=== PATIENT | female | born 1970 | race Caucasian/White ===

== ENCOUNTER → 2017-05-04 | Outpatient (CLI) | payer BC ==
[2017-05-04 21:14] LABS: Basophils % (A) 1 %; CH 23.9; CHCM 29.9; Eosinophils # (A) 0.2 k/uL (0-0.7); Eosinophils % (A) 2 %; HCT 37.6 % (34.0-46.0); HDW 3.43; HGB 11.1 gm/dL (11.4-16.0); Hypochromasia Marked; Luc # (Auto) 0.09; Luc % (Auto) 1; Lymphocytes # (A) 0.9 k/uL (1.0-4.8); Lymphocytes % (A) 11 %; MCH 23.7 pg (25.0-35.0); MCHC 29.5 g/dL (31.0-37.0); MCV 80.3 fL (80.0-100.0); Mean Platelet Volume 8.4; Monocytes # (A) 0.5 k/uL (0-1.0); Monocytes % (A) 6 %; Neutrophils # (A) 6.2 k/uL (1.3-7.7); Neutrophils % (A) 79 %; Poikilocytosis Slight; RBC 4.68 m/uL (3.80-5.40); RDW 15.3 % (11.5-15.5); WBC 7.8 k/uL (3.8-10.6); WBC (Perox) 8.35
[2017-05-04 21:22] LABS: ALT 32 U/L (9-52); AST 19 U/L (14-36); Alkaline Phosphatase 76 U/L (38-126); Anion Gap 12 mmol/L; Blood Urea Nitrogen 12 mg/dL (7-17); Calcium 9.7 mg/dL (8.4-10.2); Carbon Dioxide 25 mmol/L (22-30); Chloride 103 mmol/L (98-107); Cholesterol 180 mg/dL (<200); Glucose 106 mg/dL (74-99); HDL Cholesterol 36 mg/dL (40-60); Non-African American GFR(MDRD) >60 (>60 ml/min/1.73 sqM); Potassium 4.7 mmol/L (3.5-5.1); Sodium 140 mmol/L (137-145); Total Bilirubin 0.3 mg/dL (0.2-1.3); Total Protein 7.3 g/dL (6.3-8.2)
[2017-05-05 03:18] LABS: Urine Creatinine 26.2 mg/dL
== END | disposition home or self-care (01) ==
LOC: MMGSC 17:04
PROVIDERS: ATTEND Family Medicine
DX: E78.5 Hyperlipidemia, unspecified (principal); E11.9 Type 2 diabetes mellitus without complications; E03.9 Hypothyroidism, unspecified; I10 Essential (primary) hypertension
CPT/HCPCS: 36415; 80053; 80061; 82043; 82570; 83036; 84439; 84443; 85025

== ENCOUNTER → 2018-04-07 | Outpatient (CLI) | payer OTHER ==
[2018-04-07 10:39] LABS: ALT 29 U/L (9-52); AST 13 U/L (14-36); Albumin 3.8 g/dL (3.5-5.0); Alkaline Phosphatase 58 U/L (38-126); Anion Gap 11 mmol/L; Blood Urea Nitrogen 16 mg/dL (7-17); Calcium 9.2 mg/dL (8.4-10.2); Carbon Dioxide 22 mmol/L (22-30); Chloride 103 mmol/L (98-107); Cholesterol 193 mg/dL (<200); Glucose 389 mg/dL (74-99); HDL Cholesterol 30 mg/dL (40-60); LDL Cholesterol,Calculated 88 mg/dL (0-99); Potassium 4.2 mmol/L (3.5-5.1); Sodium 136 mmol/L (137-145); Total Bilirubin 0.4 mg/dL (0.2-1.3); Total Protein 6.5 g/dL (6.3-8.2); Triglycerides 377 mg/dL (<150)
[2018-04-07 10:52] LABS: T4, Free (Free Thyroxine) 1.65 ng/dL (0.78-2.19)
[2018-04-07 18:35] LABS: Hemoglobin A1C 13.3 % (4.0-6.0)
== END ==
LOC: LABWHC1 09:41
PROVIDERS: ATTEND Family Medicine
DX: E11.9 Type 2 diabetes mellitus without complications (principal)
CPT/HCPCS: 36415; 80053; 80061; 82043; 82570; 83036; 84439; 84443

== ENCOUNTER 2019-09-01 07:08 | Inpatient (IN) | payer BC, MEDICARE, OTHER ==
[2019-09-01 07:16] LABS: Glucose,Whole Blood 532 mg/dL (75-99)
[2019-09-01] MEDS ORDERED: SODIUM CHLORIDE 0.9% 1,000 ML IV STA (07:31)
[2019-09-01] MEDS ORDERED: SODIUM CHLORIDE 0.9% 1,000 ML IV ONE ×2 (07:31→08:06)
--- NOTE | 2019-09-01 07:31 | ED ---
Altered Mental Status HPI - General Chief Complaint: Altered Mental Status Stated Complaint: Altered Mental Status Time Seen by Provider: 09/01/19 07:15 Source: patient Mode of arrival: EMS Limitations: altered mental status - History of Present Illness Initial Comments: The patient is a 49 year old female past medical history of anxiety, depression, fibromyalgia and diabetes who presents to the emergency room with altered mental status. Sisters at bedside who is her medical power of staff attorney who provides the history. She states that her sister has a tendency to get depressed and not take her medications. She stays in contact with her via text her cell phone. She last talked to her 16 hours ago and the patient seemed confused. She states this is typical for the patient as she does have a tendency to take too much of her Klonopin. She then attempted to get a hold of her this morning. She went to the house and found her sister lying in bed. She had been incontinent. She did respond to tactile stimuli however she is not answering any questions. She has a history of being obstinant. She also will refuse to take her medications. She is concerned that she may have not taken her insulin. There is no signs of trauma as the patient was still lying in bed. EMS checked a blood sugar and the patient's blood sugar was in the 400s. Patient does arrive and plan of care Accu-Chek is 532. Sister states that she has not been in DKA previously. No recent illnesses. No recent travel. Sister states that the patient has not left her house since April. It she reports that she lives in deplorable conditions with significant hoarding tendencies. The remainder of the HPI is limited because the patient's current condition - Related Data Previous Rx's Medication Instructions Recorded Acetaminophen Tab [Tylenol] 650 mg PO Q6HR PRN tab 09/05/19 Amoxic-Pot Clav 875-125Mg 1 tab PO Q12HR 10 Days #6 tab 09/05/19 [Augmentin 875-125] Fluticasone Nasal [place] [Flonase 2 spray EA NOSTRIL DAILY spr 09/05/19 Nasal [place]] INSULIN ASPART (NovoLOG) [NovoLOG 0 unit SQ [id number] vial 09/05/19 (formulary)] Insulin Detemir (Levemir) [Levemir] 15 unit SQ DAILY@0700 syr 09/05/19 Insulin Detemir (Levemir) [Levemir] 15 unit SQ HS syr 09/05/19 Loratadine [Claritin] 10 mg PO DAILY tab 09/05/19 Piperacillin-Tazobactam [Zosyn] 3.375 gm IVPB Q8H vial 09/07/19 Allergies Allergy/AdvReac Type Severity Reaction Status Date / Time cefaclor [From Ceclor] Allergy Unknown Verified 09/03/19 09:30 Review of Systems ROS Statement: Those systems with pertinent positive or pertinent negative responses have been documented in the HPI. ROS Other: All systems not noted in ROS Statement are negative. Past Medical History Past Medical History: Diabetes Mellitus, Fibromyalgia, Skin Disorder Additional Past Medical History / Comment(s): rheumatoid arthritis History of Any Multi-Drug Resistant Organisms: None Reported Past Surgical History: Tonsillectomy Past Psychological History: Depression Smoking Status: Never smoker Past Alcohol Use History: None Reported Past Drug Use History: None Reported - Past Family History Father Additional Family Medical History / Comment(s): heart disease General Exam Limitations: altered mental status General appearance: obtunded Head exam: Present: atraumatic, normocephalic Eye exam: Present: PERRL. Absent: conjunctival injection, periorbital swelling ENT exam: Present: mucous membranes dry, TM's normal bilaterally Neck exam: Present: normal inspection. Absent: tenderness, meningismus, lymphad enopathy Respiratory exam: Present: normal lung sounds bilaterally. Absent: respiratory distress, wheezes, rales, rhonchi, stridor Cardiovascular Exam: Present: normal rhythm, tachycardia GI/Abdominal exam: Present: soft, normal bowel sounds. Absent: distended, tenderness, guarding, rebound, rigid Extremities exam: Present: normal inspection, full ROM, normal capillary refill. Absent: tenderness, pedal edema, joint swelling, calf tenderness Neurological exam: Present: altered, other (the patient wont follow commands. She will open her eyes to tactile stimuli. She does move all 4 extremities spontanously. She is non-verbal. No facial droop. ) Course Vital Signs 09/01/19 09/01/19 09/01/19 07:11 09:07 10:37 Temperature 98.9 F 99.0 F 98.6 F Pulse Rate 131 H 128 H 133 H Respiratory 16 18 18 Rate Blood Pressure 107/89 155/95 125/75 O2 Sat by Pulse 99 100 Oximetry - Reevaluation(s) Reevaluation #1: 09/01/19 08:29 Sister is notified that the patient does have elevated blood sugars and is acetone positive. The patient is receiving her second liter of fluid. VBG, CT and x-ray pending. Patient will be straight cathed for urine Medical Decision Making - Medical Decision Making Upon arrival patient was placed into room 1. A thorough history and physical exam was performed. We did obtain IV access. The patient was given 2 L bolus of normal saline. Laboratory studies were conducted. The patient went over for a chest x-ray and a CT of her brain. Initial Accu-Chek demonstrated the patient's blood sugar was 532. Laboratory studies demonstrate a white blood cell count of 24.2. PH is 7.16, CO2 27, bicarbonate 9. Glucose on CMP is 558. Troponin is negative. TSH is 1. Urine shows 4+ glucose and 4+ ketones. Acetaminophen, salicylates and alcohol are all negative. Acetone is positive. Urine drug screen is negative. Chest x-ray demonstrates low lung volumes and mild cardiomegaly without acute cardiopulmonary process. CT of the brain and cervical spine demonstrates no acute fracture or dislocation evident in the cervical spine. No acute cranial hemorrhage or midline shift. Significant right-sided acute sinusitis. 12-lead EKG demonstrated a sinus tachycardia. The patient is then started on an insulin drip. I did obtain blood cultures and initiated the patient on antibiotics for her sinusitis with elevated white blood cell count. I called and discuss case with Dr. Whiting who accepted admission for the patient. The sister at bedside was updated and the patient was transferred to the ICU in stable condition. Dr. Stein was the accepting pharmacovigilance scientist - Lab Data Result diagrams: 09/08/19 04:32 09/08/19 15:42 Lab Results 09/01/19 09/01/19 09/01/19 Range/Units 07:14 07:30 07:30 WBC 24.2 H (3.8-10.6) k/uL RBC 5.82 H (3.80-5.40) m/uL Hgb 13.6 (11.4-16.0) gm/dL Hct 46.8 H (34.0-46.0) % MCV 80.5 (80.0-100.0) fL MCH 23.4 L (25.0-35.0) pg MCHC 29.1 L (31.0-37.0) g/dL RDW 16.1 H (11.5-15.5) % Plt Count 503 H (150-450) k/uL Neutrophils % 92 % Lymphocytes % 3 % Monocytes % 4 % Eosinophils % 0 % Basophils % 0 % Neutrophils # 22.2 H (1.3-7.7) k/uL Lymphocytes # 0.8 L (1.0-4.8) k/uL Monocytes # 1.0 (0-1.0) k/uL Eosinophils # 0.0 (0-0.7) k/uL Basophils # 0.0 (0-0.2) k/uL Hypochromasia Marked Anisocytosis Slight PT 10.7 (9.0-12.0) sec INR 1.0 (<1.2) APTT 23.6 (22.0-30.0) sec VBG pH (7.31-7.41) VBG pCO2 (37-51) mmHg VBG HCO3 (24-28) mmol/L Sodium (137-145) mmol/L Potassium (3.5-5.1) mmol/L Chloride (98-107) mmol/L Carbon Dioxide (22-30) mmol/L Anion Gap mmol/L BUN (7-17) mg/dL Creatinine (0.52-1.04) mg/dL Est GFR (CKD-EPI)AfAm (>60 ml/min/1.73 sqM) Est GFR (CKD-EPI)NonAf (>60 ml/min/1.73 sqM) Glucose (74-99) mg/dL POC Glucose (mg/dL) 532 H (75-99) mg/dL POC Glu Al[employer] P[employer] Molder ASHLEY Ishmael [address] Glu mg/dL Hemoglobin A1c (4.0-6.0) % Calcium (8.4-10.2) mg/dL Total Bilirubin (0.2-1.3) mg/dL AST (14-36) U/L ALT (4-34) U/L Alkaline Phosphatase (38-126) U/L Ammonia (<30) umol/L Creatine Kinase (30-135) U/L Troponin I (0.000-0.034) ng/mL Total Protein (6.3-8.2) g/dL Albumin (3.5-5.0) g/dL TSH (0.465-4.680) mIU/L Urine Color Urine Appearance (Clear) Urine pH (5.0-8.0) Ur Specific [place] (1.001-1.035) Urine Protein (Negative) Urine Glucose (UA) (Negative) Urine Ketones (Negative) Urine Blood (Negative) Urine Nitrite (Negative) Urine Bilirubin (Negative) Urine Urobilinogen (<2.0) mg/dL Ur Leukocyte Esterase (Negative) Ur Squamous Epith Cells (0-4) /hpf Urine Mucus (None) /hpf Salicylates mg/dL Urine Opiates Screen (NotDetected) Ur Oxycodone Screen (NotDetected) Urine Methadone Screen (NotDetected) Ur Propoxyphene Screen (NotDetected) Acetaminophen ug/mL Ur Barbiturates Screen (NotDetected) U Tricyclic Antidepress (NotDetected) Ur Phencyclidine Scrn (NotDetected) Ur Amphetamines Screen (NotDetected) U Methamphetamines Scrn (NotDetected) U Benzodiazepines Scrn (NotDetected) Urine Cocaine Screen (NotDetected) U Marijuana (THC) Screen (NotDetected) Serum Alcohol mg/dL Acetone, Qual (Negative) 09/01/19 09/01/19 09/01/19 Range/Units 07:30 07:30 07:30 WBC (3.8-10.6) k/uL RBC (3.80-5.40) m/uL Hgb (11.4-16.0) gm/dL Hct (34.0-46.0) % MCV (80.0-100.0) fL MCH (25.0-35.0) pg MCHC (31.0-37.0) g/dL RDW (11.5-15.5) % Plt Count (150-450) k/uL Neutrophils % % Lymphocytes % % Monocytes % % Eosinophils % % Basophils % % Neutrophils # (1.3-7.7) k/uL Lymphocytes # (1.0-4.8) k/uL Monocytes # (0-1.0) k/uL Eosinophils # (0-0.7) k/uL Basophils # (0-0.2) k/uL Hypochromasia Anisocytosis PT (9.0-12.0) sec INR (<1.2) APTT (22.0-30.0) sec VBG pH (7.31-7.41) VBG pCO2 (37-51) mmHg VBG HCO3 (24-28) mmol/L Sodium 135 L (137-145) mmol/L Potassium 4.8 (3.5-5.1) mmol/L Chloride 98 (98-107) mmol/L Carbon Dioxide 7 L* (22-30) mmol/L Anion Gap 30 mmol/L BUN 17 (7-17) mg/dL Creatinine 0.86 (0.52-1.04) mg/dL Est GFR (CKD-EPI)AfAm >90 (>60 ml/min/1.73 sqM) Est GFR (CKD-EPI)NonAf 81 (>60 ml/min/1.73 sqM) Glucose 558 H* (74-99) mg/dL POC Glucose (mg/dL) (75-99) mg/dL POC Glu Almond Paste Molder ID Estimated Ave Glu mg/dL Hemoglobin A1c (4.0-6.0) % Calcium 10.6 H (8.4-10.2) mg/dL Total Bilirubin 0.4 (0.2-1.3) mg/dL AST 16 (14-36) U/L ALT 11 (4-34) U/L Alkaline Phosphatase 71 (38-126) U/L Ammonia <9 (<30) umol/L Creatine Kinase 20 L (30-135) U/L Troponin I <0.012 (0.000-0.034) ng/mL Total Protein 7.7 (6.3-8.2) g/dL Albumin 4.8 (3.5-5.0) g/dL TSH 1.000 (0.465-4.680) mIU/L Urine Color Urine Appearance (Clear) Urine pH (5.0-8.0) Ur Specific [place] (1.001-1.035) Urine Protein (Negative) Urine Glucose (UA) (Negative) Urine Ketones (Negative) Urine Blood (Negative) Urine Nitrite (Negative) Urine Bilirubin (Negative) Urine Urobilinogen (<2.0) mg/dL Ur Leukocyte Esterase (Negative) Ur Squamous Epith Cells (0-4) /hpf Urine Mucus (None) /hpf Salicylates <1.0 mg/dL Urine Opiates Screen (NotDetected) Ur Oxycodone Screen (NotDetected) Urine Methadone Screen (NotDetected) Ur Propoxyphene Screen (NotDetected) Acetaminophen <10.0 ug/mL Ur Barbiturates Screen (NotDetected) U Tricyclic Antidepress (NotDetected) Ur Phencyclidine Scrn (NotDetected) Ur Amphetamines Screen (NotDetected) U Methamphetamines Scrn (NotDetected) U Benzodiazepines Scrn (NotDetected) Urine Cocaine Screen (NotDetected) U Marijuana (THC) Screen (NotDetected) Serum Alcohol <10 mg/dL Acetone, Qual Positive (Negative) 09/01/19 09/01/19 09/01/19 Range/Units 07:30 09:00 09:25 WBC (3.8-10.6) k/uL RBC (3.80-5.40) m/uL Hgb (11.4-16.0) gm/dL Hct (34.0-46.0) % MCV (80.0-100.0) fL MCH (25.0-35.0) pg MCHC (31.0-37.0) g/dL RDW (11.5-15.5) % Plt Count (150-450) k/uL Neutrophils % % Lymphocytes % % Monocytes % % Eosinophils % % Basophils % % Neutrophils # (1.3-7.7) k/uL Lymphocytes # (1.0-4.8) k/uL Monocytes # (0-1.0) k/uL Eosinophils # (0-0.7) k/uL Basophils # (0-0.2) k/uL Hypochromasia Anisocytosis PT (9.0-12.0) sec INR (<1.2) APTT (22.0-30.0) sec VBG pH 7.16 L* (7.31-7.41) VBG pCO2 27 L (37-51) mmHg VBG HCO3 9 L* (24-28) mmol/L Sodium (137-145) mmol/L Potassium (3.5-5.1) mmol/L Chloride (98-107) mmol/L Carbon Dioxide (22-30) mmol/L Anion Gap mmol/L BUN (7-17) mg/dL Creatinine (0.52-1.04) mg/dL Est GFR (CKD-EPI)AfAm (>60 ml/min/1.73 sqM) Est GFR (CKD-EPI)NonAf (>60 ml/min/1.73 sqM) Glucose (74-99) mg/dL POC Glucose (mg/dL) (75-99) mg/dL POC Glu Al[employer] Paste Molder ID Estimated Ave Glu mg/dL 292 Hemoglobin A1c 11.8 H (4.0-6.0) % Calcium (8.4-10.2) mg/dL Total Bilirubin (0.2-1.3) mg/dL AST (14-36) U/L ALT (4-34) U/L Alkaline Phosphatase (38-126) U/L Ammonia (<30) umol/L Creatine Kinase (30-135) U/L Troponin I (0.000-0.034) ng/mL Total Protein (6.3-8.2) g/dL Albumin (3.5-5.0) g/dL TSH (0.465-4.680) mIU/L Urine Color Urine Appearance (Clear) Urine pH (5.0-8.0) Ur Specific [place] (1.001-1.035) Urine Protein (Negative) Urine Glucose (UA) (Negative) Urine Ketones (Negative) Urine Blood (Negative) Urine Nitrite (Negative) Urine Bilirubin (Negative) Urine Urobilinogen (<2.0) mg/dL Ur Leukocyte Esterase (Negative) Ur Squamous Epith Cells (0-4) /hpf Urine Mucus (None) /hpf Salicylates mg/dL Urine Opiates Screen Not Detected (NotDetected) Ur Oxycodone Screen Not Detected (NotDetected) Urine Methadone Screen Not Detected (NotDetected) Ur Propoxyphene Screen Not Detected (NotDetected) Acetaminophen ug/mL Ur Barbiturates Screen Not Detected (NotDetected) U Tricyclic Antidepress Not Detected (NotDetected) Ur Phencyclidine Scrn Not Detected (NotDetected) Ur Amphetamines Screen Not Detected (NotDetected) U Methamphetamines Scrn Not Detected (NotDetected) U Benzodiazepines Scrn Not Detected (NotDetected) Urine Cocaine Screen Not Detected (NotDetected) U Marijuana (THC) Screen Not Detected (NotDetected) Serum Alcohol mg/dL Acetone, Qual (Negative) 09/01/19 09/01/19 Range/Units 09:25 09:42 WBC (3.8-10.6) k/uL RBC (3.80-5.40) m/uL Hgb (11.4-16.0) gm/dL Hct (34.0-46.0) % MCV (80.0-100.0) fL MCH (25.0-35.0) pg MCHC (31.0-37.0) g/dL RDW (11.5-15.5) % Plt Count (150-450) k/uL Neutrophils % % Lymphocytes % % Monocytes % % Eosinophils % % Basophils % % Neutrophils # (1.3-7.7) k/uL Lymphocytes # (1.0-4.8) k/uL Monocytes # (0-1.0) k/uL Eosinophils # (0-0.7) k/uL Basophils # (0-0.2) k/uL Hypochromasia Anisocytosis PT (9.0-12.0) sec INR (<1.2) APTT (22.0-30.0) sec VBG pH (7.31-7.41) VBG pCO2 (37-51) mmHg VBG HCO3 (24-28) mmol/L Sodium (137-145) mmol/L Potassium (3.5-5.1) mmol/L Chloride (98-107) mmol/L Carbon Dioxide (22-30) mmol/L Anion Gap mmol/L BUN (7-17) mg/dL Creatinine (0.52-1.04) mg/dL Est GFR (CKD-EPI)AfAm (>60 ml/min/1.73 sqM) Est GFR (CKD-EPI)NonAf (>60 ml/min/1.73 sqM) Glucose (74-99) mg/dL POC Glucose (mg/dL) 494 H (75-99) mg/dL POC Glu [employer] M[employer] ASHLEY Ishmael [address] Glu mg/dL Hemoglobin A1c (4.0-6.0) % Calcium (8.4-10.2) mg/dL Total Bilirubin (0.2-1.3) mg/dL AST (14-36) U/L ALT (4-34) U/L Alkaline Phosphatase (38-126) U/L Ammonia (<30) umol/L Creatine Kinase (30-135) U/L Troponin I (0.000-0.034) ng/mL Total Protein (6.3-8.2) g/dL Albumin (3.5-5.0) g/dL TSH (0.465-4.680) mIU/L Urine Color Light Yellow Urine Appearance Clear (Clear) Urine pH 5.5 (5.0-8.0) Ur Specific [place] 1.029 (1.001-1.035) Urine Protein 1+ H (Negative) Urine Glucose (UA) 4+ H (Negative) Urine Ketones 4+ H (Negative) Urine Blood Negative (Negative) Urine Nitrite Negative (Negative) Urine Bilirubin Negative (Negative) Urine Urobilinogen <2.0 (<2.0) mg/dL Ur Leukocyte Esterase Negative (Negative) Ur Squamous Epith Cells <1 (0-4) /hpf Urine Mucus Rare H (None) /hpf Salicylates mg/dL Urine Opiates Screen (NotDetected) Ur Oxycodone Screen (NotDetected) Urine Methadone Screen (NotDetected) Ur Propoxyphene Screen (NotDetected) Acetaminophen ug/mL Ur Barbiturates Screen (NotDetected) U Tricyclic Antidepress (NotDetected) Ur Phencyclidine Scrn (NotDetected) Ur Amphetamines Screen (NotDetected) U Methamphetamines Scrn (NotDetected) U Benzodiazepines Scrn (NotDetected) Urine Cocaine Screen (NotDetected) U Marijuana (THC) Screen (NotDetected) Serum Alcohol mg/dL Acetone, Qual (Negative) - EKG Data EKG Comments: EKG demonstrates a sinus tachycardia with a ventricular rate of 1:30. AK interval 112. QRS 66. QTC of 568. No acute ST segment elevations or depressions concerning for ischemic changes. Critical Care Time Critical Care Time: Yes Critical Care Time: 33 minutes Disposition Clinical Impression: Altered mental status, Diabetic keto-acidosis, Sinus tachycardia Disposition: [facility]MITTED [facility] Condition: Serious Is patient prescribed a controlled substance at d/c from ED?: No Decision to Admit Reason: Admit from EC Decision Date: 09/01/19 Decision Time: 09:43
[2019-09-01 08:12] LABS: Partial Thromboplastin Time 23.6 sec (22.0-30.0); Prothrombin Time 10.7 sec (9.0-12.0)
[2019-09-01 08:13] LABS: Anisocytosis Slight; Basophils % (A) 0 %; Eosinophils % (A) 0 %; HCT 46.8 % (34.0-46.0); HGB 13.6 gm/dL (11.4-16.0); Hypochromasia Marked; Lymphocytes # (A) 0.8 k/uL (1.0-4.8); Lymphocytes % (A) 3 %; MCH 23.4 pg (25.0-35.0); MCHC 29.1 g/dL (31.0-37.0); MCV 80.5 fL (80.0-100.0); Mean Platelet Volume 9.3; Monocytes % (A) 4 %; Neutrophils # (A) 22.2 k/uL (1.3-7.7); Neutrophils % (A) 92 %; Platelet Count 503 k/uL (150-450); RBC 5.82 m/uL (3.80-5.40); RDW 16.1 % (11.5-15.5); WBC 24.2 k/uL (3.8-10.6)
[2019-09-01 08:16] LABS: ALT 11 U/L (4-34); AST 16 U/L (14-36); Acetaminophen <10.0 ug/mL; African American GFR (CKD) >90 (>60 ml/min/1.73 sqM); Albumin 4.8 g/dL (3.5-5.0); Alcohol <10 mg/dL; Alkaline Phosphatase 71 U/L (38-126); Blood Urea Nitrogen 17 mg/dL (7-17); Calcium 10.6 mg/dL (8.4-10.2); Chloride 98 mmol/L (98-107); Creatine Kinase 20 U/L (30-135); Non-African American GFR(CKD) 81 (>60 ml/min/1.73 sqM); Potassium 4.8 mmol/L (3.5-5.1); Salicylate <1.0 mg/dL; Sodium 135 mmol/L (137-145); Total Bilirubin 0.4 mg/dL (0.2-1.3); Total Protein 7.7 g/dL (6.3-8.2)
[2019-09-01 08:20] LABS: Anion Gap 30 mmol/L
[2019-09-01 08:26] LABS: Carbon Dioxide 7 mmol/L (22-30); Glucose 558 mg/dL (74-99)
--- NOTE | 2019-09-01 08:56 | XR ---
EXAMINATION TYPE: XR chest 2V DATE OF EXAM: 09/01/2019 COMPARISON: Prior chest x-ray January 31, 2012. HISTORY: Altered mental status and weakness. TECHNIQUE: Frontal and lateral views of the chest are obtained. FINDINGS: There is no focal air space opacity, pleural effusion, or pneumothorax seen. Somewhat low lung volumes redemonstrated. The cardiac silhouette size is stable and mildly enlarged. The osseous structures are intact. IMPRESSION: Low lung volumes and mild cardiomegaly without acute pulmonary process. No significant c hange from prior study.
[2019-09-01] MEDS ORDERED: INSULIN REGULAR 100 UNIT in SODIUM CHLORIDE 0.9% 100 ML IV SCH ×2 (09:00→09:15)
--- NOTE | 2019-09-01 09:14 | CT ---
EXAMINATION TYPE: CT brain cspine wo con DATE OF EXAM: 09/01/2019 COMPARISON: NONE HISTORY: AMS and weakness with neck pain. CT DLP: 1426 mGycm. Automated Exposure Control for Dose Reduction was Utilized. TECHNIQUE: CT scan of the head and cervical spine are performed without contrast. FINDINGS: There is no acute intracranial hemorrhage or midline shift identified. Mild symmetric david ateral frontal lobe atrophy. No hydrocephalus. There is near complete opacification right maxillary s inus expanding medial sinus wall without bony destruction. Near-complete opacification right ethmoid sinuses. Completely opacified right frontal sinus. Globes are intact bilaterally. Cervical spine is visualized in its entirety from C1 through upper thoracic levels and demonstrates dextroconvex scoliotic curvature positioning centered upper thoracic spine without evidence of acute fracture or dislocation. Prevertebral soft tissue appears within normal limits. The C1-C2 articulat ion is within normal limits on the coronal images. Vertebral body heights and disc space heights are maintained. Spinal canal is preserved. Thyroid gland is within normal limits. Axial images are unrema rkable. Lung apices show no pneumothorax. IMPRESSION: 1. There is no acute fracture or dislocation evident in the cervical spine. 2. No acute intracranial hemorrhage or midline shift is seen. Significant right-sided acute sinusitis thought present, correlate clinically. Advise ENT follow-up.
[2019-09-01 09:26] LABS: VBG PH 7.16 (7.31-7.41)
[2019-09-01 09:40] LABS: Appearance,Urine Clear (Clear); Bilirubin,Urine Negative (Negative); Blood,Urine Negative (Negative); Color,Urine Light Yellow; Glucose,Urine (UA) 4+ (Negative); Leukocyte Esterase,Urine Negative (Negative); Mucus,Urine Rare /hpf; Nitrite,Urine Negative (Negative); PH, Urine 5.5 (5.0-8.0); Protein,Urine 1+ (Negative); Specific Gravity,Urine 1.029 (1.001-1.035); Squamous Epithelial Cell,Urine <1 /hpf (0-4); Urobilinogen,Urine <2.0 mg/dL (<2.0)
[2019-09-01 09:45] LABS: Glucose,Whole Blood 494 mg/dL (75-99)
[2019-09-01] MEDS: INSULIN REGULAR 100 UNIT in SODIUM CHLORIDE 0.9% 100 ML IV SCH ×2 (09:45→19:04)
[2019-09-01 09:48] LABS: Amphetamine Screen,Urine Not Detected (NotDetected); Barbiturate Screen,Urine Not Detected (NotDetected); Benzodiazepines Screen,Urine Not Detected (NotDetected); Cocaine Screen,Urine Not Detected (NotDetected); Methadone Screen, Urine Not Detected (NotDetected); Opiate Screen,Urine Not Detected (NotDetected); Oxycodone Screen, Urine Not Detected (NotDetected); Phencyclidine Screen,Urine Not Detected (NotDetected); Tricyclic Antidepressant,Urine Not Detected (NotDetected); Urn Cannabinoid Scrn Not Detected (NotDetected)
[2019-09-01] MEDS ORDERED: PIPERACILLIN-TAZOBACTAM 3.375 GM in SODIUM CHLORIDE 0.9% 100 ML IVPB STA (09:48)
[2019-09-01 09:50] LABS: Ketones,Urine 4+ (Negative)
[2019-09-01 10:52] LABS: Glucose,Whole Blood 433 mg/dL (75-99)
[2019-09-01] MEDS ORDERED: SODIUM CHLORIDE 0.9% 1,000 ML IV SCH ×2 (10:53→11:00)
[2019-09-01 11:20] LABS: Glucose,Whole Blood 365 mg/dL (75-99)
[2019-09-01 12:31] LABS: African American GFR (CKD) >90 (>60 ml/min/1.73 sqM); Anion Gap 22 mmol/L; Blood Urea Nitrogen 19 mg/dL (7-17); Chloride 106 mmol/L (98-107); Glucose 337 mg/dL (74-99); Non-African American GFR(CKD) >90 (>60 ml/min/1.73 sqM); Phosphorus 2.8 mg/dL (2.5-4.5); Sodium 137 mmol/L (137-145)
[2019-09-01 12:37] LABS: Carbon Dioxide 9 mmol/L (22-30)
[2019-09-01] MEDS ORDERED: Magnesium Replacement Protocol 1 EACH MISC MISCELLANE PRN (12:45)
[2019-09-01] MEDS ORDERED: Potassium Replacement Protocol 1 EACH MISC MISCELLANE PRN (12:45)
[2019-09-01] MEDS ORDERED: ASPIRIN 300 MG SUPP RECTAL STA (12:47)
--- NOTE | 2019-09-01 12:54 | P.HPIM ---
History of Present Illness H&P Date: 09/01/19 Chief Complaint: decreased responsiveness Patient is a 49 yo CF with diabetes on insulin, HTN, HLD, and severe agoraphobia who presented to the emergency department via EMS due to mental status changes. She was found altered by her sister this morning. On arrival to the emergency department she underwent an extensive evaluation. Her initial vital signs showed tachycardia with a heart rate of 131. Her initial laboratory analysis showed white blood cell count of 24.2, hemoglobin 13.6, platelets 503. Her INR was normal at 1. Her VBG showed a pH of 7.19 with a bicarbonate 9. Sodium was slightly low at 135, glucose 558, calcium 10.6, troponin was normal. Urinalysis showed glucose urea. She was acetone positive. She underwent CT head and neck which showed significant acute right-sided sinusitis. In the ER she was given 2 L of fluid and started on insulin drip. She was also given a dose of Zosyn for her presumed acute right-sided sinusitis. She was admitted to the ICU for further monitoring. Patient seen and examined at bedside. Currently she is not verbalizing. She appears confused as intermittently following commands. Her sister who is her durable medical power of bakery supervisor is present and answers questions. Patient has severe Agoraphobia and has been hoarding. She has not left her house since April. The family did not hear from her for her normal morning checking and therefore his sister went to the house. She is on it even more disheveled than the last time she saw the house and her sister was not responding appropriately. The blue she has not been taking her medications appropriately. She does take Klonopin 3 times a day normally. They report she has severe depression and anxiety. There are any aware of any current review of systems. Her sister does note some right-sided facial drooping. It appears that she takes Lantus and novolog for diabetes Review of Systems Unable to obtain as the patient verbalized Past Medical History Past Medical History: Diabetes Mellitus, Fibromyalgia, Skin Disorder Additional Past Medical History / Comment(s): rheumatoid arthritis, reynauds, narolepsy, tachycardia, pneumonia History of Any Multi-Drug Resistant Organisms: None Reported Past Surgical History: Tonsillectomy Additional Past Surgical History / Comment(s): wisdom Past Psychological History: Anxiety, Depression Additional Psychological History / Comment(s): agoraphobia Smoking Status: Never smoker Past Alcohol Use History: None Reported Past Drug Use History: None Reported Additional History: Lives at home, has a cane/walker, no [facility] - Past Family History Father Additional Family Medical History / Comment(s): heart disease Medications and Allergies Allergies Allergy/AdvReac Type Severity Reaction Status Date / Time No Known Allergies Allergy Verified 09/01/19 07:17 Physical Exam Osteopathic Statement: *. No significant issues noted on an osteopathic structural exam other than those noted in the History and Physical/Consult. Vitals: Vital Signs Temp Pulse Resp BP Pulse Ox 09/01/19 11:20 98.8 F 122 H 23 130/72 98 09/01/19 10:37 98.6 F 133 H 18 125/75 09/01/19 09:07 99.0 F 128 H 18 155/95 100 09/01/19 07:11 98.9 F 131 H 16 107/89 99 Intake and Output 08/31/19 09/01/19 09/01/19 22:59 06:59 14:59 Other: Voiding Method Indwelling Catheter Weight 115.666 kg General: Ill-appearing, moderate distress, appears older than stated age, obese, disheveled Derm: Multiple upper extremity excoriations as well as chest wall, no unusual rashes/lesions no unusual ecchymoses, warm, dry Head: atraumatic, normocephalic, symmetric Eyes: EOMI, no lid lag, anicteric sclera, pupils equal round reactive to light, roving ENT: Nose and ears atraumatic, no thrush, no pharyngeal erythema Neck: No thyromegaly, no cervical lymphadenopathy, trachea midline, supple Mouth: no lip lesion, mucus membranes dry Cardiovascular: S1S2 tachy, no murmur, + posterior tibial pulse bilateral, no edema, capillary refill less than 2 seconds Lungs: CTA bilateral, no rhonchi, no rales , no accessory muscle use Abdominal: soft, nontender to palpation, no guarding, no appreciable organomegaly, normal bowel sounds Ext: no gross muscle atrophy, moving right upper, left upper, and left lower extremity independently howevere if you lift arms and legs she will let them drop and not hold them up,, not following commends consistently, only moaning, no contractures, Neuro: Moving eye all around room, + cough, + gag, loss of nasal labial fold on the right, no withdrawal to pain RUE, RLE, LLE, moans but does not withdraw to pain LUE, Babinski down going bilateral Psych: lethargic, will open eyes and make eye contact, Results CBC & Chem 7: 09/01/19 07:30 09/01/19 07:30 Labs: Abnormal Lab Results - Last 24 Hours (Table) 09/01/19 09/01/19 09/01/19 Range/Units 07:14 07:30 07:30 WBC 24.2 H (3.8-10.6) k/uL RBC 5.82 H (3.80-5.40) m/uL Hct 46.8 H (34.0-46.0) % MCH 23.4 L (25.0-35.0) pg MCHC 29.1 L (31.0-37.0) g/dL RDW 16.1 H (11.5-15.5) % Plt Count 503 H (150-450) k/uL Neutrophils # 22.2 H (1.3-7.7) k/uL Lymphocytes # 0.8 L (1.0-4.8) k/uL VBG pH (7.31-7.41) VBG pCO2 (37-51) mmHg VBG HCO3 (24-28) mmol/L Sodium 135 L (137-145) mmol/L Carbon Dioxide 7 L* (22-30) mmol/L Glucose 558 H* (74-99) mg/dL POC Glucose (mg/dL) 532 H (75-99) mg/dL Calcium 10.6 H (8.4-10.2) mg/dL Creatine Kinase 20 L (30-135) U/L Urine Protein (Negative) Urine Glucose (UA) (Negative) Urine Ketones (Negative) Urine Mucus (None) /hpf 09/01/19 09/01/19 09/01/19 Range/Units 09:00 09:25 09:42 WBC (3.8-10.6) k/uL RBC (3.80-5.40) m/uL Hct (34.0-46.0) % MCH (25.0-35.0) pg MCHC (31.0-37.0) g/dL RDW (11.5-15.5) % Plt Count (150-450) k/uL Neutrophils # (1.3-7.7) k/uL Lymphocytes # (1.0-4.8) k/uL VBG pH 7.16 L* (7.31-7.41) VBG pCO2 27 L (37-51) mmHg VBG HCO3 9 L* (24-28) mmol/L Sodium (137-145) mmol/L Carbon Dioxide (22-30) mmol/L Glucose (74-99) mg/dL POC Glucose (mg/dL) 494 H (75-99) mg/dL Calcium (8.4-10.2) mg/dL Creatine Kinase (30-135) U/L Urine Protein 1+ H (Negative) Urine Glucose (UA) 4+ H (Negative) Urine Ketones 4+ H (Negative) Urine Mucus Rare H (None) /hpf 09/01/19 09/01/19 Range/Units 10:50 11:18 WBC (3.8-10.6) k/uL RBC (3.80-5.40) m/uL Hct (34.0-46.0) % MCH (25.0-35.0) pg MCHC (31.0-37.0) g/dL RDW (11.5-15.5) % Plt Count (150-450) k/uL Neutrophils # (1.3-7.7) k/uL Lymphocytes # (1.0-4.8) k/uL VBG pH (7.31-7.41) VBG pCO2 (37-51) mmHg VBG HCO3 (24-28) mmol/L Sodium (137-145) mmol/L Carbon Dioxide (22-30) mmol/L Glucose (74-99) mg/dL POC Glucose (mg/dL) 433 H 365 H (75-99) mg/dL Calcium (8.4-10.2) mg/dL Creatine Kinase (30-135) U/L Urine Protein (Negative) Urine Glucose (UA) (Negative) Urine Ketones (Negative) Urine Mucus (None) /hpf Chest x-ray: report reviewed CT Scan - head: report reviewed Thrombosis Risk Factor Assmnt - DVT/VTE Prophylaxis DVT/VTE Prophylaxis: Pharmacologic Prophylaxis ordered Assessment and Plan Assessment: Diabetic ketoacidosis -Insulin drip -Every hour Accu-Cheks -IV fluids per DKA protocol -Serial electrolytes, mag, and phos -Check A1c -cosmetology educator to meet with patient -Currently nothing by mouth secondary to mental status -Replace potassium as per protocol Acute encephalopathy, probable metabolic -MRI brain to rule out acute stroke versus complications of sinusitis -Neuro checks -ASA -Check echo -Carotid Dopplers -Supportive care -Treatment of electrolyte disturbances as above Acute right-sided sinusitis with sepsis -Zosyn -IV fluids -Consult ENT as possibility of fungal sinusitis of untreated diabetes mellitus -Flonase -Claritin Severe metabolic acidosis -Treatment as above for DKA Hypercalcemia - likely due to dehydration - IVF repeat in AM Anxiety and depression with severe agoraphobia and hoarding tendencies -Once patient is more awake and alert will consult psychiatry -Question of lack of movement secondary to conversion disorder versus true neurologic disease Morbid obesity -Outpatient structured weight loss We'll need to attempt to obtain medication reconciliation from Dr. Nicolas's office on 09/02 as patient family is unaware of where she gets her medications filled from The patient is admitted with an anticipated greater than 2 midnight stay for evaluation of DKA. Surrogate decision-maker: Sister CODE STATUS:full DVT prophylaxis: heparin Discussed with: Patient, nursing, ed physician, nursing Anticipated discharge date: 3-[address]: ?[facility] A total of 75 minutes was spent on the care of this complex patient more than 50% of the time was spent in counseling and care coordination.
[2019-09-01 12:58] LABS: Glucose,Whole Blood 283 mg/dL (75-99)
[2019-09-01] MEDS: D5-0.45% NACL WITH KCL 20MEQ/L 1,000 ML IV SCH ×2 (13:00→21:21)
--- NOTE | 2019-09-01 13:51 | US ---
EXAMINATION TYPE: US carotid duplex BILAT DATE OF EXAM: 09/01/2019 COMPARISON: NONE CLINICAL HISTORY: stroke. EXAM MEASUREMENTS: RIGHT: Peak Systolic Velocity (PSV) cm/sec ----- Right CCA: 98.4 ----- Right ICA: 66.9 ----- Right ECA: 135.8 ICA/CCA ratio: 0.7 RIGHT: End Diastole cm/sec ----- Right CCA: 11.1 ----- Right ICA: 20.8 ----- Right ECA: 9.7 LEFT: Peak Systolic Velocity (PSV) cm/sec ----- Left CCA: 106.4 ----- Left ICA: 91.9 ----- Left ECA: 101.6 ICA/CCA ratio: 0.9 LEFT: End Diastole cm/sec ----- Left CCA: 7.9 ----- Left ICA: 27.3 ----- Left ECA: 0.0 VERTEBRALS (direction of flow): Right Vertebral: Antegrade Left Vertebral: Antegrade Rhythm: Normal Johnson scale images show no significant focal plaque at carotid bulb level bilaterally. Velocity measur ements and ratios in the visualized portions of both internal carotid arteries is within normal limit s. IMPRESSION: No hemodynamically significant stenosis is seen in either internal carotid artery. Criteria for Assigning % of Stenosis / Diameter reduction (Estimation based on the indirect measurements of the internal carotid artery velocities (ICA PSV). 1. Normal (no stenosis)=ICA PSV < 125 cm/s: ratio < 2.0: ICA EDV<40 cm/s. 2. Less than 50% stenosis=ICA PSV < 125 cm/s: ratio < 2.0: ICA EDV<40 cm/s. 3. 50 to 69% stenosis=ICA PSV of 125 to 230 cm/s: ration 2.0 ? 4.0: ICA EDV 40-100 cm/s. 4. Greater than 70% stenosis to near occlusion= ICA PSV > 230 cm/s: ratio > 4.0: ICA EDV > 100 cm/s. 5. Near occlusion= ICA PSV velocities may be low or undetectable: variable ratio and ICA EDV. 6. Total occlusion=unable to detect flow.
--- NOTE | 2019-09-01 14:42 | P.CNPUL ---
History of Present Illness Consult date: 09/01/19 Chief complaint: Altered mental status History of present illness: 49-year-old female patient came into the ED with altered mentation and she was immediately diagnosed having a BKA. The patient has underlying psychiatric history. The patient has severe agoraphobia and she has been hoarding. Her living condition has been extremely unacceptable based on the reported history. His sister has the power of admitted attorneys. For now, she is not verbalizing. She is confused. She is being treated for DKA. At the same time she was found to have some nasolabial fold flattening and the patient was suspected to have some right facial droop an MRI of the brain was ordered in addition to carotid Doppler. In regards to her DKA, the patient had a anion gap metabolic acidosis. The patient's serum bicarbonate was down to 7. Anion gap was 30. Glucose was 558. Calcium was 10.6. UA was negative. Cardiac enzymes were negative. TSH was 1 and she had some reactive leukocytosis with a white cell count of 24.2. CAT scan of the brain showed no evidence of any acute fracture or dislocation of the cervical spine. There was no intracranial hemorrhage or midline shift. There was some right sinusitis. Review of Systems ROS unobtainable: due to mental status Past Medical History Past Medical History: Diabetes Mellitus, Fibromyalgia, Skin Disorder Additional Past Medical History / Comment(s): rheumatoid arthritis, reynauds, narolepsy, History of Any Multi-Drug Resistant Organisms: None Reported Past Surgical History: Tonsillectomy Additional Past Surgical History / Comment(s): wisdom Past Psychological History: Anxiety, Depression Additional Psychological History / Comment(s): agoraphobia Smoking Status: Never smoker Past Alcohol Use History: None Reported Past Drug Use History: None Reported - Past Family History Father Additional Family Medical History / Comment(s): heart disease Medications and Allergies Home Medications Medication Instructions Recorded Confirmed Type Unable To Assess [Unable to Assess] 09/01/19 09/01/19 History Allergies Allergy/AdvReac Type Severity Reaction Status Date / Time No Known Allergies Allergy Verified 09/01/19 13:01 Physical Exam Vitals: Vital Signs Temp Pulse Resp BP Pulse Ox 09/01/19 11:20 98.8 F 122 H 23 130/72 98 09/01/19 10:37 98.6 F 133 H 18 125/75 09/01/19 09:07 99.0 F 128 H 18 155/95 100 09/01/19 07:11 98.9 F 131 H 16 107/89 99 Intake and Output 08/31/19 09/01/19 09/01/19 22:59 06:59 14:59 Other: Voiding Method Indwelling Catheter Weight 115.666 kg General: Ill-appearing, moderate distress, appears older than stated age, obese, disheveled Derm: Multiple upper extremity excoriations as well as chest wall, no unusual rashes/lesions no unusual ecchymoses, warm, dry Head: atraumatic, normocephalic, symmetric Eyes: EOMI, no lid lag, anicteric sclera, pupils equal round reactive to light, roving ENT: Nose and ears atraumatic, no thrush, no pharyngeal erythema Neck: No thyromegaly, no cervical lymphadenopathy, trachea midline, supple Mouth: no lip lesion, mucus membranes dry Cardiovascular: S1S2 tachy, no murmur, + posterior tibial pulse bilateral, no edema, capillary refill less than 2 seconds Lungs: CTA bilateral, no rhonchi, no rales , no accessory muscle use Abdominal: soft, nontender to palpation, no guarding, no appreciable organomegaly, normal bowel sounds Ext: no gross muscle atrophy, moving right upper, left upper, and left lower extremity independently howevere if you lift arms and legs she will let them drop and not hold them up,, not following commends consistently, only moaning, no contractures, Neuro: Moving eye all around room, + cough, + gag, loss of nasal labial fold on the right, no withdrawal to pain RUE, RLE, LLE, moans but does not withdraw to pain LUE, Babinski down going bilateral Psych: lethargic, will open eyes and make eye contact, Results - Laboratory Findings CBC and BMP: 09/01/19 07:30 09/01/19 13:15 PT/INR, D-dimer PT 10.7 sec (9.0-12.0) 09/01/19 07:30 INR 1.0 (<1.2) 09/01/19 07:30 Abnormal lab findings: Abnormal Labs 09/01/19 09/01/19 09/01/19 07:14 07:30 07:30 WBC 24.2 H RBC 5.82 H Hct 46.8 H MCH 23.4 L MCHC 29.1 L RDW 16.1 H Plt Count 503 H Neutrophils # 22.2 H Lymphocytes # 0.8 L VBG pH VBG pCO2 VBG HCO3 Sodium 135 L Carbon Dioxide 7 L* BUN Glucose 558 H* POC Glucose (mg/dL) 532 H Calcium 10.6 H Creatine Kinase 20 L Urine Protein Urine Glucose (UA) Urine Ketones Urine Mucus 09/01/19 09/01/19 09/01/19 09:00 09:25 09:42 WBC RBC Hct MCH MCHC RDW Plt Count Neutrophils # Lymphocytes # VBG pH 7.16 L* VBG pCO2 27 L VBG HCO3 9 L* Sodium Carbon Dioxide BUN Glucose POC Glucose (mg/dL) 494 H Calcium Creatine Kinase Urine Protein 1+ H Urine Glucose (UA) 4+ H Urine Ketones 4+ H Urine Mucus Rare H 09/01/19 09/01/19 09/01/19 10:50 11:18 12:10 WBC RBC Hct MCH MCHC RDW Plt Count Neutrophils # Lymphocytes # VBG pH VBG pCO2 VBG HCO3 Sodium Carbon Dioxide 9 L* BUN 19 H Glucose 337 H POC Glucose (mg/dL) 433 H 365 H Calcium Creatine Kinase Urine Protein Urine Glucose (UA) Urine Ketones Urine Mucus 09/01/19 12:56 WBC RBC Hct MCH MCHC RDW Plt Count Neutrophils # Lymphocytes # VBG pH VBG pCO2 VBG HCO3 Sodium Carbon Dioxide BUN Glucose POC Glucose (mg/dL) 283 H Calcium Creatine Kinase Urine Protein Urine Glucose (UA) Urine Ketones Urine Mucus - Diagnostic Findings Chest x-ray: image reviewed Assessment and Plan Plan: 1 diabetic ketoacidosis with severe anion gap metabolic acidosis currently on insulin drip for blood sugar control being treated by the DKA protocol. 2 reactive leukocytosis 3 sinusitis, right-sided currently on antibiotics Zosyn 4 altered mental status likely secondary to metabolic derangements. CVA is doubtful. CAT scan of the brain is negative for an acute abnormalities 5 chronic anxiety/depression 6 severe agoraphobia 7 hoarding tendencies 8 diabetes mellitus 9 rheumatoid arthritis Plan Continue treatment of the caregiver care protocol insulin drip Monitor electrolytes Monitor acidosis MRI of the brain IV Zosyn Psych evaluation once more stable Heparin subcu for DVT prophylaxis IV Protonix We'll continue to follow
[2019-09-01 14:47] LABS: Glucose,Whole Blood 218 mg/dL (75-99)
[2019-09-01] MEDS: FLUTICASONE 50MCG/SPRAY NASAL 16GM EA NOSTRIL SCH (15:12)
--- NOTE | 2019-09-01 15:34 | MR ---
EXAMINATION TYPE: MR brain wo con DATE OF EXAM: 09/01/2019 COMPARISON: January 26, 2013 HISTORY: Strok, Right sided sinusitis with facial droop Multiplanar multiecho imaging of the brain was performed without contrast. There is cerebral cortical atrophy. There is no mass effect nor midline shift. There is no sign of intracranial hemorrhage. Exa m limited somewhat by motion. There is on the FLAIR images mild increased signal in the periventricul ar white matter in a somewhat diffuse pattern. The brainstem is intact. Cerebellum is intact. There i s mucosal thickening in the right maxillary sinus which is opacified. There is no evidence of a corti harjit infarct. There is no evidence of posterior fossa mass. IMPRESSION: Cerebral atrophy in this relatively young patient. There is mild white matter signal changes around t he lateral ventricles that appears new compared to old exam. This could relate to some chronic small vessel ischemia.
[2019-09-01 16:11] LABS: Glucose,Whole Blood 247 mg/dL (75-99)
[2019-09-01 16:31] LABS: African American GFR (CKD) >90 (>60 ml/min/1.73 sqM); Anion Gap 15 mmol/L; Blood Urea Nitrogen 21 mg/dL (7-17); Carbon Dioxide 12 mmol/L (22-30); Chloride 111 mmol/L (98-107); Glucose 236 mg/dL (74-99); Non-African American GFR(CKD) >90 (>60 ml/min/1.73 sqM); Phosphorus 1.8 mg/dL (2.5-4.5); Sodium 138 mmol/L (137-145)
[2019-09-01 16:49] LABS: Glucose,Whole Blood 214 mg/dL (75-99)
[2019-09-01 16:52] LABS: Potassium 4.1 mmol/L (3.5-5.1)
[2019-09-01 17:59] LABS: Hemoglobin A1C 11.8 % (4.0-6.0)
[2019-09-01 18:06] LABS: Glucose,Whole Blood 180 mg/dL (75-99)
[2019-09-01] MEDS: SODIUM PHOSPHATE 10 MMOL in SODIUM CHLORIDE 0.9% 250 ML IVPB SCH ×3 (18:59→23:08)
[2019-09-01] MEDS: PIPERACILLIN-TAZOBACTAM 3.375 GM in SODIUM CHLORIDE 0.9% 100 ML IVPB SCH (19:00)
--- NOTE | 2019-09-01 19:01 | XR ---
EXAMINATION TYPE: XR abdomen 1V DATE OF EXAM: 09/01/2019 COMPARISON: NONE HISTORY: Vomiting TECHNIQUE: 2 views supine and upright FINDINGS: Bowel gas pattern is normal. There is no sign of intestinal obstruction or pneumoperitoneum . Fecal pattern is normal. There is nasogastric tube in the distal stomach. Lung bases are clear. The re are no pathologic calcifications over the kidneys. IMPRESSION: Nonacute abdomen.
[2019-09-01 19:05] LABS: Glucose,Whole Blood 184 mg/dL (75-99)
[2019-09-01 19:51] LABS: Glucose,Whole Blood 157 mg/dL (75-99)
[2019-09-01 20:43] LABS: African American GFR (CKD) >90 (>60 ml/min/1.73 sqM); Anion Gap 14 mmol/L; Blood Urea Nitrogen 22 mg/dL (7-17); Calcium 10.6 mg/dL (8.4-10.2); Carbon Dioxide 15 mmol/L (22-30); Chloride 110 mmol/L (98-107); Glucose 156 mg/dL (74-99); Non-African American GFR(CKD) >90 (>60 ml/min/1.73 sqM); Potassium 3.7 mmol/L (3.5-5.1); Sodium 139 mmol/L (137-145)
[2019-09-01 21:00] LABS: Glucose,Whole Blood 153 mg/dL (75-99)
[2019-09-01 21:56] LABS: Glucose,Whole Blood 119 mg/dL (75-99)
[2019-09-01 23:12] LABS: Glucose,Whole Blood 140 mg/dL (75-99)
[2019-09-01 23:53] LABS: Glucose,Whole Blood 159 mg/dL (75-99)
[2019-09-02 01:07] LABS: African American GFR (CKD) >90 (>60 ml/min/1.73 sqM); Anion Gap 11 mmol/L; Blood Urea Nitrogen 23 mg/dL (7-17); Calcium 9.9 mg/dL (8.4-10.2); Carbon Dioxide 15 mmol/L (22-30); Chloride 111 mmol/L (98-107); Glucose 178 mg/dL (74-99); Magnesium 1.8 mg/dL (1.6-2.3); Non-African American GFR(CKD) >90 (>60 ml/min/1.73 sqM); Potassium 3.5 mmol/L (3.5-5.1); Sodium 137 mmol/L (137-145)
[2019-09-02 01:08] LABS: Glucose,Whole Blood 189 mg/dL (75-99)
[2019-09-02 03:09] LABS: Glucose,Whole Blood 203 mg/dL (75-99)
[2019-09-02] MEDS ORDERED: Potassium Replacement Protocol 1 EACH MISC MISCELLANE PRN (03:09)
[2019-09-02] MEDS ORDERED: Magnesium Replacement Protocol 1 EACH MISC MISCELLANE PRN (03:10)
[2019-09-02] MEDS: POTASSIUM CHLORIDE 10 MEQ in WATER FOR INJECTION 1 100ML.BAG IVPB SCH ×4 (03:21→06:21)
[2019-09-02] MEDS: PIPERACILLIN-TAZOBACTAM 3.375 GM in SODIUM CHLORIDE 0.9% 100 ML IVPB SCH ×3 (03:21→18:19)
[2019-09-02 04:06] LABS: Glucose,Whole Blood 215 mg/dL (75-99)
[2019-09-02] MEDS: D5-0.45% NACL WITH KCL 20MEQ/L 1,000 ML IV SCH ×4 (04:23→20:39)
[2019-09-02] MEDS: MAGNESIUM SULFATE-D5W PMX 1 GM in DEXTROSE/WATER 1 100ML.BAG IVPB SCH ×2 (04:25→04:29)
[2019-09-02 05:02] LABS: Glucose,Whole Blood 254 mg/dL (75-99)
[2019-09-02 06:08] LABS: Glucose,Whole Blood 238 mg/dL (75-99)
[2019-09-02] MEDS: INSULIN REGULAR 100 UNIT in SODIUM CHLORIDE 0.9% 100 ML IV SCH ×3 (06:24→20:16)
[2019-09-02 06:51] LABS: Glucose,Whole Blood 261 mg/dL (75-99)
[2019-09-02 08:04] LABS: Glucose,Whole Blood 244 mg/dL (75-99)
[2019-09-02] MEDS: LORATADINE 10 MG TAB PO SCH (08:09)
[2019-09-02 08:17] LABS: African American GFR (CKD) >90 (>60 ml/min/1.73 sqM); Anion Gap 10 mmol/L; Blood Urea Nitrogen 22 mg/dL (7-17); Calcium 9.5 mg/dL (8.4-10.2); Carbon Dioxide 14 mmol/L (22-30); Chloride 111 mmol/L (98-107); Glucose 265 mg/dL (74-99); Non-African American GFR(CKD) >90 (>60 ml/min/1.73 sqM); Sodium 135 mmol/L (137-145)
[2019-09-02 08:19] LABS: Anisocytosis Slight; Basophils % (A) 0 %; Eosinophils # (A) 0.1 k/uL (0-0.7); Eosinophils % (A) 0 %; HCT 36.8 % (34.0-46.0); HGB 11.2 gm/dL (11.4-16.0); Hypochromasia Marked; Lymphocytes # (A) 1.3 k/uL (1.0-4.8); Lymphocytes % (A) 5 %; MCH 23.8 pg (25.0-35.0); MCHC 30.5 g/dL (31.0-37.0); MCV 78.1 fL (80.0-100.0); Mean Platelet Volume 8.1; Microcytosis Slight; Monocytes # (A) 1.3 k/uL (0-1.0); Monocytes % (A) 5 %; Neutrophils # (A) 23.2 k/uL (1.3-7.7); Neutrophils % (A) 89 %; Platelet Count 338 k/uL (150-450); RBC 4.72 m/uL (3.80-5.40); RDW 16.2 % (11.5-15.5); WBC 26.2 k/uL (3.8-10.6)
[2019-09-02 08:43] LABS: Magnesium 2.4 mg/dL (1.6-2.3); Phosphorus 2.8 mg/dL (2.5-4.5)
[2019-09-02 09:08] LABS: Glucose,Whole Blood 228 mg/dL (75-99)
[2019-09-02] MEDS: FLUTICASONE 50MCG/SPRAY NASAL 16GM EA NOSTRIL SCH (09:33)
[2019-09-02 10:13] LABS: Glucose,Whole Blood 239 mg/dL (75-99)
--- NOTE | 2019-09-02 10:42 | P.PN ---
Subjective Progress Note Date: 09/02/19 Principal diagnosis: Diabetic ketoacidosis, altered mental status 49-year-old female patient came into the ED with altered mentation and she was immediately diagnosed having a BKA. The patient has underlying psychiatric history. The patient has severe agoraphobia and she has been hoarding. Her living condition has been extremely unacceptable based on the reported history. His sister has the power of litigation attorney. For now, she is not verbalizing. She is confused. She is being treated for DKA. At the same time she was found to have some nasolabial fold flattening and the patient was suspected to have some right facial droop an MRI of the brain was ordered in addition to carotid Doppler. In regards to her DKA, the patient had a anion gap metabolic acidosis. The mayte ent's serum bicarbonate was down to 7. Anion gap was 30. Glucose was 558. Calcium was 10.6. UA was negative. Cardiac enzymes were negative. TSH was 1 and she had some reactive leukocytosis with a white cell count of 24.2. CAT scan of the brain showed no evidence of any acute fracture or dislocation of the cervical spine. There was no intracranial hemorrhage or midline shift. There was some right sinusitis. The patient is seen today 09/02/2019 in follow-up in the intensive care unit. S he is a bit more awake and alert today compared to yesterday. She is still nonverbal. Mostly moaning. Not following any simple commands but is moving all 4 extremities. White count 26.2. Hemoglobin 11.2. Sodium 135. Potassium 4.0. Chloride 111. Bicarb 14. Anion gap 10. Creatinine 0.72. Glucose 239. Remains on an insulin drip at 4.5 ML's per hour. She is maintaining O2 saturations in the 90s on room air. She is afebrile. Tachycardic. She is moaning. She is having some significant abdominal discomfort on palpation. Abdominal x-ray revealed no acute abdomen. MRI of the brain revealed no acute intracranial process. Objective - Vital Signs Vital signs: Vital Signs Temp 98.9 F 09/02/19 08:00 Pulse 116 H 09/02/19 09:00 Resp 15 09/02/19 09:00 BP 152/86 09/02/19 09:00 Pulse Ox 96 09/02/19 09:00 Intake & Output 09/01/19 09/02/19 09/02/19 17:59 06:59 18:59 Intake Total 450 Output Total 115 Balance 335 Weight Intake: IV 450 D5-0.45% NaCl with KCl 450 20Meq/l 1,000 ml @ 150 mls/hr IV .Q6H40M [facility] Rx# :[id number] Sodium Chloride 0.9% 1, 000 ml @ 200 mls/hr IV . Q5H [facility] Rx#:[id number] Intake, IV Titration Amount Insulin Regular 100 unit In Sodium Chloride 0.9% 100 ml @ 0.1 UNITS/KG/HR 11.682 mls/hr IV .Q8H39M [facility] Rx#:[id number] Magnesium Sulfate-D5w Pmx 1 gm In Dextrose/Water 1 100ml.bag @ 100 mls/hr IVPB Q1H [facility] Rx#: [id number] Potassium Chloride 10 meq In Water For Injection 1 100ml.bag @ 100 mls/hr IVPB Q1HR [facility] Rx#: [id number] Sodium Phosphate 10 mmol In Sodium Chloride 0.9% 250 ml @ 125 mls/hr IVPB Q2H [facility] Rx#:[id number] Output: Gastric Drainage Urine 115 Other: Voiding Method Indwelling Catheter - Exam General: Ill-appearing, 49-year-old female patient, , appears older than stated age, obese, disheveled, more awake today, moving all fours, not following any commands, nonverbal, moaning. On room air. Derm: Multiple upper extremity excoriations as well as chest wall, no unusual rashes/lesions no unusual ecchymoses, warm, dry Head: atraumatic, normocephalic, symmetric Eyes: EOMI, no lid lag, anicteric sclera, pupils equal round reactive to light, roving ENT: Nose and ears atraumatic, no thrush, no pharyngeal erythema Neck: No thyromegaly, no cervical lymphadenopathy, trachea midline, supple Mouth: no lip lesion, mucus membranes dry Cardiovascular: S1S2 tachy, no murmur, + posterior tibial pulse bilateral, no edema, capillary refill less than 2 seconds Lungs: CTA bilateral, no rhonchi, no rales , no accessory muscle use Abdominal: soft, tender to palpation, no guarding, no appreciable organomegaly, normal bowel sounds Ext: no gross muscle atrophy, moving right upper, left upper, and left lower extremity independently howevere if you lift arms and legs she will let them drop and not hold them up,, not following commends consistently, only moaning, no contractures, Neuro: Moving eye all around room, + cough, + gag, loss of nasal labial fold on the right, no withdrawal to pain RUE, RLE, LLE, moans but does not withdraw to pain LUE, Babinski down going bilateral Psych: lethargic, will open eyes and make eye contact, - Labs CBC & Chem 7: 09/02/19 07:48 09/02/19 07:48 Labs: Abnormal Lab Results - Last 24 Hours (Table) 09/01/19 09/01/19 09/01/19 Range/Units 07:30 09:25 09:42 WBC (3.8-10.6) k/uL Hgb (11.4-16.0) gm/dL MCV (80.0-100.0) fL MCH (25.0-35.0) pg MCHC (31.0-37.0) g/dL RDW (11.5-15.5) % Neutrophils # (1.3-7.7) k/uL Monocytes # (0-1.0) k/uL Sodium (137-145) mmol/L Chloride (98-107) mmol/L Carbon Dioxide (22-30) mmol/L BUN (7-17) mg/dL Glucose (74-99) mg/dL POC Glucose (mg/dL) 494 H (75-99) mg/dL Hemoglobin A1c 11.8 H (4.0-6.0) % Calcium (8.4-10.2) mg/dL Phosphorus (2.5-4.5) mg/dL Magnesium (1.6-2.3) mg/dL Urine Protein 1+ H (Negative) Urine Glucose (UA) 4+ H (Negative) Urine Ketones 4+ H (Negative) Urine Mucus Rare H (None) /hpf 09/01/19 09/01/19 09/01/19 Range/Units 10:50 11:18 12:10 WBC (3.8-10.6) k/uL Hgb (11.4-16.0) gm/dL MCV (80.0-100.0) fL MCH (25.0-35.0) pg MCHC (31.0-37.0) g/dL RDW (11.5-15.5) % Neutrophils # (1.3-7.7) k/uL Monocytes # (0-1.0) k/uL Sodium (137-145) mmol/L Chloride (98-107) mmol/L Carbon Dioxide 9 L* (22-30) mmol/L BUN 19 H (7-17) mg/dL Glucose 337 H (74-99) mg/dL POC Glucose (mg/dL) 433 H 365 H (75-99) mg/dL Hemoglobin A1c (4.0-6.0) % Calcium (8.4-10.2) mg/dL Phosphorus (2.5-4.5) mg/dL Magnesium (1.6-2.3) mg/dL Urine Protein (Negative) Urine Glucose (UA) (Negative) Urine Ketones (Negative) Urine Mucus (None) /hpf 09/01/19 09/01/19 09/01/19 Range/Units 12:56 14:46 16:09 WBC (3.8-10.6) k/uL Hgb (11.4-16.0) gm/dL MCV (80.0-100.0) fL MCH (25.0-35.0) pg MCHC (31.0-37.0) g/dL RDW (11.5-15.5) % Neutrophils # (1.3-7.7) k/uL Monocytes # (0-1.0) k/uL Sodium (137-145) mmol/L Chloride 111 H (98-107) mmol/L Carbon Dioxide 12 L (22-30) mmol/L BUN 21 H (7-17) mg/dL Glucose 236 H (74-99) mg/dL POC Glucose (mg/dL) 283 H 218 H (75-99) mg/dL Hemoglobin A1c (4.0-6.0) % Calcium (8.4-10.2) mg/dL Phosphorus 1.8 L (2.5-4.5) mg/dL Magnesium (1.6-2.3) mg/dL Urine Protein (Negative) Urine Glucose (UA) (Negative) Urine Ketones (Negative) Urine Mucus (None) /hpf 09/01/19 09/01/19 09/01/19 Range/Units 16:10 16:47 18:04 WBC (3.8-10.6) k/uL Hgb (11.4-16.0) gm/dL MCV (80.0-100.0) fL MCH (25.0-35.0) pg MCHC (31.0-37.0) g/dL RDW (11.5-15.5) % Neutrophils # (1.3-7.7) k/uL Monocytes # (0-1.0) k/uL Sodium (137-145) mmol/L Chloride (98-107) mmol/L Carbon Dioxide (22-30) mmol/L BUN (7-17) mg/dL Glucose (74-99) mg/dL POC Glucose (mg/dL) 247 H 214 H 180 H (75-99) mg/dL Hemoglobin A1c (4.0-6.0) % Calcium (8.4-10.2) mg/dL Phosphorus (2.5-4.5) mg/dL Magnesium (1.6-2.3) mg/dL Urine Protein (Negative) Urine Glucose (UA) (Negative) Urine Ketones (Negative) Urine Mucus (None) /hpf 09/01/19 09/01/19 09/01/19 Range/Units 19:03 19:29 19:48 WBC (3.8-10.6) k/uL Hgb (11.4-16.0) gm/dL MCV (80.0-100.0) fL MCH (25.0-35.0) pg MCHC (31.0-37.0) g/dL RDW (11.5-15.5) % Neutrophils # (1.3-7.7) k/uL Monocytes # (0-1.0) k/uL Sodium (137-145) mmol/L Chloride 110 H (98-107) mmol/L Carbon Dioxide 15 L (22-30) mmol/L BUN 22 H (7-17) mg/dL Glucose 156 H (74-99) mg/dL POC Glucose (mg/dL) 184 H 157 H (75-99) mg/dL Hemoglobin A1c (4.0-6.0) % Calcium 10.6 H (8.4-10.2) mg/dL Phosphorus (2.5-4.5) mg/dL Magnesium (1.6-2.3) mg/dL Urine Protein (Negative) Urine Glucose (UA) (Negative) Urine Ketones (Negative) Urine Mucus (None) /hpf 09/01/19 09/01/19 09/01/19 Range/Units 20:59 21:55 23:10 WBC (3.8-10.6) k/uL Hgb (11.4-16.0) gm/dL MCV (80.0-100.0) fL MCH (25.0-35.0) pg MCHC (31.0-37.0) g/dL RDW (11.5-15.5) % Neutrophils # (1.3-7.7) k/uL Monocytes # (0-1.0) k/uL Sodium (137-145) mmol/L Chloride (98-107) mmol/L Carbon Dioxide (22-30) mmol/L BUN (7-17) mg/dL Glucose (74-99) mg/dL POC Glucose (mg/dL) 153 H 119 H 140 H (75-99) mg/dL Hemoglobin A1c (4.0-6.0) % Calcium (8.4-10.2) mg/dL Phosphorus (2.5-4.5) mg/dL Magnesium (1.6-2.3) mg/dL Urine Protein (Negative) Urine Glucose (UA) (Negative) Urine Ketones (Negative) Urine Mucus (None) /hpf 09/01/19 09/02/19 09/02/19 Range/Units 23:51 00:31 01:07 WBC (3.8-10.6) k/uL Hgb (11.4-16.0) gm/dL MCV (80.0-100.0) fL MCH (25.0-35.0) pg MCHC (31.0-37.0) g/dL RDW (11.5-15.5) % Neutrophils # (1.3-7.7) k/uL Monocytes # (0-1.0) k/uL Sodium (137-145) mmol/L Chloride 111 H (98-107) mmol/L Carbon Dioxide 15 L (22-30) mmol/L BUN 23 H (7-17) mg/dL Glucose 178 H (74-99) mg/dL POC Glucose (mg/dL) 159 H 189 H (75-99) mg/dL Hemoglobin A1c (4.0-6.0) % Calcium (8.4-10.2) mg/dL Phosphorus (2.5-4.5) mg/dL Magnesium (1.6-2.3) mg/dL Urine Protein (Negative) Urine Glucose (UA) (Negative) Urine Ketones (Negative) Urine Mucus (None) /hpf 09/02/19 09/02/19 09/02/19 Range/Units 03:07 04:03 05:00 WBC (3.8-10.6) k/uL Hgb (11.4-16.0) gm/dL MCV (80.0-100.0) fL MCH (25.0-35.0) pg MCHC (31.0-37.0) g/dL RDW (11.5-15.5) % Neutrophils # (1.3-7.7) k/uL Monocytes # (0-1.0) k/uL Sodium (137-145) mmol/L Chloride (98-107) mmol/L Carbon Dioxide (22-30) mmol/L BUN (7-17) mg/dL Glucose (74-99) mg/dL POC Glucose (mg/dL) 203 H 215 H 254 H (75-99) mg/dL Hemoglobin A1c (4.0-6.0) % Calcium (8.4-10.2) mg/dL Phosphorus (2.5-4.5) mg/dL Magnesium (1.6-2.3) mg/dL Urine Protein (Negative) Urine Glucose (UA) (Negative) Urine Ketones (Negative) Urine Mucus (None) /hpf 09/02/19 09/02/19 09/02/19 Range/Units 06:07 06:50 07:48 WBC (3.8-10.6) k/uL Hgb (11.4-16.0) gm/dL MCV (80.0-100.0) fL MCH (25.0-35.0) pg MCHC (31.0-37.0) g/dL RDW (11.5-15.5) % Neutrophils # (1.3-7.7) k/uL Monocytes # (0-1.0) k/uL Sodium 135 L (137-145) mmol/L Chloride 111 H (98-107) mmol/L Carbon Dioxide 14 L (22-30) mmol/L BUN 22 H (7-17) mg/dL Glucose 265 H (74-99) mg/dL POC Glucose (mg/dL) 238 H 261 H (75-99) mg/dL Hemoglobin A1c (4.0-6.0) % Calcium (8.4-10.2) mg/dL Phosphorus (2.5-4.5) mg/dL Magnesium (1.6-2.3) mg/dL Urine Protein (Negative) Urine Glucose (UA) (Negative) Urine Ketones (Negative) Urine Mucus (None) /hpf 09/02/19 09/02/19 09/02/19 Range/Units 07:48 07:48 08:03 WBC 26.2 H (3.8-10.6) k/uL Hgb 11.2 L (11.4-16.0) gm/dL MCV 78.1 L (80.0-100.0) fL MCH 23.8 L (25.0-35.0) pg MCHC 30.5 L (31.0-37.0) g/dL RDW 16.2 H (11.5-15.5) % Neutrophils # 23.2 H (1.3-7.7) k/uL Monocytes # 1.3 H (0-1.0) k/uL Sodium (137-145) mmol/L Chloride (98-107) mmol/L Carbon Dioxide (22-30) mmol/L BUN (7-17) mg/dL Glucose (74-99) mg/dL POC Glucose (mg/dL) 244 H (75-99) mg/dL Hemoglobin A1c (4.0-6.0) % Calcium (8.4-10.2) mg/dL Phosphorus (2.5-4.5) mg/dL Magnesium 2.4 H (1.6-2.3) mg/dL Urine Protein (Negative) Urine Glucose (UA) (Negative) Urine Ketones (Negative) Urine Mucus (None) /hpf 09/02/19 09/02/19 Range/Units 09:06 10:12 WBC (3.8-10.6) k/uL Hgb (11.4-16.0) gm/dL MCV (80.0-100.0) fL MCH (25.0-35.0) pg MCHC (31.0-37.0) g/dL RDW (11.5-15.5) % Neutrophils # (1.3-7.7) k/uL Monocytes # (0-1.0) k/uL Sodium (137-145) mmol/L Chloride (98-107) mmol/L Carbon Dioxide (22-30) mmol/L BUN (7-17) mg/dL Glucose (74-99) mg/dL POC Glucose (mg/dL) 228 H 239 H (75-99) mg/dL Hemoglobin A1c (4.0-6.0) % Calcium (8.4-10.2) mg/dL Phosphorus (2.5-4.5) mg/dL Magnesium (1.6-2.3) mg/dL Urine Protein (Negative) Urine Glucose (UA) (Negative) Urine Ketones (Negative) Urine Mucus (None) /hpf Assessment and Plan Assessment: 1 diabetic ketoacidosis with severe anion gap metabolic acidosis currently on insulin drip for blood sugar control being treated by the DKA protocol. Remains on insulin drip. 2 reactive leukocytosis on Zosyn 3 sinusitis, right-sided currently on antibiotics Zosyn 4 altered mental status likely secondary to metabolic derangements. CVA is doubtful. MRI of the brain revealed no evidence of acute CVA. CAT scan of the brain is negative for an acute abnormalities 5 chronic anxiety/depression 6 severe agoraphobia 7 hoarding tendencies 8 diabetes mellitus 9 rheumatoid arthritis 10 Acute abdominal pain Plan The patient was seen and evaluated by Dr. Stein. She is more awake and responsive today. Not following simple commands. Moving all fours. Nonverbal. Withdrawing to pain especially on abdominal palpation. Abdominal x-ray revealed no acute process. We will obtain a computed tomography scan of the abdomen and pelvis. Patient's sister is at the bedside and updated on her status. We will continue to follow make further recommendations based on her clinical status for I, the cosigning physician, performed a history & physical examination of the patient. Lungs sounds are clear. Maintaining good O2 saturations in the 90s on room air. I discussed the assessment and plan of care with my nurse practitioner, Celeste Aguilar. I attest to the above note as dictated by her.
[2019-09-02 11:24] LABS: Glucose,Whole Blood 216 mg/dL (75-99)
[2019-09-02] MEDS ORDERED: ACETAMINOPHEN TAB 325 MG TAB PO PRN (13:07)
[2019-09-02 13:19] LABS: Glucose,Whole Blood 188 mg/dL (75-99)
--- NOTE | 2019-09-02 13:45 | CT ---
EXAMINATION TYPE: CT abdomen pelvis wo con DATE OF EXAM: 09/02/2019 COMPARISON: None HISTORY: 49-year-old female Vomiting, abdominal guarding CT DLP: 1733.9 mGycm. Automated exposure control for dose reduction was used. TECHNIQUE: Contiguous axial scanning of the abdomen and pelvis without IV contrast. Coronal and sagit ai reconstructions performed. FINDINGS: Heart is borderline enlarged with trace anterior basilar pericardial fluid. Dependent atelectasis at the posterior lung bases. No pleural effusion. Extensive breathing motion artifacts are present. Limitations due to patient's arms down by the sides casting artifacts Noncontrast appearance of the liver, adrenal glands appear within normal limits. Kidneys show no calc isidra or hydronephrosis. Spleen is borderline in size at 13.2 cm. Tiny 4 mm gallstone. There is peripancreatic fat stranding along the retroperitoneum with a inflammatory edema tracking do wn the right retroperitoneum and with a trace left perisplenic ascites and fluid along the left parac olic gutter. No abnormal fluid collection is identified. No dilated small bowel or free air. Moderate stool right side of the colon. A few diverticular change along the left side of the colon. N o pericolonic inflammatory change. Bladder not distended with a Sneed catheter in place. Intraluminal bladder air relating to instrument ation. Uterus is anteverted. Left ovary is visualized. Large mixed fat and soft tissue density, and ossifica tion involving the right ovary measures 10.0 x 5.6 cm compatible with an ovarian dermoid. No abnormal fluid collection in the pelvis or pelvic lymphadenopathy. Bones: Degenerative disc disease lower lumbar spine with facet arthropathy. IMPRESSION: 1. Acute interstitial pancreatitis with moderate surrounding inflammation. Some inflammatory edema t racks down the retroperitoneum and there is trace perisplenic ascites. No peripancreatic fluid collec tion. 2. Tiny 4 gallstone noted within the gallbladder. 3. 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 Consider outpatient [facility] follow-up.
[2019-09-02 14:03] LABS: Glucose,Whole Blood 188 mg/dL (75-99)
[2019-09-02] MEDS: HYDROmorphone 0.5 MG/0.5 ML SYRINGE IVP PRN (15:11)
--- NOTE | 2019-09-02 15:54 | P.PN ---
Subjective Progress Note Date: 09/02/19 (delayed charting seen at 1215) Principal diagnosis: altered mentation Patient is a 49 yo CF with diabetes on insulin, HTN, HLD, and severe agoraphobia who presented to the emergency department via EMS due to mental status changes. She was found altered by her sister this morning. On arrival to the emergency department she underwent an extensive evaluation. Her initial vital signs showed tachycardia with a heart rate of 131. Her initial laboratory analysis showed white blood cell count of 24.2, hemoglobin 13.6, platelets 503. Her INR was normal at 1. Her VBG showed a pH of 7.19 with a bicarbonate 9. Sodium was slightly low at 135, glucose 558, calcium 10.6, troponin was normal. Urinalysis showed glucose urea. She was acetone positive. She underwent CT head and neck which showed significant acute right-sided sinusitis. In the ER she was given 2 L of fluid and started on insulin drip. She was also given a dose of Zosyn for her presumed acute right-sided sinusitis. She was admitted to the ICU for further monitoring. She had significant depressed mental status and abnormal neuro exam. She underwent MRI which was negative for acute change but did show greater atrophy than anticipated for age. She then developed intractable nausea and vomiting which resulted in NGT placement. Abdominal xray completed which showed no acute process. She did remove NGT on her own the morning of 09/02/19. She then underwent CT abd and pelvis on 09/02/19 which showed pancreatitis and her lipase was elevated. Her anion gap had normalized but she remained acidotic. She was not following commands but would sit up in bed and move all 4 extremities on her own, she would moan but refused to verbalize. Patient seen and examined at bedside with family present. Still not verbalizing or following commands. See overnight update as detailed above. Objective - Vital Signs Vital signs: Vital Signs Temp 99.5 F 09/02/19 12:00 Pulse 96 09/02/19 14:00 Resp 23 09/02/19 14:00 BP 148/87 09/02/19 14:00 Pulse Ox 96 09/02/19 14:00 Intake & Output 09/01/19 09/02/19 09/02/19 17:59 06:59 18:59 Intake Total 1219.35 Output Total 320 Balance 899.35 Weight Intake: IV 1200 D5-0.45% NaCl with KCl 1200 20Meq/l 1,000 ml @ 150 mls/hr IV .Q6H40M [facility] Rx# :[id number] Sodium Chloride 0.9% 1, 000 ml @ 200 mls/hr IV . Q5H [facility] Rx#:[id number] Intake, IV Titration 19.35 Amount Insulin Regular 100 unit 19.35 In Sodium Chloride 0.9% 100 ml @ 0.1 UNITS/KG/HR 11.682 mls/hr IV .Q8H39M [facility] Rx#:[id number] Magnesium Sulfate-D5w Pmx 1 gm In Dextrose/Water 1 100ml.bag @ 100 mls/hr IVPB Q1H [facility] Rx#: [id number] Potassium Chloride 10 meq In Water For Injection 1 100ml.bag @ 100 mls/hr IVPB Q1HR [facility] Rx#: [id number] Sodium Phosphate 10 mmol In Sodium Chloride 0.9% 250 ml @ 125 mls/hr IVPB Q2H [facility] Rx#:[id number] Output: Gastric Drainage Urine 320 Other: Voiding Method Indwelling Catheter - Exam General: ill appearing, mild distress, appears at stated age, obese Derm: warm, dry Head: atraumatic, normocephalic, symmetric Eyes: EOMI, no lid lag, anicteric sclera Mouth: no lip lesion, mucus membranes dry Cardiovascular: S1S2 reg, no murmur, positive posterior tibial pulse bilateral, Lungs: decreased bs bilateral, no rhonchi, no rales , no accessory muscle use Abdominal: soft, +tender to palpation diffusely, no guarding, no appreciable organomegaly Ext: no gross muscle atrophy, no edema, no contractures Neuro: CN II-XI grossly intact, no focal neuro deficits Psych: keeps eyes closed but will open and make eye contact when she wants to, refuses to follow commands, DOes not withdraw to painful stimuli but does sit up in bed and roll on her side in bed when she wants to. When she overheard us talking about her mental health she did let out a long moan and then sat up in bed. - Labs CBC & Chem 7: 09/02/19 07:48 09/02/19 07:48 Labs: Abnormal Lab Results - Last 24 Hours (Table) 09/01/19 09/01/19 09/01/19 Range/Units 07:30 14:46 16:09 WBC (3.8-10.6) k/uL Hgb (11.4-16.0) gm/dL MCV (80.0-100.0) fL MCH (25.0-35.0) pg MCHC (31.0-37.0) g/dL RDW (11.5-15.5) % Neutrophils # (1.3-7.7) k/uL Monocytes # (0-1.0) k/uL Sodium (137-145) mmol/L Chloride 111 H (98-107) mmol/L Carbon Dioxide 12 L (22-30) mmol/L BUN 21 H (7-17) mg/dL Glucose 236 H (74-99) mg/dL POC Glucose (mg/dL) 218 H (75-99) mg/dL Hemoglobin A1c 11.8 H (4.0-6.0) % Calcium (8.4-10.2) mg/dL Phosphorus 1.8 L (2.5-4.5) mg/dL Magnesium (1.6-2.3) mg/dL Lipase (23-300) U/L 09/01/19 09/01/19 09/01/19 Range/Units 16:10 16:47 18:04 WBC (3.8-10.6) k/uL Hgb (11.4-16.0) gm/dL MCV (80.0-100.0) fL MCH (25.0-35.0) pg MCHC (31.0-37.0) g/dL RDW (11.5-15.5) % Neutrophils # (1.3-7.7) k/uL Monocytes # (0-1.0) k/uL Sodium (137-145) mmol/L Chloride (98-107) mmol/L Carbon Dioxide (22-30) mmol/L BUN (7-17) mg/dL Glucose (74-99) mg/dL POC Glucose (mg/dL) 247 H 214 H 180 H (75-99) mg/dL Hemoglobin A1c (4.0-6.0) % Calcium (8.4-10.2) mg/dL Phosphorus (2.5-4.5) mg/dL Magnesium (1.6-2.3) mg/dL Lipase (23-300) U/L 09/01/19 09/01/19 09/01/19 Range/Units 19:03 19:29 19:48 WBC (3.8-10.6) k/uL Hgb (11.4-16.0) gm/dL MCV (80.0-100.0) fL MCH (25.0-35.0) pg MCHC (31.0-37.0) g/dL RDW (11.5-15.5) % Neutrophils # (1.3-7.7) k/uL Monocytes # (0-1.0) k/uL Sodium (137-145) mmol/L Chloride 110 H (98-107) mmol/L Carbon Dioxide 15 L (22-30) mmol/L BUN 22 H (7-17) mg/dL Glucose 156 H (74-99) mg/dL POC Glucose (mg/dL) 184 H 157 H (75-99) mg/dL Hemoglobin A1c (4.0-6.0) % Calcium 10.6 H (8.4-10.2) mg/dL Phosphorus (2.5-4.5) mg/dL Magnesium (1.6-2.3) mg/dL Lipase (23-300) U/L 09/01/19 09/01/19 09/01/19 Range/Units 20:59 21:55 23:10 WBC (3.8-10.6) k/uL Hgb (11.4-16.0) gm/dL MCV (80.0-100.0) fL MCH (25.0-35.0) pg MCHC (31.0-37.0) g/dL RDW (11.5-15.5) % Neutrophils # (1.3-7.7) k/uL Monocytes # (0-1.0) k/uL Sodium (137-145) mmol/L Chloride (98-107) mmol/L Carbon Dioxide (22-30) mmol/L BUN (7-17) mg/dL Glucose (74-99) mg/dL POC Glucose (mg/dL) 153 H 119 H 140 H (75-99) mg/dL Hemoglobin A1c (4.0-6.0) % Calcium (8.4-10.2) mg/dL Phosphorus (2.5-4.5) mg/dL Magnesium (1.6-2.3) mg/dL Lipase (23-300) U/L 09/01/19 09/02/19 09/02/19 Range/Units 23:51 00:31 01:07 WBC (3.8-10.6) k/uL Hgb (11.4-16.0) gm/dL MCV (80.0-100.0) fL MCH (25.0-35.0) pg MCHC (31.0-37.0) g/dL RDW (11.5-15.5) % Neutrophils # (1.3-7.7) k/uL Monocytes # (0-1.0) k/uL Sodium (137-145) mmol/L Chloride 111 H (98-107) mmol/L Carbon Dioxide 15 L (22-30) mmol/L BUN 23 H (7-17) mg/dL Glucose 178 H (74-99) mg/dL POC Glucose (mg/dL) 159 H 189 H (75-99) mg/dL Hemoglobin A1c (4.0-6.0) % Calcium (8.4-10.2) mg/dL Phosphorus (2.5-4.5) mg/dL Magnesium (1.6-2.3) mg/dL Lipase (23-300) U/L 09/02/19 09/02/19 09/02/19 Range/Units 03:07 04:03 05:00 WBC (3.8-10.6) k/uL Hgb (11.4-16.0) gm/dL MCV (80.0-100.0) fL MCH (25.0-35.0) pg MCHC (31.0-37.0) g/dL RDW (11.5-15.5) % Neutrophils # (1.3-7.7) k/uL Monocytes # (0-1.0) k/uL Sodium (137-145) mmol/L Chloride (98-107) mmol/L Carbon Dioxide (22-30) mmol/L BUN (7-17) mg/dL Glucose (74-99) mg/dL POC Glucose (mg/dL) 203 H 215 H 254 H (75-99) mg/dL Hemoglobin A1c (4.0-6.0) % Calcium (8.4-10.2) mg/dL Phosphorus (2.5-4.5) mg/dL Magnesium (1.6-2.3) mg/dL Lipase (23-300) U/L 09/02/19 09/02/19 09/02/19 Range/Units 06:07 06:50 07:00 WBC (3.8-10.6) k/uL Hgb (11.4-16.0) gm/dL MCV (80.0-100.0) fL MCH (25.0-35.0) pg MCHC (31.0-37.0) g/dL RDW (11.5-15.5) % Neutrophils # (1.3-7.7) k/uL Monocytes # (0-1.0) k/uL Sodium (137-145) mmol/L Chloride (98-107) mmol/L Carbon Dioxide (22-30) mmol/L BUN (7-17) mg/dL Glucose (74-99) mg/dL POC Glucose (mg/dL) 238 H 261 H (75-99) mg/dL Hemoglobin A1c (4.0-6.0) % Calcium (8.4-10.2) mg/dL Phosphorus (2.5-4.5) mg/dL Magnesium (1.6-2.3) mg/dL Lipase 1422 H (23-300) U/L 09/02/19 09/02/19 09/02/19 Range/Units 07:48 07:48 07:48 WBC 26.2 H (3.8-10.6) k/uL Hgb 11.2 L (11.4-16.0) gm/dL MCV 78.1 L (80.0-100.0) fL MCH 23.8 L (25.0-35.0) pg MCHC 30.5 L (31.0-37.0) g/dL RDW 16.2 H (11.5-15.5) % Neutrophils # 23.2 H (1.3-7.7) k/uL Monocytes # 1.3 H (0-1.0) k/uL Sodium 135 L (137-145) mmol/L Chloride 111 H (98-107) mmol/L Carbon Dioxide 14 L (22-30) mmol/L BUN 22 H (7-17) mg/dL Glucose 265 H (74-99) mg/dL POC Glucose (mg/dL) (75-99) mg/dL Hemoglobin A1c (4.0-6.0) % Calcium (8.4-10.2) mg/dL Phosphorus (2.5-4.5) mg/dL Magnesium 2.4 H (1.6-2.3) mg/dL Lipase (23-300) U/L 09/02/19 09/02/19 09/02/19 Range/Units 08:03 09:06 10:12 WBC (3.8-10.6) k/uL Hgb (11.4-16.0) gm/dL MCV (80.0-100.0) fL MCH (25.0-35.0) pg MCHC (31.0-37.0) g/dL RDW (11.5-15.5) % Neutrophils # (1.3-7.7) k/uL Monocytes # (0-1.0) k/uL Sodium (137-145) mmol/L Chloride (98-107) mmol/L Carbon Dioxide (22-30) mmol/L BUN (7-17) mg/dL Glucose (74-99) mg/dL POC Glucose (mg/dL) 244 H 228 H 239 H (75-99) mg/dL Hemoglobin A1c (4.0-6.0) % Calcium (8.4-10.2) mg/dL Phosphorus (2.5-4.5) mg/dL Magnesium (1.6-2.3) mg/dL Lipase (23-300) U/L 09/02/19 09/02/19 09/02/19 Range/Units 11:22 13:17 14:02 WBC (3.8-10.6) k/uL Hgb (11.4-16.0) gm/dL MCV (80.0-100.0) fL MCH (25.0-35.0) pg MCHC (31.0-37.0) g/dL RDW (11.5-15.5) % Neutrophils # (1.3-7.7) k/uL Monocytes # (0-1.0) k/uL Sodium (137-145) mmol/L Chloride (98-107) mmol/L Carbon Dioxide (22-30) mmol/L BUN (7-17) mg/dL Glucose (74-99) mg/dL POC Glucose (mg/dL) 216 H 188 H 188 H (75-99) mg/dL Hemoglobin A1c (4.0-6.0) % Calcium (8.4-10.2) mg/dL Phosphorus (2.5-4.5) mg/dL Magnesium (1.6-2.3) mg/dL Lipase (23-300) U/L Microbiology - Last 24 Hours (Table) 09/01/19 09:25 Urine Culture - Preliminary Urine,Catheterized 09/01/19 10:27 Blood Culture - Preliminary Blood No Growth after 24 hours Assessment and Plan Assessment: Diabetic ketoacidosis, anion gap resolved -Insulin drip to continue due to patient not being able to eat and continued acidosis -Accu-Cheks q2 h -IV fluids per DKA protocol -A1c 11.8 -informatics educator to meet with patient -Currently nothing by mouth secondary pancreatitis -Replace potassium as per protocol Pancreatitis - IVF - NPO - Pain medications Acute encephalopathy - metabolic should be improving, concern for underlying psychosis due to severe agorphobia -MRI brain to ruled out stroke, Carotid Dopplers negative -Supportive care -consult psych Acute right-sided sinusitis with sepsis -Zosyn -IV fluids -Await ENT recs as possibility of fungal sinusitis of untreated diabetes mellitus -Flonase -Claritin Severe metabolic acidosis,improving -Treatment as above for DKA Anxiety and depression with severe agoraphobia and hoarding tendencies -consult psychiatry -? psychosis Morbid obesity -Outpatient structured weight loss Hypercalcemia, resolved We'll need to attempt to obtain medication reconciliation from Dr. Artur Swann's office on 09/02 as patient family is unaware of where she gets her medications filled from DVT prophylaxis: heparin Discussed with: Patient, nursing, Anticipated discharge date: 2-[address]: ?[facility] A total of 45 minutes was spent on the care of this complex patient more than 50% of the time was spent in counseling and care coordination.
[2019-09-02 18:06] LABS: Glucose,Whole Blood 196 mg/dL (75-99)
[2019-09-02 19:09] LABS: African American GFR (CKD) >90 (>60 ml/min/1.73 sqM); Anion Gap 12 mmol/L; Blood Urea Nitrogen 24 mg/dL (7-17); Calcium 9.9 mg/dL (8.4-10.2); Carbon Dioxide 16 mmol/L (22-30); Chloride 111 mmol/L (98-107); Glucose 190 mg/dL (74-99); Non-African American GFR(CKD) >90 (>60 ml/min/1.73 sqM); Potassium 4.3 mmol/L (3.5-5.1); Sodium 139 mmol/L (137-145)
[2019-09-02] MEDS: ONDANSETRON 4 MG/2 ML VIAL IVP PRN (19:24)
[2019-09-02 20:23] LABS: Glucose,Whole Blood 179 mg/dL (75-99)
[2019-09-02 22:08] LABS: Glucose,Whole Blood 188 mg/dL (75-99)
[2019-09-03 00:02] LABS: Glucose,Whole Blood 212 mg/dL (75-99)
[2019-09-03] MEDS: HYDROmorphone 0.5 MG/0.5 ML SYRINGE IVP PRN ×2 (00:27→21:06)
[2019-09-03 01:00] LABS: African American GFR (CKD) >90 (>60 ml/min/1.73 sqM); Anion Gap 9 mmol/L; Blood Urea Nitrogen 25 mg/dL (7-17); Calcium 9.7 mg/dL (8.4-10.2); Carbon Dioxide 16 mmol/L (22-30); Chloride 112 mmol/L (98-107); Glucose 240 mg/dL (74-99); Magnesium 2.3 mg/dL (1.6-2.3); Non-African American GFR(CKD) >90 (>60 ml/min/1.73 sqM); Phosphorus 2.8 mg/dL (2.5-4.5); Potassium 4.2 mmol/L (3.5-5.1); Sodium 137 mmol/L (137-145)
[2019-09-03 02:04] LABS: Glucose,Whole Blood 228 mg/dL (75-99)
[2019-09-03] MEDS: PIPERACILLIN-TAZOBACTAM 3.375 GM in SODIUM CHLORIDE 0.9% 100 ML IVPB SCH ×3 (03:02→21:13)
[2019-09-03 04:30] LABS: Glucose,Whole Blood 244 mg/dL (75-99)
[2019-09-03] MEDS: INSULIN REGULAR 100 UNIT in SODIUM CHLORIDE 0.9% 100 ML IV SCH ×2 (04:30→21:11)
[2019-09-03] MEDS: D5-0.45% NACL WITH KCL 20MEQ/L 1,000 ML IV SCH ×2 (04:30→13:34)
[2019-09-03 05:26] LABS: Anisocytosis Slight; HGB 11.7 gm/dL (11.4-16.0); Hypochromasia Moderate; MCH 23.6 pg (25.0-35.0); MCHC 30.1 g/dL (31.0-37.0); MCV 78.5 fL (80.0-100.0); Mean Platelet Volume 9.4; Microcytosis Slight; Platelet Count 275 k/uL (150-450); RBC 4.96 m/uL (3.80-5.40); RDW 16.7 % (11.5-15.5); WBC 24.4 k/uL (3.8-10.6)
[2019-09-03 05:47] LABS: ALT 9 U/L (4-34); AST 20 U/L (14-36); African American GFR (CKD) >90 (>60 ml/min/1.73 sqM); Albumin 3.3 g/dL (3.5-5.0); Alkaline Phosphatase 78 U/L (38-126); Anion Gap 12 mmol/L; Blood Urea Nitrogen 24 mg/dL (7-17); Calcium 9.8 mg/dL (8.4-10.2); Carbon Dioxide 16 mmol/L (22-30); Chloride 109 mmol/L (98-107); Glucose 216 mg/dL (74-99); Magnesium 2.3 mg/dL (1.6-2.3); Non-African American GFR(CKD) >90 (>60 ml/min/1.73 sqM); Phosphorus 3.4 mg/dL (2.5-4.5); Potassium 4.3 mmol/L (3.5-5.1); Sodium 137 mmol/L (137-145); Total Bilirubin 0.5 mg/dL (0.2-1.3); Total Protein 6.1 g/dL (6.3-8.2)
[2019-09-03 06:05] LABS: Glucose,Whole Blood 207 mg/dL (75-99)
[2019-09-03 07:54] LABS: Glucose,Whole Blood 203 mg/dL (75-99)
[2019-09-03] MEDS: LORATADINE 10 MG TAB PO SCH (08:59)
[2019-09-03] MEDS: FLUTICASONE 50MCG/SPRAY NASAL 16GM EA NOSTRIL SCH (08:59)
--- NOTE | 2019-09-03 10:15 | ECHOF ---
Referral Reason:stroke MEASUREMENTS -------- HEIGHT: 172.7 cm WEIGHT: 108.9 kg BP: 186/98 RVIDd: 2.8 cm (< 3.3) IVSd: 1.4 cm (0.6 - 1.1) LVIDd: 3.3 cm (3.9 - 5.3) LVPWd: 1.6 cm (0.6 - 1.1) IVSs: 1.6 cm LVIDs: 1.8 cm LVPWs: 1.9 cm Ao Diam: 3.1 cm (2.0 - 3.7) AV Cusp: 2.0 cm (1.5 - 2.6) LA Diam: 3.7 cm (2.7 - 3.8) MV EXCURSION: 20.130 mm (> 18.000) MV EF SLOPE: 109 mm/s (70 - 150) EPSS: 0.5 cm MV E Tyshawn: 0.84 m/s MV DecT: 178 ms MV A Tyshawn: 1.00 m/s MV E/A Ratio: 0.84 RAP: 5.00 mmHg RVSP: 28.86 mmHg FINDINGS -------- Sinus rhythm. This was a technically adequate study. The left ventricular size is normal. There is moderate concentric left ventricular hypertrophy. O verall left ventricular systolic function is normal with, an EF between 55 - 60 %. The right ventricle is normal in size. The left atrial size is normal. The right atrial size is normal. The aortic valve is trileaflet and appears structurally normal. The mitral valve is normal. Mild mitral regurgitation is present. The tricuspid valve appears structurally normal. Mild tricuspid regurgitation present. Right vent ricular systolic pressure is normal at < 35 mmHg. Trace/mild (physiologic) pulmonic regurgitation. The aortic root size is normal. Normal inferior vena cava with normal inspiratory collapse consistent with estimated right atrial pre ssure of 5 mmHg. CONCLUSIONS -------- 1. Sinus rhythm. 2. This was a technically adequate study. 3. The left ventricular size is normal. 4. There is moderate concentric left ventricular hypertrophy. 5. Overall left ventricular systolic function is normal with, an EF between 55 - 60 %. 6. The right ventricle is normal in size. 7. The left atrial size is normal. 8. The right atrial size is normal. 9. The aortic valve is trileaflet and appears structurally normal. 10. The mitral valve is normal. 11. Mild mitral regurgitation is present. 12. The tricuspid valve appears structurally normal. 13. Mild tricuspid regurgitation present. 14. Right ventricular systolic pressure is normal at < 35 mmHg. 15. Trace/mild (physiologic) pulmonic regurgitation. 16. The aortic root size is normal. 17. Normal inferior vena cava with normal inspiratory collapse consistent with estimated right atrial pressure of 5 mmHg. LOCK SETTER: Lissett Stone RDCS
[2019-09-03 10:22] LABS: Glucose,Whole Blood 215 mg/dL (75-99)
--- NOTE | 2019-09-03 10:57 | P.PN ---
Subjective Progress Note Date: 09/03/19 Principal diagnosis: Change in mental status Still not verbalizing or following commands. Has been 2 days without eating. She is thrashing her arms unpurposefully. Not answering questions. Objective - Vital Signs Vital signs: Vital Signs Temp 98.1 F 09/03/19 08:00 Pulse 97 09/03/19 10:00 Resp 14 09/03/19 10:00 BP 194/97 09/03/19 10:00 Pulse Ox 96 09/03/19 10:00 Intake & Output 09/02/19 09/03/19 09/03/19 18:59 06:59 18:59 Intake Total 1819.35 1859.925 616.425 Output Total 470 520 380 Balance 1349.35 1339.925 236.425 Weight 109 kg Intake: IV 1800 1800 600 D5-0.45% NaCl with KCl 1800 1800 600 20Meq/l 1,000 ml @ 150 mls/hr IV .Q6H40M [facility] Rx# :[id number] Intake, IV Titration 19.35 59.925 16.425 Amount Insulin Regular 100 unit 19.35 59.925 16.425 In Sodium Chloride 0.9% 100 ml @ 0.1 UNITS/KG/HR 11.682 mls/hr IV .Q8H39M [facility] Rx#:[id number] Output: Urine 470 520 380 Other: Voiding Method Indwelling Catheter Indwelling Catheter Indwelling Catheter - Exam General: looks in no distress, appears at stated age, obese Derm: warm, dry Head: atraumatic, normocephalic, symmetric Eyes: EOMI, no lid lag, anicteric sclera Mouth: no lip lesion, mucus membranes dry Cardiovascular: S1S2 reg, no murmur, positive posterior tibial pulse bilateral, Lungs: decreased bs bilateral, no rhonchi, no rales , no accessory muscle use Abdominal: soft, NT, no guarding, no appreciable organomegaly Ext: no gross muscle atrophy, no edema, no contractures Neuro: CN II-XI grossly intact, no focal neuro deficits Psych: Unpurposeful movements of the arms and legs. Not answering questions or verbalizing anything. Exam from previous physician on 09/01 noted: ''patient sits up in bed and roll on her side when she wants to. When she overheard us talking about her mental health she did let out a long moan and then sat up in bed'' - Labs CBC & Chem 7: 09/03/19 04:48 09/03/19 04:48 Labs: Abnormal Lab Results - Last 24 Hours (Table) 09/02/19 09/02/19 09/02/19 Range/Units 07:00 11:22 13:17 WBC (3.8-10.6) k/uL MCV (80.0-100.0) fL MCH (25.0-35.0) pg MCHC (31.0-37.0) g/dL RDW (11.5-15.5) % Chloride (98-107) mmol/L Carbon Dioxide (22-30) mmol/L BUN (7-17) mg/dL Glucose (74-99) mg/dL POC Glucose (mg/dL) 216 H 188 H (75-99) mg/dL Total Protein (6.3-8.2) g/dL Albumin (3.5-5.0) g/dL Lipase 1422 H (23-300) U/L 09/02/19 09/02/19 09/02/19 Range/Units 14:02 16:30 18:05 WBC (3.8-10.6) k/uL MCV (80.0-100.0) fL MCH (25.0-35.0) pg MCHC (31.0-37.0) g/dL RDW (11.5-15.5) % Chloride 111 H (98-107) mmol/L Carbon Dioxide 16 L (22-30) mmol/L BUN 24 H (7-17) mg/dL Glucose 190 H (74-99) mg/dL POC Glucose (mg/dL) 188 H 196 H (75-99) mg/dL Total Protein (6.3-8.2) g/dL Albumin (3.5-5.0) g/dL Lipase (23-300) U/L 09/02/19 09/02/19 09/03/19 Range/Units 20:22 22:06 00:00 WBC (3.8-10.6) k/uL MCV (80.0-100.0) fL MCH (25.0-35.0) pg MCHC (31.0-37.0) g/dL RDW (11.5-15.5) % Chloride (98-107) mmol/L Carbon Dioxide (22-30) mmol/L BUN (7-17) mg/dL Glucose (74-99) mg/dL POC Glucose (mg/dL) 179 H 188 H 212 H (75-99) mg/dL Total Protein (6.3-8.2) g/dL Albumin (3.5-5.0) g/dL Lipase (23-300) U/L 09/03/19 09/03/19 09/03/19 Range/Units 00:31 02:03 04:29 WBC (3.8-10.6) k/uL MCV (80.0-100.0) fL MCH (25.0-35.0) pg MCHC (31.0-37.0) g/dL RDW (11.5-15.5) % Chloride 112 H (98-107) mmol/L Carbon Dioxide 16 L (22-30) mmol/L BUN 25 H (7-17) mg/dL Glucose 240 H (74-99) mg/dL POC Glucose (mg/dL) 228 H 244 H (75-99) mg/dL Total Protein (6.3-8.2) g/dL Albumin (3.5-5.0) g/dL Lipase (23-300) U/L 09/03/19 09/03/19 09/03/19 Range/Units 04:48 04:48 06:03 WBC 24.4 H (3.8-10.6) k/uL MCV 78.5 L (80.0-100.0) fL MCH 23.6 L (25.0-35.0) pg MCHC 30.1 L (31.0-37.0) g/dL RDW 16.7 H (11.5-15.5) % Chloride 109 H (98-107) mmol/L Carbon Dioxide 16 L (22-30) mmol/L BUN 24 H (7-17) mg/dL Glucose 216 H (74-99) mg/dL POC Glucose (mg/dL) 207 H (75-99) mg/dL Total Protein 6.1 L (6.3-8.2) g/dL Albumin 3.3 L (3.5-5.0) g/dL Lipase 438 H (23-300) U/L 09/03/19 09/03/19 Range/Units 07:52 10:20 WBC (3.8-10.6) k/uL MCV (80.0-100.0) fL MCH (25.0-35.0) pg MCHC (31.0-37.0) g/dL RDW (11.5-15.5) % Chloride (98-107) mmol/L Carbon Dioxide (22-30) mmol/L BUN (7-17) mg/dL Glucose (74-99) mg/dL POC Glucose (mg/dL) 203 H 215 H (75-99) mg/dL Total Protein (6.3-8.2) g/dL Albumin (3.5-5.0) g/dL Lipase (23-300) U/L Microbiology - Last 24 Hours (Table) 09/01/19 09:25 Urine Culture - Preliminary Urine,Catheterized 09/01/19 10:27 Blood Culture - Preliminary Blood No Growth after 24 hours Assessment and Plan Plan: Diabetic ketoacidosis, anion gap resolved -Insulin drip to continue due to patient not being able to eat and continued acidosis -Accu-Cheks q2 h -IV fluids per DKA protocol -A1c 11.8 -music educator to meet with patient -Currently nothing by mouth secondary pancreatitis -Replace potassium as per protocol Pancreatitis - IVF - NPO - Pain medications Acute encephalopathy -metabolic should be improving, concern for underlying psychosis due to severe agorphobia -MRI brain, Carotid Dopplers both negative -Supportive care -consult psych Acute right-sided sinusitis with sepsis -Zosyn, with uncontrolled DM fungal etiology? awaiting ENT to see her -IV fluids -Flonase -Claritin Severe metabolic acidosis,improving -Treatment as above for DKA Anxiety and depression with severe agoraphobia and hoarding tendencies -consult psychiatry -? psychosis Morbid obesity -Outpatient structured weight loss Hypercalcemia, resolved Patient has not filled her meds since last January, A1c as noted above is 11. She is probably not taking her meds. DVT prophylaxis: heparin Discussed with: Patient, nursing, Anticipated discharge date: 2-[address]: ?[facility] A total of 45 minutes was spent on the care of this complex patient more than 50% of the time was spent in counseling and care coordination.
--- NOTE | 2019-09-03 11:13 | P.PN ---
Subjective Progress Note Date: 09/03/19 Principal diagnosis: Diabetic ketoacidosis, altered mental status 49-year-old female patient came into the ED with altered mentation and she was immediately diagnosed having a BKA. The patient has underlying psychiatric history. The patient has severe agoraphobia and she has been hoarding. Her living condition has been extremely unacceptable based on the reported history. His sister has the power of county attorney. For now, she is not verbalizing. She is confused. She is being treated for DKA. At the same time she was found to have some nasolabial fold flattening and the patient was suspected to have some right facial droop an MRI of the brain was ordered in addition to carotid Doppler. In regards to her DKA, the patient had a anion gap metabolic acidosis. The mayte ent's serum bicarbonate was down to 7. Anion gap was 30. Glucose was 558. Calcium was 10.6. UA was negative. Cardiac enzymes were negative. TSH was 1 and she had some reactive leukocytosis with a white cell count of 24.2. CAT scan of the brain showed no evidence of any acute fracture or dislocation of the cervical spine. There was no intracranial hemorrhage or midline shift. There was some right sinusitis. The patient is seen today 09/02/2019 in follow-up in the intensive care unit. S he is a bit more awake and alert today compared to yesterday. She is still nonverbal. Mostly moaning. Not following any simple commands but is moving all 4 extremities. White count 26.2. Hemoglobin 11.2. Sodium 135. Potassium 4.0. Chloride 111. Bicarb 14. Anion gap 10. Creatinine 0.72. Glucose 239. Remains on an insulin drip at 4.5 ML's per hour. She is maintaining O2 saturations in the 90s on room air. She is afebrile. Tachycardic. She is moaning. She is having some significant abdominal discomfort on palpation. Abdominal x-ray revealed no acute abdomen. MRI of the brain revealed no acute intracranial process. The patient is seen today on September 03, 2019 . She continues to bezing the word no whe away staff when trying to assess her. She is pushing away field laborer to draw blood this morning. he remains on insulin drip at 4.5 units Per hour. Anion gap 12. Current blood glucose 207. White count 24.4 Creatinine 0.75. She remains on D5 4 5 with 20 KCl at 150 mls per hour Antibiotics in the form of Zosyn. Psychiatric consult is pending. Objective - Vital Signs Vital signs: Vital Signs Temp 98.1 F 09/03/19 08:00 Pulse 97 09/03/19 10:00 Resp 14 09/03/19 10:00 BP 194/97 09/03/19 10:00 Pulse Ox 96 09/03/19 10:00 Intake & Output 09/02/19 09/03/19 09/03/19 18:59 06:59 18:59 Intake Total 1819.35 1859.925 628.725 Output Total 470 520 380 Balance 1349.35 1339.925 248.725 Weight 109 kg Intake: IV 1800 1800 600 D5-0.45% NaCl with KCl 1800 1800 600 20Meq/l 1,000 ml @ 150 mls/hr IV .Q6H40M [facility] Rx# :[id number] Intake, IV Titration 19.35 59.925 28.725 Amount Insulin Regular 100 unit 19.35 59.925 28.725 In Sodium Chloride 0.9% 100 ml @ 0.1 UNITS/KG/HR 11.682 mls/hr IV .Q8H39M [facility] Rx#:[id number] Output: Urine 470 520 380 Other: Voiding Method Indwelling Catheter Indwelling Catheter Indwelling Catheter - Exam General: Ill-appearing, 49-year-old female patient, , appears older than stated age, obese, disheveled, more awake today, moving all fours, not following any commands, nonverbal, moaning. On room air. She is pushing away staff. She is saying 'no' Derm: Multiple upper extremity excoriations as well as chest wall, no unusual rashes/lesions no unusual ecchymoses, warm, dry Head: atraumatic, normocephalic, symmetric Eyes: EOMI, no lid lag, anicteric sclera, pupils equal round reactive to light, roving ENT: Nose and ears atraumatic, no thrush, no pharyngeal erythema Neck: No thyromegaly, no cervical lymphadenopathy, trachea midline, supple Mouth: no lip lesion, mucus membranes dry Cardiovascular: S1S2 tachy, no murmur, + posterior tibial pulse bilateral, no edema, capillary refill less than 2 seconds Lungs: CTA bilateral, no rhonchi, no rales , no accessory muscle use Abdominal: soft, tender to palpation, no guarding, no appreciable organomegaly, normal bowel sounds Ext: no gross muscle atrophy, moving right upper, left upper, and left lower extremity independently howevere if you lift arms and legs she will let them drop and not hold them up,, not following commends consistently, only moaning, no contractures, Neuro: Moving eye all around room, + cough, + gag, loss of nasal labial fold on the right, no withdrawal to pain RUE, RLE, LLE, moans but does not withdraw to pain LUE, Babinski down going bilateral Psych: lethargic, will open eyes and make eye contact, - Labs CBC & Chem 7: 09/03/19 04:48 09/03/19 04:48 Labs: Abnormal Lab Results - Last 24 Hours (Table) 09/02/19 09/02/19 09/02/19 Range/Units 07:00 11:22 13:17 WBC (3.8-10.6) k/uL MCV (80.0-100.0) fL MCH (25.0-35.0) pg MCHC (31.0-37.0) g/dL RDW (11.5-15.5) % Chloride (98-107) mmol/L Carbon Dioxide (22-30) mmol/L BUN (7-17) mg/dL Glucose (74-99) mg/dL POC Glucose (mg/dL) 216 H 188 H (75-99) mg/dL Total Protein (6.3-8.2) g/dL Albumin (3.5-5.0) g/dL Lipase 1422 H (23-300) U/L 09/02/19 09/02/19 09/02/19 Range/Units 14:02 16:30 18:05 WBC (3.8-10.6) k/uL MCV (80.0-100.0) fL MCH (25.0-35.0) pg MCHC (31.0-37.0) g/dL RDW (11.5-15.5) % Chloride 111 H (98-107) mmol/L Carbon Dioxide 16 L (22-30) mmol/L BUN 24 H (7-17) mg/dL Glucose 190 H (74-99) mg/dL POC Glucose (mg/dL) 188 H 196 H (75-99) mg/dL Total Protein (6.3-8.2) g/dL Albumin (3.5-5.0) g/dL Lipase (23-300) U/L 09/02/19 09/02/19 09/03/19 Range/Units 20:22 22:06 00:00 WBC (3.8-10.6) k/uL MCV (80.0-100.0) fL MCH (25.0-35.0) pg MCHC (31.0-37.0) g/dL RDW (11.5-15.5) % Chloride (98-107) mmol/L Carbon Dioxide (22-30) mmol/L BUN (7-17) mg/dL Glucose (74-99) mg/dL POC Glucose (mg/dL) 179 H 188 H 212 H (75-99) mg/dL Total Protein (6.3-8.2) g/dL Albumin (3.5-5.0) g/dL Lipase (23-300) U/L 09/03/19 09/03/19 09/03/19 Range/Units 00:31 02:03 04:29 WBC (3.8-10.6) k/uL MCV (80.0-100.0) fL MCH (25.0-35.0) pg MCHC (31.0-37.0) g/dL RDW (11.5-15.5) % Chloride 112 H (98-107) mmol/L Carbon Dioxide 16 L (22-30) mmol/L BUN 25 H (7-17) mg/dL Glucose 240 H (74-99) mg/dL POC Glucose (mg/dL) 228 H 244 H (75-99) mg/dL Total Protein (6.3-8.2) g/dL Albumin (3.5-5.0) g/dL Lipase (23-300) U/L 09/03/19 09/03/19 09/03/19 Range/Units 04:48 04:48 06:03 WBC 24.4 H (3.8-10.6) k/uL MCV 78.5 L (80.0-100.0) fL MCH 23.6 L (25.0-35.0) pg MCHC 30.1 L (31.0-37.0) g/dL RDW 16.7 H (11.5-15.5) % Chloride 109 H (98-107) mmol/L Carbon Dioxide 16 L (22-30) mmol/L BUN 24 H (7-17) mg/dL Glucose 216 H (74-99) mg/dL POC Glucose (mg/dL) 207 H (75-99) mg/dL Total Protein 6.1 L (6.3-8.2) g/dL Albumin 3.3 L (3.5-5.0) g/dL Lipase 438 H (23-300) U/L 09/03/19 09/03/19 Range/Units 07:52 10:20 WBC (3.8-10.6) k/uL MCV (80.0-100.0) fL MCH (25.0-35.0) pg MCHC (31.0-37.0) g/dL RDW (11.5-15.5) % Chloride (98-107) mmol/L Carbon Dioxide (22-30) mmol/L BUN (7-17) mg/dL Glucose (74-99) mg/dL POC Glucose (mg/dL) 203 H 215 H (75-99) mg/dL Total Protein (6.3-8.2) g/dL Albumin (3.5-5.0) g/dL Lipase (23-300) U/L Microbiology - Last 24 Hours (Table) 09/01/19 09:25 Urine Culture - Preliminary Urine,Catheterized 09/01/19 10:27 Blood Culture - Preliminary Blood No Growth after 24 hours Assessment and Plan Assessment: 1 diabetic ketoacidosis with severe anion gap metabolic acidosis currently on insulin drip for blood sugar control being treated by the DKA protocol. Remains on insulin drip. 2 reactive leukocytosis on Zosyn 3 sinusitis, right-sided currently on antibiotics Zosyn 4 altered mental status likely secondary to metabolic derangements. CVA is do ubtful. MRI of the brain revealed no evidence of acute CVA. CAT scan of the brain is negative for an acute abnormalities 5 chronic anxiety/depression 6 severe agoraphobia 7 hoarding tendencies 8 diabetes mellitus 9 rheumatoid arthritis 10 Acute abdominal pain secondary to pancreatitis of unclear etiology Plan The patient was seen and evaluated by Dr. Stein. Check triglyceride levels. Add Levemir 15 units daily. She is more awake and responsive today. Stating that the word 'no' once asked if she wants anything to eat or drink by staff. Withdrawing to pain especially on abdominal palpation. Patient's sister is at the bedside and updated on her status. We will continue to follow make further recommendations based on her clinical status. I, the cosigning physician, performed a history & physical examination of the patient. Lungs sounds are clear. Maintaining good O2 saturations in the 90s on room air. I discussed the assessment and plan of care with my nurse practitioner, Celeste Aguilar. I attest to the above note as dictated by her.
[2019-09-03 12:05] LABS: Glucose,Whole Blood 228 mg/dL (75-99)
[2019-09-03 13:54] LABS: Glucose,Whole Blood 201 mg/dL (75-99)
--- NOTE | 2019-09-03 13:56 | P.CN ---
Psychiatric Consult - . Consult date: 09/03/19 Consult:: IDENTIFYING DATA: The patient is a 49-year-old female admitted to the ICU for evaluation of acute change in mental status. The hospitalist submitted a psychiatric consult to evaluate the patient for anxiety and depression. HISTORY OF PRESENT ILLNESS: I reviewed the medical record and attempted to interview the patient. She was laying in bed and did not open her eyes when I called her name. She opened her her eyes when I shook her. She did not appear to be able to attend and concentrate on the interview. I reviewed a letter written by her sister Mariola. In the letter her sister described a decompensation in functioning and social withdrawal. She complained that the patient's home is severely hoarded and included several pictures of the patient's home to document the level of her hoarding. 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 PAST MEDICAL HISTORY: Diabetes mellitus, fibromyalgia, narcolepsy, rheumatoid arthritis ALLERGIES: Cefaclor. SUBSTANCE USE HISTORY: Unknown. FAMILY PSYCHIATRIC/SUBSTANCE USE HISTORY: Unknown. SOCIAL HISTORY: Was unable to obtain a Psychosocial history.. MENTAL STATUS EXAM: She presented as a moderately obese 49-year-old woman who was laying in bed and would not respond to her name. She opened her eyes when I shook her. She was unable to attend and concentrate on the interview. IMPRESSIONS: She was admitted to [facility] for evaluation and treatment of acute encephalopathy, diabetic ketoacidosis and hypercalcemia. Her family reports history of depression, anxiety and hoarding. I was unable to obtain a history due to the cognitive impairment. PLAN: Will follow. 09/03/19 13:44
[2019-09-03 14:04] LABS: African American GFR (CKD) >90 (>60 ml/min/1.73 sqM); Anion Gap 9 mmol/L; Blood Urea Nitrogen 20 mg/dL (7-17); Calcium 9.5 mg/dL (8.4-10.2); Carbon Dioxide 15 mmol/L (22-30); Chloride 113 mmol/L (98-107); Glucose 218 mg/dL (74-99); Non-African American GFR(CKD) >90 (>60 ml/min/1.73 sqM); Phosphorus 3.5 mg/dL (2.5-4.5); Sodium 137 mmol/L (137-145); Triglycerides 174 mg/dL (<150)
[2019-09-03 14:06] LABS: Potassium 4.6 mmol/L (3.5-5.1)
[2019-09-03 16:00] LABS: Glucose,Whole Blood 189 mg/dL (75-99)
[2019-09-03 18:34] LABS: Glucose,Whole Blood 177 mg/dL (75-99)
[2019-09-03 20:06] LABS: Glucose,Whole Blood 181 mg/dL (75-99)
[2019-09-03] MEDS: INSULIN DETEMIR (LEVEMIR) 100 UNIT/ML SYR SQ SCH (20:15)
[2019-09-03 20:53] LABS: ALT 12 U/L (4-34); AST 26 U/L (14-36); African American GFR (CKD) >90 (>60 ml/min/1.73 sqM); Albumin 3.3 g/dL (3.5-5.0); Alkaline Phosphatase 101 U/L (38-126); Anion Gap 10 mmol/L; Blood Urea Nitrogen 16 mg/dL (7-17); Calcium 9.5 mg/dL (8.4-10.2); Carbon Dioxide 19 mmol/L (22-30); Chloride 107 mmol/L (98-107); Glucose 195 mg/dL (74-99); Non-African American GFR(CKD) >90 (>60 ml/min/1.73 sqM); Potassium 3.8 mmol/L (3.5-5.1); Sodium 136 mmol/L (137-145); Total Bilirubin 0.6 mg/dL (0.2-1.3); Total Protein 6.2 g/dL (6.3-8.2)
[2019-09-03 22:19] LABS: Glucose,Whole Blood 170 mg/dL (75-99)
[2019-09-04] MEDS: D5-0.45% NACL WITH KCL 20MEQ/L 1,000 ML IV SCH ×3 (00:22→09:44)
[2019-09-04 01:47] LABS: Glucose,Whole Blood 225 mg/dL (75-99)
[2019-09-04] MEDS: INSULIN ASPART (NovoLOG) 100 UNIT/ML VIAL SQ SCH ×5 (02:15→21:45)
[2019-09-04] MEDS: INSULIN REGULAR 100 UNIT in SODIUM CHLORIDE 0.9% 100 ML IV SCH (02:20)
[2019-09-04] MEDS: PIPERACILLIN-TAZOBACTAM 3.375 GM in SODIUM CHLORIDE 0.9% 100 ML IVPB SCH ×3 (02:37→18:00)
[2019-09-04 04:37] LABS: Anisocytosis Slight; Basophils % (A) 0 %; Eosinophils % (A) 0 %; HCT 37.3 % (34.0-46.0); HGB 11.8 gm/dL (11.4-16.0); Lymphocytes # (A) 0.7 k/uL (1.0-4.8); Lymphocytes % (A) 4 %; MCH 24.2 pg (25.0-35.0); MCHC 31.7 g/dL (31.0-37.0); MCV 76.5 fL (80.0-100.0); Microcytosis Slight; Monocytes # (A) 0.6 k/uL (0-1.0); Monocytes % (A) 3 %; Neutrophils # (A) 16.1 k/uL (1.3-7.7); Neutrophils % (A) 92 %; Platelet Count 232 k/uL (150-450); RBC 4.88 m/uL (3.80-5.40); RDW 16.3 % (11.5-15.5); WBC 17.5 k/uL (3.8-10.6)
[2019-09-04 04:46] LABS: ALT 13 U/L (4-34); AST 25 U/L (14-36); African American GFR (CKD) >90 (>60 ml/min/1.73 sqM); Albumin 3.2 g/dL (3.5-5.0); Alkaline Phosphatase 110 U/L (38-126); Anion Gap 11 mmol/L; Blood Urea Nitrogen 14 mg/dL (7-17); Calcium 9.6 mg/dL (8.4-10.2); Carbon Dioxide 20 mmol/L (22-30); Chloride 104 mmol/L (98-107); Glucose 198 mg/dL (74-99); Non-African American GFR(CKD) >90 (>60 ml/min/1.73 sqM); Potassium 3.7 mmol/L (3.5-5.1); Sodium 135 mmol/L (137-145); Total Bilirubin 0.7 mg/dL (0.2-1.3)
[2019-09-04 06:37] LABS: Glucose,Whole Blood 197 mg/dL (75-99)
--- NOTE | 2019-09-04 07:12 | CONS ---
CONSULTATION DATE OF CONSULTATION: 09/03/2019 REASON FOR THE CONSULTATION: Right maxillary sinusitis. HISTORY OF PRESENT ILLNESS: The history on this patient is from the record, which is limited, and also from the nursing staff. The patient refuses to cooperate with the answering of any questions and appears to be nonverbal. The patient was originally brought to the emergency room by her sisters, who has power of managing attorney, when apparently they tried to contact her by text and cellphone and were not able to reach her. The patient apparently lives by herself and has agoraphobia and has not left her home since April of 2019. When they could not contact her on the morning of 09/01/2019, they went by her house to check on her. They found her lying in bed and she would not answer any questions. 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 In addition to this, she has a history of not taking her medications or refusing to take her medications. They stated she had not left her house since April of 2019. The patient was brought to the [facility] Emergency Room and the evaluation by the ER staff, which was again limited because the patient was nonverbal and was based upon the information given to them by the family. Laboratory work was performed and because the patient appeared to be confused, a CBC showed evidence of elevated white cell counts and a blood sugar greater than 400, suggesting an infectious process. There was concern that the patient might have an encephalopathy due to an infection. Therefore, a CT scan of the brain was performed and this showed evidence of an acute right maxillary sinusitis without evidence of any bony destruction, (the bony destruction is usually seen in fungal infections). The patient was subsequently admitted to the ICU with altered mental status, diabetic ketoacidosis, and other medical problems. She was placed on piperacillin/ tazobactam IV antibiotics to cover the sinus infection. Attempts on my part to communicate with the patient were completely unsuccessful. In addition to not answering any historical questions, the patient simply would not cooperate with the physical examination and therefore I was really unable to assess her. PAST MEDICAL HISTORY: Past medical history reveals she has allergies to CECLOR. Current medications include insulin. REVIEW OF SYSTEMS: Review of systems is positive with respect to the metabolic endocrine system for type 1 diabetes mellitus. PHYSICAL EXAMINATION: This patient is a 49-year-old female who is not alert, not cooperative and appears to be in an altered mental state. Therefore, a physical examination was absolutely impossible at this time. Any attempts to examine the patient were met by the patient pushing my hand away from her body. Even a simple request such as opening her mouth was not complied with. Therefore, no physical examination was performed. IMPRESSION: Suspect right chronic maxillary sinusitis, doubt fungal sinusitis. PLAN: At this point, because of this patient's inability to cooperate with any type of examination, most likely because of mental issues, the only suggestion I have is to continue on the intravenous antibiotics and certainly when she is discharged to continue her on oral antibiotics. Certainly, this is the case depending upon her psych evaluation, in which the patient certainly should not be living alone at home, only to be contacted by text or cellphone. I believe that she would be an excellent candidate for some type of specialized inpatient care at a half-way that was equipped to handle her mental issues. Certainly continuing to leave her at home is most likely a disaster waiting to happen. However, this decision has to be left up to the patient's sister who have the power of managing attorney. I want to take this opportunity to thank you for allowing me to attempt to assist you in the care of this patient and that I am sorry that I was not successful in examining this patient. If I can be of any further assistance, please feel free to call my office. ESTIVEN / JASON: [id number] / MTDD
[2019-09-04] MEDS: FLUTICASONE 50MCG/SPRAY NASAL 16GM EA NOSTRIL SCH (09:30)
[2019-09-04] MEDS: LORATADINE 10 MG TAB PO SCH (09:30)
[2019-09-04] MEDS: INSULIN DETEMIR (LEVEMIR) 100 UNIT/ML SYR SQ SCH ×2 (09:43→21:45)
--- NOTE | 2019-09-04 10:36 | P.PN ---
Subjective Progress Note Date: 09/04/19 Principal diagnosis: Diabetic ketoacidosis, altered mental status 49-year-old female patient came into the ED with altered mentation and she was immediately diagnosed having a BKA. The patient has underlying psychiatric history. The patient has severe agoraphobia and she has been hoarding. Her living condition has been extremely unacceptable based on the reported history. His sister has the power of appellate conferee. For now, she is not verbalizing. She is confused. She is being treated for DKA. At the same time she was found to have some nasolabial fold flattening and the patient was suspected to have some right facial droop an MRI of the brain was ordered in addition to carotid Doppler. In regards to her DKA, the patient had a anion gap metabolic acidosis. The mayte ent's serum bicarbonate was down to 7. Anion gap was 30. Glucose was 558. Calcium was 10.6. UA was negative. Cardiac enzymes were negative. TSH was 1 and she had some reactive leukocytosis with a white cell count of 24.2. CAT scan of the brain showed no evidence of any acute fracture or dislocation of the cervical spine. There was no intracranial hemorrhage or midline shift. There was some right sinusitis. The patient is seen today 09/02/2019 in follow-up in the intensive care unit. S he is a bit more awake and alert today compared to yesterday. She is still nonverbal. Mostly moaning. Not following any simple commands but is moving all 4 extremities. White count 26.2. Hemoglobin 11.2. Sodium 135. Potassium 4.0. Chloride 111. Bicarb 14. Anion gap 10. Creatinine 0.72. Glucose 239. Remains on an insulin drip at 4.5 ML's per hour. She is maintaining O2 saturations in the 90s on room air. She is afebrile. Tachycardic. She is moaning. She is having some significant abdominal discomfort on palpation. Abdominal x-ray revealed no acute abdomen. MRI of the brain revealed no acute intracranial process. The patient is seen today on September 03, 2019 . She continues to bezing the word no whe away staff when trying to assess her. She is pushing away clinical laboratory technician to draw blood this morning. he remains on insulin drip at 4.5 units Per hour. Anion gap 12. Current blood glucose 207. White count 24.4 Creatinine 0.75. She remains on D5 4 5 with 20 KCl at 150 mls per hour Antibiotics in the form of Zosyn. Psychiatric consult is pending. The patient is seen today 09/04/2019 in follow-up in the intensive care unit. She is currently off the insulin drip. Current glucose 198. On Levemir 15 units twice a day. Gap is closed at 11. White count 17.5. Creatinine 0.55. Her abdomen is soft. Less grimacing and withdrawing to pain on palpation. Refuses to eat or drink. States 'no' when asked if hungry. Blood and urine cultures reveal no growth. Objective - Vital Signs Vital signs: Vital Signs Temp 98.1 F 09/04/19 04:00 Pulse 107 H 09/04/19 04:00 Resp 15 09/04/19 04:00 BP 176/85 09/04/19 07:00 Pulse Ox 96 09/04/19 04:00 Intake & Output 09/03/19 09/04/19 09/04/19 18:59 06:59 18:59 Intake Total 5918.179 8485.15 150 Output Total 1725 2250 440 Balance 103.725 -1107.85 -290 Weight 104 kg Intake: IV 1800 1000 150 D5-0.45% NaCl with KCl 1800 1000 150 20Meq/l 1,000 ml @ 50 mls /hr IV .Q20H [facility] Rx#: [id number] Intake, IV Titration 28.725 142.15 Amount Insulin Regular 100 unit 28.725 42.15 In Sodium Chloride 0.9% 100 ml @ 0.1 UNITS/KG/HR 11.682 mls/hr IV .Q8H39M [facility] Rx#:[id number] Piperacillin-Tazobactam 3 100 .375 gm In Sodium Chloride 0.9% 100 ml @ 25 mls/hr IVPB Q8H [facility] Rx#: [id number] Output: Urine 1725 2250 440 Other: Voiding Method Indwelling Catheter Indwelling Catheter - Exam General: Ill-appearing, 49-year-old female patient, , appears older than stated age, obese, disheveled, more awake today, moving all fours, not following any commands, nonverbal, moaning. On room air. She is pushing away staff. She is saying 'no' Derm: Multiple upper extremity excoriations as well as chest wall, no unusual rashes/lesions no unusual ecchymoses, warm, dry Head: atraumatic, normocephalic, symmetric Eyes: EOMI, no lid lag, anicteric sclera, pupils equal round reactive to light, roving ENT: Nose and ears atraumatic, no thrush, no pharyngeal erythema Neck: No thyromegaly, no cervical lymphadenopathy, trachea midline, supple Mouth: no lip lesion, mucus membranes dry Cardiovascular: S1S2 tachy, no murmur, + posterior tibial pulse bilateral, no edema, capillary refill less than 2 seconds Lungs: CTA bilateral, no rhonchi, no rales , no accessory muscle use Abdominal: soft, tender to palpation, no guarding, no appreciable organomegaly, normal bowel sounds Ext: no gross muscle atrophy, moving right upper, left upper, and left lower extremity independently howevere if you lift arms and legs she will let them drop and not hold them up,, not following commends consistently, only moaning, no contractures, Neuro: Moving eye all around room, + cough, + gag, loss of nasal labial fold on the right, no withdrawal to pain RUE, RLE, LLE, moans but does not withdraw to pain LUE, Babinski down going bilateral Psych: lethargic, will open eyes and make eye contact, - Labs CBC & Chem 7: 09/04/19 04:09 09/04/19 04:09 Labs: Abnormal Lab Results - Last 24 Hours (Table) 09/03/19 09/03/19 09/03/19 Range/Units 12:04 13:19 13:53 WBC (3.8-10.6) k/uL MCV (80.0-100.0) fL MCH (25.0-35.0) pg RDW (11.5-15.5) % Neutrophils # (1.3-7.7) k/uL Lymphocytes # (1.0-4.8) k/uL Sodium (137-145) mmol/L Chloride 113 H (98-107) mmol/L Carbon Dioxide 15 L (22-30) mmol/L BUN 20 H (7-17) mg/dL Glucose 218 H (74-99) mg/dL POC Glucose (mg/dL) 228 H 201 H (75-99) mg/dL Total Protein (6.3-8.2) g/dL Albumin (3.5-5.0) g/dL Triglycerides 174 H (<150) mg/dL 09/03/19 09/03/19 09/03/19 Range/Units 15:58 18:34 20:04 WBC (3.8-10.6) k/uL MCV (80.0-100.0) fL MCH (25.0-35.0) pg RDW (11.5-15.5) % Neutrophils # (1.3-7.7) k/uL Lymphocytes # (1.0-4.8) k/uL Sodium (137-145) mmol/L Chloride (98-107) mmol/L Carbon Dioxide (22-30) mmol/L BUN (7-17) mg/dL Glucose (74-99) mg/dL POC Glucose (mg/dL) 189 H 177 H 181 H (75-99) mg/dL Total Protein (6.3-8.2) g/dL Albumin (3.5-5.0) g/dL Triglycerides (<150) mg/dL 09/03/19 09/03/19 09/04/19 Range/Units 20:32 22:17 01:45 WBC (3.8-10.6) k/uL MCV (80.0-100.0) fL MCH (25.0-35.0) pg RDW (11.5-15.5) % Neutrophils # (1.3-7.7) k/uL Lymphocytes # (1.0-4.8) k/uL Sodium 136 L (137-145) mmol/L Chloride (98-107) mmol/L Carbon Dioxide 19 L (22-30) mmol/L BUN (7-17) mg/dL Glucose 195 H (74-99) mg/dL POC Glucose (mg/dL) 170 H 225 H (75-99) mg/dL Total Protein 6.2 L (6.3-8.2) g/dL Albumin 3.3 L (3.5-5.0) g/dL Triglycerides (<150) mg/dL 09/04/19 09/04/19 09/04/19 Range/Units 04:09 04:09 06:35 WBC 17.5 H (3.8-10.6) k/uL MCV 76.5 L (80.0-100.0) fL MCH 24.2 L (25.0-35.0) pg RDW 16.3 H (11.5-15.5) % Neutrophils # 16.1 H (1.3-7.7) k/uL Lymphocytes # 0.7 L (1.0-4.8) k/uL Sodium 135 L (137-145) mmol/L Chloride (98-107) mmol/L Carbon Dioxide 20 L (22-30) mmol/L BUN (7-17) mg/dL Glucose 198 H (74-99) mg/dL POC Glucose (mg/dL) 197 H (75-99) mg/dL Total Protein 6.0 L (6.3-8.2) g/dL Albumin 3.2 L (3.5-5.0) g/dL Triglycerides (<150) mg/dL Microbiology - Last 24 Hours (Table) 09/01/19 09:25 Urine Culture - Final Urine,Catheterized 09/01/19 10:27 Blood Culture - Preliminary Blood No Growth after 48 hours Assessment and Plan Assessment: 1 diabetic ketoacidosis with severe anion gap metabolic acidosis currently on insulin drip for blood sugar control being treated by the DKA protocol. Off insulin drip. 2 reactive leukocytosis on Zosyn 3 sinusitis, right-sided currently on antibiotics Zosyn 4 altered mental status likely secondary to metabolic derangements. CVA is doubtful. MRI of the brain revealed no evidence of acute CVA. CAT scan of the brain is negative for an acute abnormalities 5 chronic anxiety/depression 6 severe agoraphobia 7 hoarding tendencies 8 diabetes mellitus 9 rheumatoid arthritis 10 Acute abdominal pain secondary to pancreatitis of unclear etiology Plan The patient was seen and evaluated by Dr. Stein. Triglyceride levels 174. Continue Levemir 15 units BID. She is a bit more awake and responsive today. Stating that the word 'no' once asked if she wants anything to eat or drink by staff. Patient's sister is at the bedside and updated on her status. Transfer out of the ICU today. Psychiatry following. I, the cosigning physician, performed a history & physical examination of the patient. Lungs sounds are clear. Maintaining good O2 saturations in the 90s on room air. I discussed the assessment and plan of care with my nurse practitioner, Celeste Aguilar. I attest to the above note as dictated by her.
--- NOTE | 2019-09-04 10:58 | P.PN ---
Subjective Progress Note Date: 09/04/19 Principal diagnosis: Change in mental status Patient still not answering any questions, she is laying in bed, dozing on and off. No overnight issues. Objective - Vital Signs Vital signs: Vital Signs Temp 98.1 F 09/04/19 08:00 Pulse 96 09/04/19 10:00 Resp 12 09/04/19 10:00 BP 196/92 09/04/19 10:00 Pulse Ox 96 09/04/19 10:00 Intake & Output 09/03/19 09/04/19 09/04/19 18:59 06:59 18:59 Intake Total 3611.255 0283.15 150 Output Total 1725 2250 440 Balance 103.725 -1107.85 -290 Weight 104 kg Intake: IV 1800 1000 150 D5-0.45% NaCl with KCl 1800 1000 150 20Meq/l 1,000 ml @ 50 mls /hr IV .Q20H HENRI Rx#: [id number] Intake, IV Titration 28.725 142.15 Amount Insulin Regular 100 unit 28.725 42.15 In Sodium Chloride 0.9% 100 ml @ 0.1 UNITS/KG/HR 11.682 mls/hr IV .Q8H39M HENRI Rx#:[id number] Piperacillin-Tazobactam 3 100 .375 gm In Sodium Chloride 0.9% 100 ml @ 25 mls/hr IVPB Q8H HENRI Rx#: [id number] Output: Urine 1725 2250 440 Other: Voiding Method Indwelling Catheter Indwelling Catheter Indwelling Catheter - Exam General: looks in no distress, appears at stated age, obese Derm: warm, dry Head: atraumatic, normocephalic, symmetric Eyes: EOMI, no lid lag, anicteric sclera Mouth: no lip lesion, mucus membranes dry Cardiovascular: S1S2 reg, no murmur, positive posterior tibial pulse bilateral, Lungs: decreased bs bilateral, no rhonchi, no rales , no accessory muscle use Abdominal: soft, NT, no guarding, no appreciable organomegaly Ext: no gross muscle atrophy, no edema, no contractures Neuro: CN II-XI grossly intact, no focal neuro deficits Psych: Unpurposeful movements of the arms and legs. Not answering questions or verbalizing anything. Exam from previous physician on 09/01 noted: ''patient sits up in bed and roll on her side when she wants to. When she overheard us talking about her mental health she did let out a long moan and then sat up in bed'' - Labs CBC & Chem 7: 09/04/19 04:09 09/04/19 04:09 Labs: Abnormal Lab Results - Last 24 Hours (Table) 09/03/19 09/03/19 09/03/19 Range/Units 12:04 13:19 13:53 WBC (3.8-10.6) k/uL MCV (80.0-100.0) fL MCH (25.0-35.0) pg RDW (11.5-15.5) % Neutrophils # (1.3-7.7) k/uL Lymphocytes # (1.0-4.8) k/uL Sodium (137-145) mmol/L Chloride 113 H (98-107) mmol/L Carbon Dioxide 15 L (22-30) mmol/L BUN 20 H (7-17) mg/dL Glucose 218 H (74-99) mg/dL POC Glucose (mg/dL) 228 H 201 H (75-99) mg/dL Total Protein (6.3-8.2) g/dL Albumin (3.5-5.0) g/dL Triglycerides 174 H (<150) mg/dL 09/03/19 09/03/19 09/03/19 Range/Units 15:58 18:34 20:04 WBC (3.8-10.6) k/uL MCV (80.0-100.0) fL MCH (25.0-35.0) pg RDW (11.5-15.5) % Neutrophils # (1.3-7.7) k/uL Lymphocytes # (1.0-4.8) k/uL Sodium (137-145) mmol/L Chloride (98-107) mmol/L Carbon Dioxide (22-30) mmol/L BUN (7-17) mg/dL Glucose (74-99) mg/dL POC Glucose (mg/dL) 189 H 177 H 181 H (75-99) mg/dL Total Protein (6.3-8.2) g/dL Albumin (3.5-5.0) g/dL Triglycerides (<150) mg/dL 03/03/1609/03/19 09/04/19 Range/Units 20:32 22:17 01:45 WBC (3.8-10.6) k/uL MCV (80.0-100.0) fL MCH (25.0-35.0) pg RDW (11.5-15.5) % Neutrophils # (1.3-7.7) k/uL Lymphocytes # (1.0-4.8) k/uL Sodium 136 L (137-145) mmol/L Chloride (98-107) mmol/L Carbon Dioxide 19 L (22-30) mmol/L BUN (7-17) mg/dL Glucose 195 H (74-99) mg/dL POC Glucose (mg/dL) 170 H 225 H (75-99) mg/dL Total Protein 6.2 L (6.3-8.2) g/dL Albumin 3.3 L (3.5-5.0) g/dL Triglycerides (<150) mg/dL 09/04/19 09/04/19 09/04/19 Range/Units 04:09 04:09 06:35 WBC 17.5 H (3.8-10.6) k/uL MCV 76.5 L (80.0-100.0) fL MCH 24.2 L (25.0-35.0) pg RDW 16.3 H (11.5-15.5) % Neutrophils # 16.1 H (1.3-7.7) k/uL Lymphocytes # 0.7 L (1.0-4.8) k/uL Sodium 135 L (137-145) mmol/L Chloride (98-107) mmol/L Carbon Dioxide 20 L (22-30) mmol/L BUN (7-17) mg/dL Glucose 198 H (74-99) mg/dL POC Glucose (mg/dL) 197 H (75-99) mg/dL Total Protein 6.0 L (6.3-8.2) g/dL Albumin 3.2 L (3.5-5.0) g/dL Triglycerides (<150) mg/dL Microbiology - Last 24 Hours (Table) 09/01/19 09:25 Urine Culture - Final Urine,Catheterized 09/01/19 10:27 Blood Culture - Preliminary Blood No Growth after 48 hours Assessment and Plan Plan: Diabetic ketoacidosis, anion gap resolved -Patient started on subcu insulin, long-acting as well as short-acting. -Continue accu-Cheks q2 h -IV fluids per DKA protocol -A1c 11.8 Pancreatitis - IVF - Resume diet - Pain medications Acute encephalopathy -metabolic should be improving, concern for underlying psychosis due to severe agorphobia -MRI brain, Carotid Dopplers both negative -Supportive care -psych consulted Acute right-sided sinusitis with sepsis -Demond, seen by ENT -IV fluids -Flonase -Claritin Severe metabolic acidosis -Resolved Anxiety and depression with severe agoraphobia and hoarding tendencies -psychiatry following patient Morbid obesity -Outpatient structured weight loss Hypercalcemia, resolved Patient has not filled her meds since last January, A1c as noted above is 11. She is probably not taking her meds. Patient's sister has certified this patient for inpatient psychiatric admission. She will be discharged to psych when medically stable. DVT prophylaxis: heparin Discussed with: Patient, nursing, Anticipated discharge date: [address]: ?[facility] A total of 45 minutes was spent on the care of this complex patient more than 50% of the time was spent in counseling and care coordination.
[2019-09-04 12:01] LABS: Glucose,Whole Blood 191 mg/dL (75-99)
--- NOTE | 2019-09-04 14:45 | P.CON ---
Consult Note - . Consult date: 09/04/19 Assessment/Plan:: Clinical Problems: Delirium due to multiple etiologies, agoraphobia by history, hoarding disorder by history Interim history: Reviewed the medical record and attempted to interview the patient. She responded to her name but would not speak. According to record she is refusing to eat or drink, she told the nurse "no" when after she was hungry. Mental status exam: She presented as a pale appearing moderately obese female who is laying comfortably in bed. She briefly made eye contact but did not appear to attend to the interview. She would not speak. She did not appear to be responding to internal stimuli. Assessment: She remains mute to questioning. I am unable to conduct a comprehensive psychiatric assessment. Plan: Will continue to follow.
[2019-09-04] MEDS: ONDANSETRON 4 MG/2 ML VIAL IVP PRN (16:12)
[2019-09-04 17:15] LABS: Glucose,Whole Blood 132 mg/dL (75-99)
[2019-09-04 20:41] LABS: Glucose,Whole Blood 179 mg/dL (75-99)
[2019-09-05 02:19] LABS: Glucose,Whole Blood 152 mg/dL (75-99)
[2019-09-05] MEDS: PIPERACILLIN-TAZOBACTAM 3.375 GM in SODIUM CHLORIDE 0.9% 100 ML IVPB SCH ×2 (03:10→10:33)
[2019-09-05] MEDS: INSULIN ASPART (NovoLOG) 100 UNIT/ML VIAL SQ SCH ×5 (03:12→21:44)
[2019-09-05] MEDS: D5-0.45% NACL WITH KCL 20MEQ/L 1,000 ML IV SCH (05:42)
[2019-09-05 07:14] LABS: Glucose,Whole Blood 143 mg/dL (75-99)
[2019-09-05] MEDS: LORATADINE 10 MG TAB PO SCH (07:47)
[2019-09-05] MEDS: INSULIN DETEMIR (LEVEMIR) 100 UNIT/ML SYR SQ SCH ×2 (07:47→21:44)
[2019-09-05] MEDS: FLUTICASONE 50MCG/SPRAY NASAL 16GM EA NOSTRIL SCH (07:47)
--- NOTE | 2019-09-05 10:36 | P.CON ---
Consult Note - . Consult date: 09/05/19 Assessment/Plan:: Clinical Problems: Mutism, hoarding disorder, rule out agoraphobia Interim history: I reviewed the medical record, attempted to interview the patient and spoke with her sister Malu. The patient made eye contact but would not speak. I spent most of the interview talking to her sister who provided considerable background information. Her sister has applied for guardianship. Malu described her sister as an introvert and reclusive most of her life. She has few friends and little contact with people outside of online chat groups. She lives alone and has always had hoarding tendencies. Her sister described increasing hoarding over several years. Neli was able to contain hoarding and disorganization to her home life for many years. However, she developed difficulties at work with disorganization and absenteeism that eventually led to long-term disability [facility]. Since her [facility] in [place] Neli seldom leaves the house. The hoarding has progressively worsed and Malu showed me several photos of her house that demonstrated the large accumulation of trash. Malu last spoke with Neli on . Mariola went to visit her on Tuesday. She did not answer the doorbell and Neli found her unresponsive in her bed. Neli is refusing to speak to her sister. Neli have receives mental health treatment intermittently through much of her Life. However Neli stated she never follows through and is never consistent with treatment. She's had no psychiatric hospitalizations. She had no problems with drugs and alcohol with the possible exception of her use of clonazepam. Her outpatient psychotropic medications are listed as clonazepam 1 mg by mouth 3 times a day, Lexapro 20 mg daily, Trileptal 300 mg daily and Lunesta 3 mg at bedtime. I reviewed the MAPS. She last filled prescriptions for Lunesta and clonazepam on 03/15/2019. She is single and has no children. She graduated from [employer] with a degree in education. 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 Mental status exam: She presented as a pale appearing moderately obese female who made eye contact but would not speak. She had a bright facial expression. She showed psychomotor retardation but no abnormal movements. Her affect was blunted. Also named evaluate her thought content or thought process. She did not appear to be responding to internal stimuli. Assessment: She is a 49-year-old female with a history of a hoarding disorder, probable agoraphobia and a possible mood disorder. [facility] and ketoacidotic. Her diabetes under control but she remains mute. Based on information provided by her sister she would benefit from inpatient psychiatric treatment. Plan: Transferred to psychiatric unit when medically stable.
[2019-09-05 11:56] LABS: Glucose,Whole Blood 138 mg/dL (75-99)
--- NOTE | 2019-09-05 12:49 | P.DS ---
Providers Date of admission: 09/01/19 09:43 Expected date of discharge: 09/05/19 Attending physician: Jennifer Whiting DO Consults: 09/01/19 09:44 Consult Physician Routine Consulting Provider: Nurys Stein Consult Reason/Comments: Uncontrolled diabetes/DKA Do you want consulting provider notified?: Yes 09/01/19 12:53 Consult Physician Routine Consulting Provider: Jeanmarie Pinto Consult Reason/Comments: severe sinusitis R Do you want consulting provider notified?: Yes 09/03/19 02:45 Consult Physician Routine Consulting Provider: Ishmael Harrington Consult Reason/Comments: Anxiety/Depression Do you want consulting provider notified?: Yes, Notify in am Primary care physician: [facility] Course: 49 yo CF with diabetes on insulin, HTN, HLD, and depression, anxiety with severe agoraphobia who presented to the emergency department via EMS due to mental status changes. She was found altered by her sister at home. When seen she was not verbalizing. She was only intermittently following commands. History was obtained from her sister who is her durable medical power of assistant attorney general. Patient has history of severe agoraphobia and has been hoarding. Because of that her house is currently full of trash. She has not left her house since April. The family did not hear from her for her normal morning checking and therefore his sister went to the house. To her sister she looked even more disheveled than the last time she saw her and also she was not responding appropriately. Further investigation revealed that the last time she refilled he r meds was in january of last year. On arrival to the emergency department she underwent an extensive evaluation. Her initial vital signs showed tachycardia with a heart rate of 131. Her initial laboratory analysis showed white blood cell count of 24.2, hemoglobin 13.6, platelets 503. Her INR was normal at 1. Her VBG showed a pH of 7.19 with a bicarbonate 9. Sodium was slightly low at 135, glucose 558, calcium 10.6, troponin was normal. Lipase was elevated at 1400. Urinalysis showed glucosurea. She was acetone positive. She underwent CT head and neck which showed significant acute right-sided sinusitis. In the ER she was given 2 L of fluid and started on insulin drip. She was also given a dose of Zosyn for her presumed acute right-sided sinusitis. She was admitted to the ICU for further monitoring. Upon admission patient was continued on insulin drip. Over the next few days anion gap closed and the blood sugars came down. Patient was also treated with IV fluids. Zosyn was continued for sinusitis. She was seen by ENT who did not think she had fungal infection because it was normal bone erosion from the computed tomography scan noted. Due to elevated lipase she also was diagnosed with acute pancreatitis, initially she was nothing by mouth and later in the hospitalization she was allowed to eat but she refused to. When her anion gap closed and diabetic ketoacidosis resolved patient was started on diet as well as subcutaneous insulin, but again as above she refused to eat.. Even after all of the above issues improved she continues to be mute and not answer any questions. Patient was seen by psychiatry service who thought that she would benefit from inpatient psychiatric admission. Due to the patient will be discharged to our inpatient psych facility. Discharge diagnoses Acute pancreatitis DKA Severe depression, anxiety, with agoraphobia Time for discharge 35 minutes Patient Condition at Discharge: Serious Plan - Discharge Summary Discharge Rx Participant: No New Discharge Prescriptions: New Loratadine [Claritin] 10 mg PO DAILY tab Fluticasone Nasal [place] [Flonase Nasal [place]] 2 spray EA NOSTRIL DAILY spr Insulin Detemir (Levemir) [Levemir] 15 unit SQ DAILY@0700 syr Insulin Detemir (Levemir) [Levemir] 15 unit SQ HS syr INSULIN ASPART (NovoLOG) [NovoLOG (formulary)] 0 unit SQ [id number] vial Acetaminophen Tab [Tylenol] 650 mg PO Q6HR PRN tab PRN Reason: Fever and/ or MILD Pain Discharge Medication List Acetaminophen Tab [Tylenol] 650 mg PO Q6HR PRN tab 09/05/19 [Rx] Fluticasone Nasal [place] [Flonase Nasal [place]] 2 spray EA NOSTRIL DAILY spr 09/05/19 [Rx] INSULIN ASPART (NovoLOG) [NovoLOG (formulary)] 0 unit SQ [id number] vial 09/05/19 [Rx] Insulin Detemir (Levemir) [Levemir] 15 unit SQ DAILY@0700 syr 09/05/19 [Rx] Insulin Detemir (Levemir) [Levemir] 15 unit SQ HS syr 09/05/19 [Rx] Loratadine [Claritin] 10 mg PO DAILY tab 09/05/19 [Rx] Follow up Appointment(s)/Referral(s): Skye Perez MD [Primary Care Provider] - 1-2 days
--- NOTE | 2019-09-05 16:10 | P.PN ---
Subjective Progress Note Date: 09/05/19 On today's evaluation, the 2019, the patient is still noncommunicating. For now she is position and the patient is going through psychiatry floor for further treatment. She is hemodynamically stable. She is on room air oxygen. She is on long-acting insulin , Levemir insulin 15 units at bedtime and 15 units in the morning. She is also taking his vascular coverage. White cell count is improving. No nausea. No vomiting. She got moved out of the intensive care unit yesterday. Objective - Vital Signs Vital signs: Vital Signs Temp 97 F L 09/05/19 13:15 Pulse 107 H 09/05/19 13:15 Resp 20 09/05/19 13:15 BP 163/104 09/05/19 13:15 Pulse Ox 95 09/05/19 13:15 Intake & Output 09/04/19 09/05/19 09/05/19 18:59 06:59 18:59 Intake Total 350 0 Output Total 1365 650 350 Balance -1015 -650 -350 Intake: IV 350 D5-0.45% NaCl with KCl 350 20Meq/l 1,000 ml @ 50 mls /hr IV .Q20H HENRI Rx#: [id number] Oral 0 Output: Urine 1365 650 350 Other: Voiding Method Indwelling Catheter Indwelling Catheter Indwelling Catheter # Bowel Movements 0 0 - Exam General: Ill-appearing, 49-year-old female patient, , appears older than stated age, obese, disheveled, more awake today, moving all fours, not following any commands, nonverbal, moaning. On room air. She is pushing away staff. She is saying 'no' Derm: Multiple upper extremity excoriations as well as chest wall, no unusual rashes/lesions no unusual ecchymoses, warm, dry Head: atraumatic, normocephalic, symmetric Eyes: EOMI, no lid lag, anicteric sclera, pupils equal round reactive to light, roving ENT: Nose and ears atraumatic, no thrush, no pharyngeal erythema Neck: No thyromegaly, no cervical lymphadenopathy, trachea midline, supple Mouth: no lip lesion, mucus membranes dry Cardiovascular: S1S2 tachy, no murmur, + posterior tibial pulse bilateral, no edema, capillary refill less than 2 seconds Lungs: CTA bilateral, no rhonchi, no rales , no accessory muscle use Abdominal: soft, tender to palpation, no guarding, no appreciable organomegaly, normal bowel sounds Ext: no gross muscle atrophy, moving right upper, left upper, and left lower extremity independently howevere if you lift arms and legs she will let them drop and not hold them up,, not following commends consistently, only moaning, no contractures, Neuro: Moving eye all around room, + cough, + gag, loss of nasal labial fold on the right, no withdrawal to pain RUE, RLE, LLE, moans but does not withdraw to pain LUE, Babinski down going bilateral Psych: lethargic, will open eyes and make eye contact, - Labs CBC & Chem 7: 09/04/19 04:09 09/04/19 04:09 Labs: Abnormal Lab Results - Last 24 Hours (Table) 09/04/19 09/04/19 09/05/19 Range/Units 17:12 20:37 02:17 POC Glucose (mg/dL) 132 H 179 H 152 H (75-99) mg/dL 09/05/19 09/05/19 Range/Units 07:13 11:53 POC Glucose (mg/dL) 143 H 138 H (75-99) mg/dL Microbiology - Last 24 Hours (Table) 09/01/19 10:27 Blood Culture - Preliminary Blood No Growth after 96 hours Assessment and Plan Plan: 1 diabetic ketoacidosis with severe anion gap metabolic acidosis, recovered 2 reactive leukocytosis, improved 3 sinusitis, right-sided currently on antibiotics Zosyn 4 altered mental status likely secondary to metabolic derangements. The patient is still not communicating. She is catatonic. She'll be transferred to psych floor. 5 chronic anxiety/depression 6 severe agoraphobia 7 hoarding tendencies 8 diabetes mellitus 9 rheumatoid arthritis Plan The patient will be discharged to psych floor on oral Augmentin and Levemir insulin 15 units twice a day and the patient will be followed up by sound physicians. Pulmonary critical care services will sign off.
[2019-09-05 17:10] LABS: Glucose,Whole Blood 146 mg/dL (75-99)
[2019-09-05 20:57] LABS: Glucose,Whole Blood 141 mg/dL (75-99)
[2019-09-05] MEDS ORDERED: LORazepam 2 MG/ML INJ IV PRN (21:30)
[2019-09-05] MEDS ORDERED: LORazepam 2 MG/ML INJ IM PRN (21:30)
[2019-09-06] MEDS: PIPERACILLIN-TAZOBACTAM 3.375 GM in SODIUM CHLORIDE 0.9% 100 ML IVPB SCH ×4 (01:20→20:11)
[2019-09-06 02:34] LABS: Glucose,Whole Blood 164 mg/dL (75-99)
[2019-09-06] MEDS: INSULIN ASPART (NovoLOG) 100 UNIT/ML VIAL SQ SCH ×5 (03:13→22:46)
[2019-09-06 06:58] LABS: Glucose,Whole Blood 137 mg/dL (75-99)
[2019-09-06] MEDS: LORATADINE 10 MG TAB PO SCH (07:22)
[2019-09-06] MEDS: INSULIN DETEMIR (LEVEMIR) 100 UNIT/ML SYR SQ SCH ×2 (07:22→20:25)
[2019-09-06] MEDS: FLUTICASONE 50MCG/SPRAY NASAL 16GM EA NOSTRIL SCH (07:23)
--- NOTE | 2019-09-06 11:22 | EEG ---
ELECTROENCEPHALOGRAM REPORT DATE OF SERVICE: 09/06/2019. PREAMBLE: This is a 49-year-old female who was found in her home, noncommunicative and noncompliant with her diabetes. She is not speaking. This EEG is performed to evaluate for any epileptiform activity. TECHNICAL REPORT: The [employer] service technician reported the patient hair is completely entangled, making lead placement extremely difficult. The patient had a clinical seizure documented during the EEG, consisting of staring episode, with the head twitching and eyes fluttering. EEG FINDINGS: Routine 21 channel awake digital EEG recording was accomplished utilizing the 10-20 international system with bipolar and referential montages. The background consists of well-developed, poorly regulated, mixed frequencies of 7-8 hertz seen better in the right hemispheric region. There is continuous focal slowing in polymorphic delta and theta activity in the left hemispheric region. The recording of probable electrographic seizure, consisting of high amplitude rhythmic sharp waves at 4 hertz seen to originate from the left hemispheric region, then generalized for about one minute, followed by a continuous high amplitude spike and slow wave activity involving the left hemispheric region for another 2-3 minutes. During this event, patient was noted to have a blank stare, gaze deviation to the right, with head twitching and eyes fluttering. Different stages of sleep were not seen. Photic driving response was not seen. IMPRESSION: This is an abnormal EEG due to presence of epileptic focus involving the left hemispheric region. Recording of a single electrographic seizure as mentioned above in detail. Clinical correlation is recommended. In appropriate clinical setting, this may suggest partial status epilepticus. Recommend MRI of the brain to rule out any mass lesion, or any focal destructive lesion versus encephalitis. A followup EEG is strongly recommended. MMODL / IJN: [id number] / MTDD
[2019-09-06] MEDS ORDERED: PHENYTOIN SODIUM INJ 1,000 MG in SODIUM CHLORIDE 0.9% 100 ML IVPB STA (11:53)
--- NOTE | 2019-09-06 12:03 | P.CNNES ---
History of Present Illness Consult date: 09/06/19 Requesting physician: Taco Robb Reason for Consult: Seizure-like activity History of Present Illness: Patient is a 49-year-old female, who has history of diabetes, not well controlled, who has not been out of her house since 05/05/2019, because of agoraphobia. She also has fibromyalgia, depression, anxiety, rheumatoid arthritis. She has no children. Patient also has history of hoarding. Patient however still has been in contact through cell phone and texturing continuously to her sister and her mother. She has not contacted her family members for about 30 hours, which is unusual, and patient's sister went into her home, found her unresponsive on the floor, with feces and urine all around in up over h ygienic condition. Patient was brought to the hospital on 09/01/2019 at 7:08 AM. Patient's blood sugar was 558 and was in DKA. Her electrolytes, renal functions, liver functions were normal. Patient had an MRI of the brain on 09/01/2019, which revealed cerebral atrophy. There is mild white matter signal changes around the lateral ventricles that appear new compared to old exam. This could relate to some small chronic small vessel ischemia. Patient had a carotid Doppler which revealed no hemodynamically significant stenosis. Antegrade flow in both vertebral arteries. 2-D echo showed normal sinus rhythm, moderate concentric LVH, EF 55-60%. Left atrial size is normal. Patient's ammonia is normal <9. Vitamin B12 344, TFTs normal cortisone normal. Vitamin D 12.5. Total cholesterol 191, LDL 92, HDL 31.0. Patient also had acute pancreatitis with a lipase of 1422. Urine drug screen negative, blood alcohol level negative, acetone was positive. SARAH negative. Hemoglobin A1c 11.8. Patient's DKA was treated. Patient had normal temperature although may go up to 99.4 Max. Her white cells on arrival was 24.2, although most recently is 17.5. Apparently last night patient started having seizures. Patient's sister has recorded seizures on her cell phone, which I reviewed are classically focal onset seizures. She has recorded 12 seizures on her cell phone. Patient had an EEG performed, which revealed epileptic focus involving the left hemispheric region. There was recording of an electrographic seizure, left hemispheric onset with secondary generalization. Patient has possible partial status epilepticus. Patient has been on Klonopin 3 times a day, unsure of exact dosing. She has been out of her medication since April 2020. Review of Systems ROS unobtainable: due to mental status Past Medical History Past Medical History: Diabetes Mellitus, Fibromyalgia, Skin Disorder Additional Past Medical History / Comment(s): rheumatoid arthritis History of Any Multi-Drug Resistant Organisms: None Reported Past Surgical History: Tonsillectomy Additional Past Surgical History / Comment(s): wisdom Past Psychological History: Depression Additional Psychological History / Comment(s): agoraphobia Smoking Status: Never smoker Past Alcohol Use History: None Reported Past Drug Use History: None Reported - Past Family History Father Additional Family Medical History / Comment(s): heart disease Medications and Allergies Home Medications Medication Instructions Recorded Confirmed Type Acetaminophen Tab [Tylenol] 650 mg PO Q6HR PRN tab 09/05/19 Rx Amoxic-Pot Clav 875-125Mg 1 tab PO Q12HR 10 Days #6 tab 09/05/19 Rx [Augmentin 875-125] Fluticasone Nasal [place] [Flonase 2 spray EA NOSTRIL DAILY spr 09/05/19 Rx Nasal [place]] INSULIN ASPART (NovoLOG) [NovoLOG 0 unit SQ [id number] vial 09/05/19 Rx (formulary)] Insulin Detemir (Levemir) [Levemir] 15 unit SQ DAILY@0700 syr 09/05/19 Rx Insulin Detemir (Levemir) [Levemir] 15 unit SQ HS syr 09/05/19 Rx Loratadine [Claritin] 10 mg PO DAILY tab 09/05/19 Rx Allergies Allergy/AdvReac Type Severity Reaction Status Date / Time cefaclor [From [facility]] Allergy Unknown Verified 09/03/19 09:30 Physical Examination - Vital Signs Vital Signs: Vital Signs Temp Pulse Resp BP BP Pulse Ox 09/06/19 07:21 99.4 F 84 16 161/83 98 09/05/19 21:02 101 H 20 144/88 93 L 09/05/19 13:15 97 F L 107 H 20 169/110 163/104 95 Intake and Output 09/05/19 09/06/19 09/06/19 22:59 06:59 14:59 Intake Total 240 Output Total 350 0 Balance -110 0 Intake: Oral 240 Output: Urine 350 0 Other: Voiding Method Indwelling Catheter Indwelling Catheter Indwelling Catheter # Voids 1 # Bowel Movements 0 0 On examination patient is a middle aged female, who appears obviously encephalopathic. No obvious seizure activity is noted at this time. Patient does open her eyes to calling her name, and tries to make eye contact. She however is mute. Not speaking any word or sentence. Patient's face is symmetric. Pupils are round and reacting visual gaytan could not be tested. Patient strength appears equal bilaterally although she did not cooperate. Tone was equal, and was going down with gravity equally. She moves her feet equally to plantar stimulation. Patient does have some bruises over her arms and legs, some skin condition. No bruit or murmur. No peripheral edema. Results - Laboratory Findings CBC and BMP: 09/04/19 04:09 09/04/19 04:09 Abnormal Lab Findings: Abnormal Labs 09/01/19 09/01/19 09/01/19 07:14 07:30 07:30 WBC 24.2 H RBC 5.82 H Hgb Hct 46.8 H MCV MCH 23.4 L MCHC 29.1 L RDW 16.1 H Plt Count 503 H Neutrophils # 22.2 H Lymphocytes # 0.8 L Monocytes # VBG pH VBG pCO2 VBG HCO3 Sodium 135 L Chloride Carbon Dioxide 7 L* BUN Glucose 558 H* POC Glucose (mg/dL) 532 H Hemoglobin A1c Calcium 10.6 H Phosphorus Magnesium Creatine Kinase 20 L Total Protein Albumin Triglycerides Lipase Urine Protein Urine Glucose (UA) Urine Ketones Urine Mucus 09/01/19 09/01/19 09/01/19 07:30 09:00 09:25 WBC RBC Hgb Hct MCV MCH MCHC RDW Plt Count Neutrophils # Lymphocytes # Monocytes # VBG pH 7.16 L* VBG pCO2 27 L VBG HCO3 9 L* Sodium Chloride Carbon Dioxide BUN Glucose POC Glucose (mg/dL) Hemoglobin A1c 11.8 H Calcium Phosphorus Magnesium Creatine Kinase Total Protein Albumin Triglycerides Lipase Urine Protein 1+ H Urine Glucose (UA) 4+ H Urine Ketones 4+ H Urine Mucus Rare H 09/01/19 09/01/19 09/01/19 09:42 10:50 11:18 WBC RBC Hgb Hct MCV MCH MCHC RDW Plt Count Neutrophils # Lymphocytes # Monocytes # VBG pH VBG pCO2 VBG HCO3 Sodium Chloride Carbon Dioxide BUN Glucose POC Glucose (mg/dL) 494 H 433 H 365 H Hemoglobin A1c Calcium Phosphorus Magnesium Creatine Kinase Total Protein Albumin Triglycerides Lipase Urine Protein Urine Glucose (UA) Urine Ketones Urine Mucus 09/01/19 09/01/19 09/01/19 12:10 12:56 14:46 WBC RBC Hgb Hct MCV MCH MCHC RDW Plt Count Neutrophils # Lymphocytes # Monocytes # VBG pH VBG pCO2 VBG HCO3 Sodium Chloride Carbon Dioxide 9 L* BUN 19 H Glucose 337 H POC Glucose (mg/dL) 283 H 218 H Hemoglobin A1c Calcium Phosphorus Magnesium Creatine Kinase Total Protein Albumin Triglycerides Lipase Urine Protein Urine Glucose (UA) Urine Ketones Urine Mucus 09/01/19 09/01/19 09/01/19 16:09 16:10 16:47 WBC RBC Hgb Hct MCV MCH MCHC RDW Plt Count Neutrophils # Lymphocytes # Monocytes # VBG pH VBG pCO2 VBG HCO3 Sodium Chloride 111 H Carbon Dioxide 12 L BUN 21 H Glucose 236 H POC Glucose (mg/dL) 247 H 214 H Hemoglobin A1c Calcium Phosphorus 1.8 L Magnesium Creatine Kinase Total Protein Albumin Triglycerides Lipase Urine Protein Urine Glucose (UA) Urine Ketones Urine Mucus 09/01/19 09/01/19 09/01/19 18:04 19:03 19:29 WBC RBC Hgb Hct MCV MCH MCHC RDW Plt Count Neutrophils # Lymphocytes # Monocytes # VBG pH VBG pCO2 VBG HCO3 Sodium Chloride 110 H Carbon Dioxide 15 L BUN 22 H Glucose 156 H POC Glucose (mg/dL) 180 H 184 H Hemoglobin A1c Calcium 10.6 H Phosphorus Magnesium Creatine Kinase Total Protein Albumin Triglycerides Lipase Urine Protein Urine Glucose (UA) Urine Ketones Urine Mucus 09/01/19 09/01/19 09/01/19 19:48 20:59 21:55 WBC RBC Hgb Hct MCV MCH MCHC RDW Plt Count Neutrophils # Lymphocytes # Monocytes # VBG pH VBG pCO2 VBG HCO3 Sodium Chloride Carbon Dioxide BUN Glucose POC Glucose (mg/dL) 157 H 153 H 119 H Hemoglobin A1c Calcium Phosphorus Magnesium Creatine Kinase Total Protein Albumin Triglycerides Lipase Urine Protein Urine Glucose (UA) Urine Ketones Urine Mucus 09/01/19 09/01/19 09/02/19 23:10 23:51 00:31 WBC RBC Hgb Hct MCV MCH MCHC RDW Plt Count Neutrophils # Lymphocytes # Monocytes # VBG pH VBG pCO2 VBG HCO3 Sodium Chloride 111 H Carbon Dioxide 15 L BUN 23 H Glucose 178 H POC Glucose (mg/dL) 140 H 159 H Hemoglobin A1c Calcium Phosphorus Magnesium Creatine Kinase Total Protein Albumin Triglycerides Lipase Urine Protein Urine Glucose (UA) Urine Ketones Urine Mucus 09/02/19 09/02/19 09/02/19 01:07 03:07 04:03 WBC RBC Hgb Hct MCV MCH MCHC RDW Plt Count Neutrophils # Lymphocytes # Monocytes # VBG pH VBG pCO2 VBG HCO3 Sodium Chloride Carbon Dioxide BUN Glucose POC Glucose (mg/dL) 189 H 203 H 215 H Hemoglobin A1c Calcium Phosphorus Magnesium Creatine Kinase Total Protein Albumin Triglycerides Lipase Urine Protein Urine Glucose (UA) Urine Ketones Urine Mucus 09/02/19 09/02/19 09/02/19 05:00 06:07 06:50 WBC RBC Hgb Hct MCV MCH MCHC RDW Plt Count Neutrophils # Lymphocytes # Monocytes # VBG pH VBG pCO2 VBG HCO3 Sodium Chloride Carbon Dioxide BUN Glucose POC Glucose (mg/dL) 254 H 238 H 261 H Hemoglobin A1c Calcium Phosphorus Magnesium Creatine Kinase Total Protein Albumin Triglycerides Lipase Urine Protein Urine Glucose (UA) Urine Ketones Urine Mucus 09/02/19 09/02/19 09/02/19 07:00 07:48 07:48 WBC RBC Hgb Hct MCV MCH MCHC RDW Plt Count Neutrophils # Lymphocytes # Monocytes # VBG pH VBG pCO2 VBG HCO3 Sodium 135 L Chloride 111 H Carbon Dioxide 14 L BUN 22 H Glucose 265 H POC Glucose (mg/dL) Hemoglobin A1c Calcium Phosphorus Magnesium 2.4 H Creatine Kinase Total Protein Albumin Triglycerides Lipase 1422 H Urine Protein Urine Glucose (UA) Urine Ketones Urine Mucus 09/02/19 09/02/19 09/02/19 07:48 08:03 09:06 WBC 26.2 H RBC Hgb 11.2 L Hct MCV 78.1 L MCH 23.8 L MCHC 30.5 L RDW 16.2 H Plt Count Neutrophils # 23.2 H Lymphocytes # Monocytes # 1.3 H VBG pH VBG pCO2 VBG HCO3 Sodium Chloride Carbon Dioxide BUN Glucose POC Glucose (mg/dL) 244 H 228 H Hemoglobin A1c Calcium Phosphorus Magnesium Creatine Kinase Total Protein Albumin Triglycerides Lipase Urine Protein Urine Glucose (UA) Urine Ketones Urine Mucus 09/02/19 09/02/19 09/02/19 10:12 11:22 13:17 WBC RBC Hgb Hct MCV MCH MCHC RDW Plt Count Neutrophils # Lymphocytes # Monocytes # VBG pH VBG pCO2 VBG HCO3 Sodium Chloride Carbon Dioxide BUN Glucose POC Glucose (mg/dL) 239 H 216 H 188 H Hemoglobin A1c Calcium Phosphorus Magnesium Creatine Kinase Total Protein Albumin Triglycerides Lipase Urine Protein Urine Glucose (UA) Urine Ketones Urine Mucus 09/02/19 09/02/19 09/02/19 14:02 16:30 18:05 WBC RBC Hgb Hct MCV MCH MCHC RDW Plt Count Neutrophils # Lymphocytes # Monocytes # VBG pH VBG pCO2 VBG HCO3 Sodium Chloride 111 H Carbon Dioxide 16 L BUN 24 H Glucose 190 H POC Glucose (mg/dL) 188 H 196 H Hemoglobin A1c Calcium Phosphorus Magnesium Creatine Kinase Total Protein Albumin Triglycerides Lipase Urine Protein Urine Glucose (UA) Urine Ketones Urine Mucus 09/02/19 09/02/19 09/03/19 20:22 22:06 00:00 WBC RBC Hgb Hct MCV MCH MCHC RDW Plt Count Neutrophils # Lymphocytes # Monocytes # VBG pH VBG pCO2 VBG HCO3 Sodium Chloride Carbon Dioxide BUN Glucose POC Glucose (mg/dL) 179 H 188 H 212 H Hemoglobin A1c Calcium Phosphorus Magnesium Creatine Kinase Total Protein Albumin Triglycerides Lipase Urine Protein Urine Glucose (UA) Urine Ketones Urine Mucus 09/03/19 09/03/19 09/03/19 00:31 02:03 04:29 WBC RBC Hgb Hct MCV MCH MCHC RDW Plt Count Neutrophils # Lymphocytes # Monocytes # VBG pH VBG pCO2 VBG HCO3 Sodium Chloride 112 H Carbon Dioxide 16 L BUN 25 H Glucose 240 H POC Glucose (mg/dL) 228 H 244 H Hemoglobin A1c Calcium Phosphorus Magnesium Creatine Kinase Total Protein Albumin Triglycerides Lipase Urine Protein Urine Glucose (UA) Urine Ketones Urine Mucus 09/03/19 09/03/19 09/03/19 04:48 04:48 06:03 WBC 24.4 H RBC Hgb Hct MCV 78.5 L MCH 23.6 L MCHC 30.1 L RDW 16.7 H Plt Count Neutrophils # Lymphocytes # Monocytes # VBG pH VBG pCO2 VBG HCO3 Sodium Chloride 109 H Carbon Dioxide 16 L BUN 24 H Glucose 216 H POC Glucose (mg/dL) 207 H Hemoglobin A1c Calcium Phosphorus Magnesium Creatine Kinase Total Protein 6.1 L Albumin 3.3 L Triglycerides Lipase 438 H Urine Protein Urine Glucose (UA) Urine Ketones Urine Mucus 09/03/19 09/03/19 09/03/19 07:52 10:20 12:04 WBC RBC Hgb Hct MCV MCH MCHC RDW Plt Count Neutrophils # Lymphocytes # Monocytes # VBG pH VBG pCO2 VBG HCO3 Sodium Chloride Carbon Dioxide BUN Glucose POC Glucose (mg/dL) 203 H 215 H 228 H Hemoglobin A1c Calcium Phosphorus Magnesium Creatine Kinase Total Protein Albumin Triglycerides Lipase Urine Protein Urine Glucose (UA) Urine Ketones Urine Mucus 09/03/19 09/03/19 09/03/19 13:19 13:53 15:58 WBC RBC Hgb Hct MCV MCH MCHC RDW Plt Count Neutrophils # Lymphocytes # Monocytes # VBG pH VBG pCO2 VBG HCO3 Sodium Chloride 113 H Carbon Dioxide 15 L BUN 20 H Glucose 218 H POC Glucose (mg/dL) 201 H 189 H Hemoglobin A1c Calcium Phosphorus Magnesium Creatine Kinase Total Protein Albumin Triglycerides 174 H Lipase Urine Protein Urine Glucose (UA) Urine Ketones Urine Mucus 09/03/19 09/03/19 09/03/19 18:34 20:04 20:32 WBC RBC Hgb Hct MCV MCH MCHC RDW Plt Count Neutrophils # Lymphocytes # Monocytes # VBG pH VBG pCO2 VBG HCO3 Sodium 136 L Chloride Carbon Dioxide 19 L BUN Glucose 195 H POC Glucose (mg/dL) 177 H 181 H Hemoglobin A1c Calcium Phosphorus Magnesium Creatine Kinase Total Protein 6.2 L Albumin 3.3 L Triglycerides Lipase Urine Protein Urine Glucose (UA) Urine Ketones Urine Mucus 09/03/19 09/04/19 09/04/19 22:17 01:45 04:09 WBC RBC Hgb Hct MCV MCH MCHC RDW Plt Count Neutrophils # Lymphocytes # Monocytes # VBG pH VBG pCO2 VBG HCO3 Sodium 135 L Chloride Carbon Dioxide 20 L BUN Glucose 198 H POC Glucose (mg/dL) 170 H 225 H Hemoglobin A1c Calcium Phosphorus Magnesium Creatine Kinase Total Protein 6.0 L Albumin 3.2 L Triglycerides Lipase Urine Protein Urine Glucose (UA) Urine Ketones Urine Mucus 09/04/19 09/04/19 09/04/19 04:09 06:35 11:59 WBC 17.5 H RBC Hgb Hct MCV 76.5 L MCH 24.2 L MCHC RDW 16.3 H Plt Count Neutrophils # 16.1 H Lymphocytes # 0.7 L Monocytes # VBG pH VBG pCO2 VBG HCO3 Sodium Chloride Carbon Dioxide BUN Glucose POC Glucose (mg/dL) 197 H 191 H Hemoglobin A1c Calcium Phosphorus Magnesium Creatine Kinase Total Protein Albumin Triglycerides Lipase Urine Protein Urine Glucose (UA) Urine Ketones Urine Mucus 09/04/19 09/04/19 09/05/19 17:12 20:37 02:17 WBC RBC Hgb Hct MCV MCH MCHC RDW Plt Count Neutrophils # Lymphocytes # Monocytes # VBG pH VBG pCO2 VBG HCO3 Sodium Chloride Carbon Dioxide BUN Glucose POC Glucose (mg/dL) 132 H 179 H 152 H Hemoglobin A1c Calcium Phosphorus Magnesium Creatine Kinase Total Protein Albumin Triglycerides Lipase Urine Protein Urine Glucose (UA) Urine Ketones Urine Mucus 09/05/19 09/05/19 09/05/19 07:13 11:53 17:07 WBC RBC Hgb Hct MCV MCH MCHC RDW Plt Count Neutrophils # Lymphocytes # Monocytes # VBG pH VBG pCO2 VBG HCO3 Sodium Chloride Carbon Dioxide BUN Glucose POC Glucose (mg/dL) 143 H 138 H 146 H Hemoglobin A1c Calcium Phosphorus Magnesium Creatine Kinase Total Protein Albumin Triglycerides Lipase Urine Protein Urine Glucose (UA) Urine Ketones Urine Mucus 09/05/19 09/06/19 09/06/19 20:55 02:30 06:55 WBC RBC Hgb Hct MCV MCH MCHC RDW Plt Count Neutrophils # Lymphocytes # Monocytes # VBG pH VBG pCO2 VBG HCO3 Sodium Chloride Carbon Dioxide BUN Glucose POC Glucose (mg/dL) 141 H 164 H 137 H Hemoglobin A1c Calcium Phosphorus Magnesium Creatine Kinase Total Protein Albumin Triglycerides Lipase Urine Protein Urine Glucose (UA) Urine Ketones Urine Mucus Assessment and Plan Assessment: * 49-year-old female, admitted on 09/01/2019 for being found on the floor, with altered mental status,, found to have DKA with pancreatitis. Patient has been encephalopathic since arrival to the hospital. Patient has developed focal onset seizures since last night. EEG was severely abnormal with evidence of focal onset seizures. Possibility of partial status epilepticus. Her white cells are elevated. Rule out encephalitis/meningitis. Rule out fungal or cryptococcal meningitis. * Diabetes, poorly controlled * Pancreatitis * Toxic metabolic encephalopathy * Medication noncompliance * Anxiety, depression, hoarding Plan: * Stat lumbar puncture to rule out meningitis/encephalitis. Rule out herpes encephalitis or cryptococcal meningitis. * Stat Dilantin 1 g IVPB, then maintain on 100 mg IV 3 times a day. Check Dilantin level 4 hours after completion of the load. Need to keep level between 17-20. * Repeat EEG in a.m. * Start acyclovir 10 mg/kg every 8 hours, until herpes encephalitis ruled out. * Ativan 1 mg IV push every 2 hours when necessary seizures. * Discussed with patient's sister in detail. * We will follow.
[2019-09-06 12:07] LABS: Glucose,Whole Blood 130 mg/dL (75-99)
[2019-09-06] MEDS: ACYCLOVIR SODIUM 1,000 MG in SODIUM CHLORIDE 0.9% 250 ML IVPB SCH (14:58)
[2019-09-06 16:18] VITALS: BMI 34.8
[2019-09-06] MEDS: PHENYTOIN SODIUM INJ 100 MG in SODIUM CHLORIDE 0.9% 100 ML IVPB SCH ×2 (16:34→22:59)
--- NOTE | 2019-09-06 16:36 | P.PN ---
Subjective Progress Note Date: 09/05/19 Principal diagnosis: Change in mental status Patient still not showing signs of improvement. She does note Objective - Vital Signs Vital signs: Vital Signs Temp 99.4 F 09/06/19 07:21 Pulse 110 H 09/06/19 14:45 Resp 20 09/06/19 14:45 BP 176/99 09/06/19 14:45 Pulse Ox 96 09/06/19 14:45 Intake & Output 09/05/19 09/06/19 09/06/19 18:59 06:59 18:59 Intake Total 240 Output Total 350 0 Balance -110 0 Intake: Oral 240 Output: Urine 350 0 Other: Voiding Method Indwelling Catheter Indwelling Catheter Indwelling Catheter # Voids 1 # Bowel Movements 0 0 0 - Exam General: looks in no distress, appears at stated age, obese Derm: warm, dry Head: atraumatic, normocephalic, symmetric Eyes: EOMI, no lid lag, anicteric sclera Mouth: no lip lesion, mucus membranes dry Cardiovascular: S1S2 reg, no murmur, positive posterior tibial pulse bilateral, Lungs: decreased bs bilateral, no rhonchi, no rales , no accessory muscle use Abdominal: soft, NT, no guarding, no appreciable organomegaly Ext: no gross muscle atrophy, no edema, no contractures Neuro: CN II-XI grossly intact, no focal neuro deficits Psych: Unpurposeful movements of the arms and legs. Not answering questions or verbalizing anything. Exam from previous physician on 09/01 noted: ''patient sits up in bed and roll on her side when she wants to. When she overheard us talking about her mental health she did let out a long moan and then sat up in bed'' - Labs CBC & Chem 7: 09/04/19 04:09 09/04/19 04:09 Labs: Abnormal Lab Results - Last 24 Hours (Table) 09/05/19 09/05/19 09/06/19 Range/Units 17:07 20:55 02:30 POC Glucose (mg/dL) 146 H 141 H 164 H (75-99) mg/dL 09/06/19 09/06/19 Range/Units 06:55 12:00 POC Glucose (mg/dL) 137 H 130 H (75-99) mg/dL Microbiology - Last 24 Hours (Table) 09/01/19 10:27 Blood Culture - Preliminary Blood No Growth after 120 hours Assessment and Plan Plan: Diabetic ketoacidosis, anion gap resolved -Patient started on subcu insulin, long-acting as well as short-acting. -Continue accu-Cheks q2 h -IV fluids per DKA protocol -A1c 11.8 Pancreatitis - IVF - Resume diet - Pain medications Acute encephalopathy -metabolic should be improving, concern for underlying psychosis due to severe agorphobia -MRI brain, Carotid Dopplers both negative -Supportive care -psych consulted, note reviewed Acute right-sided sinusitis with sepsis -Demond, seen by ENT -IV fluids -Flonase -Claritin Severe metabolic acidosis -Resolved Anxiety and depression with severe agoraphobia and hoarding tendencies -Patient accepted to the MH unit once medically cleared. Morbid obesity -Outpatient structured weight loss Hypercalcemia, resolved Patient has not filled her meds since last January, A1c as noted above is 11. She is probably not taking her meds. Patient's sister has certified this patient for inpatient psychiatric admission. She will be discharged to psych when medically stable. DVT prophylaxis: heparin Discussed with: Patient, nursing, Anticipated discharge date: [address]: ?[facility] A total of 45 minutes was spent on the care of this complex patient more than 50% of the time was spent in counseling and care coordination.
[2019-09-06 16:37] LABS: Glucose,CSF 90 mg/dL (40-70); Total Protein,CSF 49 mg/dL (12-60)
[2019-09-06 16:55] LABS: Appearance,CSF Clear; CSF Tube Number 1; CSF Tube Volume 1.5; Nucleated Cells, CSF 2 u/L (0-5); Red Blood Cell,CSF 23 u/L (0-10)
[2019-09-06 16:56] LABS: Red Blood Cell, CSF Crenated 40 %; Red Blood Cell, CSF Fresh 60 %
[2019-09-06] MEDS ORDERED: VANCOMYCIN IV PER PHARMACY 1 EACH MISC MISCELLANE PRN (16:58)
[2019-09-06 17:08] LABS: Glucose,Whole Blood 137 mg/dL (75-99)
[2019-09-06] MEDS ORDERED: VANCOMYCIN 1,750 MG in SODIUM CHLORIDE 0.9% 500 ML 500 ML IVPB ONE (17:15)
[2019-09-06] MEDS ORDERED: PHENYTOIN SODIUM INJ 50 MG/ML 2 ML VIAL IVP STA (17:38)
[2019-09-06 17:52] LABS: Basophils % (A) 0 %; Eosinophils # (A) 0.1 k/uL (0-0.7); Eosinophils % (A) 1 %; HCT 39.6 % (34.0-46.0); HGB 12.1 gm/dL (11.4-16.0); Hypochromasia Slight; Lymphocytes % (A) 7 %; MCH 23.9 pg (25.0-35.0); MCHC 30.6 g/dL (31.0-37.0); MCV 78.2 fL (80.0-100.0); Mean Platelet Volume 9.2; Microcytosis Slight; Monocytes % (A) 7 %; Neutrophils # (A) 11.3 k/uL (1.3-7.7); Neutrophils % (A) 83 %; Platelet Count 415 k/uL (150-450); RBC 5.06 m/uL (3.80-5.40); RDW 15.8 % (11.5-15.5); WBC 13.5 k/uL (3.8-10.6)
--- NOTE | 2019-09-06 18:23 | P.PN ---
Subjective Progress Note Date: 09/06/19 The patient got transferred to the intensive care unit on 09/06/2019. The patient underwent an urology evaluation and the patient was found to have ongoing seizure activity. The patient is a normal temperature. The white cell count 24. Apparently last she started having some seizures. The patient's s ister has reported seizures on her cell phone which was reviewed by the neurologist and this seemed to be classical for focal onset seizure activity. EEG was performed and showed epileptic focus involving the left hemispheric region. There was also recording of secondary generalization. The patient got transferred to the ICU for possible partial status epilepticus. The patient is currently loaded with Dilantin and [place] 100 mg every 6 hours. She is also on IV acyclovir. She is afebrile. She is nonverbal. Currently she is resting comfortably in bed. I discussed with seizure activity with the nursing. We haven't witnessed some mild twitching and little without right upper extre mity tremor. She is still nonverbal. She is not communicating. MRI of the brain was done at time of admission was essentially negative. She is on IV fluids in the form of 0.9 at the rate of 100 mL an hour. No hypoglycemia. He is on Levemir insulin 50 units yesterday. She is also taking/staph coverage. Lumbar puncture was done and the patient had a total protein of 49 with a nucleated cell count of 2. Glucose of 90. Objective - Vital Signs Vital signs: Vital Signs Temp 98.2 F 09/06/19 15:00 Pulse 110 H 09/06/19 16:15 Resp 16 09/06/19 15:00 BP 139/85 09/06/19 16:15 Pulse Ox 91 L 09/06/19 16:15 Intake & Output 09/05/19 09/06/19 09/06/19 18:59 06:59 18:59 Intake Total 240 Output Total 350 0 550 Balance -110 0 -550 Weight 104 kg Intake: Oral 240 Output: Urine 350 0 550 Other: Voiding Method Indwelling Catheter Indwelling Catheter Indwelling Catheter # Voids 1 # Bowel Movements 0 0 0 - Exam General: Ill-appearing, 49-year-old female patient, , appears older than stated age, obese, disheveled, more awake today, moving all fours, not following any commands, nonverbal Derm: Multiple upper extremity excoriations as well as chest wall, no unusual rashes/lesions no unusual ecchymoses, warm, dry Head: atraumatic, normocephalic, symmetric Eyes: EOMI, no lid lag, anicteric sclera, pupils equal round reactive to light, roving ENT: Nose and ears atraumatic, no thrush, no pharyngeal erythema Neck: No thyromegaly, no cervical lymphadenopathy, trachea midline, supple Mouth: no lip lesion, mucus membranes dry Cardiovascular: S1S2 tachy, no murmur, + posterior tibial pulse bilateral, no edema, capillary refill less than 2 seconds Lungs: CTA bilateral, no rhonchi, no rales , no accessory muscle use Abdominal: soft, tender to palpation, no guarding, no appreciable organomegaly, normal bowel sounds Ext: no gross muscle atrophy, moving right upper, left upper, and left lower extremity independently howevere if you lift arms and legs she will let them drop and not hold them up,, not following commends consistently, only moaning, no contractures, Neuro: Moving eye all around room, + cough, + gag, loss of nasal labial fold on the right, no withdrawal to pain RUE, RLE, LLE, moans but does not withdraw to pain LUE, Babinski down going bilateral Psych: lethargic, will open eyes and make eye contact, - Labs CBC & Chem 7: 09/06/19 16:42 09/04/19 04:09 Labs: Abnormal Lab Results - Last 24 Hours (Table) 09/05/19 09/06/19 09/06/19 Range/Units 20:55 02:30 06:55 WBC (3.8-10.6) k/uL MCV (80.0-100.0) fL MCH (25.0-35.0) pg MCHC (31.0-37.0) g/dL RDW (11.5-15.5) % Neutrophils # (1.3-7.7) k/uL POC Glucose (mg/dL) 141 H 164 H 137 H (75-99) mg/dL CSF RBC (0-10) u/L CSF Glucose (40-70) mg/dL 09/06/19 09/06/19 09/06/19 Range/Units 12:00 14:27 16:42 WBC 13.5 H (3.8-10.6) k/uL MCV 78.2 L (80.0-100.0) fL MCH 23.9 L (25.0-35.0) pg MCHC 30.6 L (31.0-37.0) g/dL RDW 15.8 H (11.5-15.5) % Neutrophils # 11.3 H (1.3-7.7) k/uL POC Glucose (mg/dL) 130 H (75-99) mg/dL CSF RBC 23 H (0-10) u/L CSF Glucose 90 H (40-70) mg/dL 09/06/19 Range/Units 17:05 WBC (3.8-10.6) k/uL MCV (80.0-100.0) fL MCH (25.0-35.0) pg MCHC (31.0-37.0) g/dL RDW (11.5-15.5) % Neutrophils # (1.3-7.7) k/uL POC Glucose (mg/dL) 137 H (75-99) mg/dL CSF RBC (0-10) u/L CSF Glucose (40-70) mg/dL Microbiology - Last 24 Hours (Table) 09/01/19 10:27 Blood Culture - Preliminary Blood No Growth after 120 hours Assessment and Plan Plan: 1 episodic partial seizures involving the left hemisphere with possible generalization. The patient had several seizure activity and possibly she may be an status and is obviously concerning. The patient was started on Dilantin. Loading was given and the patient was admitted on 100 mg every 6 hour. Neurologist on the case. The follow-up EEG will be done in a.m. per neurology recommendations. She remains nonverbal. MRI of the brain showed no focal lesions. She is on acyclovir. No signs of any meningitis. Vancomycin will be discontinued. 2 diabetic ketoacidosis with severe anion gap metabolic acidosis, recovered 3 reactive leukocytosis, improved 4 sinusitis, right-sided currently on antibiotics Zosyn 5 altered mental status likely secondary to above 5 chronic anxiety/depression 6 severe agoraphobia 7 hoarding tendencies 8 diabetes mellitus 9 rheumatoid arthritis 10 pancreatitis, recovered Plan Continue Dilantin. Monitor the levels EEG in a.m. for follow-up regarding seizure activity. Monitor clinically also. Neurology follow-up Aspiration precautions Discontinue the vancomycin as there is no indication for bacterial meningitis Continue acyclovir and send CSF for PCR We'll continue to follow. The patient be kept in ICU for now.
[2019-09-06 18:28] LABS: Glucose,Whole Blood 121 mg/dL (75-99)
[2019-09-06 18:41] LABS: ALT 39 U/L (4-34); AST 39 U/L (14-36); African American GFR (CKD) >90 (>60 ml/min/1.73 sqM); Albumin 3.4 g/dL (3.5-5.0); Alkaline Phosphatase 172 U/L (38-126); Anion Gap 13 mmol/L; Blood Urea Nitrogen 23 mg/dL (7-17); Calcium 9.6 mg/dL (8.4-10.2); Carbon Dioxide 21 mmol/L (22-30); Chloride 105 mmol/L (98-107); Glucose 154 mg/dL (74-99); Magnesium 2.1 mg/dL (1.6-2.3); Non-African American GFR(CKD) >90 (>60 ml/min/1.73 sqM); Phosphorus 4.8 mg/dL (2.5-4.5); Potassium 3.1 mmol/L (3.5-5.1); Sodium 139 mmol/L (137-145); Total Bilirubin 0.6 mg/dL (0.2-1.3); Total Protein 6.1 g/dL (6.3-8.2)
[2019-09-06] MEDS ORDERED: SODIUM CHLORIDE 0.9% 1,000 ML IV STA (18:45)
[2019-09-06] MEDS ORDERED: POTASSIUM CHLORIDE 10 MEQ in WATER FOR INJECTION 1 100ML.BAG IVPB STA (18:45)
--- NOTE | 2019-09-06 18:53 | P.PN ---
Subjective Progress Note Date: 09/06/19 Principal diagnosis: Change in mental status Patient was having twitching of the right side of the face last night and this morning. This was recorded on a video by her sister. I was able to review the video with her sister. Patient is still nonverbal. Objective - Vital Signs Vital signs: Vital Signs Temp 98.2 F 09/06/19 15:00 Pulse 110 H 09/06/19 16:15 Resp 16 09/06/19 15:00 BP 139/85 09/06/19 16:15 Pulse Ox 91 L 09/06/19 16:15 Intake & Output 09/05/19 09/06/19 09/06/19 18:59 06:59 18:59 Intake Total 240 Output Total 350 0 550 Balance -110 0 -550 Weight 104 kg Intake: Oral 240 Output: Urine 350 0 550 Other: Voiding Method Indwelling Catheter Indwelling Catheter Indwelling Catheter # Voids 1 # Bowel Movements 0 0 0 - Exam General: looks in no distress, appears at stated age, obese Derm: warm, dry Head: atraumatic, normocephalic, symmetric Eyes: EOMI, no lid lag, anicteric sclera Mouth: no lip lesion, mucus membranes dry Cardiovascular: S1S2 reg, no murmur, positive posterior tibial pulse bilateral, Lungs: decreased bs bilateral, no rhonchi, no rales , no accessory muscle use Abdominal: soft, NT, no guarding, no appreciable organomegaly Ext: no gross muscle atrophy, no edema, no contractures Neuro: CN II-XI grossly intact, no focal neuro deficits Psych: Unpurposeful movements of the arms and legs. Not answering questions or verbalizing anything. Exam from previous physician on 09/01 noted: ''patient sits up in bed and roll on her side when she wants to. When she overheard us talking about her mental health she did let out a long moan and then sat up in bed'' - Labs CBC & Chem 7: 09/06/19 16:42 09/06/19 16:42 Labs: Abnormal Lab Results - Last 24 Hours (Table) 09/05/19 09/06/19 09/06/19 Range/Units 20:55 02:30 06:55 WBC (3.8-10.6) k/uL MCV (80.0-100.0) fL MCH (25.0-35.0) pg MCHC (31.0-37.0) g/dL RDW (11.5-15.5) % Neutrophils # (1.3-7.7) k/uL Potassium (3.5-5.1) mmol/L Carbon Dioxide (22-30) mmol/L BUN (7-17) mg/dL Glucose (74-99) mg/dL POC Glucose (mg/dL) 141 H 164 H 137 H (75-99) mg/dL Phosphorus (2.5-4.5) mg/dL AST (14-36) U/L ALT (4-34) U/L Alkaline Phosphatase (38-126) U/L Total Protein (6.3-8.2) g/dL Albumin (3.5-5.0) g/dL CSF RBC (0-10) u/L CSF Glucose (40-70) mg/dL 09/06/19 09/06/19 09/06/19 Range/Units 12:00 14:27 16:42 WBC 13.5 H (3.8-10.6) k/uL MCV 78.2 L (80.0-100.0) fL MCH 23.9 L (25.0-35.0) pg MCHC 30.6 L (31.0-37.0) g/dL RDW 15.8 H (11.5-15.5) % Neutrophils # 11.3 H (1.3-7.7) k/uL Potassium (3.5-5.1) mmol/L Carbon Dioxide (22-30) mmol/L BUN (7-17) mg/dL Glucose (74-99) mg/dL POC Glucose (mg/dL) 130 H (75-99) mg/dL Phosphorus (2.5-4.5) mg/dL AST (14-36) U/L ALT (4-34) U/L Alkaline Phosphatase (38-126) U/L Total Protein (6.3-8.2) g/dL Albumin (3.5-5.0) g/dL CSF RBC 23 H (0-10) u/L CSF Glucose 90 H (40-70) mg/dL 09/06/19 09/06/19 09/06/19 Range/Units 16:42 17:05 18:27 WBC (3.8-10.6) k/uL MCV (80.0-100.0) fL MCH (25.0-35.0) pg MCHC (31.0-37.0) g/dL RDW (11.5-15.5) % Neutrophils # (1.3-7.7) k/uL Potassium 3.1 L (3.5-5.1) mmol/L Carbon Dioxide 21 L (22-30) mmol/L BUN 23 H (7-17) mg/dL Glucose 154 H (74-99) mg/dL POC Glucose (mg/dL) 137 H 121 H (75-99) mg/dL Phosphorus 4.8 H (2.5-4.5) mg/dL AST 39 H (14-36) U/L ALT 39 H (4-34) U/L Alkaline Phosphatase 172 H (38-126) U/L Total Protein 6.1 L (6.3-8.2) g/dL Albumin 3.4 L (3.5-5.0) g/dL CSF RBC (0-10) u/L CSF Glucose (40-70) mg/dL Microbiology - Last 24 Hours (Table) 09/01/19 10:27 Blood Culture - Preliminary Blood No Growth after 120 hours Assessment and Plan Plan: Partial seizure, rule out Partial status epilepticus Discussed with the operations trainer, patient will be transferred to ICU MRI brain already done, negative Rule out meningitis, patient started on acyclovir by neurology, resume Zosyn for now. Consult infectious disease Patient loaded with Dilantin, was given 1 g earlier, we'll administer 750 mg more Will repeat EEG in the morning Dilantin level in the morning Diabetic ketoacidosis, anion gap resolved -Resolved, patient started on subcu insulin, long-acting as well as short-ac ting. -Continue accu-Cheks q2 h -A1c 11.8 Pancreatitis - Resolved. - Resumed diet but patient has not eaten anything since presentation. - Pain medications Dehydration Patient has not eaten or drunk anything since admission Restart IVF Acute right-sided sinusitis with sepsis -Zosyn, seen by ENT -IV fluids -Flonase -Claritin Hypokalemia Replace and follow in a.m. Anxiety and depression with severe agoraphobia and hoarding tendencies -Psychiatry following, will need inpatient psychiatric admission once medically clear Morbid obesity -Outpatient structured weight loss Patient has not filled her meds since last January, A1c as noted above is 11. She is probably not taking her meds. Patient's sister has certified this patient for inpatient psychiatric admission. She will be discharged to psych when medically stable. DVT prophylaxis: heparin Discussed with: Patient, nursing, Anticipated discharge date: [address]: ?[facility] A total of 45 minutes was spent on the care of this complex patient more than 50% of the time was spent in counseling and care coordination.
[2019-09-06 20:16] LABS: Glucose,Whole Blood 110 mg/dL (75-99)
[2019-09-07] MEDS: ACYCLOVIR SODIUM 1,000 MG in SODIUM CHLORIDE 0.9% 250 ML IVPB SCH ×2 (01:24→16:06)
[2019-09-07] MEDS ORDERED: VANCOMYCIN 1,750 MG in SODIUM CHLORIDE 0.9% 500 ML 500 ML IVPB SCH (02:00)
[2019-09-07 03:12] LABS: Glucose,Whole Blood 105 mg/dL (75-99)
[2019-09-07] MEDS: PIPERACILLIN-TAZOBACTAM 3.375 GM in SODIUM CHLORIDE 0.9% 100 ML IVPB SCH ×3 (03:13→21:35)
[2019-09-07] MEDS: INSULIN ASPART (NovoLOG) 100 UNIT/ML VIAL SQ SCH ×5 (03:14→21:08)
[2019-09-07 05:26] LABS: Basophils % (A) 0 %; Eosinophils # (A) 0.1 k/uL (0-0.7); Eosinophils % (A) 1 %; HCT 36.1 % (34.0-46.0); HGB 11.1 gm/dL (11.4-16.0); Hypochromasia Slight; Lymphocytes # (A) 1.2 k/uL (1.0-4.8); Lymphocytes % (A) 10 %; MCH 23.6 pg (25.0-35.0); MCHC 30.8 g/dL (31.0-37.0); MCV 76.5 fL (80.0-100.0); Mean Platelet Volume 7.8; Microcytosis Slight; Monocytes # (A) 0.8 k/uL (0-1.0); Monocytes % (A) 6 %; Neutrophils # (A) 10.6 k/uL (1.3-7.7); Neutrophils % (A) 82 %; Platelet Count 444 k/uL (150-450); RBC 4.72 m/uL (3.80-5.40); RDW 15.4 % (11.5-15.5); WBC 12.9 k/uL (3.8-10.6)
[2019-09-07 05:37] LABS: African American GFR (CKD) >90 (>60 ml/min/1.73 sqM); Anion Gap 10 mmol/L; Blood Urea Nitrogen 21 mg/dL (7-17); Calcium 9.5 mg/dL (8.4-10.2); Carbon Dioxide 24 mmol/L (22-30); Chloride 106 mmol/L (98-107); Glucose 98 mg/dL (74-99); Magnesium 2.1 mg/dL (1.6-2.3); Non-African American GFR(CKD) >90 (>60 ml/min/1.73 sqM); Phosphorus 4.9 mg/dL (2.5-4.5); Potassium 3.2 mmol/L (3.5-5.1); Sodium 140 mmol/L (137-145)
[2019-09-07 07:13] LABS: Glucose,Whole Blood 89 mg/dL (75-99)
[2019-09-07] MEDS: INSULIN DETEMIR (LEVEMIR) 100 UNIT/ML SYR SQ SCH ×2 (07:20→21:08)
[2019-09-07] MEDS: POTASSIUM CHLORIDE 10 MEQ in WATER FOR INJECTION 1 100ML.BAG IVPB SCH ×4 (07:35→14:07)
[2019-09-07] MEDS: FLUTICASONE 50MCG/SPRAY NASAL 16GM EA NOSTRIL SCH (08:29)
[2019-09-07] MEDS: LORATADINE 10 MG TAB PO SCH (08:29)
[2019-09-07] MEDS: PHENYTOIN SODIUM INJ 50 MG/ML 2 ML VIAL IVP SCH ×3 (08:29→21:14)
[2019-09-07] MEDS ORDERED: PHENYTOIN SODIUM INJ 50 MG/ML 2 ML VIAL IVP STA (08:45)
[2019-09-07] MEDS ORDERED: PHENYTOIN SODIUM INJ 750 MG in SODIUM CHLORIDE 0.9% 100 ML IVPB STA (08:50)
--- NOTE | 2019-09-07 08:54 | FL ---
EXAMINATION TYPE: FL guided lumbar puncture LP DATE OF EXAM: 09/06/2019 COMPARISON: CT abdomen and pelvis from 4 days earlier. HISTORY: New onset seizure, rule out meningitis. TECHNIQUE: Fluoroscopic assisted lumbar puncture. A total of 1 minute 39 seconds fluoroscopic time ut ilized during procedure. 0 spot images saved to PACS. FINDINGS: Procedure of lumbar puncture explained to patient caregiver as patient is nonverbal. Benefi ts, alternatives, and risks were discussed. Informed consent was then obtained. Review of recent CT shows best opening between the L1 and L2 spinous process. This area is targeted. Vital signs monitored before during and after procedure. Overlying skin is cleansed with Betadine. Li docaine was used as anesthetic in the skin and deeper tissue. Under fluoroscopic guidance, spinal nee dle is advanced into the lumbar spinal canal. There is very slow flow of clear CSF. It took roughly 1 5 to 20 minutes to obtain 1 to 2 cc in 4 vials. At this point needle is withdrawn. Sterile technique was utilized. Patient tolerated procedure well without any immediate complication. Patient was taken back to ICU fo r further observation after procedure. IMPRESSION: As Above. Full pathology results to follow. I was present and performed procedure.
--- NOTE | 2019-09-07 09:20 | P.PN ---
Subjective Progress Note Date: 09/07/19 On 09/07/2019 the patient remains intubated in the intensive care unit for ongoing seizure activity. The patient was having frequent partial seizures where she was twitching her face on the right and the eyes and some jerky right upper extremity movements. She was brought into the intensive care unit. She was given Dilantin loading. She was measured on Dilantin 100 mg every 6 hours. Nevertheless, the levels of Dilantin came back low at 7 and the patient patient will be receiving another bolus of 750 mg of Dilantin. I will also added. At follow-up EEG will be done today. I noted that the frequency of seizures is improved considerably on at least on clinical grounds. I witnessed one this morning that was very short lasting. The patient is more communicating. She was able to follow some simple commands with the nursing staff. She was able to drink some juice. She is afebrile. No neck stiffness. Hemodynamically stable. She is on room air oxygen. No hypoglycemia. She is on Levemir insulin 15 units twice a day. She was on acyclovir for possibility of HSV encephalitis and this was discontinued after the PCR came back negative. Objective - Vital Signs Vital signs: Vital Signs Temp 99.0 F 09/07/19 08:00 Pulse 99 09/07/19 08:00 Resp 21 09/07/19 08:00 BP 161/68 09/07/19 08:00 Pulse Ox 95 09/07/19 08:00 Intake & Output 09/06/19 09/07/19 09/07/19 18:59 06:59 18:59 Intake Total 1400 75 Output Total 550 575 75 Balance -550 825 0 Weight 104 kg Intake: IV 1125 75 Phenytoin Sodium Inj 100 100 mg In Sodium Chloride 0.9 % 100 ml @ 200 mls/hr IVPB TID [facility] Rx#: [id number] Piperacillin-Tazobactam 3 200 .375 gm In Sodium Chloride 0.9% 100 ml @ 25 mls/hr IVPB Q8H [facility] Rx#: [id number] Sodium Chloride 0.9% 1, 825 75 000 ml @ 75 mls/hr IV . [id number] [facility] Rx#:[id number] Intake, IV Titration 275 Amount Piperacillin-Tazobactam 3 100 .375 gm In Sodium Chloride 0.9% 100 ml @ 25 mls/hr IVPB Q8H [facility] Rx#: [id number] Potassium Chloride 10 meq 100 In Water For Injection 1 100ml.bag @ 100 mls/hr IVPB ONCE [facility] Rx#: [id number] Sodium Chloride 0.9% 1, 75 000 ml @ 75 mls/hr IV . [id number] [facility] Rx#:[id number] Output: Urine 550 575 75 Other: Voiding Method Indwelling Catheter Indwelling Catheter # Bowel Movements 0 - Exam General: Ill-appearing, 49-year-old female patient, , appears older than stated age, obese, disheveled, more awake today, moving all fours, not following any commands, nonverbal, although I was told that she was able to follow some simple commands per request of the nursing staff. She was able to drink some sips of juice and milk. Derm: Multiple upper extremity excoriations as well as chest wall, no unusual rashes/lesions no unusual ecchymoses, warm, dry Head: atraumatic, normocephalic, symmetric Eyes: EOMI, no lid lag, anicteric sclera, pupils equal round reactive to light, roving ENT: Nose and ears atraumatic, no thrush, no pharyngeal erythema Neck: No thyromegaly, no cervical lymphadenopathy, trachea midline, supple Mouth: no lip lesion, mucus membranes dry Cardiovascular: S1S2 tachy, no murmur, + posterior tibial pulse bilateral, no ed terrence, capillary refill less than 2 seconds Lungs: CTA bilateral, no rhonchi, no rales , no accessory muscle use Abdominal: soft, tender to palpation, no guarding, no appreciable organomegaly, normal bowel sounds Ext: no gross muscle atrophy, moving right upper, left upper, and left lower extremity independently howevere if you lift arms and legs she will let them drop and not hold them up,, not following commends consistently, only moaning, no contractures, Neuro: Moving eye all around room, + cough, + gag, loss of nasal labial fold on the right, no withdrawal to pain RUE, RLE, LLE, moans but does not withdraw to pain LUE, Babinski down going bilateral Psych: Awake,, will open eyes and make eye contact, - Labs CBC & Chem 7: 09/07/19 04:46 09/07/19 04:46 Labs: Abnormal Lab Results - Last 24 Hours (Table) 09/06/19 09/06/19 09/06/19 Range/Units 12:00 14:27 16:42 WBC 13.5 H (3.8-10.6) k/uL Hgb (11.4-16.0) gm/dL MCV 78.2 L (80.0-100.0) fL MCH 23.9 L (25.0-35.0) pg MCHC 30.6 L (31.0-37.0) g/dL RDW 15.8 H (11.5-15.5) % Neutrophils # 11.3 H (1.3-7.7) k/uL Potassium (3.5-5.1) mmol/L Carbon Dioxide (22-30) mmol/L BUN (7-17) mg/dL Glucose (74-99) mg/dL POC Glucose (mg/dL) 130 H (75-99) mg/dL Phosphorus (2.5-4.5) mg/dL AST (14-36) U/L ALT (4-34) U/L Alkaline Phosphatase (38-126) U/L Total Protein (6.3-8.2) g/dL Albumin (3.5-5.0) g/dL CSF RBC 23 H (0-10) u/L CSF Glucose 90 H (40-70) mg/dL 09/06/19 09/06/19 09/06/19 Range/Units 16:42 17:05 18:27 WBC (3.8-10.6) k/uL Hgb (11.4-16.0) gm/dL MCV (80.0-100.0) fL MCH (25.0-35.0) pg MCHC (31.0-37.0) g/dL RDW (11.5-15.5) % Neutrophils # (1.3-7.7) k/uL Potassium 3.1 L (3.5-5.1) mmol/L Carbon Dioxide 21 L (22-30) mmol/L BUN 23 H (7-17) mg/dL Glucose 154 H (74-99) mg/dL POC Glucose (mg/dL) 137 H 121 H (75-99) mg/dL Phosphorus 4.8 H (2.5-4.5) mg/dL AST 39 H (14-36) U/L ALT 39 H (4-34) U/L Alkaline Phosphatase 172 H (38-126) U/L Total Protein 6.1 L (6.3-8.2) g/dL Albumin 3.4 L (3.5-5.0) g/dL CSF RBC (0-10) u/L CSF Glucose (40-70) mg/dL 09/06/19 09/07/19 09/07/19 Range/Units 20:14 03:10 04:46 WBC 12.9 H (3.8-10.6) k/uL Hgb 11.1 L (11.4-16.0) gm/dL MCV 76.5 L (80.0-100.0) fL MCH 23.6 L (25.0-35.0) pg MCHC 30.8 L (31.0-37.0) g/dL RDW (11.5-15.5) % Neutrophils # 10.6 H (1.3-7.7) k/uL Potassium (3.5-5.1) mmol/L Carbon Dioxide (22-30) mmol/L BUN (7-17) mg/dL Glucose (74-99) mg/dL POC Glucose (mg/dL) 110 H 105 H (75-99) mg/dL Phosphorus (2.5-4.5) mg/dL AST (14-36) U/L ALT (4-34) U/L Alkaline Phosphatase (38-126) U/L Total Protein (6.3-8.2) g/dL Albumin (3.5-5.0) g/dL CSF RBC (0-10) u/L CSF Glucose (40-70) mg/dL 09/07/19 Range/Units 04:46 WBC (3.8-10.6) k/uL Hgb (11.4-16.0) gm/dL MCV (80.0-100.0) fL MCH (25.0-35.0) pg MCHC (31.0-37.0) g/dL RDW (11.5-15.5) % Neutrophils # (1.3-7.7) k/uL Potassium 3.2 L (3.5-5.1) mmol/L Carbon Dioxide (22-30) mmol/L BUN 21 H (7-17) mg/dL Glucose (74-99) mg/dL POC Glucose (mg/dL) (75-99) mg/dL Phosphorus 4.9 H (2.5-4.5) mg/dL AST (14-36) U/L ALT (4-34) U/L Alkaline Phosphatase (38-126) U/L Total Protein (6.3-8.2) g/dL Albumin (3.5-5.0) g/dL CSF RBC (0-10) u/L CSF Glucose (40-70) mg/dL Microbiology - Last 24 Hours (Table) 09/06/19 14:27 CSF Gram Stain - Preliminary Cerebral Spinal Fluid CSF Culture - Preliminary 09/01/19 10:27 Blood Culture - Preliminary Blood No Growth after 120 hours Assessment and Plan Plan: 1 episodic partial seizures involving the left hemisphere with possible generalization. The patient had several seizure activity and possibly she may be an status and is obviously concerning. The patient was started on Dilantin. Loading was given and the patient was admitted on 100 mg every 6 hour. Neurologist on the case. The follow-up EEG will be done in a.m. per neurology recommendations. MRI of the brain showed no focal lesions. On today's evaluation of 09/07/2019, the patient is still having episodic focal seizures/possible seizures, however, these are occurring of a lesser frequency and the patient will be started on Keppra and the patient will be loaded with Dilantin and a follow-up EEG is to be ordered today. Neurologically, she is more communicative per nursing staff. IV acyclovir has been discontinued. HSV by PCR came back negative. Dilantin maintenance will be at 100 mg IV every 8 hours. 2 diabetic ketoacidosis with severe anion gap metabolic acidosis, recovered 3 reactive leukocytosis, improved 4 sinusitis, right-sided currently on antibiotics Zosyn 5 altered mental status likely secondary to above 5 chronic anxiety/depression 6 severe agoraphobia 7 hoarding tendencies 8 diabetes mellitus 9 rheumatoid arthritis 10 pancreatitis, recovered Plan Continue Dilantin loading and maintenance and add Keppra. Monitor the levels EEG for follow-up regarding seizure activity. Monitor clinically also. Neurology follow-up Aspiration precautions Discontinue the vancomycin as there is no indication for bacterial meningitis Discontinue IV acyclovir We'll continue to follow. The patient be kept in ICU for now.
[2019-09-07] MEDS: levETIRAcetam IV 1,000 MG in SALINE 1 100ML.BAG IVPB SCH ×2 (09:31→21:07)
[2019-09-07 12:09] LABS: Glucose,Whole Blood 210 mg/dL (75-99)
--- NOTE | 2019-09-07 15:12 | EEG ---
ELECTROENCEPHALOGRAM REPORT DATE OF SERVICE: 09/07/2019. PREAMBLE: This is a 49-year-old female who has history of status epilepticus. This is a followup EEG. CURRENT MEDICATIONS: Dilantin and Keppra. EEG FINDINGS: Routine 21 channel awake digital EEG recording was accomplished utilizing the 10/20 international system with bipolar and referential montages. The background is seen better in the right hemispheric region, with presence of the 7-8 hertz activity, posterior dominant, but not clearly reactive to eye opening and closing. There is very frequent high-amplitude, frontally predominant rhythmic delta activity seen at 2 hertz involving the left hemispheric region, which frequently generalizes to produce an electrographic seizures lasting for about 60-70 seconds. Two such seizures were recorded during this 20 minute study. According to emergency spill response technician report, patient had persistent gaze deviation to the right during this ictal event, with a single twitch of the right arm noted at that time. Continuous focal slowing was seen in the left hemispheric region as well. IMPRESSION: Continued presence of severe epileptiform activity involving the left hemispheric region which often generalizes. Two electrographic seizures were recorded lasting about 60 and 70 seconds each. This EEG in appropriate clinical setting is consistent with partial status epilepticus. Clinical correlation and long-term EEG monitoring is strongly recommended at this point. MMODL / IJN: [id number] / [id number]
--- NOTE | 2019-09-07 15:49 | P.PN ---
Subjective Progress Note Date: 09/07/19 Patient was seen for a follow-up. Patient's sister was also present today. Patient continues to have intermittent partial seizures, involving staring and gaze deviation to the right, with some focal clonic activity on the right. According to the nursing report, she witnessed 2 of them. Couple occurred while EEG was being done. Patient's vitals are stable, temperature 98.2. Blood pressure 166/97. Patient's WBC is 12.9, hemoglobin 11.1 and platelets 444. Patient's CSF was colorless and clear, and it shows WBC 2, which is normal, RBCs 23. CSF glucose 90, CSF total protein 49 (12-60). CSF culture so far negative. Objective - Vital Signs Vital signs: Vital Signs Temp 98.2 F 09/07/19 12:00 Pulse 93 09/07/19 14:00 Resp 16 09/07/19 14:00 BP 160/82 09/07/19 14:00 Pulse Ox 90 L 09/07/19 14:00 Intake & Output 09/06/19 09/07/19 09/07/19 18:59 06:59 18:59 Intake Total 1400 1765 Output Total 550 575 615 Balance -285 256 8911 Weight 104 kg 104 kg Intake: IV 1125 925 Phenytoin Sodium Inj 100 100 mg In Sodium Chloride 0.9 % 100 ml @ 200 mls/hr IVPB TID [facility] Rx#: [id number] Phenytoin Sodium Inj 750 100 mg In Sodium Chloride 0.9 % 100 ml @ 200 mls/hr IVPB ONCE [facility] Rx#: [id number] Piperacillin-Tazobactam 3 200 100 .375 gm In Sodium Chloride 0.9% 100 ml @ 25 mls/hr IVPB Q8H [facility] Rx#: [id number] Potassium Chloride 10 meq 400 In Water For Injection 1 100ml.bag @ 100 mls/hr IVPB Q1HR [facility] Rx#: [id number] Sodium Chloride 0.9% 1, 825 225 000 ml @ 75 mls/hr IV . [id number] [facility] Rx#:[id number] levETIRAcetam IV 1,000 mg 100 In Saline 1 100ml.bag @ 400 mls/hr IVPB Q12HR [facility] Rx#:[id number] Intake, IV Titration 275 Amount Piperacillin-Tazobactam 3 100 .375 gm In Sodium Chloride 0.9% 100 ml @ 25 mls/hr IVPB Q8H [facility] Rx#: [id number] Potassium Chloride 10 meq 100 In Water For Injection 1 100ml.bag @ 100 mls/hr IVPB ONCE [facility] Rx#: [id number] Sodium Chloride 0.9% 1, 75 000 ml @ 75 mls/hr IV . [id number] [facility] Rx#:[id number] Oral 840 Output: Urine 550 575 615 Other: Voiding Method Indwelling Catheter Indwelling Catheter Indwelling Catheter # Bowel Movements 0 - Exam Patient at present is sedated. She has received 2 mg of Ativan, as patient was getting somewhat agitated postictally after the EEG was being completed. No focal seizure activity noted at this time. - Labs CBC & Chem 7: 09/07/19 04:46 09/07/19 04:46 Labs: Abnormal Lab Results - Last 24 Hours (Table) 09/06/19 09/06/19 09/06/19 Range/Units 14:27 16:42 16:42 WBC 13.5 H (3.8-10.6) k/uL Hgb (11.4-16.0) gm/dL MCV 78.2 L (80.0-100.0) fL MCH 23.9 L (25.0-35.0) pg MCHC 30.6 L (31.0-37.0) g/dL RDW 15.8 H (11.5-15.5) % Neutrophils # 11.3 H (1.3-7.7) k/uL Potassium 3.1 L (3.5-5.1) mmol/L Carbon Dioxide 21 L (22-30) mmol/L BUN 23 H (7-17) mg/dL Glucose 154 H (74-99) mg/dL POC Glucose (mg/dL) (75-99) mg/dL Phosphorus 4.8 H (2.5-4.5) mg/dL AST 39 H (14-36) U/L ALT 39 H (4-34) U/L Alkaline Phosphatase 172 H (38-126) U/L Total Protein 6.1 L (6.3-8.2) g/dL Albumin 3.4 L (3.5-5.0) g/dL CSF RBC 23 H (0-10) u/L CSF Glucose 90 H (40-70) mg/dL 09/06/19 09/06/19 09/06/19 Range/Units 17:05 18:27 20:14 WBC (3.8-10.6) k/uL Hgb (11.4-16.0) gm/dL MCV (80.0-100.0) fL MCH (25.0-35.0) pg MCHC (31.0-37.0) g/dL RDW (11.5-15.5) % Neutrophils # (1.3-7.7) k/uL Potassium (3.5-5.1) mmol/L Carbon Dioxide (22-30) mmol/L BUN (7-17) mg/dL Glucose (74-99) mg/dL POC Glucose (mg/dL) 137 H 121 H 110 H (75-99) mg/dL Phosphorus (2.5-4.5) mg/dL AST (14-36) U/L ALT (4-34) U/L Alkaline Phosphatase (38-126) U/L Total Protein (6.3-8.2) g/dL Albumin (3.5-5.0) g/dL CSF RBC (0-10) u/L CSF Glucose (40-70) mg/dL 09/07/19 09/07/19 09/07/19 Range/Units 03:10 04:46 04:46 WBC 12.9 H (3.8-10.6) k/uL Hgb 11.1 L (11.4-16.0) gm/dL MCV 76.5 L (80.0-100.0) fL MCH 23.6 L (25.0-35.0) pg MCHC 30.8 L (31.0-37.0) g/dL RDW (11.5-15.5) % Neutrophils # 10.6 H (1.3-7.7) k/uL Potassium 3.2 L (3.5-5.1) mmol/L Carbon Dioxide (22-30) mmol/L BUN 21 H (7-17) mg/dL Glucose (74-99) mg/dL POC Glucose (mg/dL) 105 H (75-99) mg/dL Phosphorus 4.9 H (2.5-4.5) mg/dL AST (14-36) U/L ALT (4-34) U/L Alkaline Phosphatase (38-126) U/L Total Protein (6.3-8.2) g/dL Albumin (3.5-5.0) g/dL CSF RBC (0-10) u/L CSF Glucose (40-70) mg/dL 09/07/19 Range/Units 12:07 WBC (3.8-10.6) k/uL Hgb (11.4-16.0) gm/dL MCV (80.0-100.0) fL MCH (25.0-35.0) pg MCHC (31.0-37.0) g/dL RDW (11.5-15.5) % Neutrophils # (1.3-7.7) k/uL Potassium (3.5-5.1) mmol/L Carbon Dioxide (22-30) mmol/L BUN (7-17) mg/dL Glucose (74-99) mg/dL POC Glucose (mg/dL) 210 H (75-99) mg/dL Phosphorus (2.5-4.5) mg/dL AST (14-36) U/L ALT (4-34) U/L Alkaline Phosphatase (38-126) U/L Total Protein (6.3-8.2) g/dL Albumin (3.5-5.0) g/dL CSF RBC (0-10) u/L CSF Glucose (40-70) mg/dL Microbiology - Last 24 Hours (Table) 09/01/19 10:27 Blood Culture - Final Blood No Growth after 144 hours 09/06/19 14:27 CSF Gram Stain - Preliminary Cerebral Spinal Fluid CSF Culture - Preliminary Assessment and Plan Assessment: * Partial status epilepticus. Patient's repeat EEG from today continued to show focal epileptiform activity involving the left hemispheric region with secondary generalization. There was recording of 2 electrographic seizure during the study. * Status post DKA. * Diabetes, poorly controlled * Pancreatitis * Toxic metabolic encephalopathy * Medication noncompliance * Anxiety, depression, hoarding Plan: * Lumbar puncture was performed, which did not reveal any evidence of infection, with normal WBC count, and total proteins. Patient will be continued on acyclovir, until PCR comes back negative. * Patient has received 1 g loading dose of Dilantin yesterday, then 750 mg loading dose x2. Now the Dilantin level is 14.2. * Due to persistent seizure activity, and electrographic status, patient has also been started on Keppra 1000 mg IV twice a day. * Patient at this time needs to be transferred to tertiary care center for continuous EEG monitoring. Patient probably will need Versed drip versus phenobarbital IV to control status epilepticus. * As the Dilantin level is therapeutic, I will give a loading dose of phenobarbital. * Repeat computed tomography scan of the head to rule out mass lesion, that may not have showed up in earlier MRI. * Ativan 1 mg IV push every 2 hours when necessary seizures. * Discussed with patient's sister and the primary attending in detail. * Patient to be transferred to [facility], as soon as the bed is available.
[2019-09-07] MEDS ORDERED: PHENobarbital SODIUM 130 MG/ML 1 ML VIAL IV ONE (16:18)
[2019-09-07 17:04] LABS: Glucose,Whole Blood 215 mg/dL (75-99)
--- NOTE | 2019-09-07 19:08 | CT ---
EXAMINATION TYPE: CT brain wo con DATE OF EXAM: 09/07/2019 COMPARISON: 09/01/2019 HISTORY: seizures CT DLP: 1099.4 mGycm Automated exposure control for dose reduction was used. Ventricles have normal size. There is no mass effect nor midline shift. There is no sign of intracran ial hemorrhage. There is right side ethmoid sinusitis. Calvarium is intact. IMPRESSION: No acute intracranial abnormality. No change.
[2019-09-07 20:58] LABS: Glucose,Whole Blood 171 mg/dL (75-99)
[2019-09-08] MEDS: ACYCLOVIR SODIUM 1,000 MG in SODIUM CHLORIDE 0.9% 250 ML IVPB SCH ×4 (00:58→23:43)
[2019-09-08 03:51] LABS: Glucose,Whole Blood 79 mg/dL (75-99)
[2019-09-08] MEDS: INSULIN ASPART (NovoLOG) 100 UNIT/ML VIAL SQ SCH ×5 (04:52→20:45)
[2019-09-08] MEDS: PIPERACILLIN-TAZOBACTAM 3.375 GM in SODIUM CHLORIDE 0.9% 100 ML IVPB SCH (05:08)
[2019-09-08 05:37] LABS: Basophils % (A) 0 %; Eosinophils # (A) 0.2 k/uL (0-0.7); Eosinophils % (A) 2 %; HCT 35.6 % (34.0-46.0); HGB 10.8 gm/dL (11.4-16.0); Hypochromasia Moderate; Lymphocytes # (A) 1.7 k/uL (1.0-4.8); Lymphocytes % (A) 17 %; MCH 23.6 pg (25.0-35.0); MCHC 30.4 g/dL (31.0-37.0); MCV 77.5 fL (80.0-100.0); Mean Platelet Volume 9.1; Microcytosis Slight; Monocytes # (A) 0.7 k/uL (0-1.0); Monocytes % (A) 7 %; Neutrophils # (A) 7.4 k/uL (1.3-7.7); Neutrophils % (A) 73 %; Platelet Count 432 k/uL (150-450); RDW 15.5 % (11.5-15.5); WBC 10.2 k/uL (3.8-10.6)
[2019-09-08 05:47] LABS: African American GFR (CKD) >90 (>60 ml/min/1.73 sqM); Anion Gap 7 mmol/L; Blood Urea Nitrogen 17 mg/dL (7-17); Calcium 9.3 mg/dL (8.4-10.2); Carbon Dioxide 27 mmol/L (22-30); Chloride 107 mmol/L (98-107); Glucose 76 mg/dL (74-99); Non-African American GFR(CKD) >90 (>60 ml/min/1.73 sqM); Potassium 3.3 mmol/L (3.5-5.1); Sodium 141 mmol/L (137-145)
[2019-09-08] MEDS: POTASSIUM CHLORIDE 10 MEQ in WATER FOR INJECTION 1 100ML.BAG IVPB SCH ×4 (06:16→11:19)
[2019-09-08 07:03] LABS: Glucose,Whole Blood 75 mg/dL (75-99)
[2019-09-08] MEDS: LORATADINE 10 MG TAB PO SCH (08:53)
[2019-09-08] MEDS: amLODIPine 10 MG TAB PO SCH (08:53)
[2019-09-08] MEDS: FLUTICASONE 50MCG/SPRAY NASAL 16GM EA NOSTRIL SCH (08:54)
[2019-09-08] MEDS: PHENYTOIN SODIUM INJ 50 MG/ML 2 ML VIAL IVP SCH ×3 (09:00→22:06)
[2019-09-08] MEDS: levETIRAcetam IV 1,000 MG in SALINE 1 100ML.BAG IVPB SCH ×2 (12:25→20:45)
[2019-09-08 12:31] LABS: Glucose,Whole Blood 135 mg/dL (75-99)
[2019-09-08 12:47] LABS: Enterovirus PCR Not detected (Not detected)
[2019-09-08] MEDS: PHENobarbital SODIUM 130 MG/ML 1 ML VIAL IV SCH ×2 (13:21→22:09)
--- NOTE | 2019-09-08 13:45 | P.PN ---
Subjective Progress Note Date: 09/08/19 On 09/08/2019 the patient remains in the intensive care units. Her seizure activity has subsided clinically. Nevertheless the EEG was abnormal and the patient was still having abnormal EEG activity consistent with seizures. The patient was maintained on a combination of Dilantin and Keppra. There were plans to transfer this patient to [facility]. The patient was kept in ICU due to lack of availability's of beds for transfer. Meanwhile, the patient is being started on phenobarbital today by neurology. She is still nonverbal although I was told that she had said . It's. She did not communicate with me. I noticed that the CSF PCR for HSV was not completed and I restarted acyclovir. This will be continued until further confirmation of negativity of HSV in the CSF. Meanwhile, the patient is also on a combination of antiepileptic medications. The following EEG needs to be done today. Otherwise, she is afebrile. Rest or status is stable. Blood sugars under good control. He moglobin is at 10.8. Electrodes are all within normal limits. Most recent Dilantin level is at 11. Phenobarbital was started at a dose of 100 mg IV every 12 hours pH is also on a Dilantin maintenance of 100 mg IV 3 times a day and the patient is on Keppra 1 g every 12 hours. A repeat CAT scan of the brain showed no acute abnormalities. Objective - Vital Signs Vital signs: Vital Signs Temp 98 F 09/08/19 08:00 Pulse 95 09/08/19 10:00 Resp 18 09/08/19 10:00 BP 160/88 09/08/19 10:00 Pulse Ox 94 L 09/08/19 10:00 Intake & Output 09/07/19 09/08/19 09/08/19 18:59 06:59 18:59 Intake Total 2315 1250 75 Output Total 790 895 35 Balance 1525 355 40 Weight 104 kg Intake: IV 1475 1250 75 Acyclovir Sodium 1,000 mg 250 250 In Sodium Chloride 0.9% 250 ml @ 270 mls/hr IVPB Q8HR [facility] Rx#:[id number] Phenytoin Sodium Inj 750 100 mg In Sodium Chloride 0.9 % 100 ml @ 200 mls/hr IVPB ONCE [facility] Rx#: [id number] Piperacillin-Tazobactam 3 100 .375 gm In Sodium Chloride 0.9% 100 ml @ 25 mls/hr IVPB Q8H [facility] Rx#: [id number] Potassium Chloride 10 meq 400 In Water For Injection 1 100ml.bag @ 100 mls/hr IVPB Q1HR [facility] Rx#: [id number] Sodium Chloride 0.9% 1, 525 900 75 000 ml @ 75 mls/hr IV . [id number] [facility] Rx#:[id number] levETIRAcetam IV 1,000 mg 100 100 In Saline 1 100ml.bag @ 400 mls/hr IVPB Q12HR [facility] Rx#:[id number] Oral 840 Output: Urine 790 895 35 Other: Voiding Method Indwelling Catheter Indwelling Catheter - Exam General: Ill-appearing, 49-year-old female patient, , appears older than stated age, obese, disheveled, more awake today, moving all fours, not following any commands, nonverbal, although I was told that she was able to follow some simple commands per request of the nursing staff. She was able to drink some sips of juice and milk. Derm: Multiple upper extremity excoriations as well as chest wall, no unusual rashes/lesions no unusual ecchymoses, warm, dry Head: atraumatic, normocephalic, symmetric Eyes: EOMI, no lid lag, anicteric sclera, pupils equal round reactive to light, roving ENT: Nose and ears atraumatic, no thrush, no pharyngeal erythema Neck: No thyromegaly, no cervical lymphadenopathy, trachea midline, supple Mouth: no lip lesion, mucus membranes dry Cardiovascular: S1S2 tachy, no murmur, + posterior tibial pulse bilateral, no edema, capillary refill less than 2 seconds Lungs: CTA bilateral, no rhonchi, no rales , no accessory muscle use Abdominal: soft, tender to palpation, no guarding, no appreciable organomegaly, normal bowel sounds Ext: no gross muscle atrophy, moving right upper, left upper, and left lower extremity independently howevere if you lift arms and legs she will let them drop and not hold them up,, not following commends consistently, only moaning, no contractures, Neuro: Moving eye all around room, + cough, + gag, loss of nasal labial fold on the right, no withdrawal to pain RUE, RLE, LLE, moans but does not withdraw to pain LUE, Babinski down going bilateral Psych: Awake,, will open eyes and make eye contact, - Labs CBC & Chem 7: 09/08/19 04:32 09/08/19 04:32 Labs: Abnormal Lab Results - Last 24 Hours (Table) 09/07/19 09/07/19 09/08/19 Range/Units 17:01 20:56 04:32 Hgb 10.8 L (11.4-16.0) gm/dL MCV 77.5 L (80.0-100.0) fL MCH 23.6 L (25.0-35.0) pg MCHC 30.4 L (31.0-37.0) g/dL Potassium (3.5-5.1) mmol/L Creatinine (0.52-1.04) mg/dL POC Glucose (mg/dL) 215 H 171 H (75-99) mg/dL 09/08/19 09/08/19 Range/Units 04:32 12:29 Hgb (11.4-16.0) gm/dL MCV (80.0-100.0) fL MCH (25.0-35.0) pg MCHC (31.0-37.0) g/dL Potassium 3.3 L (3.5-5.1) mmol/L Creatinine 0.51 L (0.52-1.04) mg/dL POC Glucose (mg/dL) 135 H (75-99) mg/dL Microbiology - Last 24 Hours (Table) 09/06/19 14:27 CSF Gram Stain - Preliminary Cerebral Spinal Fluid CSF Culture - Preliminary 09/01/19 10:27 Blood Culture - Final Blood No Growth after 144 hours Assessment and Plan Plan: 1 episodic partial seizures involving the left hemisphere with possible generalization. The patient had several seizure activity and possibly she may be an status and is obviously concerning. The patient was started on Dilantin and Keppra. Dilantin level is 11. She was still having seizure activity and the patient will be started on phenobarbital 100 mg every 12 hours. A follow-up EEG is pending. The patient remains on IV acyclovir pending HSV by PCR and CSF. The patient had a follow-up CAT scan of the brain that showed no acute abnormalities. Possible transfer to [facility] once bed available. Ne eds a follow-up EEG. Neurologist on the case. 2 diabetic ketoacidosis with severe anion gap metabolic acidosis, recovered 3 reactive leukocytosis, improved 4 sinusitis, right-sided currently on antibiotics Zosyn 5 altered mental status likely secondary to above 5 chronic anxiety/depression 6 severe agoraphobia 7 hoarding tendencies 8 diabetes mellitus 9 rheumatoid arthritis 10 pancreatitis, recovered Plan Continue Dilantin loading and maintenance a Keppra and add phenobarbital. Neurologist on the case. IV acyclovir will be continued until the HSV by PCR came back negative. Aspiration precautions Discontinue Zosyn and continued IV acyclovir Ativan 1 mg IV push every 2 hours when necessary for seizure activity. We'll continue to follow. The patient be kept in ICU for now.
[2019-09-08] MEDS: HYDROmorphone 0.5 MG/0.5 ML SYRINGE IVP PRN (16:12)
[2019-09-08 16:49] LABS: Glucose,Whole Blood 211 mg/dL (75-99)
[2019-09-08 20:33] LABS: Glucose,Whole Blood 224 mg/dL (75-99)
[2019-09-09 03:13] LABS: Glucose,Whole Blood 156 mg/dL (75-99)
[2019-09-09] MEDS: INSULIN ASPART (NovoLOG) 100 UNIT/ML VIAL SQ SCH ×4 (03:21→17:36)
[2019-09-09] MEDS: HYDROmorphone 0.5 MG/0.5 ML SYRINGE IVP PRN (03:22)
[2019-09-09 06:56] LABS: Glucose,Whole Blood 148 mg/dL (75-99)
--- NOTE | 2019-09-09 07:14 | P.PN ---
Subjective Progress Note Date: 09/08/19 The patient is seen and examined at bedside, there has been no further reports of any seizure-like activity. Patient has had an abnormal EEG consistent with electroform activity. She continues on Dilantin and Keppra , the patient continues to be mute and nonverbal She withdraws from pain, his serum potassium was 3.3, phenytoin level was 11. The patient is supposed be transferred to [facility] for 24 hour EEG monitoring Objective - Vital Signs Vital signs: Vital Signs Temp 98 F 09/08/19 12:00 Pulse 105 H 09/08/19 13:00 Resp 15 09/08/19 13:00 BP 176/83 09/08/19 13:00 Pulse Ox 91 L 09/08/19 13:00 Intake & Output 09/07/19 09/08/19 09/08/19 18:59 06:59 18:59 Intake Total 2315 1250 75 Output Total 790 895 35 Balance 1525 355 40 Weight 104 kg Intake: IV 1475 1250 75 Acyclovir Sodium 1,000 mg 250 250 In Sodium Chloride 0.9% 250 ml @ 270 mls/hr IVPB Q8HR [facility] Rx#:[id number] Phenytoin Sodium Inj 750 100 mg In Sodium Chloride 0.9 % 100 ml @ 200 mls/hr IVPB ONCE [facility] Rx#: [id number] Piperacillin-Tazobactam 3 100 .375 gm In Sodium Chloride 0.9% 100 ml @ 25 mls/hr IVPB Q8H [facility] Rx#: [id number] Potassium Chloride 10 meq 400 In Water For Injection 1 100ml.bag @ 100 mls/hr IVPB Q1HR [facility] Rx#: [id number] Sodium Chloride 0.9% 1, 525 900 75 000 ml @ 75 mls/hr IV . [id number] [facility] Rx#:[id number] levETIRAcetam IV 1,000 mg 100 100 In Saline 1 100ml.bag @ 400 mls/hr IVPB Q12HR [facility] Rx#:[id number] Oral 840 Output: Urine 790 895 35 Other: Voiding Method Indwelling Catheter Indwelling Catheter - Exam General: looks in no distress, appears at stated age, obese Derm: warm, dry Head: atraumatic, normocephalic, symmetric Eyes: EOMI, no lid lag, anicteric sclera Mouth: no lip lesion, mucus membranes dry Cardiovascular: S1S2 reg, no murmur, positive posterior tibial pulse bilateral, Lungs: decreased bs bilateral, no rhonchi, no rales , no accessory muscle use Abdominal: soft, NT, no guarding, no appreciable organomegaly Ext: no gross muscle atrophy, no edema, no contractures Neuro: CN II-XI grossly intact, no focal neuro deficits Psych: Unpurposeful movements of the arms and legs. Not answering questions or verbalizing anything. Exam from previous physician on 09/01 noted: ''patient sits up in bed and roll on her side when she wants to. When she overheard us talking about her mental health she did let out a long moan and then sat up in bed'' - Labs CBC & Chem 7: 09/08/19 04:32 09/08/19 15:42 Labs: Abnormal Lab Results - Last 24 Hours (Table) 09/07/19 09/07/19 09/08/19 Range/Units 17:01 20:56 04:32 Hgb 10.8 L (11.4-16.0) gm/dL MCV 77.5 L (80.0-100.0) fL MCH 23.6 L (25.0-35.0) pg MCHC 30.4 L (31.0-37.0) g/dL Potassium (3.5-5.1) mmol/L Creatinine (0.52-1.04) mg/dL POC Glucose (mg/dL) 215 H 171 H (75-99) mg/dL 09/08/19 09/08/19 Range/Units 04:32 12:29 Hgb (11.4-16.0) gm/dL MCV (80.0-100.0) fL MCH (25.0-35.0) pg MCHC (31.0-37.0) g/dL Potassium 3.3 L (3.5-5.1) mmol/L Creatinine 0.51 L (0.52-1.04) mg/dL POC Glucose (mg/dL) 135 H (75-99) mg/dL Microbiology - Last 24 Hours (Table) 09/06/19 14:27 CSF Gram Stain - Preliminary Cerebral Spinal Fluid CSF Culture - Preliminary 09/01/19 10:27 Blood Culture - Final Blood No Growth after 144 hours Assessment and Plan Assessment: Partial seizure, rule out Partial status epilepticus Discussed with the shredded filler cigar maker machine, patient will be transferred to ICU MRI brain already done, negative Rule out meningitis, patient started on acyclovir by neurology, resume Zosyn for now. Consult infectious disease Patient loaded with Dilantin, was given 1 g earlier, we'll administer 750 mg more Diabetic ketoacidosis, anion gap resolved -Resolved, patient started on subcu insulin, long-acting as well as short- acting. -Continue accu-Cheks q2 h -A1c 11.8 Pancreatitis - Resolved. - Resumed diet but patient has not eaten anything since presentation. - Pain medications Dehydration Patient has not eaten or drunk anything since admission Restart IVF Acute right-sided sinusitis with sepsis -Zosyn, seen by ENT -IV fluids -Flonase -Claritin Hypokalemia Replace and follow in a.m. Anxiety and depression with severe agoraphobia and hoarding tendencies -Psychiatry following, will need inpatient psychiatric admission once medically clear Morbid obesity -Outpatient structured weight loss Patient has not filled her meds since last January, A1c as noted above is 11. She is probably not taking her meds. Patient's sister has certified this patient for inpatient psychiatric admission. She will be discharged to psych when medically stable. DVT prophylaxis: heparin Discussed with: Patient, nursing, Anticipated discharge date: [address]: ?[facility] A total of 45 minutes was spent on the care of this complex patient more than 50% of the time was spent in counseling and care coordination.
[2019-09-09] MEDS: amLODIPine 10 MG TAB PO SCH (09:16)
[2019-09-09] MEDS: LORATADINE 10 MG TAB PO SCH (09:16)
[2019-09-09] MEDS: levETIRAcetam IV 1,000 MG in SALINE 1 100ML.BAG IVPB SCH (09:17)
[2019-09-09] MEDS: PHENobarbital SODIUM 130 MG/ML 1 ML VIAL IV SCH (09:17)
[2019-09-09] MEDS: PHENYTOIN SODIUM INJ 50 MG/ML 2 ML VIAL IVP SCH ×2 (09:17→17:48)
[2019-09-09] MEDS: FLUTICASONE 50MCG/SPRAY NASAL 16GM EA NOSTRIL SCH (09:19)
--- NOTE | 2019-09-09 09:44 | P.PN ---
Subjective Progress Note Date: 09/09/19 The patient is seen and examined at bedside, there has been no further reports of any seizure-like activity. Plan for repeat EEG today, patient continues on Dilantin Keppra and phenobarbital. Patient not able to follow commands, only responds yes to any questions asked. Withdraws from painful stimuli and says ouch. No acute events overnight Objective - Vital Signs Vital signs: Vital Signs Temp 97.9 F 09/09/19 05:00 Pulse 89 09/09/19 09:00 Resp 17 09/09/19 09:00 BP 149/103 09/09/19 09:00 Pulse Ox 95 09/09/19 09:00 Intake & Output 09/08/19 09/09/19 09/09/19 18:59 06:59 18:59 Intake Total 1630 1175 487 Output Total 600 600 250 Balance 1030 575 237 Intake: IV 1170 1175 250 0.9 825 825 150 Acyclovir Sodium 1,000 mg 270 250 In Sodium Chloride 0.9% 250 ml @ 270 mls/hr IVPB Q8HR [facility] Rx#:[id number] Sodium Chloride 0.9% 1, 75 000 ml @ 75 mls/hr IV . [id number] [facility] Rx#:[id number] levETIRAcetam IV 1,000 mg 100 100 In Saline 1 100ml.bag @ 400 mls/hr IVPB Q12HR [facility] Rx#:[id number] Oral 460 237 Output: Urine 600 600 250 Other: Voiding Method Indwelling Catheter Indwelling Catheter Indwelling Catheter - Exam General: looks in no distress, appears at stated age, obese Derm: warm, dry Head: atraumatic, normocephalic, symmetric Eyes: EOMI, no lid lag, anicteric sclera Mouth: no lip lesion, mucus membranes dry Cardiovascular: S1S2 reg, no murmur, positive posterior tibial pulse bilateral, Lungs: decreased bs bilateral, no rhonchi, no rales , no accessory muscle use Abdominal: soft, NT, no guarding, no appreciable organomegaly Ext: no gross muscle atrophy, no edema, no contractures Neuro: CN II-XI grossly intact, no focal neuro deficits Psych: Unpurposeful movements of the arms and legs. Not answering questions or verbalizing anything. Exam from previous physician on 3/8 noted: ''patient sits up in bed and roll on her side when she wants to. When she overheard us talking about her mental health she did let out a long moan and then sat up in bed'' - Labs CBC & Chem 7: 09/08/19 04:32 09/08/19 15:42 Labs: Abnormal Lab Results - Last 24 Hours (Table) 09/08/19 09/08/19 09/08/19 Range/Units 12:29 16:42 20:32 POC Glucose (mg/dL) 135 H 211 H 224 H (75-99) mg/dL 09/09/19 09/09/19 Range/Units 03:11 06:54 POC Glucose (mg/dL) 156 H 148 H (75-99) mg/dL Microbiology - Last 24 Hours (Table) 09/06/19 14:27 CSF Gram Stain - Preliminary Cerebral Spinal Fluid CSF Culture - Preliminary Assessment and Plan Assessment: Partial seizure, rule out Partial status epilepticus Discussed with the questioned documents examiner, patient will be transferred to ICU MRI brain already done, negative Rule out meningitis, HSV were negative acyclovir and Zosyn discontinued Diabetic ketoacidosis, anion gap resolved -Resolved, blood sugar stable continue to hold her insulin -Continue accu-Cheks q2 h -A1c 11.8 Pancreatitis - Resolved. - Resumed diet but patient has not eaten anything since presentation. - Pain medications Dehydration Patient has not eaten or drunk anything since admission Restart IVF Acute right-sided sinusitis with sepsis -psychiatric seen by ENT -IV fluids -Flonase -Claritin Hypokalemia Replace and follow in a.m. Anxiety and depression with severe agoraphobia and hoarding tendencies -Psychiatry following, will need inpatient psychiatric admission once medically clear Morbid obesity -Outpatient structured weight loss Patient has not filled her meds since last January, A1c as noted above is 11. She is probably not taking her meds. Patient's sister has certified this patient for inpatient psychiatric admission. She will be discharged to psych when medically stable. DVT prophylaxis: heparin Discussed with: Patient, nursing, Anticipated discharge date: [address]: ?[facility] A total of 45 minutes was spent on the care of this complex patient more than 50% of the time was spent in counseling and care coordination.
--- NOTE | 2019-09-09 10:51 | P.PN ---
Subjective Progress Note Date: 09/09/19 On today's evaluation of 09/09/2019, the patient does not seem to have clinical seizures. EEG is to follow. As mentioned earlier, she is on a combination of IV Dilantin, IV Keppra and IV phenobarbital. Follow-up levels are pending for now. EEG will be done this morning. No facial twitches. No arm twitches for today. She withdraws to painful stimuli. She senses pain very well. She is not conversing and she hasn't had anything to eat since yesterday. She may be essentially the postictal state still. No other new complaints. Hemodynamically stable. No fever or chills. HSV by PCR came back negative and the patient will be taken off the IV acyclovir. Objective - Vital Signs Vital signs: Vital Signs Temp 97.9 F 09/09/19 05:00 Pulse 89 09/09/19 09:00 Resp 17 09/09/19 09:00 BP 149/103 09/09/19 09:00 Pulse Ox 95 09/09/19 09:00 Intake & Output 09/08/19 09/09/19 09/09/19 18:59 06:59 18:59 Intake Total 1630 1175 487 Output Total 600 600 250 Balance 1030 575 237 Intake: IV 1170 1175 250 0.9 825 825 150 Acyclovir Sodium 1,000 mg 270 250 In Sodium Chloride 0.9% 250 ml @ 270 mls/hr IVPB Q8HR [facility] Rx#:[id number] Sodium Chloride 0.9% 1, 75 000 ml @ 75 mls/hr IV . [id number] STA Rx#:[id number] levETIRAcetam IV 1,000 mg 100 100 In Saline 1 100ml.bag @ 400 mls/hr IVPB Q12HR [facility]RI Rx#:[id number] Oral 460 237 Output: Urine 600 600 250 Other: Voiding Method Indwelling Catheter Indwelling Catheter Indwelling Catheter - Exam General: Ill-appearing, 49-year-old female patient, , appears older than stated age, obese, disheveled, more awake today, moving all fours, not following any commands, nonverbal, although I was told that she was able to follow some simple commands per request of the nursing staff. She was able to drink some sips of juice and milk. Derm: Multiple upper extremity excoriations as well as chest wall, no unusual rashes/lesions no unusual ecchymoses, warm, dry Head: atraumatic, normocephalic, symmetric Eyes: EOMI, no lid lag, anicteric sclera, pupils equal round reactive to light, roving ENT: Nose and ears atraumatic, no thrush, no pharyngeal erythema Neck: No thyromegaly, no cervical lymphadenopathy, trachea midline, supple Mouth: no lip lesion, mucus membranes dry Cardiovascular: S1S2 tachy, no murmur, + posterior tibial pulse bilateral, no edema, capillary refill less than 2 seconds Lungs: CTA bilateral, no rhonchi, no rales , no accessory muscle use Abdominal: soft, tender to palpation, no guarding, no appreciable organomegaly, normal bowel sounds Ext: no gross muscle atrophy, moving right upper, left upper, and left lower extremity independently howevere if you lift arms and legs she will let them drop and not hold them up,, not following commends consistently, only moaning, no contractures, Neuro: Moving eye all around room, + cough, + gag, loss of nasal labial fold on the right, no withdrawal to pain RUE, RLE, LLE, moans but does not withdraw to pain LUE, Babinski down going bilateral Psych: Awake,, will open eyes and make eye contact, - Labs CBC & Chem 7: 09/08/19 04:32 09/08/19 15:42 Labs: Abnormal Lab Results - Last 24 Hours (Table) 09/08/19 09/08/19 09/08/19 Range/Units 12:29 16:42 20:32 POC Glucose (mg/dL) 135 H 211 H 224 H (75-99) mg/dL 09/09/19 09/09/19 Range/Units 03:11 06:54 POC Glucose (mg/dL) 156 H 148 H (75-99) mg/dL Microbiology - Last 24 Hours (Table) 09/06/19 14:27 CSF Gram Stain - Preliminary Cerebral Spinal Fluid CSF Culture - Preliminary Assessment and Plan Plan: 1 episodic partial seizures involving the left hemisphere with possible generali zation. Currently on a combination of IV Dilantin, IV Keppra and IV phenobarbital. Follow-up EEG to be done today and the levels are still pending for now. HSV by PCR came back negative. CAT scan of the brain was negative. MRI of the brain was negative. She still has diminished level of consciousness could be related to post ictal state, Related to her ongoing seizure activity. 2 diabetic ketoacidosis with severe anion gap metabolic acidosis, recovered 3 reactive leukocytosis, improved 4 sinusitis, right-sided currently on antibiotics Zosyn 5 altered mental status likely secondary to above 5 chronic anxiety/depression 6 severe agoraphobia 7 hoarding tendencies 8 diabetes mellitus 9 rheumatoid arthritis 10 pancreatitis, recovered Plan Continue Dilantin , Keppra and add phenobarbital. Neurologist on the case. Aspiration precautions Discontinue acyclovir Ativan 1 mg IV push every 2 hours when necessary for seizure activity. No obvious clinical signs of seizures. EEG today. We'll continue to follow. The patient be kept in ICU for now.
[2019-09-09 11:57] LABS: Glucose,Whole Blood 154 mg/dL (75-99)
[2019-09-09 16:22] VITALS: TEMP 98.2
[2019-09-09 16:31] LABS: Glucose,Whole Blood 131 mg/dL (75-99)
[2019-09-09 20:34] VITALS: BP 173/112; PULSE 112; RESP 20
--- NOTE | 2019-09-10 14:31 | EEG ---
ELECTROENCEPHALOGRAM REPORT DATE OF SERVICE: 09/09/2019 PREAMBLE: A 49-year-old female with recent nonconvulsive partial status epilepticus. This is a followup EEG. CURRENT MEDICATIONS: Dilantin, Keppra, phenobarbital. EEG FINDINGS: A routine 21 channel awake digital EEG recording was accomplished utilizing the 10-20 international system with bipolar and referential montages. The dominant background rhythm consists of well-developed, moderately well regulated, 7-8 hertz activity, seen better in the right posterior hemispheric region. Background does not seem to be reactive to eye opening and closing. There is very frequent focal seizures originating in the left temporal region, then extends to the whole left hemispheric region and is associated with 3-2 to 3 hertz sharp and slow wave activity seen that lasts for about 70 seconds. Five such episodes were documented during this recording. Clinically, patient was noted to have some facial tensing, and some movement noted during these events. In between these episodes, there was relatively normal- looking background activity seen in bihemispheric regions. IMPRESSION: Continued electrographic evidence of partial status epilepticus. There is recording of 5 electrographic seizures consisting of high amplitude rhythmic sharp and slow wave, in the left temporal region, that extends to involve the whole left hemispheric region, lasting 70 seconds. This EEG is consistent with electrographic partial status epilepticus. Clinical correlation and a continuous EEG monitoring is strongly recommended. ESTIVEN / JASON: [id number] / TIFFANIE
[2019-09-11 12:39] LABS: VDRL, Qualitative CSF Nonreactive (Nonreactive)
== END 2019-09-09 20:42 | disposition short-term general hospital (02) | DRG 871 ==
LOC: EC 07:08 → 2SICU 09:43 → 6NMEDSUR 09-04 14:25 → 2SICU 09-06 19:06
PROVIDERS: ADMIT Internal Medicine; ATTEND Internal Medicine
PROC: 009U3ZX Drainage of Spinal Canal, Percutaneous Approach, Diagnostic (ICD-10-PCS; principal; 2019-09-07)
PROC: B01B1ZZ Fluoroscopy of Spinal Cord using Low Osmolar Contrast (ICD-10-PCS; principal; 2019-09-07)
DX: A41.9 Sepsis, unspecified organism (principal); E11.10 Type 2 diabetes mellitus with ketoacidosis without coma; K85.90 Acute pancreatitis without necrosis or infection, unspecified; G92 Toxic encephalopathy; M06.9 Rheumatoid arthritis, unspecified; M79.7 Fibromyalgia; F32.9 Major depressive disorder, single episode, unspecified; G40.901 Epilepsy, unspecified, not intractable, with status epilepticus; F40.00 Agoraphobia, unspecified; E78.5 Hyperlipidemia, unspecified; E83.52 Hypercalcemia; E86.0 Dehydration; E66.01 Morbid (severe) obesity due to excess calories; E87.6 Hypokalemia; F29 Unspecified psychosis not due to a substance or known physiological condition; F42.3 Hoarding disorder; G31.9 Degenerative disease of nervous system, unspecified; J01.00 Acute maxillary sinusitis, unspecified; I10 Essential (primary) hypertension; R94.01 Abnormal electroencephalogram [EEG]; Z68.34 Body mass index [BMI] 34.0-34.9, adult; Z91.14 Patient's other noncompliance with medication regimen; Z89.519 Acquired absence of unspecified leg below knee; Z79.899 Other long term (current) drug therapy; Z82.49 Family history of ischemic heart disease and other diseases of the circulatory system; Z87.01 Personal history of pneumonia (recurrent); Z79.4 Long term (current) use of insulin; Z88.1 Allergy status to other antibiotic agents; Z90.89 Acquired absence of other organs
CPT/HCPCS: 36415; 62328; 70450; 70551; 71046; 72125; 74018; 74176; 80048; 80051; 80053; 80184; 80185; 80306; 80320; 80329; 81001; 82009; 82140; 82164; 82550; 82565; 82803; 82945; 82947; 83036; 83520; 83690; 83735; 84100; 84132; 84145; 84157; 84443; 84478; 84484; 84520; 85025; 85027; 85610; 85730; 86592; 87040; 87070; 87075; 87086; 87205; 87327; 87496; 87498; 87529; 87798; 88108; 89050; 93005; 93306; 93880; 95816; 95819; 96360; 96361; 96365; 99291

== ENCOUNTER 2019-10-10 19:06 | Inpatient (IN) | payer MEDICARE ==
[2019-10-10 19:21] LABS: Glucose,Whole Blood 194 mg/dL (75-99)
[2019-10-10] MEDS ORDERED: SODIUM CHLORIDE 0.9% 1,000 ML IV STA ×2 (19:42→20:29)
[2019-10-10] MEDS ORDERED: MORPHINE SULFATE 2 MG/ML SYRINGE IVP STA (19:42)
--- NOTE | 2019-10-10 19:47 | ED ---
General Adult HPI - General Source: patient, EMS, RN notes reviewed Mode of arrival: EMS Limitations: no limitations <Manjinder Harding - Last Filed: 10/10/19 22:11> <Piper De La Cruz - Last Filed: 10/13/19 13:54> - General Chief complaint: Abdominal Pain Stated complaint: Abd pain Time Seen by Provider: 10/10/19 19:09 - History of Present Illness Initial comments: 49-year-old female without past medical history of diabetes mellitus, fibromyalgia, seizure disorder that started about 1 month ago presents to the emergency department for a chief complaint of abdominal pain as well as nausea vomiting. Patient states she has had abdominal pain for months. States she has had nausea vomiting for about 2 weeks. Patient states she came today because the pain worsened. States was the pain is upper abdominal. Patient states she was recently admitted to this facility and transferred to [facility]. States she does not know exactly why this admission to place her patient denies any fevers. She denies any diarrhea. She admits to bowel movements about 3 days ago that were normal. Patient has not been eating or drinking as much as normal. According to previous reports patient has not been compliant with med ications prior to a month ago.Patient has no other complaints at this time including shortness of breath, chest pain, headache, or visual changes. Brain MRI one month ago showed cerebral atrophy with mild white matter signal changes around the lateral ventricles. EEG performed shows partial status epilepticus. (Manjinder Harding) - Related Data Home Medications Medication Instructions Recorded Confirmed Cyanocobalamin (Vitamin B-12) 1,000 mcg PO DAILY 10/10/19 10/10/19 [Vitamin B-12] Ferrous Gluconate 324 mg PO BID 10/10/19 10/10/19 Folic Acid 1 mg PO DAILY 10/10/19 10/10/19 Insulin Glargine,Hum.rec.anlog 20 unit SQ DAILY 10/10/19 10/10/19 [Lantus Solostar] Insulin Lispro Protamin/Lispro 3 units SQ TID-W/MEALS 10/10/19 10/10/19 [humaLOG Mix 75-25 Kwikpen] Ketoconazole 2% Cream [Nizoral 2%] 1 applic TOPICAL BID 10/10/19 10/10/19 Lisinopril 20 mg PO DAILY 10/10/19 10/10/19 Phenytoin Sodium Extended 100 mg PO BID 10/10/19 10/10/19 [Dilantin] QUEtiapine [SEROquel] 25 mg PO TID 10/10/19 10/10/19 Thiamine [Vitamin B-1] 100 mg PO DAILY 10/10/19 10/10/19 Zonisamide [Zonegran] 100 mg PO BID 10/10/19 10/10/19 levETIRAcetam [Keppra] 750 mg PO BID 10/10/19 10/10/19 Previous Rx's Medication Instructions Recorded Hydrocodone/Acetaminophen [Wheeler 1 tab PO Q6HR PRN 3 Days #10 tab 10/13/19 5-325] Allergies Allergy/AdvReac Type Severity Reaction Status Date / Time cefaclor [From [facility]] Allergy Rash/Hives Verified 10/10/19 21:37 Review of Systems ROS Other: All systems not noted in ROS Statement are negative. <Manjinder Harding P - Last Filed: 10/10/19 22:11> ROS Other: All systems not noted in ROS Statement are negative. <Piper De La Cruz - Last Filed: 10/13/19 13:54> ROS Statement: Those systems with pertinent positive or pertinent negative responses have been documented in the HPI. 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 History of Any Multi-Drug Resistant Organisms: None Reported Past Surgical History: Tonsillectomy Additional Past Surgical History / Comment(s): brochoscopy with biopsy 2011 Past Psychological History: Anxiety, Depression Smoking Status: Never smoker Past Alcohol Use History: None Reported Past Drug Use History: None Reported - Past Family History Father Additional Family Medical History / Comment(s): heart disease <Manjinder Harding P - Last Filed: 10/10/19 22:11> General Exam Limitations: no limitations General appearance: alert, in no apparent distress Head exam: Present: atraumatic, normocephalic, normal inspection Eye exam: Present: normal appearance, PERRL, EOMI. Absent: scleral icterus, conjunctival injection, periorbital swelling ENT exam: Present: normal exam, mucous membranes moist Neck exam: Present: normal inspection, full ROM. Absent: tenderness, mening ismus, lymphadenopathy Respiratory exam: Present: normal lung sounds bilaterally. Absent: respiratory distress, wheezes, rales, rhonchi, stridor Cardiovascular Exam: Present: regular rate, normal rhythm, normal heart sounds. Absent: systolic murmur, diastolic murmur, rubs, gallop, clicks GI/Abdominal exam: Present: soft, tenderness (Generalized abdominal pain and tenderness.), normal bowel sounds. Absent: distended, guarding, rebound, rigid Neurological exam: Present: alert Psychiatric exam: Present: normal affect, normal mood <Manjinder Harding - Last Filed: 10/10/19 22:11> Course Vital Signs 10/10/19 10/10/19 10/10/19 19:09 20:56 22:25 Temperature 97.8 F Pulse Rate 125 H 112 H 110 H Pulse Rate [ Brachial] Respiratory 20 18 18 Rate Blood Pressure 123/95 126/80 Blood Pressure [Right Arm] O2 Sat by Pulse 100 99 99 Oximetry 10/10/19 23:18 Temperature 98.5 F Pulse Rate Pulse Rate [ 125 H Brachial] Respiratory 18 Rate Blood Pressure Blood Pressure 116/69 [Right Arm] O2 Sat by Pulse 98 Oximetry EKG Findings - EKG Comments: EKG Findings:: Sinus tachycardia, ventricular rate 126, UT interval 136, QTc 457 <Manjinder Harding - Last Filed: 10/10/19 22:11> Medical Decision Making - Lab Data Result diagrams: 10/10/19 19:52 10/10/19 19:52 <Manjinder Harding - Last Filed: 10/10/19 22:11> - Lab Data Result diagrams: 10/13/19 05:46 10/13/19 05:46 <Piper De La Cruz - Last Filed: 10/13/19 13:54> - Medical Decision Making 39-year-old female with a recently diagnosed seizure disorder and a history of uncontrolled diabetes presents to the emergency department for a chief complaint of nausea vomiting. Patient states she has had nausea vomiting for 2 weeks but it has worsened in the past 2 days. She has also had abdominal pain for weeks. Patient was recently admitted to our facility about one month ago with new onset seizure disorder and multiple other diagnoses. Today patient is persistently tachycardic in the 110s to 120s. EKG shows a sinus tachycardia. CBC is unremarkable. CMP does show mild hyperglycemia with a positive acetone however anion gap is normal at 14 and CO2 is minimally low at 20. Patient likely experiencing ketonuria secondary to starvation ketosis. Patient was found to have 182 white blood cells in the urine and CVA tenderness. CT abdomen and pelvis with contrast was obtained which showed no acute abnormality of the abdomen and pelvis. There is a distended gallbladder noted and a dermoid mass. Pain not consistent with torsion as it is generalized in nature. I did attempt to obtain admission records from [facility] but was unsuccessful. At this time patient will be admitted for a clinical pyelonephritis and started on IV levaquin given confirmed cephalosporin allergy. She will also be kept on IV fluids for her vision ketosis and persistent tachycardia likely secondary to deh ydration.I discussed this case with attending Dr. De La Cruz who agrees with this assessment and treatment plan. (Manjinder Harding) I was available for consultation in the emergency department. The history and physical exam were done by the midlevel provider. I was consulted for this patients care. I reviewed the case with the midlevel provider and based on their presentation of the patient, I agree with the assessment, medical decision making and plan of care as documented. I agreed with hospital admission. Due to distend GB seen on CT, a gallbladder US is pending. Chart was dictated using [employer] dictation software. Attempts were made to correct any dictation errors however some typographical errors may persist. Patient was seen during a national state of emergency due to the Covid-19 pandemic. (Piper De La Cruz) - Lab Data Lab Results 10/10/19 10/10/19 10/10/19 Range/Units 19:20 19:52 19:52 WBC 7.1 (3.8-10.6) k/uL RBC 4.91 (3.80-5.40) m/uL Hgb 12.9 (11.4-16.0) gm/dL Hct 38.6 (34.0-46.0) % MCV 78.6 L (80.0-100.0) fL MCH 26.3 (25.0-35.0) pg MCHC 33.4 (31.0-37.0) g/dL RDW 16.8 H (11.5-15.5) % Plt Count 367 (150-450) k/uL Neutrophils % 71 % Lymphocytes % 17 % Monocytes % 7 % Eosinophils % 2 % Basophils % 1 % Neutrophils # 5.1 (1.3-7.7) k/uL Lymphocytes # 1.2 (1.0-4.8) k/uL Monocytes # 0.5 (0-1.0) k/uL Eosinophils # 0.2 (0-0.7) k/uL Basophils # 0.1 (0-0.2) k/uL Anisocytosis Slight Microcytosis Slight PT 11.2 (9.0-12.0) sec INR 1.1 (<1.2) APTT 25.4 (22.0-30.0) sec Sodium (137-145) mmol/L Potassium (3.5-5.1) mmol/L Chloride (98-107) mmol/L Carbon Dioxide (22-30) mmol/L Anion Gap mmol/L BUN (7-17) mg/dL Creatinine (0.52-1.04) mg/dL Est GFR (CKD-EPI)AfAm (>60 ml/min/1.73 sqM) Est GFR (CKD-EPI)NonAf (>60 ml/min/1.73 sqM) Glucose (74-99) mg/dL POC Glucose (mg/dL) 194 H (75-99) mg/dL POC Glu Production Support Engineer ID Morteza Lewis Plasma Lactic Acid Mitchell (0.7-2.0) mmol/L Calcium (8.4-10.2) mg/dL Phosphorus (2.5-4.5) mg/dL Total Bilirubin (0.2-1.3) mg/dL AST (14-36) U/L ALT (4-34) U/L Alkaline Phosphatase (38-126) U/L Troponin I (0.000-0.034) ng/mL Total Protein (6.3-8.2) g/dL Albumin (3.5-5.0) g/dL Amylase (30-110) U/L Lipase (23-300) U/L Urine Color Urine Appearance (Clear) Urine pH (5.0-8.0) Ur Specific [place] (1.001-1.035) Urine Protein (Negative) Urine Glucose (UA) (Negative) Urine Ketones (Negative) Urine Blood (Negative) Urine Nitrite (Negative) Urine Bilirubin (Negative) Urine Urobilinogen (<2.0) mg/dL Ur Leukocyte Esterase (Negative) Urine RBC (0-5) /hpf Urine WBC (0-5) /hpf Urine WBC Clumps (None) /hpf Ur Squamous Epith Cells (0-4) /hpf Urine Bacteria (None) /hpf Urine HCG, Qual (Not Detectd) Phenytoin ug/mL Free Phenytoin (0.8-2.0) ug/mL Levetiracetam (3.0-60.0) ug/mL Acetone, Qual (Negative) 10/10/19 10/10/19 10/10/19 Range/Units 19:52 19:52 19:52 WBC (3.8-10.6) k/uL RBC (3.80-5.40) m/uL Hgb (11.4-16.0) gm/dL Hct (34.0-46.0) % MCV (80.0-100.0) fL MCH (25.0-35.0) pg MCHC (31.0-37.0) g/dL RDW (11.5-15.5) % Plt Count (150-450) k/uL Neutrophils % % Lymphocytes % % Monocytes % % Eosinophils % % Basophils % % Neutrophils # (1.3-7.7) k/uL Lymphocytes # (1.0-4.8) k/uL Monocytes # (0-1.0) k/uL Eosinophils # (0-0.7) k/uL Basophils # (0-0.2) k/uL Anisocytosis Microcytosis PT (9.0-12.0) sec INR (<1.2) APTT (22.0-30.0) sec Sodium 132 L (137-145) mmol/L Potassium 3.9 (3.5-5.1) mmol/L Chloride 98 (98-107) mmol/L Carbon Dioxide 20 L (22-30) mmol/L Anion Gap 14 mmol/L BUN 11 (7-17) mg/dL Creatinine 0.52 (0.52-1.04) mg/dL Est GFR (CKD-EPI)AfAm >90 (>60 ml/min/1.73 sqM) Est GFR (CKD-EPI)NonAf >90 (>60 ml/min/1.73 sqM) Glucose 185 H (74-99) mg/dL POC Glucose (mg/dL) (75-99) mg/dL POC Glu Production Support Engineer ID Plasma Lactic Acid Mitchell 1.3 (0.7-2.0) mmol/L Calcium 10.0 (8.4-10.2) mg/dL Phosphorus (2.5-4.5) mg/dL Total Bilirubin 0.3 (0.2-1.3) mg/dL AST 17 (14-36) U/L ALT 10 (4-34) U/L Alkaline Phosphatase 95 (38-126) U/L Troponin I <0.012 (0.000-0.034) ng/mL Total Protein 6.8 (6.3-8.2) g/dL Albumin 3.9 (3.5-5.0) g/dL Amylase <30 L (30-110) U/L Lipase 61 (23-300) U/L Urine Color Urine Appearance (Clear) Urine pH (5.0-8.0) Ur Specific [place] (1.001-1.035) Urine Protein (Negative) Urine Glucose (UA) (Negative) Urine Ketones (Negative) Urine Blood (Negative) Urine Nitrite (Negative) Urine Bilirubin (Negative) Urine Urobilinogen (<2.0) mg/dL Ur Leukocyte Esterase (Negative) Urine RBC (0-5) /hpf Urine WBC (0-5) /hpf Urine WBC Clumps (None) /hpf Ur Squamous Epith Cells (0-4) /hpf Urine Bacteria (None) /hpf Urine HCG, Qual (Not Detectd) Phenytoin ug/mL Free Phenytoin (0.8-2.0) ug/mL Levetiracetam (3.0-60.0) ug/mL Acetone, Qual (Negative) 10/10/19 10/10/19 10/10/19 Range/Units 19:52 19:52 20:08 WBC (3.8-10.6) k/uL RBC (3.80-5.40) m/uL Hgb (11.4-16.0) gm/dL Hct (34.0-46.0) % MCV (80.0-100.0) fL MCH (25.0-35.0) pg MCHC (31.0-37.0) g/dL RDW (11.5-15.5) % Plt Count (150-450) k/uL Neutrophils % % Lymphocytes % % Monocytes % % Eosinophils % % Basophils % % Neutrophils # (1.3-7.7) k/uL Lymphocytes # (1.0-4.8) k/uL Monocytes # (0-1.0) k/uL Eosinophils # (0-0.7) k/uL Basophils # (0-0.2) k/uL Anisocytosis Microcytosis PT (9.0-12.0) sec INR (<1.2) APTT (22.0-30.0) sec Sodium (137-145) mmol/L Potassium (3.5-5.1) mmol/L Chloride (98-107) mmol/L Carbon Dioxide (22-30) mmol/L Anion Gap mmol/L BUN (7-17) mg/dL Creatinine (0.52-1.04) mg/dL Est GFR (CKD-EPI)AfAm (>60 ml/min/1.73 sqM) Est GFR (CKD-EPI)NonAf (>60 ml/min/1.73 sqM) Glucose (74-99) mg/dL POC Glucose (mg/dL) (75-99) mg/dL POC Glu Production Support Engineer ID Plasma Lactic Acid Mitchell (0.7-2.0) mmol/L Calcium (8.4-10.2) mg/dL Phosphorus (2.5-4.5) mg/dL Total Bilirubin (0.2-1.3) mg/dL AST (14-36) U/L ALT (4-34) U/L Alkaline Phosphatase (38-126) U/L Troponin I (0.000-0.034) ng/mL Total Protein (6.3-8.2) g/dL Albumin (3.5-5.0) g/dL Amylase (30-110) U/L Lipase (23-300) U/L Urine Color Light Yellow Urine Appearance Cloudy H (Clear) Urine pH 7.0 (5.0-8.0) Ur Specific [place] 1.009 (1.001-1.035) Urine Protein Negative (Negative) Urine Glucose (UA) Negative (Negative) Urine Ketones 2+ H (Negative) Urine Blood Negative (Negative) Urine Nitrite Negative (Negative) Urine Bilirubin Negative (Negative) Urine Urobilinogen <2.0 (<2.0) mg/dL Ur Leukocyte Esterase Large H (Negative) Urine RBC 2 (0-5) /hpf Urine WBC >182 H (0-5) /hpf Urine WBC Clumps Few H (None) /hpf Ur Squamous Epith Cells 3 (0-4) /hpf Urine Bacteria Many H (None) /hpf Urine HCG, Qual (Not Detectd) Phenytoin ug/mL Free Phenytoin 1.4 (0.8-2.0) ug/mL Levetiracetam 4.0 (3.0-60.0) ug/mL Acetone, Qual Positive (Negative) 10/10/19 10/11/19 10/11/19 Range/Units 20:08 07:00 07:49 WBC (3.8-10.6) k/uL RBC (3.80-5.40) m/uL Hgb (11.4-16.0) gm/dL Hct (34.0-46.0) % MCV (80.0-100.0) fL MCH (25.0-35.0) pg MCHC (31.0-37.0) g/dL RDW (11.5-15.5) % Plt Count (150-450) k/uL Neutrophils % % Lymphocytes % % Monocytes % % Eosinophils % % Basophils % % Neutrophils # (1.3-7.7) k/uL Lymphocytes # (1.0-4.8) k/uL Monocytes # (0-1.0) k/uL Eosinophils # (0-0.7) k/uL Basophils # (0-0.2) k/uL Anisocytosis Microcytosis PT (9.0-12.0) sec INR (<1.2) APTT (22.0-30.0) sec Sodium (137-145) mmol/L Potassium (3.5-5.1) mmol/L Chloride (98-107) mmol/L Carbon Dioxide (22-30) mmol/L Anion Gap mmol/L BUN (7-17) mg/dL Creatinine (0.52-1.04) mg/dL Est GFR (CKD-EPI)AfAm (>60 ml/min/1.73 sqM) Est GFR (CKD-EPI)NonAf (>60 ml/min/1.73 sqM) Glucose (74-99) mg/dL POC Glucose (mg/dL) 162 H (75-99) mg/dL POC Glu Production Support Engineer David Arriaga Plasma Lactic Acid Mitchell (0.7-2.0) mmol/L Calcium (8.4-10.2) mg/dL Phosphorus (2.5-4.5) mg/dL Total Bilirubin (0.2-1.3) mg/dL AST (14-36) U/L ALT (4-34) U/L Alkaline Phosphatase (38-126) U/L Troponin I (0.000-0.034) ng/mL Total Protein (6.3-8.2) g/dL Albumin (3.5-5.0) g/dL Amylase (30-110) U/L Lipase (23-300) U/L Urine Color Urine Appearance (Clear) Urine pH (5.0-8.0) Ur Specific [place] (1.001-1.035) Urine Protein (Negative) Urine Glucose (UA) (Negative) Urine Ketones (Negative) Urine Blood (Negative) Urine Nitrite (Negative) Urine Bilirubin (Negative) Urine Urobilinogen (<2.0) mg/dL Ur Leukocyte Esterase (Negative) Urine RBC (0-5) /hpf Urine WBC (0-5) /hpf Urine WBC Clumps (None) /hpf Ur Squamous Epith Cells (0-4) /hpf Urine Bacteria (None) /hpf Urine HCG, Qual Not Detected (Not Detectd) Phenytoin 12.7 ug/mL Free Phenytoin (0.8-2.0) ug/mL Levetiracetam (3.0-60.0) ug/mL Acetone, Qual (Negative) 10/11/19 10/11/19 10/11/19 Range/Units 07:49 11:51 16:44 WBC (3.8-10.6) k/uL RBC (3.80-5.40) m/uL Hgb (11.4-16.0) gm/dL Hct (34.0-46.0) % MCV (80.0-100.0) fL MCH (25.0-35.0) pg MCHC (31.0-37.0) g/dL RDW (11.5-15.5) % Plt Count (150-450) k/uL Neutrophils % % Lymphocytes % % Monocytes % % Eosinophils % % Basophils % % Neutrophils # (1.3-7.7) k/uL Lymphocytes # (1.0-4.8) k/uL Monocytes # (0-1.0) k/uL Eosinophils # (0-0.7) k/uL Basophils # (0-0.2) k/uL Anisocytosis Microcytosis PT (9.0-12.0) sec INR (<1.2) APTT (22.0-30.0) sec Sodium 133 L (137-145) mmol/L Potassium 4.6 (3.5-5.1) mmol/L Chloride 102 (98-107) mmol/L Carbon Dioxide 21 L (22-30) mmol/L Anion Gap 10 mmol/L BUN 9 (7-17) mg/dL Creatinine 0.52 (0.52-1.04) mg/dL Est GFR (CKD-EPI)AfAm >90 (>60 ml/min/1.73 sqM) Est GFR (CKD-EPI)NonAf >90 (>60 ml/min/1.73 sqM) Glucose 145 H (74-99) mg/dL POC Glucose (mg/dL) 141 H 224 H (75-99) mg/dL POC Glu Production Support Engineer ID KribyDavid Trisha Plasma Lactic Acid Mitchell (0.7-2.0) mmol/L Calcium 9.1 (8.4-10.2) mg/dL Phosphorus 5.0 H (2.5-4.5) mg/dL Total Bilirubin (0.2-1.3) mg/dL AST (14-36) U/L ALT (4-34) U/L Alkaline Phosphatase (38-126) U/L Troponin I (0.000-0.034) ng/mL Total Protein (6.3-8.2) g/dL Albumin (3.5-5.0) g/dL Amylase (30-110) U/L Lipase (23-300) U/L Urine Color Urine Appearance (Clear) Urine pH (5.0-8.0) Ur Specific [place] (1.001-1.035) Urine Protein (Negative) Urine Glucose (UA) (Negative) Urine Ketones (Negative) Urine Blood (Negative) Urine Nitrite (Negative) Urine Bilirubin (Negative) Urine Urobilinogen (<2.0) mg/dL Ur Leukocyte Esterase (Negative) Urine RBC (0-5) /hpf Urine WBC (0-5) /hpf Urine WBC Clumps (None) /hpf Ur Squamous Epith Cells (0-4) /hpf Urine Bacteria (None) /hpf Urine HCG, Qual (Not Detectd) Phenytoin ug/mL Free Phenytoin (0.8-2.0) ug/mL Levetiracetam (3.0-60.0) ug/mL Acetone, Qual (Negative) 10/11/19 10/12/19 Range/Units 20:37 06:45 WBC (3.8-10.6) k/uL RBC (3.80-5.40) m/uL Hgb (11.4-16.0) gm/dL Hct (34.0-46.0) % MCV (80.0-100.0) fL MCH (25.0-35.0) pg MCHC (31.0-37.0) g/dL RDW (11.5-15.5) % Plt Count (150-450) k/uL Neutrophils % % Lymphocytes % % Monocytes % % Eosinophils % % Basophils % % Neutrophils # (1.3-7.7) k/uL Lymphocytes # (1.0-4.8) k/uL Monocytes # (0-1.0) k/uL Eosinophils # (0-0.7) k/uL Basophils # (0-0.2) k/uL Anisocytosis Microcytosis PT (9.0-12.0) sec INR (<1.2) APTT (22.0-30.0) sec Sodium (137-145) mmol/L Potassium (3.5-5.1) mmol/L Chloride (98-107) mmol/L Carbon Dioxide (22-30) mmol/L Anion Gap mmol/L BUN (7-17) mg/dL Creatinine (0.52-1.04) mg/dL Est GFR (CKD-EPI)AfAm (>60 ml/min/1.73 sqM) Est GFR (CKD-EPI)NonAf (>60 ml/min/1.73 sqM) Glucose (74-99) mg/dL POC Glucose (mg/dL) 164 H 142 H (75-99) mg/dL POC Glu Production Support Engineer Mary Henry Natasha Plasma Lactic Acid Mitchell (0.7-2.0) mmol/L Calcium (8.4-10.2) mg/dL Phosphorus (2.5-4.5) mg/dL Total Bilirubin (0.2-1.3) mg/dL AST (14-36) U/L ALT (4-34) U/L Alkaline Phosphatase (38-126) U/L Troponin I (0.000-0.034) ng/mL Total Protein (6.3-8.2) g/dL Albumin (3.5-5.0) g/dL Amylase (30-110) U/L Lipase (23-300) U/L Urine Color Urine Appearance (Clear) Urine pH (5.0-8.0) Ur Specific [place] (1.001-1.035) Urine Protein (Negative) Urine Glucose (UA) (Negative) Urine Ketones (Negative) Urine Blood (Negative) Urine Nitrite (Negative) Urine Bilirubin (Negative) Urine Urobilinogen (<2.0) mg/dL Ur Leukocyte Esterase (Negative) Urine RBC (0-5) /hpf Urine WBC (0-5) /hpf Urine WBC Clumps (None) /hpf Ur Squamous Epith Cells (0-4) /hpf Urine Bacteria (None) /hpf Urine HCG, Qual (Not Detectd) Phenytoin ug/mL Free Phenytoin (0.8-2.0) ug/mL Levetiracetam (3.0-60.0) ug/mL Acetone, Qual (Negative) Disposition Is patient prescribed a controlled substance at d/c from ED?: No Time of Disposition: 22:08 <Manjinder Harding P - Last Filed: 10/10/19 22:11> <Piper De La Cruz - Last Filed: 10/13/19 13:54> Clinical Impression: Pyelonephritis, Dermoid cyst, Ketonuria, Dehydration, Intractable nausea and vomiting Disposition: ADMITTED IP TO THIS HOSP Condition: Fair
[2019-10-10 19:59] LABS: Anisocytosis Slight; Basophils # (A) 0.1 k/uL (0-0.2); Basophils % (A) 1 %; Eosinophils # (A) 0.2 k/uL (0-0.7); Eosinophils % (A) 2 %; HCT 38.6 % (34.0-46.0); HGB 12.9 gm/dL (11.4-16.0); Lymphocytes # (A) 1.2 k/uL (1.0-4.8); Lymphocytes % (A) 17 %; MCH 26.3 pg (25.0-35.0); MCHC 33.4 g/dL (31.0-37.0); MCV 78.6 fL (80.0-100.0); Mean Platelet Volume 8.8; Microcytosis Slight; Monocytes # (A) 0.5 k/uL (0-1.0); Monocytes % (A) 7 %; Neutrophils # (A) 5.1 k/uL (1.3-7.7); Neutrophils % (A) 71 %; Platelet Count 367 k/uL (150-450); RBC 4.91 m/uL (3.80-5.40); RDW 16.8 % (11.5-15.5); WBC 7.1 k/uL (3.8-10.6)
[2019-10-10 20:09] LABS: ALT 10 U/L (4-34); AST 17 U/L (14-36); African American GFR (CKD) >90 (>60 ml/min/1.73 sqM); Albumin 3.9 g/dL (3.5-5.0); Alkaline Phosphatase 95 U/L (38-126); Amylase <30 U/L (30-110); Anion Gap 14 mmol/L; Blood Urea Nitrogen 11 mg/dL (7-17); Carbon Dioxide 20 mmol/L (22-30); Chloride 98 mmol/L (98-107); Glucose 185 mg/dL (74-99); Non-African American GFR(CKD) >90 (>60 ml/min/1.73 sqM); Potassium 3.9 mmol/L (3.5-5.1); Sodium 132 mmol/L (137-145); Total Bilirubin 0.3 mg/dL (0.2-1.3); Total Protein 6.8 g/dL (6.3-8.2)
[2019-10-10 20:12] LABS: INR 1.1 (<1.2); Partial Thromboplastin Time 25.4 sec (22.0-30.0); Prothrombin Time 11.2 sec (9.0-12.0)
[2019-10-10 20:22] LABS: Appearance,Urine Cloudy (Clear); Bacteria,Urine Many /hpf; Bilirubin,Urine Negative (Negative); Blood,Urine Negative (Negative); Color,Urine Light Yellow; Glucose,Urine (UA) Negative (Negative); Ketones,Urine 2+ (Negative); Leukocyte Esterase,Urine Large (Negative); Nitrite,Urine Negative (Negative); Protein,Urine Negative (Negative); RBC,Urine 2 /hpf (0-5); Specific Gravity,Urine 1.009 (1.001-1.035); Squamous Epithelial Cell,Urine 3 /hpf (0-4); Urobilinogen,Urine <2.0 mg/dL (<2.0); WBC,Urine >182 /hpf (0-5)
--- NOTE | 2019-10-10 20:26 | XR ---
EXAMINATION TYPE: XR chest 1V portable DATE OF EXAM: 10/10/2019 Comparison: 09/01/2019 Clinical History: 49-year-old female abdominal pain Findings: Large body habitus. Heart is upper limits of normal in size. Strandy atelectasis left base. No consol idation or pleural effusion seen. Impression: No acute process seen.
[2019-10-10] MEDS ORDERED: METOCLOPRAMIDE 5 MG/ML 2 ML VIAL IVP STA (20:51)
[2019-10-10] MEDS ORDERED: HYDROmorphone 0.5 MG/0.5 ML SYRINGE IVP STA (20:51)
--- NOTE | 2019-10-10 21:37 | CT ---
EXAMINATION TYPE: CT abdomen pelvis w con DATE OF EXAM: 10/10/2019 COMPARISON: 09/02/2019 HISTORY: periumbilical pain CT DLP: 1316.7 mGycm Automated exposure control for dose reduction was used. CONTRAST: Performed with IV Contrast, patient injected with 100 mL of Isovue 300. Multiple axial sections were obtained from the diaphragm to the floor the pelvis with oral and intrav enous contrast. Lung bases are clear. There is no pleural effusion. Heart size is normal. There is no pericardial eff usion. Liver stomach pancreas appear normal. Spleen is large and measures 14 cm. There is small galls tone. Bile ducts are not dilated. Gallbladder is large and measures 4.4 cm in diameter. There is no adrenal mass. Kidneys show satisfactory contrast opacification. There is no hydronephrosi s. Ureters are not dilated. There is no retroperitoneal adenopathy. Appendix is posterior and appears normal. Bladder distends smoothly. There is no inguinal hernia. There is large mixed density mass in the pelvis on the right side that contains fat and . Calcium and soft tissue consistent with teratom a or dermoid tumor of the right ovary. Mass measures 10 x 6.3 cm. Uterus appears normal. There is no free fluid in the pelvis. There is no mesenteric edema. There is no ascites or free air. There is no sign of a bowel obstructio n. IMPRESSION: No acute abnormality of the abdomen pelvis. Distended gallbladder with small gallstone. 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 Mi ld Splenomegaly. There is clearing of the changes of pancreatitis compared to old exam. There is clearing of the infil trates and atelectasis at the posterior lung bases compared to old exam.
[2019-10-10] MEDS ORDERED: LEVOFLOXACIN 750MG-D5W PMX 750 MG in DEXTROSE/WATER 1 150ML.BAG IVPB STA (22:02)
[2019-10-10] MEDS ORDERED: NALOXONE 0.4 MG/ML 1 ML VIAL IV PRN (22:09)
[2019-10-10] MEDS: SODIUM CHLORIDE 0.9% 1,000 ML IV SCH (22:43)
--- NOTE | 2019-10-10 23:37 | US ---
EXAMINATION TYPE: US gallbladder DATE OF EXAM: 10/10/2019 COMPARISON: CT CLINICAL HISTORY: pain, [place]. Pain since July. N/V x 2 weeks. EXAM MEASUREMENTS: Liver Length: 20.89 cm Gallbladder Wall: 0.24 cm CBD: 0.42 cm Right Kidney: 12.2 x 4.7 x 4.6 cm Pancreas: Limited. Liver: Measures enlarged. Gallbladder: Appears distended measuring 4.4 cm in width and 10.09 cm in length. Hyperechoic area se en measurin.6 x 0.6 x 0.4 cm. Evidence for sonographic Laurent's sign: Yes CBD: Appears to be wnl. Right Kidney: No hydronephrosis or masses seen. Measures slightly enlarged. IMPRESSION: Mildly dilated gallbladder. Multiple gallstones. No dilated ducts. There was tenderness over gallblad polina during the exam that could relate to cholecystitis.
[2019-10-11] MEDS: PHENYTOIN SODIUM EXTENDED 100 MG CAP PO SCH ×3 (03:03→21:01)
[2019-10-11] MEDS: QUEtiapine 25 MG TAB PO SCH ×4 (03:03→21:01)
--- NOTE | 2019-10-11 03:03 | P.HPIM ---
History of Present Illness H&P Date: 10/10/19 Chief Complaint: abd pain , nausea and vomiting 49 year old female with complex past medical history , DM poorly controlled, A1c 11.8, on insulin , hypertension controlled , newly diagnosed seizure , depression anxiety , with history of medical non compliance patient comes in reports months of abd pain , however, got worse over the past few days. she was discharged from [facility] on after brief hospitalization in our facility back in august 2019 for DKA, pancreatitis , and new diagnosis of seizures. patient reports over the past few days , she is experiencing worsening abd pain , mainly right sided, radiating to the back, 8/10 in severity , sharp in nature , waxes and wanes, worse with eating, and movement , associated with chills, no fever, denies any urinary changes, or hematuria , denies any diarrhea, but admits to nausea and repeated vomiting which is worse with any PO intake. she continued to check her blood sugar and take insuline. she lives alone, denies any sick contact, denies any URI symptoms , denies any SOB, denies changes in bowel habits. denies any body aches otherwise, denies headache, changes in vision or any focal neuro deficits. denies any seizures since she left [facility] . today pain was intolerable with repeated vomiting, and decided to come in for evalution , she denies any history of UTI. denies any bloody bowel movmeent, denies bilious or bloody vomiting . in the ED, she was found tachycardiac, urine positive for possible infection CT abd , showed right ovarian dermoid cyst, and distended gall bladder. Review of Systems Pertinent positives as noted in HPI. All other systems were reviewed and are negative Past Medical History Past Medical History: Diabetes Mellitus, Fibromyalgia, Osteoarthritis (OA), Se izure Disorder, Skin Disorder Additional Past Medical History / Comment(s): pt stated a lesion in her brain with new onset seizures with hallucinations. History of Any Multi-Drug Resistant Organisms: None Reported Past Surgical History: Tonsillectomy Additional Past Surgical History / Comment(s): brochoscopy with biopsy 2011 Past Psychological History: Anxiety, Depression Smoking Status: Never smoker Past Alcohol Use History: None Reported Past Drug Use History: None Reported - Past Family History Father Additional Family Medical History / Comment(s): heart disease Medications and Allergies Home Medications Medication Instructions Recorded Confirmed Type Cyanocobalamin (Vitamin B-12) 1,000 mcg PO DAILY 10/10/19 10/10/19 History [Vitamin B-12] Ferrous Gluconate 324 mg PO BID 10/10/19 10/10/19 History Folic Acid 1 mg PO DAILY 10/10/19 10/10/19 History Insulin Glargine,Hum.rec.anlog 20 unit SQ DAILY 10/10/19 10/10/19 History [Lantus Solostar] Insulin Lispro Protamin/Lispro 3 units SQ TID-W/MEALS 10/10/19 10/10/19 History [humaLOG Mix 75-25 Kwikpen] Ketoconazole 2% Cream [Nizoral 2%] 1 applic TOPICAL BID 10/10/19 10/10/19 History Lisinopril 20 mg PO DAILY 10/10/19 10/10/19 History Phenytoin Sodium Extended 100 mg PO BID 10/10/19 10/10/19 History [Dilantin] QUEtiapine [SEROquel] 25 mg PO TID 10/10/19 10/10/19 History Thiamine [Vitamin B-1] 100 mg PO DAILY 10/10/19 10/10/19 History Zonisamide [Zonegran] 100 mg PO BID 10/10/19 10/10/19 History levETIRAcetam [Keppra] 750 mg PO BID 10/10/19 10/10/19 History Allergies Allergy/AdvReac Type Severity Reaction Status Date / Time cefaclor [From [facility]] Allergy Rash/Hives Verified 10/10/19 21:37 Physical Exam Vitals: Vital Signs Temp Pulse Resp BP Pulse Ox 10/10/19 22:25 110 H 18 126/80 99 10/10/19 20:56 112 H 18 99 10/10/19 19:09 97.8 F 125 H 20 123/95 100 Intake and Output 10/10/19 10/10/19 10/11/19 14:59 22:59 06:59 Other: Weight 97.522 kg Constitutional: No acute distress, conversant, pleasant Eyes: Anicteric sclerae, moist conjunctiva, no lid-lag Pupils equal round reactive to light ENMT: NC/AT Oropharynx clear, no erythema, or exudates Neck: Supple, FROM, no masses, or JVD No carotid bruits No thyromegaly Lungs: Clear to auscultation Clear to percussion Normal respiratory effort, no accessory muscle use Cardiovascular: Heart regular in rate and rhythm, No murmurs, gallops, or rubs No peripheral edema Abdominal: Soft diffusely tender to palpation , nicholas sign positive , Rt CVA tenderness , no guarding, rebound or rigidity Abdomen moving with respiration Normoactive bowel sounds No hepatomegaly, No splenomegaly No palpable mass No abdominal wall hernia noted Skin: Normal temperature, tone, texture, turgor No induration No subcutaneous nodules No rash, lesions No ulcers Extremities: No digital cyanosis No clubbing Pedal pulses intact and symmetrical Radial pulses intact and symmetrical No calf tenderness Psychiatric: Alert and oriented to person, place and time Appropriate affect fair judgment Neuro Muscles Strength 5/5 in all 4 extremities Sensation to light touch grossly present throughout Cranial nerves II-XII grossly intact No focal sensory deficits Lymphatics: no palpable cervical or supraclavicular , or inguinal lymph nodes Results CBC & Chem 7: 10/10/19 19:52 10/10/19 19:52 Labs: Abnormal Lab Results - Last 24 Hours (Table) 10/10/19 10/10/19 10/10/19 Range/Units 19:20 19:52 19:52 MCV 78.6 L (80.0-100.0) fL RDW 16.8 H (11.5-15.5) % Sodium 132 L (137-145) mmol/L Carbon Dioxide 20 L (22-30) mmol/L Glucose 185 H (74-99) mg/dL POC Glucose (mg/dL) 194 H (75-99) mg/dL Amylase <30 L (30-110) U/L Urine Appearance (Clear) Urine Ketones (Negative) Ur Leukocyte Esterase (Negative) Urine WBC (0-5) /hpf Urine WBC Clumps (None) /hpf Urine Bacteria (None) /hpf 10/10/19 Range/Units 20:08 MCV (80.0-100.0) fL RDW (11.5-15.5) % Sodium (137-145) mmol/L Carbon Dioxide (22-30) mmol/L Glucose (74-99) mg/dL POC Glucose (mg/dL) (75-99) mg/dL Amylase (30-110) U/L Urine Appearance Cloudy H (Clear) Urine Ketones 2+ H (Negative) Ur Leukocyte Esterase Large H (Negative) Urine WBC >182 H (0-5) /hpf Urine WBC Clumps Few H (None) /hpf Urine Bacteria Many H (None) /hpf Assessment and Plan Assessment: 49 year old female with seizures, DM, hypertension, , depression, presented with worsening abd pain , nausea and vomiting, diagnosed with acute pyelonephiritis admitted as inpatient with anticipated length of stay > 2 midnights acute pyelonephritis distended gall bladder on CT abd , liver enzymes unremarkable plan follow up blood culture follow up urine culture empiric ABx with levoflox, due to cephalosporine allergy aggressive IVF hydration continue with normal saline after IVF boluses pain control with opioids and toradol tylenol for fever poor PO intake with ketosis most likely secondary to starvation avoid refeeding syndrome follow up electrolytes, PO4, Ca , Mg, k incidental findings on CT abd dermoid cyst of right ovary distended gall bladder chronic conditions seizure, continue with home meds, seizure precautions hypertension , controlled , continue home meds DM, poorly controlled A1C 11.8%, on insuline, continue with insulin sliding scale anxiety, agarophobia, resume psych meds Preformed a thorough record review from recent hospitalization in August 2019, for DKA, pancreatitis, new onset seizure, transferred to [facility] , records not available CODE STATUS: full code DVT prophylaxis: hepairn tali tid Discussed with: Patient, ER Anticipated length of stay > than [address]: home A total of 70 minutes was spent on the care of this complex patient more than 50% of the time was spent in counseling and care coordination.
[2019-10-11] MEDS: HYDROmorphone 0.5 MG/0.5 ML SYRINGE IVP PRN ×4 (03:04→18:26)
[2019-10-11 07:02] LABS: Glucose,Whole Blood 162 mg/dL (75-99)
[2019-10-11] MEDS: METOCLOPRAMIDE 5 MG/ML 2 ML VIAL IVP PRN ×3 (08:02→21:12)
[2019-10-11] MEDS: HEPARIN SODIUM,PORCINE 5,000 UNIT/ML 1 ML VIAL SQ SCH ×2 (08:03→17:29)
[2019-10-11] MEDS: CLOTRIMAZOLE 1% CREAM 15 GM TUBE TOPICAL SCH (08:03)
[2019-10-11] MEDS: THIAMINE 100 MG TAB PO SCH (08:04)
[2019-10-11] MEDS: CYANOCOBALAMIN 500 MCG TAB PO SCH (08:04)
[2019-10-11] MEDS: FOLIC ACID 1 MG TAB PO SCH (08:05)
[2019-10-11] MEDS: SODIUM CHLORIDE 0.9% 1,000 ML IV SCH ×2 (08:05→15:42)
[2019-10-11] MEDS: FERROUS SULFATE 325 MG TAB PO SCH ×2 (08:05→21:02)
[2019-10-11] MEDS: LISINOPRIL 20 MG TAB PO SCH (08:05)
[2019-10-11] MEDS: ZONISAMIDE 100 MG CAP PO SCH ×2 (08:05→21:01)
[2019-10-11] MEDS: INSULIN ASPART (NovoLOG) 100 UNIT/ML VIAL SQ SCH ×4 (08:16→21:03)
[2019-10-11 08:51] LABS: African American GFR (CKD) >90 (>60 ml/min/1.73 sqM); Anion Gap 10 mmol/L; Blood Urea Nitrogen 9 mg/dL (7-17); Calcium 9.1 mg/dL (8.4-10.2); Carbon Dioxide 21 mmol/L (22-30); Chloride 102 mmol/L (98-107); Glucose 145 mg/dL (74-99); Non-African American GFR(CKD) >90 (>60 ml/min/1.73 sqM); Potassium 4.6 mmol/L (3.5-5.1); Sodium 133 mmol/L (137-145)
[2019-10-11] MEDS ORDERED: QUEtiapine 25 MG TAB PO SCH (09:00)
[2019-10-11] MEDS ORDERED: PHENYTOIN SODIUM EXTENDED 100 MG CAP PO SCH (09:00)
[2019-10-11] MEDS ORDERED: SODIUM CHLORIDE 0.65% NASAL SPRAY 44 ML BTL NASAL PRN (10:46)
[2019-10-11 11:44] VITALS: BMI 33.6
[2019-10-11 11:57] LABS: Glucose,Whole Blood 141 mg/dL (75-99)
[2019-10-11 16:47] LABS: Glucose,Whole Blood 224 mg/dL (75-99)
--- NOTE | 2019-10-11 18:20 | P.PN ---
Subjective Progress Note Date: 10/11/19 Principal diagnosis: Pyelonephritis Patient is 49-year-old female with history of seizures, diabetes type 2, hypertension presented with worsening abdominal pain nausea vomiting patient is admitted for acute pyelonephritis she was noted to have slightly distended gallbladder and CT of the abdomen with ovarian cyst. Objective - Vital Signs Vital signs: Vital Signs Temp 98.6 F 10/11/19 15:00 Pulse 107 H 10/11/19 15:00 Resp 18 10/11/19 15:00 BP 116/76 10/11/19 15:00 Pulse Ox 99 10/11/19 15:00 Intake & Output 10/10/19 10/11/19 10/11/19 18:59 06:59 18:59 Weight 97.522 kg 97.522 kg Other: Voiding Method Toilet # Voids 4 - Constitutional General appearance: Present: cooperative - Respiratory Respiratory: bilateral: CTA - Cardiovascular Rhythm: regular - Gastrointestinal General gastrointestinal: Present: normal bowel sounds, tenderness - Psychiatric Psychiatric: Present: A&O x's 3 - Labs CBC & Chem 7: 10/10/19 19:52 10/11/19 07:49 Labs: Abnormal Lab Results - Last 24 Hours (Table) 10/10/19 10/10/19 10/10/19 Range/Units 19:20 19:52 19:52 MCV 78.6 L (80.0-100.0) fL RDW 16.8 H (11.5-15.5) % Sodium 132 L (137-145) mmol/L Carbon Dioxide 20 L (22-30) mmol/L Glucose 185 H (74-99) mg/dL POC Glucose (mg/dL) 194 H (75-99) mg/dL Phosphorus (2.5-4.5) mg/dL Amylase <30 L (30-110) U/L Urine Appearance (Clear) Urine Ketones (Negative) Ur Leukocyte Esterase (Negative) Urine WBC (0-5) /hpf Urine WBC Clumps (None) /hpf Urine Bacteria (None) /hpf 10/10/19 10/11/19 10/11/19 Range/Units 20:08 07:00 07:49 MCV (80.0-100.0) fL RDW (11.5-15.5) % Sodium 133 L (137-145) mmol/L Carbon Dioxide 21 L (22-30) mmol/L Glucose 145 H (74-99) mg/dL POC Glucose (mg/dL) 162 H (75-99) mg/dL Phosphorus 5.0 H (2.5-4.5) mg/dL Amylase (30-110) U/L Urine Appearance Cloudy H (Clear) Urine Ketones 2+ H (Negative) Ur Leukocyte Esterase Large H (Negative) Urine WBC >182 H (0-5) /hpf Urine WBC Clumps Few H (None) /hpf Urine Bacteria Many H (None) /hpf 10/11/19 10/11/19 Range/Units 11:51 16:44 MCV (80.0-100.0) fL RDW (11.5-15.5) % Sodium (137-145) mmol/L Carbon Dioxide (22-30) mmol/L Glucose (74-99) mg/dL POC Glucose (mg/dL) 141 H 224 H (75-99) mg/dL Phosphorus (2.5-4.5) mg/dL Amylase (30-110) U/L Urine Appearance (Clear) Urine Ketones (Negative) Ur Leukocyte Esterase (Negative) Urine WBC (0-5) /hpf Urine WBC Clumps (None) /hpf Urine Bacteria (None) /hpf Microbiology - Last 24 Hours (Table) 10/10/19 20:08 Urine Culture - Preliminary Urine,Voided Assessment and Plan (1) Intractable nausea and vomiting Narrative/Plan: With urine cultures, continue IV antibiotics, nausea is better diet advanced Current Visit: Yes Status: Acute Code(s): R11.2 - NAUSEA WITH VOMITING, UNSPECIFIED SNOMED Code(s): 705809563 (2) Pyelonephritis Current Visit: Yes Status: Acute Code(s): N12 - TUBULO-INTERSTITIAL NEPHRITIS, NOT SPCF ACUTE OR CHRONIC SNOMED Code(s): 45620433 Plan: Diabetes type 2: Continue outpatient regiment, sinus scale coverage, Hypertension: Continue outpatient regiment and titrate as needed Dermoid cyst and after finding on CT of the abdomen Disposition: Continue IV Levaquin, await urine cultures, pain control
[2019-10-11 20:38] LABS: Glucose,Whole Blood 164 mg/dL (75-99)
[2019-10-11] MEDS: metroNIDAZOLE-NS PMX 500 MG in SALINE 1 100ML.BAG IVPB SCH (21:02)
[2019-10-11] MEDS: MELATONIN 3 MG TABLET PO PRN (21:12)
[2019-10-12] MEDS: LEVOFLOXACIN 750MG-D5W PMX 750 MG in DEXTROSE/WATER 1 150ML.BAG IVPB SCH ×2 (01:37→23:00)
[2019-10-12] MEDS: HEPARIN SODIUM,PORCINE 5,000 UNIT/ML 1 ML VIAL SQ SCH ×3 (01:37→17:06)
[2019-10-12] MEDS: HYDROmorphone 0.5 MG/0.5 ML SYRINGE IVP PRN ×7 (01:37→23:00)
[2019-10-12] MEDS: CLOTRIMAZOLE 1% CREAM 15 GM TUBE TOPICAL SCH ×4 (02:32→21:11)
[2019-10-12] MEDS: SODIUM CHLORIDE 0.9% 1,000 ML IV SCH ×3 (02:34→18:41)
[2019-10-12] MEDS: metroNIDAZOLE-NS PMX 500 MG in SALINE 1 100ML.BAG IVPB SCH ×3 (05:28→21:09)
[2019-10-12 06:46] LABS: Glucose,Whole Blood 142 mg/dL (75-99)
--- NOTE | 2019-10-12 08:27 | P.GSCN ---
History of Present Illness Consult date: 10/12/19 Reason for Consult: Abdominal pain History of present illness: Patient presents to the hospital 2 days ago with nausea vomiting and worsening a bdominal pain. Patient was just hospitalized about 1 month ago with DKA. Was found to have significant lipase elevation at that time. Patient was also found to have seizure disorder that was not responding and was transferred to [facility]. Patient states since her discharge she has had intermittent abdominal pains. When she went to the ER 2 days ago pain was in the upper abdomen. Now it is more diffuse. Nausea and vomiting have been intermittent. Increased belching and bloating. CAT scan showed a distended gallbladder with gallstones. No significant inflammatory changes however were seen. Ultrasound shows multiple gallstones with gallbladder distention and tenderness. Patient also with findings of urinary tract infection. Currently on Levaquin for possible palatal nephritis. She was having some back pain and tenderness as well. Patient with history of fibromyalgia. Patient also with some degree of learning disability. Patient's sister is her power of banking attorney. She was involved in the history and decision-making. Review of Systems The patient denies any acute changes in vision or hearing, no dysphagia or odynophagia, no chest pain or shortness of breath, no dysuria or hematuria, no headache, no runny nose, no rectal bleeding or melena, no unexplained weight loss Past Medical History Past Medical History: Diabetes Mellitus, Fibromyalgia, Osteoarthritis (OA), Seizure Disorder, Skin Disorder Additional Past Medical History / Comment(s): pt stated a lesion in her brain with new onset seizures with hallucinations. History of Any Multi-Drug Resistant Organisms: None Reported Past Surgical History: Tonsillectomy Additional Past Surgical History / Comment(s): brochoscopy with biopsy 2011 Past Psychological History: Anxiety, Depression Smoking Status: Never smoker Past Alcohol Use History: None Reported Past Drug Use History: None Reported - Past Family History Father Family Medical History: Cancer Additional Family Medical History / Comment(s): heart disease Medications and Allergies Home Medications Medication Instructions Recorded Confirmed Type Cyanocobalamin (Vitamin B-12) 1,000 mcg PO DAILY 10/10/19 10/10/19 History [Vitamin B-12] Ferrous Gluconate 324 mg PO BID 10/10/19 10/10/19 History Folic Acid 1 mg PO DAILY 10/10/19 10/10/19 History Insulin Glargine,Hum.rec.anlog 20 unit SQ DAILY 10/10/19 10/10/19 History [Lantus Solostar] Insulin Lispro Protamin/Lispro 3 units SQ TID-W/MEALS 10/10/19 10/10/19 History [humaLOG Mix 75-25 Kwikpen] Ketoconazole 2% Cream [Nizoral 2%] 1 applic TOPICAL BID 10/10/19 10/10/19 History Lisinopril 20 mg PO DAILY 10/10/19 10/10/19 History Phenytoin Sodium Extended 100 mg PO BID 10/10/19 10/10/19 History [Dilantin] QUEtiapine [SEROquel] 25 mg PO TID 10/10/19 10/10/19 History Thiamine [Vitamin B-1] 100 mg PO DAILY 10/10/19 10/10/19 History Zonisamide [Zonegran] 100 mg PO BID 10/10/19 10/10/19 History levETIRAcetam [Keppra] 750 mg PO BID 10/10/19 10/10/19 History Allergies Allergy/AdvReac Type Severity Reaction Status Date / Time cefaclor [From [facility]] Allergy Rash/Hives Verified 10/10/19 21:37 Surgical - Exam Vital Signs Temp Pulse Resp BP Pulse Ox 97.8 F 125 H 20 123/95 100 10/10/19 19:09 10/10/19 19:09 10/10/19 19:09 10/10/19 19:09 10/10/19 19:09 Physical exam: General: Well-developed, well-nourished HEENT: Normocephalic, sclerae nonicteric Abdomen: Diffuse tenderness increased right upper quadrant, nondistended Extremities: No edema Neuro: Alert and oriented Results - Labs 10/10/19 19:52 10/11/19 07:49 Abnormal Lab Results - Last 24 Hours (Table) 10/11/19 10/11/19 10/11/19 Range/Units 07:49 11:51 16:44 Sodium 133 L (137-145) mmol/L Carbon Dioxide 21 L (22-30) mmol/L Glucose 145 H (74-99) mg/dL POC Glucose (mg/dL) 141 H 224 H (75-99) mg/dL Phosphorus 5.0 H (2.5-4.5) mg/dL 10/11/19 10/12/19 Range/Units 20:37 06:45 Sodium (137-145) mmol/L Carbon Dioxide (22-30) mmol/L Glucose (74-99) mg/dL POC Glucose (mg/dL) 164 H 142 H (75-99) mg/dL Phosphorus (2.5-4.5) mg/dL Microbiology - Last 24 Hours (Table) 10/10/19 22:41 Blood Culture - Preliminary Blood No Growth after 24 hours 10/10/19 20:08 Urine Culture - Preliminary Urine,Voided Gram Neg Bacilli Diabetes panel 10/11/19 Range/Units 07:49 Sodium 133 L (137-145) mmol/L Potassium 4.6 (3.5-5.1) mmol/L Chloride 102 (98-107) mmol/L Carbon Dioxide 21 L (22-30) mmol/L BUN 9 (7-17) mg/dL Creatinine 0.52 (0.52-1.04) mg/dL Glucose 145 H (74-99) mg/dL Calcium 9.1 (8.4-10.2) mg/dL Calcium panel 10/11/19 Range/Units 07:49 Calcium 9.1 (8.4-10.2) mg/dL Phosphorus 5.0 H (2.5-4.5) mg/dL Pituitary panel 10/11/19 Range/Units 07:49 Sodium 133 L (137-145) mmol/L Potassium 4.6 (3.5-5.1) mmol/L Chloride 102 (98-107) mmol/L Carbon Dioxide 21 L (22-30) mmol/L BUN 9 (7-17) mg/dL Creatinine 0.52 (0.52-1.04) mg/dL Glucose 145 H (74-99) mg/dL Calcium 9.1 (8.4-10.2) mg/dL Adrenal panel 10/11/19 Range/Units 07:49 Sodium 133 L (137-145) mmol/L Potassium 4.6 (3.5-5.1) mmol/L Chloride 102 (98-107) mmol/L Carbon Dioxide 21 L (22-30) mmol/L BUN 9 (7-17) mg/dL Creatinine 0.52 (0.52-1.04) mg/dL Glucose 145 H (74-99) mg/dL Calcium 9.1 (8.4-10.2) mg/dL Assessment and Plan (1) Acute cholecystitis due to biliary calculus Narrative/Plan: 49-year-old female presents to the hospital complaining of abdominal pain back pain nausea vomiting. Patient with findings of urinary tract infection and mild DKA. Suspect the patient's calculus cholecystitis is contributing and somewhat to her symptoms. Options reviewed with the patient and her family. They are agreeable to proceeding with cholecystectomy at this time. Continue IV antibiotics. Will schedule for laparoscopic cholecystectomy, possible open cholecystectomy tomorrow. Risks of bleeding, infection, bile leak, bile duct injury, retained common bile duct stone, trocar injury, conversion to an open procedure, hernia, anesthesia related complications were reviewed. The patient understands and wishes to proceed. Current Visit: Yes Status: Acute Code(s): K80.00 - CALCULUS OF GALLBLADDER W ACUTE CHOLECYST W/O OBSTRUCTION SNOMED Code(s): 19166015969454
[2019-10-12] MEDS: INSULIN ASPART (NovoLOG) 100 UNIT/ML VIAL SQ SCH ×4 (08:28→23:00)
[2019-10-12] MEDS: METOCLOPRAMIDE 5 MG/ML 2 ML VIAL IVP PRN ×3 (08:32→21:13)
[2019-10-12] MEDS: PHENYTOIN SODIUM EXTENDED 100 MG CAP PO SCH ×2 (08:33→21:12)
[2019-10-12] MEDS: LISINOPRIL 20 MG TAB PO SCH (08:33)
[2019-10-12] MEDS: ZONISAMIDE 100 MG CAP PO SCH ×2 (08:33→21:12)
[2019-10-12] MEDS: CYANOCOBALAMIN 500 MCG TAB PO SCH (08:34)
[2019-10-12] MEDS: FOLIC ACID 1 MG TAB PO SCH (08:34)
[2019-10-12] MEDS: THIAMINE 100 MG TAB PO SCH (08:34)
[2019-10-12] MEDS: FERROUS SULFATE 325 MG TAB PO SCH ×2 (08:34→21:11)
[2019-10-12] MEDS: QUEtiapine 25 MG TAB PO SCH ×3 (08:34→21:12)
[2019-10-12] MEDS: KETOROLAC 30 MG/ML 1 ML VIAL IVP PRN ×3 (09:19→21:12)
[2019-10-12 11:38] LABS: Glucose,Whole Blood 179 mg/dL (75-99)
[2019-10-12 16:41] LABS: Glucose,Whole Blood 178 mg/dL (75-99)
--- NOTE | 2019-10-12 17:58 | P.PN ---
Subjective Progress Note Date: 10/12/19 Principal diagnosis: Abdominal pain Patient is a 49-year-old female who was admitted for nausea vomiting abdominal pain. Patient was hospitalized recently with DKA and had elevated lipase at that time she presented with nausea and vomiting was diagnosed with acute pyelonephritis gallbladder ultrasound showed distended gallbladder with gallstones. Patient continued to have nausea vomiting pain so surgery was consulted plan for laparoscopic cholecystectomy. Objective - Vital Signs Vital signs: Vital Signs Temp 98.7 F 10/12/19 15:00 Pulse 100 10/12/19 15:00 Resp 18 10/12/19 15:00 BP 146/84 10/12/19 15:00 Pulse Ox 97 10/12/19 15:00 Intake & Output 10/11/19 10/12/19 10/12/19 18:59 06:59 18:59 Intake Total 250 960 Balance 250 960 Weight 97.522 kg Intake: IV 960 Sodium Chloride 0.9% 1, 960 000 ml @ 120 mls/hr IV . Q8H20M [facility] Rx#:[id number] Intake, IV Titration 250 Amount Levofloxacin 750Mg-D5w 150 Pmx 750 mg In Dextrose/ Water 1 150ml.bag @ 100 mls/hr IVPB Q24H [facility] Rx#: [id number] metroNIDAZOLE-NS PMX 500 100 mg In Saline 1 100ml.bag @ 100 mls/hr IVPB Q8H [facility] Rx#:[id number] Other: Voiding Method Toilet Toilet # Voids 4 1 - Constitutional General appearance: Present: no acute distress - Respiratory Respiratory: bilateral: CTA - Cardiovascular Rhythm: regular - Gastrointestinal General gastrointestinal: Present: tenderness Localized gastrointestinal: tender: RUQ - Integumentary Integumentary: Present: normal turgor - Psychiatric Psychiatric: Present: appropriate affect - Labs CBC & Chem 7: 10/10/19 19:52 10/11/19 07:49 Labs: Abnormal Lab Results - Last 24 Hours (Table) 10/11/19 10/12/19 10/12/19 Range/Units 20:37 06:45 11:37 POC Glucose (mg/dL) 164 H 142 H 179 H (75-99) mg/dL 10/12/19 Range/Units 16:39 POC Glucose (mg/dL) 178 H (75-99) mg/dL Microbiology - Last 24 Hours (Table) 10/10/19 22:41 Blood Culture - Preliminary Blood No Growth after 24 hours 10/10/19 20:08 Urine Culture - Preliminary Urine,Voided Gram Neg Bacilli Assessment and Plan (1) Intractable nausea and vomiting Narrative/Plan: Similar to gallbladder disease, appreciate surgery's input plan for laparoscopic cholecystectomy pain control Current Visit: Yes Status: Acute Code(s): R11.2 - NAUSEA WITH VOMITING, UNSPECIFIED SNOMED Code(s): 962139035 (2) Pyelonephritis Narrative/Plan: Continue IV antibiotics, patient on Levaquin( to give a history of seizures, gram-negative bacilli in the urine cultures Current Visit: Yes Status: Acute Code(s): N12 - TUBULO-INTERSTITIAL NEPHRITIS, NOT SPCF ACUTE OR CHRONIC SNOMED Code(s): 51162386 (3) History of seizures Narrative/Plan: Continue outpatient regiment Current Visit: Yes Status: Acute Code(s): Z87.898 - PERSONAL HISTORY OF OTHER SPECIFIED CONDITIONS SNOMED Code(s): 334495927
[2019-10-12 21:50] LABS: Glucose,Whole Blood 277 mg/dL (75-99)
[2019-10-13] MEDS: HEPARIN SODIUM,PORCINE 5,000 UNIT/ML 1 ML VIAL SQ SCH ×3 (00:20→14:46)
[2019-10-13] MEDS: HYDROmorphone 0.5 MG/0.5 ML SYRINGE IVP PRN ×5 (01:49→23:58)
[2019-10-13] MEDS: SODIUM CHLORIDE 0.9% 1,000 ML IV SCH ×3 (01:52→17:34)
[2019-10-13] MEDS: metroNIDAZOLE-NS PMX 500 MG in SALINE 1 100ML.BAG IVPB SCH ×3 (04:23→21:12)
[2019-10-13] MEDS: METOCLOPRAMIDE 5 MG/ML 2 ML VIAL IVP PRN ×3 (04:42→21:11)
[2019-10-13 06:37] LABS: Glucose,Whole Blood 180 mg/dL (75-99)
[2019-10-13 06:51] LABS: Anisocytosis Slight; HCT 32.6 % (34.0-46.0); HGB 10.4 gm/dL (11.4-16.0); Hypochromasia Slight; MCV 81.5 fL (80.0-100.0); Mean Platelet Volume 8.6; Platelet Count 316 k/uL (150-450); RDW 16.7 % (11.5-15.5); WBC 4.1 k/uL (3.8-10.6)
[2019-10-13 07:05] LABS: African American GFR (CKD) >90 (>60 ml/min/1.73 sqM); Anion Gap 7 mmol/L; Blood Urea Nitrogen 3 mg/dL (7-17); Calcium 8.4 mg/dL (8.4-10.2); Carbon Dioxide 23 mmol/L (22-30); Chloride 106 mmol/L (98-107); Glucose 163 mg/dL (74-99); Non-African American GFR(CKD) >90 (>60 ml/min/1.73 sqM); Sodium 136 mmol/L (137-145)
[2019-10-13] MEDS: INSULIN ASPART (NovoLOG) 100 UNIT/ML VIAL SQ SCH ×4 (07:22→21:13)
[2019-10-13] MEDS ORDERED: HYDROmorphone (PF) 1 MG/ML ONE (08:18)
[2019-10-13] MEDS ORDERED: ROCURONIUM BROMIDE 10 MG/ML 5 ML VIAL IV ONE (08:18)
[2019-10-13] MEDS ORDERED: ePHEDrine SULFATE/0.9% NACL/PF 50 MG/5 ML SYRINGE IV ONE (08:18)
[2019-10-13] MEDS ORDERED: SUCCINYLCHOLINE CHLORIDE 100 MG/5 ML SYR IV ONE (08:18)
[2019-10-13] MEDS ORDERED: DEXAMETHASONE SOD PHOS (MDV) 100 MG/10 ML VIAL ONE (08:18)
[2019-10-13] MEDS ORDERED: fentaNYL (PF) 50 MCG/ML 2 ML AMP ONE (08:18)
[2019-10-13] MEDS ORDERED: MIDAZOLAM 2 MG/2 ML VIAL ONE (08:18)
[2019-10-13] MEDS ORDERED: PROPOFOL 10 MG/ML 20 ML VIAL IV ONE (08:18)
[2019-10-13] MEDS ORDERED: KETOROLAC 30 MG/ML 1 ML VIAL ONE (08:18)
[2019-10-13] MEDS ORDERED: ONDANSETRON 4 MG/2 ML VIAL ONE (08:18)
[2019-10-13] MEDS ORDERED: LIDOCAINE 1% INJ 10MG/ML (20 ML MDV) SQ ONE (08:20)
[2019-10-13] MEDS ORDERED: SODIUM CHLORIDE 0.9% 1,000 ML IV ONE ×2 (08:20→10:30)
[2019-10-13] MEDS ORDERED: ONDANSETRON 4 MG/2 ML VIAL IVP ONE (09:30)
[2019-10-13 09:32] LABS: Glucose,Whole Blood 212 mg/dL (75-99)
[2019-10-13] MEDS ORDERED: HYDROcodone/APAP 5-325MG 1 EACH TAB PO PRN (09:40)
--- NOTE | 2019-10-13 09:43 | P.OP ---
Date of Procedure: 10/13/19 Procedure(s) Performed: PREOPERATIVE DIAGNOSIS: Acute calculus cholecystitis POSTOPERATIVE DIAGNOSIS: Same PROCEDURE: Laparoscopic cholecystectomy SURGEON: Ricky EBL: Minimal see anesthesia record ANESTHESIA: Gen. COMPLICATIONS: None OPERATIVE PROCEDURE: The patient was brought and placed on the operating room table in the supine position. The patient was placed under general anesthesia at that time. The abdomen was prepped and draped in the usual sterile fashion. A small vertical infraumbilical incision was made. The fascia was grasped with the Tayler forceps. The fascia was retracted anteriorly. The Veress needle was advanced into the peritoneal cavity. The saline drop test was normal. Ins ufflation took place up to 15 mmHg. A 5 mm optical trocar was advanced and the peritoneal cavity. 2 additional 5 mm trochars were placed in the right upper quadrant under direct visualization. A 12 mm trocar was advanced into the epigastric incision site. The gallbladder was inflamed with some edema of the gallbladder wall present. The gallbladder was retracted superiorly and laterally. The peritoneum overlying the infundibulum was bluntly dissected. The patient's cystic duct was visualized. The junction between the cystic duct common and hepatic duct was identified. The cystic duct was then divided after placement of 3 12 mm clips on the patient's side and one on the specimen side. The cystic artery was identified and clipped as well. A small vessel was seen along the gallbladder fossa and clipped as well. The gallbladder was then removed from the liver bed using electrocautery. The gallbladder was then removed from the epigastric trocar site with an Endo Catch bag after evacuating the abdomen of pneumoperitoneum. The 12 mm trocar was replaced and pneumoperitoneum was again achieved.. The gallbladder fossa was irrigated with saline. There was no evidence of any bleeding or biliary drainage seen. The fascia at the 12 millimeter site was closed using a Jamal-Lisbeth 0 Vicryl stitch. Pneumoperitoneum was again evacuated using the suction device. The trochars were then removed. The skin at all 4 sites was closed using a 4-0 Monocryl stitch. Skin glue was utilized on the incision sites. At the end of this procedure the sponge and needle counts were correct. DISPOSITION: Stable to the recovery room
[2019-10-13] MEDS ORDERED: diphenhydrAMINE 50 MG/ML 1 ML VIAL IVP ONE (09:51)
[2019-10-13] MEDS ORDERED: HYDROmorphone 1 MG/ML 1 ML SYRINGE IVP ONE ×2 (09:58→10:16)
[2019-10-13] MEDS ORDERED: INSULIN ASPART (NovoLOG) 100 UNIT/ML VIAL SQ ONE (10:00)
[2019-10-13] MEDS ORDERED: HYDROmorphone 0.5 MG/0.5 ML SYRINGE IVP ONE ×2 (10:28→10:40)
[2019-10-13 11:31] LABS: Glucose,Whole Blood 250 mg/dL (75-99)
[2019-10-13] MEDS: CYANOCOBALAMIN 500 MCG TAB PO SCH (12:06)
[2019-10-13] MEDS: QUEtiapine 25 MG TAB PO SCH ×3 (12:07→21:11)
[2019-10-13] MEDS: THIAMINE 100 MG TAB PO SCH (12:07)
[2019-10-13] MEDS: FERROUS SULFATE 325 MG TAB PO SCH ×2 (12:07→21:11)
[2019-10-13] MEDS: LISINOPRIL 20 MG TAB PO SCH (12:07)
[2019-10-13] MEDS: FOLIC ACID 1 MG TAB PO SCH (12:07)
[2019-10-13] MEDS: CLOTRIMAZOLE 1% CREAM 15 GM TUBE TOPICAL SCH (12:07)
[2019-10-13] MEDS: PHENYTOIN SODIUM EXTENDED 100 MG CAP PO SCH ×2 (12:07→21:11)
[2019-10-13] MEDS: ZONISAMIDE 100 MG CAP PO SCH ×2 (12:07→21:11)
[2019-10-13] MEDS: KETOROLAC 30 MG/ML 1 ML VIAL IVP PRN (14:45)
--- NOTE | 2019-10-13 16:05 | P.PN ---
Subjective Progress Note Date: 10/13/19 Principal diagnosis: Abdominal pain Patient is a 49-year-old female who was admitted for nausea vomiting abdominal pain. 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 Patient continued to have nausea and vomiting so surgery was consulted and patient is currently status post laparoscopic cholecystectomy today. Patient seen on etc. she does have some nausea abdominal pain but was able to tolerate some lunch Objective - Vital Signs Vital signs: Vital Signs Temp 97.6 F 10/13/19 13:46 Pulse 108 H 10/13/19 13:46 Resp 15 10/13/19 13:46 BP 147/99 10/13/19 13:46 Pulse Ox 95 10/13/19 13:46 Intake & Output 10/12/19 10/13/19 10/13/19 18:59 06:59 18:59 Intake Total 960 670 600 Output Total 5 Balance 960 670 595 Intake: IV 960 160 600 Sodium Chloride 0.9% 1, 960 160 000 ml @ 120 mls/hr IV . Q8H20M [facility] Rx#:[id number] Intake, IV Titration 510 Amount Levofloxacin 750Mg-D5w 150 Pmx 750 mg In Dextrose/ Water 1 150ml.bag @ 100 mls/hr IVPB Q24H [facility] Rx#: [id number] Sodium Chloride 0.9% 1, 160 000 ml @ 120 mls/hr IV . Q8H20M [facility] Rx#:[id number] metroNIDAZOLE-NS PMX 500 200 mg In Saline 1 100ml.bag @ 100 mls/hr IVPB Q8H [facility] Rx#:[id number] Output: Estimated Blood Loss 5 Other: Voiding Method Toilet Toilet Toilet # Voids 2 2 # Bowel Movements 1 - Constitutional General appearance: Present: no acute distress - Respiratory Respiratory: bilateral: CTA - Cardiovascular Rhythm: regular - Gastrointestinal General gastrointestinal: Present: tenderness (Mild tenderness to palpation incisions clean dry and intact) - Integumentary Integumentary: Present: normal - Labs CBC & Chem 7: 10/13/19 05:46 10/13/19 05:46 Labs: Abnormal Lab Results - Last 24 Hours (Table) 10/12/19 10/12/19 10/13/19 Range/Units 16:39 21:49 05:46 Hgb 10.4 L (11.4-16.0) gm/dL Hct 32.6 L (34.0-46.0) % RDW 16.7 H (11.5-15.5) % Sodium (137-145) mmol/L BUN (7-17) mg/dL Creatinine (0.52-1.04) mg/dL Glucose (74-99) mg/dL POC Glucose (mg/dL) 178 H 277 H (75-99) mg/dL 10/13/19 10/13/19 10/13/19 Range/Units 05:46 06:36 09:29 Hgb (11.4-16.0) gm/dL Hct (34.0-46.0) % RDW (11.5-15.5) % Sodium 136 L (137-145) mmol/L BUN 3 L (7-17) mg/dL Creatinine 0.48 L (0.52-1.04) mg/dL Glucose 163 H (74-99) mg/dL POC Glucose (mg/dL) 180 H 212 H (75-99) mg/dL 10/13/19 Range/Units 11:30 Hgb (11.4-16.0) gm/dL Hct (34.0-46.0) % RDW (11.5-15.5) % Sodium (137-145) mmol/L BUN (7-17) mg/dL Creatinine (0.52-1.04) mg/dL Glucose (74-99) mg/dL POC Glucose (mg/dL) 250 H (75-99) mg/dL Microbiology - Last 24 Hours (Table) 10/10/19 22:41 Blood Culture - Preliminary Blood No Growth after 48 hours 10/10/19 20:08 Urine Culture - Final Urine,Voided Escherichia coli Assessment and Plan (1) Intractable nausea and vomiting Narrative/Plan: Acute cholecystitis status post surgery on IV Levaquin control pain advance diet as her surgery Current Visit: Yes Status: Acute Code(s): R11.2 - NAUSEA WITH VOMITING, UNSPECIFIED SNOMED Code(s): 560552337 (2) Pyelonephritis Narrative/Plan: Kidneys and CT of the abdomen patient does have an E. coli UTI which is pansensitive Current Visit: Yes Status: Acute Code(s): N12 - TUBULO-INTERSTITIAL NEPHRITIS, NOT SPCF ACUTE OR CHRONIC SNOMED Code(s): 68946319 (3) History of seizures Narrative/Plan: Monitor while on Levaquin Current Visit: Yes Status: Acute Code(s): Z87.898 - PERSONAL HISTORY OF OTHER SPECIFIED CONDITIONS SNOMED Code(s): 246021146
[2019-10-13 16:23] LABS: Glucose,Whole Blood 193 mg/dL (75-99)
[2019-10-13 20:59] LABS: Glucose,Whole Blood 276 mg/dL (75-99)
[2019-10-13] MEDS: LEVOFLOXACIN 750MG-D5W PMX 750 MG in DEXTROSE/WATER 1 150ML.BAG IVPB SCH (21:13)
[2019-10-13] MEDS: MELATONIN 3 MG TABLET PO PRN (23:00)
--- NOTE | 2019-10-14 00:03 | P.PN ---
Progress Note - Text Progress Note Date: 10/13/19 antibiotics for UTI was adjusted according to ID sensitivity results from her urine culture , E coli resistant to Levaquin patient started on bactrim DS bid
[2019-10-14] MEDS: CLOTRIMAZOLE 1% CREAM 15 GM TUBE TOPICAL SCH ×3 (00:32→20:36)
[2019-10-14] MEDS: SULFAMETHOX-TMP 800-160MG 1 EACH TAB PO SCH ×3 (01:00→20:25)
[2019-10-14] MEDS: HEPARIN SODIUM,PORCINE 5,000 UNIT/ML 1 ML VIAL SQ SCH ×3 (01:01→14:16)
[2019-10-14] MEDS: HYDROmorphone 0.5 MG/0.5 ML SYRINGE IVP PRN ×3 (03:15→14:16)
[2019-10-14] MEDS: metroNIDAZOLE-NS PMX 500 MG in SALINE 1 100ML.BAG IVPB SCH ×3 (03:15→20:26)
[2019-10-14] MEDS: SODIUM CHLORIDE 0.9% 1,000 ML IV SCH ×2 (04:16→09:36)
[2019-10-14 06:46] LABS: Glucose,Whole Blood 204 mg/dL (75-99)
[2019-10-14 07:21] LABS: Anisocytosis Slight; Basophils % (A) 1 %; Eosinophils # (A) 0.2 k/uL (0-0.7); Eosinophils % (A) 4 %; HCT 30.6 % (34.0-46.0); HGB 9.5 gm/dL (11.4-16.0); Hypochromasia Slight; Lymphocytes # (A) 0.9 k/uL (1.0-4.8); Lymphocytes % (A) 20 %; MCH 25.5 pg (25.0-35.0); MCHC 31.1 g/dL (31.0-37.0); MCV 82.1 fL (80.0-100.0); Mean Platelet Volume 9.1; Monocytes # (A) 0.3 k/uL (0-1.0); Monocytes % (A) 6 %; Neutrophils # (A) 3.2 k/uL (1.3-7.7); Neutrophils % (A) 69 %; Platelet Count 313 k/uL (150-450); RBC 3.72 m/uL (3.80-5.40); RDW 16.9 % (11.5-15.5); WBC 4.7 k/uL (3.8-10.6)
[2019-10-14] MEDS: KETOROLAC 30 MG/ML 1 ML VIAL IVP PRN ×2 (07:27→18:02)
[2019-10-14 07:29] LABS: ALT 12 U/L (4-34); AST 25 U/L (14-36); African American GFR (CKD) >90 (>60 ml/min/1.73 sqM); Albumin 2.7 g/dL (3.5-5.0); Alkaline Phosphatase 75 U/L (38-126); Anion Gap 7 mmol/L; Blood Urea Nitrogen <2 mg/dL (7-17); Calcium 8.2 mg/dL (8.4-10.2); Carbon Dioxide 21 mmol/L (22-30); Chloride 108 mmol/L (98-107); Glucose 185 mg/dL (74-99); Non-African American GFR(CKD) >90 (>60 ml/min/1.73 sqM); Potassium 3.7 mmol/L (3.5-5.1); Sodium 136 mmol/L (137-145); Total Bilirubin 0.1 mg/dL (0.2-1.3); Total Protein 5.2 g/dL (6.3-8.2)
[2019-10-14] MEDS: METOCLOPRAMIDE 5 MG/ML 2 ML VIAL IVP PRN ×3 (07:29→20:25)
[2019-10-14] MEDS: CYANOCOBALAMIN 500 MCG TAB PO SCH (07:29)
[2019-10-14] MEDS: QUEtiapine 25 MG TAB PO SCH ×3 (07:29→20:25)
[2019-10-14] MEDS: THIAMINE 100 MG TAB PO SCH (07:30)
[2019-10-14] MEDS: FOLIC ACID 1 MG TAB PO SCH (07:30)
[2019-10-14] MEDS: LISINOPRIL 20 MG TAB PO SCH (07:30)
[2019-10-14] MEDS: PHENYTOIN SODIUM EXTENDED 100 MG CAP PO SCH ×2 (07:32→20:25)
[2019-10-14] MEDS: ZONISAMIDE 100 MG CAP PO SCH ×2 (07:32→20:25)
[2019-10-14] MEDS: FERROUS SULFATE 325 MG TAB PO SCH ×2 (07:33→20:25)
[2019-10-14] MEDS: INSULIN ASPART (NovoLOG) 100 UNIT/ML VIAL SQ SCH ×4 (07:33→20:44)
[2019-10-14] MEDS ORDERED: HYDROmorphone 0.5 MG/0.5 ML SYRINGE IM PRN (09:35)
[2019-10-14] MEDS: HYDROmorphone 1 MG/ML 1 ML SYRINGE IVP PRN ×2 (10:18→20:26)
[2019-10-14 11:22] LABS: Glucose,Whole Blood 254 mg/dL (75-99)
--- NOTE | 2019-10-14 13:22 | P.PN ---
Progress Note - Text Progress Note Date: 10/14/19 The patient's lines complaints of nausea and abdominal pain. She states her pain is mainly left upper quadrant. She also has complaints of bilateral right and left lower quadrant pain. On exam her vital signs are stable. Her incision sites clean and intact. Status post laparoscopic cholestatic. Patient will be discharged home in a.m.
--- NOTE | 2019-10-14 15:28 | P.PN ---
Subjective Progress Note Date: 10/14/19 Principal diagnosis: Acute cholecystitis Patient is a 49-year-old female who was admitted for nausea vomiting abdominal pain. 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 Patient was started on IV Levaquin for treatment of possible polynephritis, cholecystitis. General surgery was consult. Patient continued to have nausea and vomiting so on October 11 patient had a laparoscopic cholecystectomy. Patient urine cultures showed that it was resistant to Levaquin so she was changed to Bactrim double strength. Patient was seen by me today she continues to still complaining of abdominal pain and nausea she was able to tolerate some breakfast Objective - Vital Signs Vital signs: Vital Signs Temp 99.6 F 10/14/19 14:18 Pulse 109 H 10/14/19 14:18 Resp 16 10/14/19 14:18 BP 142/90 10/14/19 14:18 Pulse Ox 96 10/14/19 14:18 Intake & Output 10/13/19 10/14/19 10/14/19 18:59 06:59 18:59 Intake Total 3341 389 0914 Output Total 5 Balance 6617 608 1568 Intake: IV 600 400 Sodium Chloride 0.9% 1, 400 000 ml @ 120 mls/hr IV . Q8H20M [facility] Rx#:[id number] Intake, IV Titration 200 100 Amount Levofloxacin 750Mg-D5w 100 Pmx 750 mg In Dextrose/ Water 1 150ml.bag @ 100 mls/hr IVPB Q24H [facility] Rx#: [id number] metroNIDAZOLE-NS PMX 500 100 100 mg In Saline 1 100ml.bag @ 100 mls/hr IVPB Q8H [facility] Rx#:[id number] Oral 560 1510 Output: Estimated Blood Loss 5 Other: Voiding Method Toilet Toilet Toilet # Voids 2 1 3 - Constitutional General appearance: Present: no acute distress - Respiratory Respiratory: bilateral: CTA - Cardiovascular Rhythm: regular - Gastrointestinal Localized gastrointestinal: tender: diffuse - Integumentary Integumentary: Present: normal - Labs CBC & Chem 7: 10/14/19 06:29 10/14/19 06:29 Labs: Abnormal Lab Results - Last 24 Hours (Table) 10/13/19 10/13/19 10/14/19 Range/Units 16:22 20:57 06:29 RBC 3.72 L (3.80-5.40) m/uL Hgb 9.5 L (11.4-16.0) gm/dL Hct 30.6 L (34.0-46.0) % RDW 16.9 H (11.5-15.5) % Lymphocytes # 0.9 L (1.0-4.8) k/uL Sodium (137-145) mmol/L Chloride (98-107) mmol/L Carbon Dioxide (22-30) mmol/L BUN (7-17) mg/dL Creatinine (0.52-1.04) mg/dL Glucose (74-99) mg/dL POC Glucose (mg/dL) 193 H 276 H (75-99) mg/dL Calcium (8.4-10.2) mg/dL Total Bilirubin (0.2-1.3) mg/dL Total Protein (6.3-8.2) g/dL Albumin (3.5-5.0) g/dL 10/14/19 10/14/19 10/14/19 Range/Units 06:29 06:44 11:21 RBC (3.80-5.40) m/uL Hgb (11.4-16.0) gm/dL Hct (34.0-46.0) % RDW (11.5-15.5) % Lymphocytes # (1.0-4.8) k/uL Sodium 136 L (137-145) mmol/L Chloride 108 H (98-107) mmol/L Carbon Dioxide 21 L (22-30) mmol/L BUN <2 L (7-17) mg/dL Creatinine 0.46 L (0.52-1.04) mg/dL Glucose 185 H (74-99) mg/dL POC Glucose (mg/dL) 204 H 254 H (75-99) mg/dL Calcium 8.2 L (8.4-10.2) mg/dL Total Bilirubin 0.1 L (0.2-1.3) mg/dL Total Protein 5.2 L (6.3-8.2) g/dL Albumin 2.7 L (3.5-5.0) g/dL Microbiology - Last 24 Hours (Table) 10/10/19 22:41 Blood Culture - Preliminary Blood No Growth after 72 hours Assessment and Plan (1) Intractable nausea and vomiting Narrative/Plan: Patient currently status post laparoscopic cholecystectomy postop day 1. Appreciate surgery's input plan for discharge in a.m. Current Visit: Yes Status: Acute Code(s): R11.2 - NAUSEA WITH VOMITING, UNSPECIFIED SNOMED Code(s): 763349661 (2) Pyelonephritis Narrative/Plan: Patient did not have any imaging suggestive of pyelonephritis on CT, kidney showed satisfactory contrast opacification with no hydronephrosis and hydroureters were nondilated she had no retroperitoneal adenopathy. Patient was on Levaquin, urine cultures showed patient E. coli was sensitive to everything e xcept the Levaquin Current Visit: Yes Status: Acute Code(s): N12 - TUBULO-INTERSTITIAL NEPHRITIS, NOT SPCF ACUTE OR CHRONIC SNOMED Code(s): 13202758 (3) History of seizures Narrative/Plan: Continue outpatient regiment Current Visit: Yes Status: Acute Code(s): Z87.898 - PERSONAL HISTORY OF OTHER SPECIFIED CONDITIONS SNOMED Code(s): 671459842 Plan: Patient complaint patient continues to complain of pain we will give extra dose of Dilaudid for better control pain dosing parameters written written plan for discharge in a.m.
[2019-10-14 16:21] LABS: Glucose,Whole Blood 161 mg/dL (75-99)
[2019-10-14 20:40] LABS: Glucose,Whole Blood 254 mg/dL (75-99)
[2019-10-15] MEDS: HYDROmorphone 1 MG/ML 1 ML SYRINGE IVP PRN ×4 (00:19→21:04)
[2019-10-15] MEDS: HEPARIN SODIUM,PORCINE 5,000 UNIT/ML 1 ML VIAL SQ SCH ×3 (00:19→17:15)
[2019-10-15] MEDS: METOCLOPRAMIDE 5 MG/ML 2 ML VIAL IVP PRN ×2 (03:56→17:15)
[2019-10-15] MEDS: metroNIDAZOLE-NS PMX 500 MG in SALINE 1 100ML.BAG IVPB SCH ×3 (03:59→19:52)
[2019-10-15 07:07] LABS: Glucose,Whole Blood 180 mg/dL (75-99)
[2019-10-15] MEDS: INSULIN ASPART (NovoLOG) 100 UNIT/ML VIAL SQ SCH ×4 (07:37→21:04)
[2019-10-15] MEDS: CLOTRIMAZOLE 1% CREAM 15 GM TUBE TOPICAL SCH ×2 (07:37→21:11)
[2019-10-15] MEDS: HYDROmorphone 0.5 MG/0.5 ML SYRINGE IVP PRN (07:38)
[2019-10-15] MEDS: QUEtiapine 25 MG TAB PO SCH ×3 (07:39→21:06)
[2019-10-15] MEDS: FERROUS SULFATE 325 MG TAB PO SCH ×2 (07:39→21:04)
[2019-10-15] MEDS: CYANOCOBALAMIN 500 MCG TAB PO SCH (07:39)
[2019-10-15] MEDS: THIAMINE 100 MG TAB PO SCH (07:39)
[2019-10-15] MEDS: SULFAMETHOX-TMP 800-160MG 1 EACH TAB PO SCH ×2 (07:40→21:06)
[2019-10-15] MEDS: LISINOPRIL 20 MG TAB PO SCH (07:40)
[2019-10-15] MEDS: PHENYTOIN SODIUM EXTENDED 100 MG CAP PO SCH ×2 (07:40→21:06)
[2019-10-15] MEDS: FOLIC ACID 1 MG TAB PO SCH (07:40)
[2019-10-15] MEDS: ZONISAMIDE 100 MG CAP PO SCH ×2 (07:40→21:06)
[2019-10-15 08:45] LABS: Anisocytosis Slight; Basophils % (A) 0 %; Eosinophils # (A) 0.2 k/uL (0-0.7); Eosinophils % (A) 4 %; HCT 32.6 % (34.0-46.0); HGB 10.2 gm/dL (11.4-16.0); Hypochromasia Slight; Lymphocytes # (A) 0.7 k/uL (1.0-4.8); Lymphocytes % (A) 13 %; MCH 25.7 pg (25.0-35.0); MCHC 31.4 g/dL (31.0-37.0); MCV 81.8 fL (80.0-100.0); Mean Platelet Volume 8.4; Monocytes # (A) 0.2 k/uL (0-1.0); Monocytes % (A) 5 %; Neutrophils % (A) 76 %; Platelet Count 288 k/uL (150-450); RBC 3.98 m/uL (3.80-5.40); RDW 17.1 % (11.5-15.5); WBC 5.3 k/uL (3.8-10.6)
[2019-10-15 08:57] LABS: ALT 18 U/L (4-34); AST 32 U/L (14-36); African American GFR (CKD) >90 (>60 ml/min/1.73 sqM); Albumin 2.9 g/dL (3.5-5.0); Alkaline Phosphatase 100 U/L (38-126); Anion Gap 8 mmol/L; Blood Urea Nitrogen <2 mg/dL (7-17); Calcium 8.5 mg/dL (8.4-10.2); Carbon Dioxide 22 mmol/L (22-30); Chloride 105 mmol/L (98-107); Glucose 291 mg/dL (74-99); Non-African American GFR(CKD) >90 (>60 ml/min/1.73 sqM); Potassium 3.4 mmol/L (3.5-5.1); Sodium 135 mmol/L (137-145); Total Bilirubin 0.1 mg/dL (0.2-1.3); Total Protein 5.5 g/dL (6.3-8.2)
[2019-10-15] MEDS ORDERED: Potassium Replacement Protocol 1 EACH MISC MISCELLANE PRN ×2 (09:07→09:15)
--- NOTE | 2019-10-15 09:40 | P.PN ---
<Ani Guevara - Last Filed: 10/15/19 09:27> Subjective Progress Note Date: 10/15/19 CHIEF COMPLAINT: Abdominal pain HISTORY OF PRESENT ILLNESS: Patient is status post laparoscopic cholecystectomy. Postoperative day #2. Patient examines when the bedside. Patient states she is not feeling well this morning. She reports persistent generalized abdominal pain. She continues to require IV Dilaudid. She states she does not feel the Toradol is helping her pain. She reports nausea but no episodes of vomiting. She was able to eat a small amount of her breakfast. WBC 5.3. Hemoglobin 10.2. She is mildly tachycardic in the 110s. Afebrile. PHYSICAL EXAM: VITAL SIGNS: Reviewed. GENERAL: Well-developed in no acute distress. HEENT: No sclera icterus. Extraocular movements grossly intact. Moist buccal mucosa. Head is atraumatic, normocephalic. ABDOMEN: Soft. Nondistended. Mild tenderness with palpation. Surgical sites clean dry intact. NEUROLOGIC: Alert and oriented. Cranial nerves II through XII grossly intact. ASSESSMENT: 1. Acute calculus cholecystitis, status post laparoscopic cholecystectomy PLAN: -Continue diet as tolerated -Pain control -Activity as tolerated -Replace potassium -Incentive spirometer -Anticipate discharge home when patients pain is controlled without IV narcotics Nurse practitioner note has been reviewed by physician. Signing provider agrees with the documented findings, assessment, and plan of care. Objective - Vital Signs Vital signs: Vital Signs Temp 98.6 F 10/15/19 07:00 Pulse 109 H 10/15/19 07:00 Resp 18 10/15/19 07:00 BP 136/83 10/15/19 07:00 Pulse Ox 96 10/15/19 07:00 Intake & Output 10/14/19 10/15/19 10/15/19 18:59 06:59 18:59 Intake Total 2370 Balance 2370 Intake: IV 400 Sodium Chloride 0.9% 1, 400 000 ml @ 120 mls/hr IV . Q8H20M [facility] Rx#:[id number] Intake, IV Titration 100 Amount metroNIDAZOLE-NS PMX 500 100 mg In Saline 1 100ml.bag @ 100 mls/hr IVPB Q8H [facility] Rx#:[id number] Oral 1870 Other: Voiding Method Toilet Toilet # Voids 2 2 - Labs CBC & Chem 7: 10/15/19 08:33 10/15/19 08:33 Labs: Abnormal Lab Results - Last 24 Hours (Table) 10/14/19 10/14/19 10/14/19 Range/Units 11:21 16:20 20:38 Hgb (11.4-16.0) gm/dL Hct (34.0-46.0) % RDW (11.5-15.5) % Lymphocytes # (1.0-4.8) k/uL Sodium (137-145) mmol/L Potassium (3.5-5.1) mmol/L BUN (7-17) mg/dL Creatinine (0.52-1.04) mg/dL Glucose (74-99) mg/dL POC Glucose (mg/dL) 254 H 161 H 254 H (75-99) mg/dL Total Bilirubin (0.2-1.3) mg/dL Total Protein (6.3-8.2) g/dL Albumin (3.5-5.0) g/dL 10/15/19 10/15/19 10/15/19 Range/Units 07:05 08:33 08:33 Hgb 10.2 L (11.4-16.0) gm/dL Hct 32.6 L (34.0-46.0) % RDW 17.1 H (11.5-15.5) % Lymphocytes # 0.7 L (1.0-4.8) k/uL Sodium 135 L (137-145) mmol/L Potassium 3.4 L (3.5-5.1) mmol/L BUN <2 L (7-17) mg/dL Creatinine 0.48 L (0.52-1.04) mg/dL Glucose 291 H (74-99) mg/dL POC Glucose (mg/dL) 180 H (75-99) mg/dL Total Bilirubin 0.1 L (0.2-1.3) mg/dL Total Protein 5.5 L (6.3-8.2) g/dL Albumin 2.9 L (3.5-5.0) g/dL Microbiology - Last 24 Hours (Table) 10/10/19 22:41 Blood Culture - Preliminary Blood No Growth after 96 hours <Juan José García - Last Filed: 10/15/19 10:08> Subjective As above. Patient says her pain is gradually improving. Still mildly tachycardic. Labs noted. Incision clean and dry. Continue low fat diet. Continue antibiotics for urinary infection. Objective - Vital Signs Vital signs: Vital Signs Temp 98.6 F 10/15/19 07:00 Pulse 109 H 10/15/19 07:00 Resp 18 10/15/19 07:00 BP 136/83 10/15/19 07:00 Pulse Ox 96 10/15/19 07:00 Intake & Output 10/14/19 10/15/19 10/15/19 18:59 06:59 18:59 Intake Total 2370 Balance 2370 Intake: IV 400 Sodium Chloride 0.9% 1, 400 000 ml @ 120 mls/hr IV . Q8H20M [facility] Rx#:[id number] Intake, IV Titration 100 Amount metroNIDAZOLE-NS PMX 500 100 mg In Saline 1 100ml.bag @ 100 mls/hr IVPB Q8H [facility] Rx#:[id number] Oral 1870 Other: Voiding Method Toilet Toilet # Voids 2 2 - Labs CBC & Chem 7: 10/15/19 08:33 10/15/19 08:33 Labs: Abnormal Lab Results - Last 24 Hours (Table) 10/14/19 10/14/19 10/14/19 Range/Units 11:21 16:20 20:38 Hgb (11.4-16.0) gm/dL Hct (34.0-46.0) % RDW (11.5-15.5) % Lymphocytes # (1.0-4.8) k/uL Sodium (137-145) mmol/L Potassium (3.5-5.1) mmol/L BUN (7-17) mg/dL Creatinine (0.52-1.04) mg/dL Glucose (74-99) mg/dL POC Glucose (mg/dL) 254 H 161 H 254 H (75-99) mg/dL Total Bilirubin (0.2-1.3) mg/dL Total Protein (6.3-8.2) g/dL Albumin (3.5-5.0) g/dL Amylase (30-110) U/L 10/15/19 10/15/19 10/15/19 Range/Units 07:05 08:33 08:33 Hgb 10.2 L (11.4-16.0) gm/dL Hct 32.6 L (34.0-46.0) % RDW 17.1 H (11.5-15.5) % Lymphocytes # 0.7 L (1.0-4.8) k/uL Sodium 135 L (137-145) mmol/L Potassium 3.4 L (3.5-5.1) mmol/L BUN <2 L (7-17) mg/dL Creatinine 0.48 L (0.52-1.04) mg/dL Glucose 291 H (74-99) mg/dL POC Glucose (mg/dL) 180 H (75-99) mg/dL Total Bilirubin 0.1 L (0.2-1.3) mg/dL Total Protein 5.5 L (6.3-8.2) g/dL Albumin 2.9 L (3.5-5.0) g/dL Amylase (30-110) U/L 10/15/19 Range/Units 08:33 Hgb (11.4-16.0) gm/dL Hct (34.0-46.0) % RDW (11.5-15.5) % Lymphocytes # (1.0-4.8) k/uL Sodium (137-145) mmol/L Potassium (3.5-5.1) mmol/L BUN (7-17) mg/dL Creatinine (0.52-1.04) mg/dL Glucose (74-99) mg/dL POC Glucose (mg/dL) (75-99) mg/dL Total Bilirubin (0.2-1.3) mg/dL Total Protein (6.3-8.2) g/dL Albumin (3.5-5.0) g/dL Amylase <30 L (30-110) U/L Microbiology - Last 24 Hours (Table) 10/10/19 22:41 Blood Culture - Preliminary Blood No Growth after 96 hours Assessment and Plan (1) Acute cholecystitis due to biliary calculus Current Visit: Yes Status: Acute Code(s): K80.00 - CALCULUS OF GALLBLADDER W ACUTE CHOLECYST W/O OBSTRUCTION SNOMED Code(s): 88868491525615
[2019-10-15 09:47] LABS: Amylase <30 U/L (30-110)
[2019-10-15] MEDS ORDERED: HYDROcodone/APAP 10-325MG 1 EACH TAB PO PRN (10:59)
[2019-10-15] MEDS: POTASSIUM CHLORIDE ER 20 MEQ TAB.ER PO SCH ×2 (11:01→11:38)
[2019-10-15] MEDS: PHENAZOPYRIDINE 100 MG TAB PO SCH ×3 (11:37→21:57)
[2019-10-15 11:56] LABS: Glucose,Whole Blood 321 mg/dL (75-99)
--- NOTE | 2019-10-15 12:32 | P.PN ---
Subjective Progress Note Date: 10/15/19 Principal diagnosis: Abdominal pain, acalculous cholecystitis, UTI Patient was seen and examined. No acute events overnight. Patient reports improvement in her right upper quadrant pain. She continues to report 9 out of 10 severity bilateral lower abdominal pain. She denies any dysuria or difficulty urinating. She denies any flank pain. Patient complains of nausea but able to tolerate small amounts of solid food. Patient reports bowel movement today. She is postop day 2. Objective - Vital Signs Vital signs: Vital Signs Temp 98.6 F 10/15/19 07:00 Pulse 109 H 10/15/19 07:00 Resp 18 10/15/19 07:00 BP 136/83 10/15/19 07:00 Pulse Ox 96 10/15/19 07:00 Intake & Output 10/14/19 10/15/19 10/15/19 18:59 06:59 18:59 Intake Total 2370 Balance 2370 Intake: IV 400 Sodium Chloride 0.9% 1, 400 000 ml @ 120 mls/hr IV . Q8H20M [facility] Rx#:[id number] Intake, IV Titration 100 Amount metroNIDAZOLE-NS PMX 500 100 mg In Saline 1 100ml.bag @ 100 mls/hr IVPB Q8H [facility] Rx#:[id number] Oral 1870 Other: Voiding Method Toilet Toilet # Voids 2 2 - Exam General: [non toxic], [no distress], [appears at stated age] Derm: [warm], [dry] Head: [atraumatic], [normocephalic], [symmetric] Eyes: [EOMI], [no lid lag], [anicteric sclera] Mouth: [no lip lesion], [mucus membranes moist] Cardiovascular: [S1S2 reg], [tachycardia], [positive DP pulse bilateral], Lungs: [CTA bilateral], [no rhonchi, no rales] , [no accessory muscle use] Abdominal: [soft], [right and left lower quadrant tenderness with light palpation without rebound], [no guarding], [no appreciable organomegaly], [laparoscopic scars intact and healing well] Ext: [no gross muscle atrophy], [no edema], [no contractures] Neuro: [no focal neuro deficits] Psych: [Alert], [oriented], [appropriate affect] - Labs CBC & Chem 7: 10/15/19 08:33 10/15/19 08:33 Labs: Abnormal Lab Results - Last 24 Hours (Table) 10/14/19 10/14/19 10/15/19 Range/Units 16:20 20:38 07:05 Hgb (11.4-16.0) gm/dL Hct (34.0-46.0) % RDW (11.5-15.5) % Lymphocytes # (1.0-4.8) k/uL Sodium (137-145) mmol/L Potassium (3.5-5.1) mmol/L BUN (7-17) mg/dL Creatinine (0.52-1.04) mg/dL Glucose (74-99) mg/dL POC Glucose (mg/dL) 161 H 254 H 180 H (75-99) mg/dL Total Bilirubin (0.2-1.3) mg/dL Total Protein (6.3-8.2) g/dL Albumin (3.5-5.0) g/dL Amylase (30-110) U/L 10/15/19 10/15/19 10/15/19 Range/Units 08:33 08:33 08:33 Hgb 10.2 L (11.4-16.0) gm/dL Hct 32.6 L (34.0-46.0) % RDW 17.1 H (11.5-15.5) % Lymphocytes # 0.7 L (1.0-4.8) k/uL Sodium 135 L (137-145) mmol/L Potassium 3.4 L (3.5-5.1) mmol/L BUN <2 L (7-17) mg/dL Creatinine 0.48 L (0.52-1.04) mg/dL Glucose 291 H (74-99) mg/dL POC Glucose (mg/dL) (75-99) mg/dL Total Bilirubin 0.1 L (0.2-1.3) mg/dL Total Protein 5.5 L (6.3-8.2) g/dL Albumin 2.9 L (3.5-5.0) g/dL Amylase <30 L (30-110) U/L 10/15/19 Range/Units 11:55 Hgb (11.4-16.0) gm/dL Hct (34.0-46.0) % RDW (11.5-15.5) % Lymphocytes # (1.0-4.8) k/uL Sodium (137-145) mmol/L Potassium (3.5-5.1) mmol/L BUN (7-17) mg/dL Creatinine (0.52-1.04) mg/dL Glucose (74-99) mg/dL POC Glucose (mg/dL) 321 H (75-99) mg/dL Total Bilirubin (0.2-1.3) mg/dL Total Protein (6.3-8.2) g/dL Albumin (3.5-5.0) g/dL Amylase (30-110) U/L Microbiology - Last 24 Hours (Table) 10/10/19 22:41 Blood Culture - Preliminary Blood No Growth after 96 hours Assessment and Plan Assessment: Abdominal pain likely related to calculus cholecystitis, UTI Anemia likely acute blood loss from surgery Urinary tract infection Hypokalemia Tachycardia Diabetes mellitus Hypertension Seizure disorder Fibromyalgia Postop day 2. Patient's right upper quadrant abdominal pain has resolved since surgery but she continues to report uncontrolled pain in bilateral lower quadrants. She has been receiving Dilaudid intermittently but has not been started on oral opiate therapy. Blood cultures negative and 96 hours. Plans: Discussed with RN, plans to initiate Miles 10 every 6 hours 1-2 tab as needed for pain and reserved Dilaudid for breakthrough only. Continue Bactrim and Flagyl at this time. Reglan as needed for nausea or vomiting. Follow surgery recommendations. Hemoglobin 10.2, improved from 9.5. Likely acute blood loss from surgery. Plans: Improving. Continue to monitor. Daily CBC. Urine culture positive for E. coli. Plans: Continue Bactrim. Trial of phenazopyridine for cystitis pain. Potassium 3.4. Plans: Replace via protocol. Repeat BMP tomorrow morning. Pulse of 109. Probably related to pain. Plans: Ensure adequate pain control. Continue to monitor. Continue to monitor. POC glucose 321. Also reactive due to surgery. Plans: Insulin sliding scale. Acc uchecks with hypoglycemic precautions. BP 136/83. Plans: Continue lisinopril. Monitor vitals, adjust medications as necessary. Plans: Continue Keppra and Zonisamide. Plans: Needs adequate pain control. [Patient is post op day 2 laparoscopic cholecystectomy. Her pain continues to be uncontrolled. Medications have been adjusted. She is pending clinical improvement. Likely DC in 1-2 days.]
[2019-10-15] MEDS: HYDROcodone/APAP 10-325MG 1 EACH TAB PO PRN ×2 (14:11→19:53)
[2019-10-15 17:14] LABS: Glucose,Whole Blood 192 mg/dL (75-99)
[2019-10-15 20:25] LABS: Glucose,Whole Blood 222 mg/dL (75-99)
[2019-10-15] MEDS: MELATONIN 3 MG TABLET PO PRN (21:05)
[2019-10-16] MEDS: HEPARIN SODIUM,PORCINE 5,000 UNIT/ML 1 ML VIAL SQ SCH ×4 (00:13→23:42)
[2019-10-16] MEDS: HYDROmorphone 1 MG/ML 1 ML SYRINGE IVP PRN ×3 (01:34→16:11)
[2019-10-16] MEDS: metroNIDAZOLE-NS PMX 500 MG in SALINE 1 100ML.BAG IVPB SCH ×3 (04:23→19:24)
[2019-10-16 07:27] LABS: Glucose,Whole Blood 214 mg/dL (75-99)
[2019-10-16] MEDS: ZONISAMIDE 100 MG CAP PO SCH ×2 (07:46→21:54)
[2019-10-16] MEDS: PHENAZOPYRIDINE 100 MG TAB PO SCH ×3 (07:46→21:54)
[2019-10-16] MEDS: LISINOPRIL 20 MG TAB PO SCH (07:46)
[2019-10-16] MEDS: CYANOCOBALAMIN 500 MCG TAB PO SCH (07:46)
[2019-10-16] MEDS: FERROUS SULFATE 325 MG TAB PO SCH ×2 (07:46→21:55)
[2019-10-16] MEDS: SULFAMETHOX-TMP 800-160MG 1 EACH TAB PO SCH ×2 (07:47→21:55)
[2019-10-16] MEDS: THIAMINE 100 MG TAB PO SCH (07:47)
[2019-10-16] MEDS: FOLIC ACID 1 MG TAB PO SCH (07:47)
[2019-10-16] MEDS: QUEtiapine 25 MG TAB PO SCH ×3 (07:47→21:54)
[2019-10-16] MEDS: PHENYTOIN SODIUM EXTENDED 100 MG CAP PO SCH ×2 (07:47→21:54)
[2019-10-16] MEDS: HYDROcodone/APAP 10-325MG 1 EACH TAB PO PRN (07:48)
[2019-10-16] MEDS: INSULIN ASPART (NovoLOG) 100 UNIT/ML VIAL SQ SCH ×4 (07:48→21:30)
[2019-10-16] MEDS: CLOTRIMAZOLE 1% CREAM 15 GM TUBE TOPICAL SCH ×2 (07:48→21:55)
[2019-10-16 08:56] LABS: African American GFR (CKD) >90 (>60 ml/min/1.73 sqM); Anion Gap 7 mmol/L; Anisocytosis Slight; Blood Urea Nitrogen 2 mg/dL (7-17); Calcium 8.8 mg/dL (8.4-10.2); Carbon Dioxide 22 mmol/L (22-30); Chloride 105 mmol/L (98-107); Glucose 185 mg/dL (74-99); HGB 10.4 gm/dL (11.4-16.0); Hypochromasia Slight; MCH 25.7 pg (25.0-35.0); MCHC 30.5 g/dL (31.0-37.0); MCV 84.3 fL (80.0-100.0); Mean Platelet Volume 9.7; Non-African American GFR(CKD) >90 (>60 ml/min/1.73 sqM); Platelet Count 314 k/uL (150-450); Potassium 4.3 mmol/L (3.5-5.1); RBC 4.04 m/uL (3.80-5.40); RDW 17.8 % (11.5-15.5); Sodium 134 mmol/L (137-145); WBC 4.8 k/uL (3.8-10.6)
--- NOTE | 2019-10-16 09:48 | P.PN ---
<Ani Guevara - Last Filed: 10/16/19 09:46> Subjective Progress Note Date: 10/16/19 CHIEF COMPLAINT: Abdominal pain HISTORY OF PRESENT ILLNESS: Patient is status post laparoscopic cholecystectomy. Postoperative day #3. Patient examined this morning at the bedside. Patient continues to complain of abdominal pain. She is receiving IV dilaudid and norco. She reports pain is slightly improved from yesterday. Reports nausea. Denies emesis. Passing flatus. Reports BM yesterday. Vital signs stable. Afebrile. PHYSICAL EXAM: VITAL SIGNS: Reviewed. GENERAL: Well-developed in no acute distress. HEENT: No sclera icterus. Extraocular movements grossly intact. Moist buccal mucosa. Head is atraumatic, normocephalic. ABDOMEN: Soft. Nondistended. Mild tenderness with palpation. Surgical sites clean dry intact. NEUROLOGIC: Alert and oriented. Cranial nerves II through XII grossly intact. ASSESSMENT: 1. Acute calculus cholecystitis, status post laparoscopic cholecystectomy PLAN: -Continue diet as tolerated -Pain control -Activity as tolerated -Incentive spirometer -Anticipate discharge home when patients pain is controlled without IV narcotics Nurse practitioner note has been reviewed by physician. Signing provider agrees with the documented findings, assessment, and plan of care. Objective - Vital Signs Vital signs: Vital Signs Temp 98.1 F 10/16/19 07:00 Pulse 98 10/16/19 07:00 Resp 17 10/16/19 07:00 BP 144/89 10/16/19 07:00 Pulse Ox 97 10/16/19 07:00 Intake & Output 10/15/19 10/16/19 10/16/19 18:59 06:59 18:59 Weight 97.522 kg Other: Voiding Method Toilet Toilet # Voids 3 1 - Labs CBC & Chem 7: 10/16/19 07:33 10/16/19 07:33 Labs: Abnormal Lab Results - Last 24 Hours (Table) 10/15/19 10/15/19 10/15/19 Range/Units 08:33 11:55 17:13 Hgb (11.4-16.0) gm/dL MCHC (31.0-37.0) g/dL RDW (11.5-15.5) % Sodium (137-145) mmol/L BUN (7-17) mg/dL Creatinine (0.52-1.04) mg/dL Glucose (74-99) mg/dL POC Glucose (mg/dL) 321 H 192 H (75-99) mg/dL Amylase <30 L (30-110) U/L 10/15/19 10/16/19 10/16/19 Range/Units 20:24 07:26 07:33 Hgb 10.4 L (11.4-16.0) gm/dL MCHC 30.5 L (31.0-37.0) g/dL RDW 17.8 H (11.5-15.5) % Sodium (137-145) mmol/L BUN (7-17) mg/dL Creatinine (0.52-1.04) mg/dL Glucose (74-99) mg/dL POC Glucose (mg/dL) 222 H 214 H (75-99) mg/dL Amylase (30-110) U/L 10/16/19 Range/Units 07:33 Hgb (11.4-16.0) gm/dL MCHC (31.0-37.0) g/dL RDW (11.5-15.5) % Sodium 134 L (137-145) mmol/L BUN 2 L (7-17) mg/dL Creatinine 0.45 L (0.52-1.04) mg/dL Glucose 185 H (74-99) mg/dL POC Glucose (mg/dL) (75-99) mg/dL Amylase (30-110) U/L Microbiology - Last 24 Hours (Table) 10/10/19 22:41 Blood Culture - Preliminary Blood No Growth after 120 hours <Juan José García - Last Filed: 10/16/19 15:59> Subjective As above. Pain gradually improving. She did have episodes of nausea after taking Percocet. Continue optimizing pain control. Possible discharge tomorrow. Objective - Vital Signs Vital signs: Vital Signs Temp 98.1 F 10/16/19 07:00 Pulse 98 10/16/19 07:00 Resp 17 10/16/19 07:00 BP 144/89 10/16/19 07:00 Pulse Ox 97 10/16/19 07:00 Intake & Output 10/15/19 10/16/19 10/16/19 18:59 06:59 18:59 Weight 97.522 kg Other: Voiding Method Toilet Toilet # Voids 3 1 3 - Labs CBC & Chem 7: 10/16/19 07:33 10/16/19 07:33 Labs: Abnormal Lab Results - Last 24 Hours (Table) 10/15/19 10/15/19 10/16/19 Range/Units 17:13 20:24 07:26 Hgb (11.4-16.0) gm/dL MCHC (31.0-37.0) g/dL RDW (11.5-15.5) % Sodium (137-145) mmol/L BUN (7-17) mg/dL Creatinine (0.52-1.04) mg/dL Glucose (74-99) mg/dL POC Glucose (mg/dL) 192 H 222 H 214 H (75-99) mg/dL 10/16/19 10/16/19 10/16/19 Range/Units 07:33 07:33 11:38 Hgb 10.4 L (11.4-16.0) gm/dL MCHC 30.5 L (31.0-37.0) g/dL RDW 17.8 H (11.5-15.5) % Sodium 134 L (137-145) mmol/L BUN 2 L (7-17) mg/dL Creatinine 0.45 L (0.52-1.04) mg/dL Glucose 185 H (74-99) mg/dL POC Glucose (mg/dL) 201 H (75-99) mg/dL Microbiology - Last 24 Hours (Table) 10/10/19 22:41 Blood Culture - Preliminary Blood No Growth after 120 hours Assessment and Plan (1) Acute cholecystitis due to biliary calculus Current Visit: Yes Status: Acute Code(s): K80.00 - CALCULUS OF GALLBLADDER W ACUTE CHOLECYST W/O OBSTRUCTION SNOMED Code(s): 44598028197082
[2019-10-16] MEDS ORDERED: oxyCODONE-APAP 10-325MG 1 EACH TAB PO PRN (11:06)
[2019-10-16 11:39] LABS: Glucose,Whole Blood 201 mg/dL (75-99)
[2019-10-16] MEDS: oxyCODONE-APAP 10-325MG 1 EACH TAB PO PRN ×2 (12:02→19:25)
[2019-10-16] MEDS: DULoxetine HCL 30 MG CAPSULE.DR PO SCH (12:02)
--- NOTE | 2019-10-16 15:20 | P.PN ---
Subjective Progress Note Date: 10/16/19 Principal diagnosis: Abdominal pain, acalculous cholecystitis, UTI Patient was seen and examined. No acute events overnight. Patient reports improvement in her right upper quadrant pain. She continues to report 9 out of 10 severity bilateral lower abdominal pain. She is very tearful. States that her pain is very uncontrolled. States that she has been urinating more frequ ently since starting medication yesterday and her urine color seems darker. She denies any dysuria or difficulty urinating. She denies any flank pain. Patient complains of nausea but able to tolerate small amounts of solid food. She is postop day 3. Objective - Vital Signs Vital signs: Vital Signs Temp 98.1 F 10/16/19 07:00 Pulse 98 10/16/19 07:00 Resp 17 10/16/19 07:00 BP 144/89 10/16/19 07:00 Pulse Ox 97 10/16/19 07:00 Intake & Output 10/15/19 10/16/19 10/16/19 18:59 06:59 18:59 Weight 97.522 kg Other: Voiding Method Toilet Toilet # Voids 3 1 3 - Exam General: [non toxic], [no distress], [appears at stated age] Derm: [warm], [dry] Head: [atraumatic], [normocephalic], [symmetric] Eyes: [EOMI], [no lid lag], [anicteric sclera] Mouth: [no lip lesion], [mucus membranes moist] Cardiovascular: [S1S2 reg], [tachycardia], [positive DP pulse bilateral], Lungs: [CTA bilateral], [no rhonchi, no rales] , [no accessory muscle use] Abdominal: [soft], [right and left lower quadrant tenderness with light palpation without rebound], [no guarding], [no appreciable organomegaly], [laparoscopic scars intact and healing well] Ext: [no gross muscle atrophy], [no edema], [no contractures] Neuro: [no focal neuro deficits] Psych: [Alert], [oriented], [appropriate affect] - Labs CBC & Chem 7: 10/16/19 07:33 10/16/19 07:33 Labs: Abnormal Lab Results - Last 24 Hours (Table) 10/15/19 10/15/19 10/16/19 Range/Units 17:13 20:24 07:26 Hgb (11.4-16.0) gm/dL MCHC (31.0-37.0) g/dL RDW (11.5-15.5) % Sodium (137-145) mmol/L BUN (7-17) mg/dL Creatinine (0.52-1.04) mg/dL Glucose (74-99) mg/dL POC Glucose (mg/dL) 192 H 222 H 214 H (75-99) mg/dL 10/16/19 10/16/19 10/16/19 Range/Units 07:33 07:33 11:38 Hgb 10.4 L (11.4-16.0) gm/dL MCHC 30.5 L (31.0-37.0) g/dL RDW 17.8 H (11.5-15.5) % Sodium 134 L (137-145) mmol/L BUN 2 L (7-17) mg/dL Creatinine 0.45 L (0.52-1.04) mg/dL Glucose 185 H (74-99) mg/dL POC Glucose (mg/dL) 201 H (75-99) mg/dL Microbiology - Last 24 Hours (Table) 10/10/19 22:41 Blood Culture - Preliminary Blood No Growth after 120 hours Assessment and Plan Assessment: Abdominal pain likely related to calculus cholecystitis, UTI Anemia likely acute blood loss from surgery Urinary tract infection Tachycardia Diabetes mellitus Hypertension Seizure disorder Fibromyalgia Postop day 3. Patient's right upper quadrant abdominal pain has resolved since surgery but she continues to report uncontrolled pain in bilateral lower quadrants. She has been receiving Dilaudid intermittently but has not been started on oral opiate therapy. Blood cultures negative and 120 hours. Plans: Discussed with RN, plans to change [place] to Percocet 10 every 6 hours 1-2 tab as needed for pain and reserved Dilaudid for breakthrough only. Continue Bactrim and Flagyl at this time. Reglan as needed for nausea or vomiting. Follow surgery recommendations. Hemoglobin 10.4, improved from 9.5. Likely acute blood loss from surgery. Plans: Improving. Continue to monitor. Daily CBC. Urine culture positive for E. coli. Plans: Continue Bactrim. Continue phenazopyridine for cystitis pain. Pulse of 98, improved. Probably related to pain. Plans: Ensure adequate pain control. Continue to monitor. Continue to monitor. POC glucose 201. Also reactive due to surgery. Plans: Insulin sliding scale. Accuchecks with hypoglycemic precautions. BP 144/89. Plans: Continue lisinopril. Monitor vitals, adjust medications as necessary. Plans: Continue Keppra and Zonisamide. Plans: Needs adequate pain control. Start Cymbalta for pain control. [Patient is post op day 3 laparoscopic cholecystectomy. Her pain continues to be uncontrolled. Medications have been adjusted. She is pending clinical improvement. Likely DC in 1-2 days.]
[2019-10-16 17:05] LABS: Glucose,Whole Blood 203 mg/dL (75-99)
[2019-10-16] MEDS: METOCLOPRAMIDE 5 MG/ML 2 ML VIAL IVP PRN (19:25)
[2019-10-16 20:48] LABS: Glucose,Whole Blood 157 mg/dL (75-99)
[2019-10-16] MEDS: MELATONIN 3 MG TABLET PO PRN (21:54)
[2019-10-16] MEDS ORDERED: ONDANSETRON 4 MG/2 ML VIAL IVP STA (22:06)
[2019-10-17] MEDS: METOCLOPRAMIDE 5 MG/ML 2 ML VIAL IVP PRN ×3 (01:52→16:21)
[2019-10-17] MEDS: HYDROmorphone 1 MG/ML 1 ML SYRINGE IVP PRN (02:51)
[2019-10-17] MEDS: metroNIDAZOLE-NS PMX 500 MG in SALINE 1 100ML.BAG IVPB SCH ×3 (02:51→19:43)
[2019-10-17 07:07] LABS: Glucose,Whole Blood 176 mg/dL (75-99)
[2019-10-17] MEDS: FOLIC ACID 1 MG TAB PO SCH (08:17)
[2019-10-17] MEDS: DULoxetine HCL 30 MG CAPSULE.DR PO SCH (08:17)
[2019-10-17] MEDS: ZONISAMIDE 100 MG CAP PO SCH ×2 (08:17→21:04)
[2019-10-17] MEDS: FERROUS SULFATE 325 MG TAB PO SCH ×2 (08:17→21:04)
[2019-10-17] MEDS: CYANOCOBALAMIN 500 MCG TAB PO SCH (08:17)
[2019-10-17] MEDS: QUEtiapine 25 MG TAB PO SCH ×3 (08:17→21:04)
[2019-10-17] MEDS: SULFAMETHOX-TMP 800-160MG 1 EACH TAB PO SCH ×2 (08:17→21:04)
[2019-10-17] MEDS: THIAMINE 100 MG TAB PO SCH (08:17)
[2019-10-17] MEDS: LISINOPRIL 20 MG TAB PO SCH (08:18)
[2019-10-17] MEDS: PHENYTOIN SODIUM EXTENDED 100 MG CAP PO SCH ×2 (08:18→21:04)
[2019-10-17] MEDS: PHENAZOPYRIDINE 100 MG TAB PO SCH ×3 (08:18→21:04)
[2019-10-17] MEDS: INSULIN ASPART (NovoLOG) 100 UNIT/ML VIAL SQ SCH ×4 (08:18→21:03)
[2019-10-17] MEDS: HEPARIN SODIUM,PORCINE 5,000 UNIT/ML 1 ML VIAL SQ SCH ×3 (08:18→23:48)
[2019-10-17] MEDS: HYDROcodone/APAP 10-325MG 1 EACH TAB PO PRN ×2 (08:22→19:43)
[2019-10-17] MEDS: CLOTRIMAZOLE 1% CREAM 15 GM TUBE TOPICAL SCH ×2 (09:10→21:03)
--- NOTE | 2019-10-17 09:55 | P.PN ---
<Ani Guevara - Last Filed: 10/17/19 09:52> Subjective Progress Note Date: 10/17/19 CHIEF COMPLAINT: Abdominal pain HISTORY OF PRESENT ILLNESS: Patient is status post laparoscopic cholecystectomy. Postoperative day #4. Patient examined this morning at the bedside. Patient reports abdominal pain but states it is improved from yesterday. Percocet was added to her pain regimen yesterday. However, she threw up after receiving a dose yesterday. This morning she received [place]. She reports mild nausea. No further vomiting. PHYSICAL EXAM: VITAL SIGNS: Reviewed. GENERAL: Well-developed in no acute distress. HEENT: No sclera icterus. Extraocular movements grossly intact. Moist buccal mucosa. Head is atraumatic, normocephalic. ABDOMEN: Soft. Nondistended. Mild tenderness with palpation. Surgical sites clean dry intact. NEUROLOGIC: Alert and oriented. Cranial nerves II through XII grossly intact. ASSESSMENT: 1. Acute calculus cholecystitis, status post laparoscopic cholecystectomy PLAN: -Continue diet as tolerated -Pain control. Continue Kountze. Avoid IV Dilaudid. -Activity as tolerated -Incentive spirometer -Stable for discharge home today. Defer to internal medicine. Nurse practitioner note has been reviewed by physician. Signing provider agrees with the documented findings, assessment, and plan of care. Objective - Vital Signs Vital signs: Vital Signs Temp 98.3 F 10/17/19 07:00 Pulse 103 H 10/17/19 07:00 Resp 17 10/17/19 07:00 BP 141/89 10/17/19 07:00 Pulse Ox 94 L 10/17/19 07:00 Intake & Output 10/16/19 10/17/19 10/17/19 18:59 06:59 18:59 Intake Total 120 120 Output Total 150 Balance -30 120 Intake: Oral 120 120 Output: Emesis 150 Other: Voiding Method Toilet # Voids 3 4 # Emeses 2 - Labs CBC & Chem 7: 10/16/19 07:33 10/16/19 07:33 Labs: Abnormal Lab Results - Last 24 Hours (Table) 10/16/19 10/16/19 10/16/19 Range/Units 11:38 17:04 20:47 POC Glucose (mg/dL) 201 H 203 H 157 H (75-99) mg/dL 10/17/19 Range/Units 07:05 POC Glucose (mg/dL) 176 H (75-99) mg/dL Microbiology - Last 24 Hours (Table) 10/10/19 22:41 Blood Culture - Final Blood No Growth after 144 hours <Juan José García - Last Filed: 10/17/19 18:46> Subjective As above. Patient with mild nausea. Pain is controlled. Anticipate discharge tomorrow. Objective - Vital Signs Vital signs: Vital Signs Temp 98.7 F 10/17/19 15:00 Pulse 102 H 10/17/19 15:00 Resp 18 10/17/19 15:00 BP 147/93 10/17/19 15:00 Pulse Ox 97 10/17/19 15:00 Intake & Output 10/16/19 10/17/19 10/17/19 18:59 06:59 18:59 Intake Total 120 240 Output Total 150 Balance -30 240 Intake: Oral 120 240 Output: Emesis 150 Other: Voiding Method Toilet # Voids 3 4 3 # Emeses 2 - Labs CBC & Chem 7: 10/16/19 07:33 10/16/19 07:33 Labs: Abnormal Lab Results - Last 24 Hours (Table) 10/16/19 10/17/19 10/17/19 Range/Units 20:47 07:05 11:30 POC Glucose (mg/dL) 157 H 176 H 174 H (75-99) mg/dL 10/17/19 Range/Units 16:14 POC Glucose (mg/dL) 172 H (75-99) mg/dL Microbiology - Last 24 Hours (Table) 10/10/19 22:41 Blood Culture - Final Blood No Growth after 144 hours Assessment and Plan (1) Acute cholecystitis due to biliary calculus Current Visit: Yes Status: Acute Code(s): K80.00 - CALCULUS OF GALLBLADDER W ACUTE CHOLECYST W/O OBSTRUCTION SNOMED Code(s): 05309163482807
[2019-10-17 11:32] LABS: Glucose,Whole Blood 174 mg/dL (75-99)
--- NOTE | 2019-10-17 14:28 | P.PN ---
Subjective Progress Note Date: 10/17/19 Principal diagnosis: Abdominal pain, acalculous cholecystitis, UTI Patient was seen and examined. No acute events overnight. Patient reports improvement in her right upper quadrant pain. She continues to report 7-8 out of 10 severity bilateral lower abdominal pain. States that her pain is slightly better than yesterday but still uncontrolled. States that she has been urin ating more frequently since starting medication yesterday and her urine color seems darker. She denies any dysuria or difficulty urinating. She denies any flank pain. Patient complains of nausea and one episode of emesis today. States that the Percocet helped more than [place] but likely caused her to throw up. Requesting to stay one more day. She is postop day 4. Objective - Vital Signs Vital signs: Vital Signs Temp 98.3 F 10/17/19 07:00 Pulse 103 H 10/17/19 07:00 Resp 17 10/17/19 07:00 BP 141/89 10/17/19 07:00 Pulse Ox 94 L 10/17/19 07:00 Intake & Output 10/16/19 10/17/19 10/17/19 18:59 06:59 18:59 Intake Total 120 240 Output Total 150 Balance -30 240 Intake: Oral 120 240 Output: Emesis 150 Other: Voiding Method Toilet # Voids 3 4 3 # Emeses 2 - Exam General: [non toxic], [no distress], [appears at stated age] Derm: [warm], [dry] Head: [atraumatic], [normocephalic], [symmetric] Eyes: [EOMI], [no lid lag], [anicteric sclera] Mouth: [no lip lesion], [mucus membranes moist] Cardiovascular: [S1S2 reg], [tachycardia], [positive DP pulse bilateral], Lungs: [CTA bilateral], [no rhonchi, no rales] , [no accessory muscle use] Abdominal: [soft], [right and left lower quadrant tenderness with light palpation without rebound], [no guarding], [no appreciable organomegaly], [laparoscopic scars intact and healing well] Ext: [no gross muscle atrophy], [no edema], [no contractures] Neuro: [no focal neuro deficits] Psych: [Alert], [oriented], [appropriate affect] - Labs CBC & Chem 7: 10/16/19 07:33 10/16/19 07:33 Labs: Abnormal Lab Results - Last 24 Hours (Table) 10/16/19 10/16/19 10/17/19 Range/Units 17:04 20:47 07:05 POC Glucose (mg/dL) 203 H 157 H 176 H (75-99) mg/dL 10/17/19 Range/Units 11:30 POC Glucose (mg/dL) 174 H (75-99) mg/dL Microbiology - Last 24 Hours (Table) 10/10/19 22:41 Blood Culture - Final Blood No Growth after 144 hours Assessment and Plan Assessment: Abdominal pain likely related to calculus cholecystitis, UTI Anemia likely acute blood loss from surgery Urinary tract infection Tachycardia Diabetes mellitus Hypertension Seizure disorder Fibromyalgia Postop day 4. Patient's right upper quadrant abdominal pain has resolved since surgery but she continues to report uncontrolled pain in bilateral lower quadrants. Her pain has improved on [place] and Percocet. Blood cultures negative and 144 hours. Plans: Discussed with RN and patient, increase ambulati on and one more day of pain control. Continue Bactrim and Flagyl at this time. Reglan as needed for nausea or vomiting. Follow surgery recommendations. Hemoglobin 10.4, improved from 9.5. Likely acute blood loss from surgery. Plans: Improving. Continue to monitor. Daily CBC. Urine culture positive for E. coli. Plans: Continue Bactrim. Continue phenazopyridine for cystitis pain. Pulse of 103, improved. Probably related to pain. Plans: Ensure adequate pain control. Continue to monitor. Continue to monitor. POC glucose 174. Also reactive due to surgery. Plans: Insulin sliding scale. Accuchecks with hypoglycemic precautions. BP 141/89. Plans: Continue lisinopril. Monitor vitals, adjust medications as necessary. Plans: Continue Keppra and Zonisamide. Plans: Needs adequate pain control. Start Cymbalta for pain control. [Patient is post op day 4 laparoscopic cholecystectomy. Her pain continues to be uncontrolled but improved. She is pending clinical improvement. FERCHO barillas.]
--- NOTE | 2019-10-17 15:11 | CDI ---
Documentation Clarification Form Date: 10/17/2019 02:48:43 PM From: Sarah Turcios Admit Date: 10/12/2019 07:45:00 AM Patient Name: Neli Chavez Visit Number: [id number] Discharge Date: ATTENTION: The Clinical Documentation Specialists (CDI) and [facility] Coding Staff appreciate your assistance in clarifying documentation. Please respond to the clarification below the line at the bottom and electronically sign. The CDI & [facility] Coding staff will review the response and follow-up if needed. Please note: Queries are made part of the Legal Health Record. If you have any questions, please contact the author of this message via ITS. Dr. Juan José García Anemia likely acute blood loss from surgery is documented in the Internal Medicine Progress notes 10/14, 10/15 & 10/16 Patients Admitting Diagnosis: Acute calculus cholecystitis Post-Operative Diagnosis: Acute calculus cholecystitis Procedure performed: Laparoscopic cholecystectomy History/Risk Factors: 49-year-old female presents to the ED with abdominal pain, nausea and vomiting. Medical history DM, Seizures. Clinical Indicators: 10/12 Per Anesthesia record EBL 5ml Labs 10/09 Hgb 12.9, 10/12 10.4, 10/13 9.5, 10/14 10.2, 10/15 10.4 Treatment: 10/10 Ferrous Sulfate 325 mg po bid 10/09 2L 0.9Ns Ivpb Bolus followed by 120cc/hr d/c 10/13 In order to accurately reflect this patients severity of illness, please clarify if the Anemia likely acute blood loss from surgery: ABLA from surgery has been ruled out ABLA from surgery is a complication of surgical procedure ABLA from surgery is an expected outcome of the surgical procedure ABLA from surgery is related to co-morbid condition(s) of Other please specify Unable to determine (Last Revision: July 2019) Patient's anemia occurred preoperatively. No surgical bleeding. Likely related to hydration. MTDD
[2019-10-17 16:15] LABS: Glucose,Whole Blood 172 mg/dL (75-99)
[2019-10-17 20:20] LABS: Glucose,Whole Blood 167 mg/dL (75-99)
[2019-10-18] MEDS: HYDROcodone/APAP 10-325MG 1 EACH TAB PO PRN ×2 (01:45→07:21)
[2019-10-18] MEDS: metroNIDAZOLE-NS PMX 500 MG in SALINE 1 100ML.BAG IVPB SCH (05:15)
[2019-10-18 06:46] LABS: Glucose,Whole Blood 181 mg/dL (75-99)
[2019-10-18] MEDS: CLOTRIMAZOLE 1% CREAM 15 GM TUBE TOPICAL SCH (07:18)
[2019-10-18] MEDS: HEPARIN SODIUM,PORCINE 5,000 UNIT/ML 1 ML VIAL SQ SCH (07:21)
[2019-10-18] MEDS: METOCLOPRAMIDE 5 MG/ML 2 ML VIAL IVP PRN (07:21)
[2019-10-18] MEDS: SULFAMETHOX-TMP 800-160MG 1 EACH TAB PO SCH (07:22)
[2019-10-18] MEDS: PHENYTOIN SODIUM EXTENDED 100 MG CAP PO SCH (07:22)
[2019-10-18] MEDS: QUEtiapine 25 MG TAB PO SCH (07:22)
[2019-10-18] MEDS: ZONISAMIDE 100 MG CAP PO SCH (07:22)
[2019-10-18] MEDS: THIAMINE 100 MG TAB PO SCH (07:22)
[2019-10-18] MEDS: CYANOCOBALAMIN 500 MCG TAB PO SCH (07:22)
[2019-10-18] MEDS: PHENAZOPYRIDINE 100 MG TAB PO SCH (07:22)
[2019-10-18] MEDS: LISINOPRIL 20 MG TAB PO SCH (07:23)
[2019-10-18] MEDS: FERROUS SULFATE 325 MG TAB PO SCH (07:23)
[2019-10-18] MEDS: FOLIC ACID 1 MG TAB PO SCH (07:23)
[2019-10-18] MEDS: INSULIN ASPART (NovoLOG) 100 UNIT/ML VIAL SQ SCH (07:23)
[2019-10-18] MEDS: DULoxetine HCL 30 MG CAPSULE.DR PO SCH (07:23)
[2019-10-18 08:34] VITALS: BP 166/101; PULSE 105; RESP 16; TEMP 98.8
[2019-10-18 11:19] LABS: Glucose,Whole Blood 233 mg/dL (75-99)
--- NOTE | 2019-10-18 11:28 | P.DS ---
Providers Date of admission: 10/12/19 07:45 Expected date of discharge: 10/18/19 Attending physician: Taco Robb MD Consults: 10/11/19 19:44 Consult Physician Routine Consulting Provider: Juan José García Consult Reason/Comments: gall stones Do you want consulting provider notified?: Yes Primary care physician: [facility] Course: 49-year-old female with PMH of poorly controlled diabetes mellitus on insulin, hypertension, newly diagnosed seizure, depression and anxiety and fibromyalgia presents the ED for worsening abdominal pain, localized to the right upper quadrant, worse with meals. 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 Gallbladder ultrasound showed mildly dilated gallbladder and multiple gallstones without dilated ducts. She also had a urinalysis showed large leukocyte esterase. She was started on levofloxacin IV and admitted for surgical evaluation. General surgery was consulted and patient underwent laparoscopic cholecystectomy on 10/13/2019. Her symptoms of right upper quadrant pain slowly resolved during her hospitalization. She had uncontrolled bilateral suprapubic discomfort which was treated with phenazopyridine. She did have a flare of her fibromyalgia which was treated with K[place]ag and Dilaudid as needed. Her pain improvement was slow to progress. Patient was seen and examined. No acute events overnight. Patient reports continued nausea and no vomiting. She reports 7 out of 10 severity pain. Patient also reports bloating sensation in her upper abdomen. Pain is slowly been improving. She has been ambulating without difficulties. Agreeable for discharge today. General: [non toxic], [no distress], [appears at stated age] Derm: [warm], [dry] Head: [atraumatic], [normocephalic], [symmetric] Eyes: [EOMI], [no lid lag], [anicteric sclera] Mouth: [no lip lesion], [mucus membranes moist] Cardiovascular: [S1S2 reg], [tachycardia], [positive DP pulse bilateral], Lungs: [CTA bilateral], [no rhonchi, no rales] , [no accessory muscle use] Abdominal: [soft], [right and left lower quadrant tenderness with light palpation without rebound], [no guarding], [no appreciable organomegaly], [laparoscopic scars intact and healing well] Ext: [no gross muscle atrophy], [no edema], [no contractures] Neuro: [no focal neuro deficits] Psych: [Alert], [oriented], [appropriate affect] Abdominal pain likely related to calculus cholecystitis, UTI Anemia likely acute blood loss from surgery Urinary tract infection Tachycardia Diabetes mellitus Hypertension Seizure disorder Fibromyalgia Postop day 5. Patient's right upper quadrant abdominal pain has resolved since surgery but she continues to report uncontrolled pain in bilateral lower quadrants. Her pain has improved on [place] and Percocet. Blood cultures negative and 144 hours. Plans: Discussed with RN and patient, increase ambulat ion and plans for DC today. She is at 5 days of Bactrim which is adequate treatment for UTI. She's had 7 days of Flagyl which will be discontinued at discharge. Reglan as needed for nausea or vomiting. Follow surgery recommendations. Hemoglobin 10.4, improved from 9.5. Likely acute blood loss from surgery. Plans: Improving. Continue to monitor. Daily CBC. Urine culture positive for E. coli. Plans: Completed 5 days of Bactrim. Continue phenazopyridine for cystitis pain. Pulse of 105, improved. Probably related to pain. Plans: Ensure adequate pain control. Continue to monitor. Continue to monitor. POC glucose 181. Also reactive due to surgery. Plans: Insulin sliding scale. Accuchecks with hypoglycemic precautions. BP 166/101. Plans: Continue lisinopril. Monitor vitals, adjust medications as necessary. Recheck BP. Plans: Continue Keppra and Zonisamide. Plans: Needs adequate pain control. Start Cymbalta for pain control. [Patient is post op day 5 laparoscopic cholecystectomy. Her pain continues to exist but improved. DC today.] Pertinent Studies: CT abdomen and pelvis, gallbladder ultrasound Procedures: Cholecystectomy laparoscopic Patient Condition at Discharge: Stable Plan - Discharge Summary Discharge Rx Participant: Yes New Discharge Prescriptions: New Hydrocodone/Acetaminophen [Kaltag 5-325] 1 tab PO Q6HR PRN 3 Days #10 tab PRN Reason: Pain DULoxetine HCL [Cymbalta] 30 mg PO DAILY #30 capsule. Phenazopyridine [Pyridium] 100 mg PO TID #14 tab Continue Zonisamide [Zonegran] 100 mg PO BID Thiamine [Vitamin B-1] 100 mg PO DAILY QUEtiapine [SEROquel] 25 mg PO TID Phenytoin Sodium Extended [Dilantin] 100 mg PO BID Lisinopril 20 mg PO DAILY levETIRAcetam [Keppra] 750 mg PO BID Ketoconazole 2% Cream [Nizoral 2%] 1 applic TOPICAL BID Insulin Glargine,Hum.rec.anlog [Lantus Solostar] 20 unit SQ DAILY Insulin Lispro Protamin/Lispro [humaLOG Mix 75-25 Kwikpen] 3 units SQ TID- W/MEALS Folic Acid 1 mg PO DAILY Ferrous Gluconate 324 mg PO BID Cyanocobalamin (Vitamin B-12) [Vitamin B-12] 1,000 mcg PO DAILY Discharge Medication List Cyanocobalamin (Vitamin B-12) [Vitamin B-12] 1,000 mcg PO DAILY 10/10/19 [His tory] Ferrous Gluconate 324 mg PO BID 10/10/19 [History] Folic Acid 1 mg PO DAILY 10/10/19 [History] Insulin Glargine,Hum.rec.anlog [Lantus Solostar] 20 unit SQ DAILY 10/10/19 [History] Insulin Lispro Protamin/Lispro [humaLOG Mix 75-25 Kwikpen] 3 units SQ TID- W/MEALS 10/10/19 [History] Ketoconazole 2% Cream [Nizoral 2%] 1 applic TOPICAL BID 10/10/19 [History] Lisinopril 20 mg PO DAILY 10/10/19 [History] Phenytoin Sodium Extended [Dilantin] 100 mg PO BID 10/10/19 [History] QUEtiapine [SEROquel] 25 mg PO TID 10/10/19 [History] Thiamine [Vitamin B-1] 100 mg PO DAILY 10/10/19 [History] Zonisamide [Zonegran] 100 mg PO BID 10/10/19 [History] levETIRAcetam [Keppra] 750 mg PO BID 10/10/19 [History] Hydrocodone/Acetaminophen [Kaltag 5-325] 1 tab PO Q6HR PRN 3 Days #10 tab 10/13/19 [Rx] DULoxetine HCL [Cymbalta] 30 mg PO DAILY #30 capsule. 10/18/19 [Rx] Phenazopyridine [Pyridium] 100 mg PO TID #14 tab 10/18/19 [Rx] Follow up Appointment(s)/Referral(s): Juan José García MD [Medical Doctor] - 10/25/19 Skye Perez MD [Primary Care Provider] - 1-2 days Ambulatory/Diagnostic Orders: Basic Metabolic Panel [LAB.AMB] Time Frame: 1 Day, Location: None Selected Activity/Diet/Wound Care/Special Instructions: No driving while taking [place] No lifting over 10 pounds You may shower. No soaking or tub baths Very light activity until you are reevaluated at your follow up appointment with your surgeon Discharge Disposition: HOME SELF-CARE
== END 2019-10-18 12:22 | disposition home or self-care (01) | DRG 417 ==
LOC: EC 19:06 → 4SSUR 22:56 → EEVIPCON 22:56 → OBSVTOIN 10-12 07:45
PROVIDERS: ADMIT Internal Medicine; ATTEND Internal Medicine
PROC: 0FT44ZZ Resection of Gallbladder, Percutaneous Endoscopic Approach (ICD-10-PCS; principal; 2019-10-13 08:00)
DX: K80.00 Calculus of gallbladder with acute cholecystitis without obstruction (principal); E11.10 Type 2 diabetes mellitus with ketoacidosis without coma; N10 Acute pyelonephritis; Z16.23 Resistance to quinolones and fluoroquinolones; G40.901 Epilepsy, unspecified, not intractable, with status epilepticus; M79.7 Fibromyalgia; G31.9 Degenerative disease of nervous system, unspecified; M19.90 Unspecified osteoarthritis, unspecified site; F32.9 Major depressive disorder, single episode, unspecified; F41.9 Anxiety disorder, unspecified; R00.0 Tachycardia, unspecified; E11.65 Type 2 diabetes mellitus with hyperglycemia; E86.0 Dehydration; D27.0 Benign neoplasm of right ovary; R82.4 Acetonuria; I10 Essential (primary) hypertension; F81.9 Developmental disorder of scholastic skills, unspecified; G93.9 Disorder of brain, unspecified; D64.89 Other specified anemias; B96.20 Unspecified Escherichia coli [E. coli] as the cause of diseases classified elsewhere; E87.6 Hypokalemia; T73.0XXA Starvation, initial encounter; Z71.3 Dietary counseling and surveillance; Z79.4 Long term (current) use of insulin; Z79.899 Other long term (current) drug therapy; Z91.19 Patient's noncompliance with other medical treatment and regimen; Z87.19 Personal history of other diseases of the digestive system; Z87.2 Personal history of diseases of the skin and subcutaneous tissue; Z98.890 Other specified postprocedural states; Z91.14 Patient's other noncompliance with medication regimen; Z88.1 Allergy status to other antibiotic agents; Z82.49 Family history of ischemic heart disease and other diseases of the circulatory system
CPT/HCPCS: 36415; 71045; 74177; 76705; 80048; 80053; 80177; 80185; 80186; 81001; 81025; 82009; 82150; 83605; 83690; 84100; 84484; 85025; 85027; 85610; 85730; 87040; 87077; 87086; 87186; 88304; 93005; 96361; 96365; 96375; 99285

== ENCOUNTER 2019-10-25 15:29 | Inpatient (IN) | payer MEDICARE ==
[2019-10-25] MEDS ORDERED: ONDANSETRON 4 MG/2 ML VIAL IVP STA (16:37)
[2019-10-25] MEDS ORDERED: SODIUM CHLORIDE 0.9% 1,000 ML IV ONE (16:37)
[2019-10-25] MEDS ORDERED: SODIUM CHLORIDE 0.9% 500 ML 500 ML IV ONE (16:37)
[2019-10-25] MEDS ORDERED: diphenhydrAMINE 50 MG/ML 1 ML VIAL IVP STA ×2 (16:37→18:47)
[2019-10-25 17:11] LABS: Anisocytosis Slight; Basophils # (A) 0.1 k/uL (0-0.2); Basophils % (A) 1 %; Eosinophils # (A) 0.1 k/uL (0-0.7); Eosinophils % (A) 1 %; HCT 40.1 % (34.0-46.0); HGB 12.9 gm/dL (11.4-16.0); Lymphocytes % (A) 14 %; MCH 26.6 pg (25.0-35.0); MCHC 32.1 g/dL (31.0-37.0); MCV 82.6 fL (80.0-100.0); Mean Platelet Volume 8.6; Monocytes # (A) 0.5 k/uL (0-1.0); Monocytes % (A) 7 %; Neutrophils # (A) 5.5 k/uL (1.3-7.7); Neutrophils % (A) 76 %; Platelet Count 312 k/uL (150-450); RBC 4.85 m/uL (3.80-5.40); RDW 17.5 % (11.5-15.5); WBC 7.2 k/uL (3.8-10.6)
[2019-10-25 17:18] LABS: Appearance,Urine Cloudy (Clear); Bacteria,Urine Rare /hpf; Bilirubin,Urine 1+ (Negative); Blood,Urine Negative (Negative); Color,Urine Yellow; Glucose,Urine (UA) Negative (Negative); Ketones,Urine 4+ (Negative); Leukocyte Esterase,Urine Trace (Negative); Mucus,Urine Moderate /hpf; Nitrite,Urine Negative (Negative); PH, Urine 5.5 (5.0-8.0); Protein,Urine 1+ (Negative); RBC,Urine 1 /hpf (0-5); Specific Gravity,Urine 1.022 (1.001-1.035); Squamous Epithelial Cell,Urine 5 /hpf (0-4); WBC,Urine 7 /hpf (0-5)
[2019-10-25 17:19] LABS: ALT 9 U/L (4-34); AST 17 U/L (14-36); African American GFR (CKD) >90 (>60 ml/min/1.73 sqM); Albumin 3.9 g/dL (3.5-5.0); Alkaline Phosphatase 109 U/L (38-126); Anion Gap 16 mmol/L; Blood Urea Nitrogen 11 mg/dL (7-17); Calcium 9.5 mg/dL (8.4-10.2); Carbon Dioxide 18 mmol/L (22-30); Chloride 92 mmol/L (98-107); Glucose 189 mg/dL (74-99); Non-African American GFR(CKD) >90 (>60 ml/min/1.73 sqM); Potassium 4.4 mmol/L (3.5-5.1); Sodium 126 mmol/L (137-145); Total Bilirubin 0.4 mg/dL (0.2-1.3); Total Protein 6.6 g/dL (6.3-8.2)
--- NOTE | 2019-10-25 17:23 | ED ---
Nausea/Vomiting/Diarrhea HPI - General Chief complaint: Nausea/Vomiting/Diarrhea Stated complaint: Abd cramping, Nausea & vomting Time Seen by Provider: 10/25/19 16:26 Source: patient, EMS Mode of arrival: EMS Limitations: no limitations - History of Present Illness Initial comments: 49-year-old female patient who is status post cholecystectomy on 10/13/[address] García presents to the emergency department today for evaluation of upper abdominal pain and vomiting. Patient states that she has been having issues with abdominal pain and vomiting since July. States she was admitted to the hospital 2 weeks ago and was found to have cholelithiasis and dilated ducts. She subsequently underwent cholecystectomy, slowly improved and was discharged home about a week ago. Patient states that she has had persistent nausea and vomiting since discharge. States she is having pain in the upper abdomen. States she feels the surgery did not help her. Patient states she does take [place] at home. She also has Zofran which she did not take today. She did have an appointment with Dr. García this morning, she reports he was concerned about her vomiting. She denies any hematemesis, hematochezia, or melena. States she has a normal bowel movement every other day. States she is occasionally able to keep down foods and fluids. Denies any fever or chills. States she is having some mild dysuria but denies any urinary urgency, urinary frequency. Patient denies any recent rash, cough, shortness of breath, chest pain, back pain, numbness, tingling, dizziness, weakness, headache, visual changes, or any other complaints. - Related Data Home Medications Medication Instructions Recorded Confirmed Cyanocobalamin (Vitamin B-12) 1,000 mcg PO DAILY 10/10/19 10/25/19 [Vitamin B-12] Folic Acid 1 mg PO DAILY 10/10/19 10/25/19 Insulin Glargine,Hum.rec.anlog 20 unit SQ DAILY 10/10/19 10/25/19 [Lantus Solostar] Insulin Lispro Protamin/Lispro 3 units SQ TID-W/MEALS 10/10/19 10/25/19 [humaLOG Mix 75-25 Kwikpen] Ketoconazole 2% Cream [Nizoral 2%] 1 applic TOPICAL BID 10/10/19 10/25/19 Lisinopril 20 mg PO DAILY 10/10/19 10/25/19 Phenytoin Sodium Extended 100 mg PO BID 10/10/19 10/25/19 [Dilantin] QUEtiapine [SEROquel] 25 mg PO TID 10/10/19 10/25/19 Thiamine [Vitamin B-1] 100 mg PO DAILY 10/10/19 10/25/19 Zonisamide [Zonegran] 100 mg PO BID 10/10/19 10/25/19 Acetaminophen [Tylenol] 650 mg PO Q6H PRN 10/25/19 10/25/19 Bismuth Subsalicylate 30 ml PO QID PRN 10/25/19 10/25/19 [Pepto-Bismol] Calcium Carbonate [Tums] 500 - 1,000 mg PO QID PRN 10/25/19 10/25/19 Cetirizine HCl 10 mg PO DAILY 10/25/19 10/25/19 DULoxetine HCL [Cymbalta] 30 mg PO HS 10/25/19 10/25/19 Ferrous Sulfate [Feosol] 325 mg PO BID 10/25/19 10/25/19 Ibuprofen [Motrin Ib] 200 - 400 mg PO Q6H PRN 10/25/19 10/25/19 Magnesium Hydroxide [Milk of 2,400 mg PO DAILY PRN 10/25/19 10/25/19 Magnesia] Omeprazole Magnesium [PriLOSEC OTC] 20 mg PO DAILY PRN 10/25/19 10/25/19 Ondansetron HCl [Zofran] 8 mg PO Q8H PRN 10/25/19 10/25/19 Simethicone [Gas-X] 125 mg PO DAILY PRN 10/25/19 10/25/19 levETIRAcetam [Keppra] 1,000 mg PO BID 10/25/19 10/25/19 Allergies Allergy/AdvReac Type Severity Reaction Status Date / Time cefaclor [From [facility]] Allergy Rash/Hives Verified 10/25/19 21:35 Review of Systems ROS Statement: Those systems with pertinent positive or pertinent negative responses have been documented in the HPI. ROS Other: All systems not noted in ROS Statement are negative. 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 History of Any Multi-Drug Resistant Organisms: None Reported Past Surgical History: Tonsillectomy Additional Past Surgical History / Comment(s): brochoscopy with biopsy 2011 Past Psychological History: Anxiety, Depression Smoking Status: Never smoker Past Alcohol Use History: None Reported Past Drug Use History: None Reported - Past Family History Father Family Medical History: Cancer Additional Family Medical History / Comment(s): heart disease General Exam Limitations: no limitations General appearance: alert, in no apparent distress, other (This is a well- developed, well-nourished adult female patient in no acute distress. Vital signs upon presentation are temperature 99.4F, pulse 110, respirations 18, blood pressure 143/92, pulse ox 98% on room air.) Eye exam: Present: normal appearance, PERRL, EOMI. Absent: scleral icterus, conjunctival injection, periorbital swelling ENT exam: Present: normal exam, normal oropharynx, mucous membranes moist Respiratory exam: Present: normal lung sounds bilaterally. Absent: respiratory distress, wheezes, rales, rhonchi, stridor Cardiovascular Exam: Present: regular rate, normal rhythm, normal heart sounds. Absent: systolic murmur, diastolic murmur, rubs, gallop, clicks GI/Abdominal exam: Present: soft, tenderness (Generalized), normal bowel sounds, other (Incisions to the mid abdomen, right upper quadrant, and periumbilical are intact with no surrounding erythema or drainage.). Absent: distended, guarding, rebound, rigid Neurological exam: Present: alert, oriented X3, CN II-XII intact Psychiatric exam: Present: normal affect, normal mood Skin exam: Present: warm, dry, intact, normal color. Absent: rash Course Vital Signs 10/25/19 10/25/19 10/25/19 15:33 18:12 20:30 Temperature 99.4 F 99.0 F 97.9 F Pulse Rate 110 H 106 H 110 H Respiratory 18 18 17 Rate Blood Pressure 143/92 155/88 152/95 O2 Sat by Pulse 98 98 99 Oximetry Medical Decision Making - Medical Decision Making 49 year old female patient presents to the emergency department today for evaluation of upper abdominal pain, nausea, vomiting. Patient is status post cholecystectomy [address] García. Physical examination does reveal right upper and mid epigastric abdominal tenderness and mild generalized tenderness. She is afebrile with normal vital signs. Labs reviewed and were unremarkable. Patient was given doses of pain medication nausea medication while here. Upon reevaluation she is still feeling ill. My attending Dr. Crane discussed the case with Dr. Robb who agrees to admission. We will consult Dr. García and Dr. Walton for GI. - Lab Data Result diagrams: 10/25/19 17:00 10/25/19 17:00 Lab Results 10/25/19 10/25/19 10/25/19 Range/Units 17:00 17:00 17:00 WBC 7.2 (3.8-10.6) k/uL RBC 4.85 (3.80-5.40) m/uL Hgb 12.9 (11.4-16.0) gm/dL Hct 40.1 (34.0-46.0) % MCV 82.6 (80.0-100.0) fL MCH 26.6 (25.0-35.0) pg MCHC 32.1 (31.0-37.0) g/dL RDW 17.5 H (11.5-15.5) % Plt Count 312 (150-450) k/uL Neutrophils % 76 % Lymphocytes % 14 % Monocytes % 7 % Eosinophils % 1 % Basophils % 1 % Neutrophils # 5.5 (1.3-7.7) k/uL Lymphocytes # 1.0 (1.0-4.8) k/uL Monocytes # 0.5 (0-1.0) k/uL Eosinophils # 0.1 (0-0.7) k/uL Basophils # 0.1 (0-0.2) k/uL Anisocytosis Slight Sodium 126 L (137-145) mmol/L Potassium 4.4 (3.5-5.1) mmol/L Chloride 92 L (98-107) mmol/L Carbon Dioxide 18 L (22-30) mmol/L Anion Gap 16 mmol/L BUN 11 (7-17) mg/dL Creatinine 0.55 (0.52-1.04) mg/dL Est GFR (CKD-EPI)AfAm >90 (>60 ml/min/1.73 sqM) Est GFR (CKD-EPI)NonAf >90 (>60 ml/min/1.73 sqM) Glucose 189 H (74-99) mg/dL Calcium 9.5 (8.4-10.2) mg/dL Total Bilirubin 0.4 (0.2-1.3) mg/dL AST 17 (14-36) U/L ALT 9 (4-34) U/L Alkaline Phosphatase 109 (38-126) U/L Total Protein 6.6 (6.3-8.2) g/dL Albumin 3.9 (3.5-5.0) g/dL Lipase 42 (23-300) U/L Urine Color Urine Appearance (Clear) Urine pH (5.0-8.0) Ur Specific [place] (1.001-1.035) Urine Protein (Negative) Urine Glucose (UA) (Negative) Urine Ketones (Negative) Urine Blood (Negative) Urine Nitrite (Negative) Urine Bilirubin (Negative) Urine Urobilinogen (<2.0) mg/dL Ur Leukocyte Esterase (Negative) Urine RBC (0-5) /hpf Urine WBC (0-5) /hpf Ur Squamous Epith Cells (0-4) /hpf Urine Bacteria (None) /hpf Urine Mucus (None) /hpf Phenytoin 16.6 ug/mL Coronavirus (PCR) (Not Detectd) 10/25/19 10/25/19 Range/Units 17:13 19:05 WBC (3.8-10.6) k/uL RBC (3.80-5.40) m/uL Hgb (11.4-16.0) gm/dL Hct (34.0-46.0) % MCV (80.0-100.0) fL MCH (25.0-35.0) pg MCHC (31.0-37.0) g/dL RDW (11.5-15.5) % Plt Count (150-450) k/uL Neutrophils % % Lymphocytes % % Monocytes % % Eosinophils % % Basophils % % Neutrophils # (1.3-7.7) k/uL Lymphocytes # (1.0-4.8) k/uL Monocytes # (0-1.0) k/uL Eosinophils # (0-0.7) k/uL Basophils # (0-0.2) k/uL Anisocytosis Sodium (137-145) mmol/L Potassium (3.5-5.1) mmol/L Chloride (98-107) mmol/L Carbon Dioxide (22-30) mmol/L Anion Gap mmol/L BUN (7-17) mg/dL Creatinine (0.52-1.04) mg/dL Est GFR (CKD-EPI)AfAm (>60 ml/min/1.73 sqM) Est GFR (CKD-EPI)NonAf (>60 ml/min/1.73 sqM) Glucose (74-99) mg/dL Calcium (8.4-10.2) mg/dL Total Bilirubin (0.2-1.3) mg/dL AST (14-36) U/L ALT (4-34) U/L Alkaline Phosphatase (38-126) U/L Total Protein (6.3-8.2) g/dL Albumin (3.5-5.0) g/dL Lipase (23-300) U/L Urine Color Yellow Urine Appearance Cloudy H (Clear) Urine pH 5.5 (5.0-8.0) Ur Specific [place] 1.022 (1.001-1.035) Urine Protein 1+ H (Negative) Urine Glucose (UA) Negative (Negative) Urine Ketones 4+ H (Negative) Urine Blood Negative (Negative) Urine Nitrite Negative (Negative) Urine Bilirubin 1+ H (Negative) Urine Urobilinogen 4.0 (<2.0) mg/dL Ur Leukocyte Esterase Trace H (Negative) Urine RBC 1 (0-5) /hpf Urine WBC 7 H (0-5) /hpf Ur Squamous Epith Cells 5 H (0-4) /hpf Urine Bacteria Rare H (None) /hpf Urine Mucus Moderate H (None) /hpf Phenytoin ug/mL Coronavirus (PCR) Not Detected (Not Detectd) - Radiology Data Radiology results: report reviewed, image reviewed CT abdomen and pelvis was obtained. Report was reviewed in its entirety. Impression by Dr. Pitts and shows no suspicious abdominal, right upper quadrant pain. Stable appearance suspected her migraine Disposition Clinical Impression: Intractable abdominal pain, Intractable vomiting Disposition: ADMITTED IP TO THIS [facility] Condition: Serious Decision to Admit Reason: Admit from [facility] Decision Date: 10/25/19 Decision Time: 20:38
--- NOTE | 2019-10-25 18:09 | CT ---
EXAMINATION TYPE: CT abdomen pelvis w con DATE OF EXAM: 10/25/2019 COMPARISON: 10/10/2019 INDICATION: Upper Abdominal pain with nausea and vomiting. Post Op bjorn 2 weeks. DLP: 1247.8 mGycm, Automated exposure control for dose reduction was used. CONTRAST: 100 mL of Isovue 300. Study performed without Oral Contrast TECHNIQUE: Axial images were obtained from above the diaphragm to the pubic rami in the axial plane a t 5 mm thick sections. Reconstructed images are reviewed on the computer in the coronal plane. FINDINGS: Limited CT sections are obtained the lung bases. The lung bases are clear. CT ABDOMEN: Liver: Some mild fatty infiltration liver is present. Spleen: Normal Pancreas: Fatty infiltration throughout the pancreas is present. Adrenal glands: The adrenal glands are normal. Gallbladder: Surgically absent . No suspicious fluid collections are evident. Cholecystectomy clips a re present. Kidneys: No masses are evident. No hydronephrosis is present. No cysts are present. Delayed images were obtained through the kidneys, which remain unremarkable. Aorta: Vascular calcification is within the aorta. Inferior vena cava: Normal. CT PELVIS: Loops of bowel within the abdomen and pelvis are normal. There are loops of bowel which are incom pletely distended or lack oral contrast limiting their evaluation. Appendix: Normal as visualized. Urinary bladder: Normal. Genitourinary structures: There is a 10.2 x 6.2 cm dermoid within the right adnexa. This contains antonio e calcification near the anterior wall of multiple low-density areas compatible with fat -129 Hounsfi eld units is some soft tissue density within the dependent portion and in the superior portion of thi s structure appearance is stable from comparison. Osseous structures: No suspicious lytic or sclerotic lesions. IMPRESSIONS: 1. No suspicious abnormality to account for right upper quadrant pain. 2. Stable appearance of suspected dermoid.
[2019-10-25] MEDS ORDERED: METOCLOPRAMIDE 5 MG/ML 2 ML VIAL IVP STA (18:47)
[2019-10-25] MEDS ORDERED: NALOXONE 0.4 MG/ML 1 ML VIAL IV PRN (20:34)
[2019-10-25] MEDS: FAMOTIDINE 20 MG/2 ML VIAL IV SCH (21:49)
[2019-10-25] MEDS ORDERED: MAGNESIUM HYDROXIDE 2,400 MG/10 ML CUP PO PRN (23:00)
[2019-10-25] MEDS ORDERED: BISMUTH SUBSALICYLATE 4,192 MG/240 ML BOTTLE PO PRN (23:00)
[2019-10-25] MEDS ORDERED: DULoxetine HCL 30 MG CAPSULE.DR PO SCH (23:00)
[2019-10-25] MEDS: CALCIUM CARBONATE 500 MG CHEWABLE PO PRN (23:39)
[2019-10-25] MEDS: ACETAMINOPHEN TAB 325 MG TAB PO PRN (23:39)
[2019-10-25] MEDS: QUEtiapine 25 MG TAB PO SCH (23:39)
[2019-10-25] MEDS: HEPARIN SODIUM,PORCINE 5,000 UNIT/ML 1 ML VIAL SQ SCH (23:39)
[2019-10-25] MEDS: MELATONIN 3 MG TABLET PO SCH (23:39)
[2019-10-25] MEDS: levETIRAcetam 500 MG TAB PO SCH (23:40)
[2019-10-25] MEDS: ZONISAMIDE 100 MG CAP PO SCH (23:40)
[2019-10-25] MEDS: SODIUM CHLORIDE 0.9% 1,000 ML IV SCH (23:43)
[2019-10-25] MEDS: PANTOPRAZOLE 40 MG TABLET PO SCH (23:43)
--- NOTE | 2019-10-25 23:50 | P.HPIM ---
History of Present Illness H&P Date: 10/25/19 Chief Complaint: nausea and vomiting 49 year old female with hypertension controlled with medications, diabetes mellitus on insulin with A1C 11.8% patient recently hospitalized for acute cholecystitis post Lap bjorn, and was also diagnosed with UTI. She was discharge 10/18/2019 patient comes in today with 3 days history of repeated nausea and vomiting, non bloody non bilious. no coffee ground vomiting. denies any fever, chills. she also reports vague abd discomfort, over left side of the abd, associated with some dysuria. she admits to decrease PO intake, and decrease urine output. today she started feeling weak for which she decided to come for evaluation . denies any diarrhea or gi bleeding., she admits to constipation since discharge. chronic GERD on PPI. denies any vaginal discharge. in the ED , COVID 19 was negative, CT abd no acute process. sodium was low, liver function test within normal limits. Review of Systems Pertinent positives as noted in HPI. 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 History of Any Multi-Drug Resistant Organisms: None Reported Past Surgical History: Tonsillectomy Additional Past Surgical History / Comment(s): brochoscopy with biopsy 2011 Past Psychological History: Anxiety, Depression Smoking Status: Never smoker Past Alcohol Use History: None Reported Past Drug Use History: None Reported - Past Family History Father Family Medical History: Cancer Additional Family Medical History / Comment(s): heart disease Medications and Allergies Home Medications Medication Instructions Recorded Confirmed Type Cyanocobalamin (Vitamin B-12) 1,000 mcg PO DAILY 10/10/19 10/25/19 History [Vitamin B-12] Folic Acid 1 mg PO DAILY 10/10/19 10/25/19 History Insulin Glargine,Hum.rec.anlog 20 unit SQ DAILY 10/10/19 10/25/19 History [Lantus Solostar] Insulin Lispro Protamin/Lispro 3 units SQ TID-W/MEALS 10/10/19 10/25/19 History [humaLOG Mix 75-25 Kwikpen] Ketoconazole 2% Cream [Nizoral 2%] 1 applic TOPICAL BID 10/10/19 10/25/19 History Lisinopril 20 mg PO DAILY 10/10/19 10/25/19 History Phenytoin Sodium Extended 100 mg PO BID 10/10/19 10/25/19 History [Dilantin] QUEtiapine [SEROquel] 25 mg PO TID 10/10/19 10/25/19 History Thiamine [Vitamin B-1] 100 mg PO DAILY 10/10/19 10/25/19 History Zonisamide [Zonegran] 100 mg PO BID 10/10/19 10/25/19 History Acetaminophen [Tylenol] 650 mg PO Q6H PRN 10/25/19 10/25/19 History Bismuth Subsalicylate 30 ml PO QID PRN 10/25/19 10/25/19 History [Pepto-Bismol] Calcium Carbonate [Tums] 500 - 1,000 mg PO QID PRN 10/25/19 10/25/19 History Cetirizine HCl 10 mg PO DAILY 10/25/19 10/25/19 History DULoxetine HCL [Cymbalta] 30 mg PO HS 10/25/19 10/25/19 History Ferrous Sulfate [Feosol] 325 mg PO BID 10/25/19 10/25/19 History Ibuprofen [Motrin Ib] 200 - 400 mg PO Q6H PRN 10/25/19 10/25/19 History Magnesium Hydroxide [Milk of 2,400 mg PO DAILY PRN 10/25/19 10/25/19 History Magnesia] Omeprazole Magnesium [PriLOSEC OTC] 20 mg PO DAILY PRN 10/25/19 10/25/19 History Ondansetron HCl [Zofran] 8 mg PO Q8H PRN 10/25/19 10/25/19 History Simethicone [Gas-X] 125 mg PO DAILY PRN 10/25/19 10/25/19 History levETIRAcetam [Keppra] 1,000 mg PO BID 10/25/19 10/25/19 History Allergies Allergy/AdvReac Type Severity Reaction Status Date / Time [facility]] Allergy Rash/Hives Verified 10/25/19 21:35 Physical Exam Vitals: Vital Signs Temp Pulse Resp BP Pulse Ox 10/25/19 18:12 99.0 F 106 H 18 155/88 98 10/25/19 15:33 99.4 F 110 H 18 143/92 98 Intake and Output 10/25/19 10/25/19 10/25/19 06:59 14:59 22:59 Other: Weight 93.894 kg Constitutional: No acute distress, conversant, pleasant Eyes: Anicteric sclerae, moist conjunctiva, no lid-lag Pupils equal round reactive to light ENMT: NC/AT Oropharynx clear, no erythema, or exudates Neck: Supple, FROM, no masses, or JVD No carotid bruits No thyromegaly Lungs: Clear to auscultation Clear to percussion Normal respiratory effort, no accessory muscle use Cardiovascular: Heart regular in rate and rhythm, No murmurs, gallops, or rubs No peripheral edema Abdominal: Soft Nontender, no guarding, rebound or rigidity Abdomen moving with respiration Normoactive bowel sounds No hepatomegaly, No splenomegaly No palpable mass No abdominal wall hernia noted Skin: Normal temperature, tone, texture, turgor No induration No subcutaneous nodules No rash, lesions No ulcers Extremities: No digital cyanosis No clubbing Pedal pulses intact and symmetrical Radial pulses intact and symmetrical No calf tenderness Psychiatric: Alert and oriented to person, place and time Appropriate affect fair judgement Neuro Muscles Strength 5/5 in all 4 extremities Sensation to light touch grossly present throughout Cranial nerves II-XII grossly intact No focal sensory deficits Lymphatics: no palpable cervical or supraclavicular , or inguinal lymph nodes Results CBC & Chem 7: 10/25/19 17:00 10/25/19 17:00 Labs: Abnormal Lab Results - Last 24 Hours (Table) 10/25/19 10/25/19 10/25/19 Range/Units 17:00 17:00 17:13 RDW 17.5 H (11.5-15.5) % Sodium 126 L (137-145) mmol/L Chloride 92 L (98-107) mmol/L Carbon Dioxide 18 L (22-30) mmol/L Glucose 189 H (74-99) mg/dL Urine Appearance Cloudy H (Clear) Urine Protein 1+ H (Negative) Urine Ketones 4+ H (Negative) Urine Bilirubin 1+ H (Negative) Ur Leukocyte Esterase Trace H (Negative) Urine WBC 7 H (0-5) /hpf Ur Squamous Epith Cells 5 H (0-4) /hpf Urine Bacteria Rare H (None) /hpf Urine Mucus Moderate H (None) /hpf Assessment and Plan Assessment: 49 year old female with hypertension controlled with medications, diabetes mellitus on insulin with A1C 11.8% Discharged on week ago when she was admitted for acute cholecystitis status post lap bjorn and UTI, now comes in with refractory nausea and vomiting admitted under observation for GI evaluation with anticipated length of stay less than two midnight refractory nausea and vomiting, rule out diabetic gastroparesis , rule out recurrent UTI hypovolemic hyponatremia IVF hydration repeat urine culture, to confirm treatment of uti, patient was not discharged on antibiotics for UTI. symptomatic control pain control follow up sodium level q6 hr GI evaluation PPI bowel regimen chronic conditions hyeprtension , controlled, resume home meds DM on insulin , poorly controlled, A1C 11.02 September 2019 fibromyalgia , pain control Preformed a thorough record review from recent hospitalization discharged 1 week ago for acute cholecystectomy s/p Lap Bjorn, and UTI CODE STATUS:full code DVT prophylaxis: heparin sc tid Discussed with: Patient, ER Anticipated length of stay < than [address]: home A total of 75 minutes was spent on the care of this complex patient more than 50% of the time was spent in counseling and care coordination.
[2019-10-26 01:23] LABS: African American GFR (CKD) >90 (>60 ml/min/1.73 sqM); Anion Gap 16 mmol/L; Blood Urea Nitrogen 9 mg/dL (7-17); Calcium 9.2 mg/dL (8.4-10.2); Carbon Dioxide 16 mmol/L (22-30); Chloride 95 mmol/L (98-107); Glucose 183 mg/dL (74-99); Non-African American GFR(CKD) >90 (>60 ml/min/1.73 sqM); Potassium 4.2 mmol/L (3.5-5.1); Sodium 127 mmol/L (137-145)
[2019-10-26] MEDS: ONDANSETRON 4 MG/2 ML VIAL IVP PRN ×4 (02:37→21:57)
[2019-10-26] MEDS: IBUPROFEN 400 MG TAB PO PRN ×3 (05:04→19:49)
[2019-10-26] MEDS: SODIUM CHLORIDE 0.9% 1,000 ML IV SCH ×3 (07:31→15:00)
[2019-10-26] MEDS: INSULIN ASPART (NovoLOG) 100 UNIT/ML VIAL SQ SCH ×4 (07:34→21:16)
[2019-10-26] MEDS: FAMOTIDINE 20 MG/2 ML VIAL IV SCH (07:51)
[2019-10-26] MEDS: ACETAMINOPHEN TAB 325 MG TAB PO PRN ×3 (07:52→21:56)
[2019-10-26] MEDS: PANTOPRAZOLE 40 MG TABLET PO SCH ×2 (07:52→18:03)
[2019-10-26] MEDS: HEPARIN SODIUM,PORCINE 5,000 UNIT/ML 1 ML VIAL SQ SCH ×3 (07:54→22:58)
[2019-10-26] MEDS: QUEtiapine 25 MG TAB PO SCH ×3 (07:54→21:17)
[2019-10-26] MEDS: LORATADINE 10 MG TAB PO SCH (07:54)
[2019-10-26] MEDS: INSULIN DETEMIR (LEVEMIR) 100 UNIT/ML SYR SQ SCH (07:54)
[2019-10-26] MEDS: LISINOPRIL 20 MG TAB PO SCH (07:54)
[2019-10-26] MEDS: levETIRAcetam 500 MG TAB PO SCH ×2 (07:54→21:17)
[2019-10-26] MEDS: ZONISAMIDE 100 MG CAP PO SCH ×2 (07:54→21:17)
[2019-10-26 08:02] LABS: Glucose,Whole Blood 141 mg/dL (75-99)
[2019-10-26 09:12] LABS: African American GFR (CKD) >90 (>60 ml/min/1.73 sqM); Anion Gap 13 mmol/L; Blood Urea Nitrogen 8 mg/dL (7-17); Calcium 8.8 mg/dL (8.4-10.2); Carbon Dioxide 17 mmol/L (22-30); Chloride 97 mmol/L (98-107); Glucose 165 mg/dL (74-99); Non-African American GFR(CKD) >90 (>60 ml/min/1.73 sqM); Potassium 4.4 mmol/L (3.5-5.1); Sodium 127 mmol/L (137-145)
--- NOTE | 2019-10-26 09:27 | P.GSCN ---
<Ani Guevara - Last Filed: 10/26/19 09:24> History of Present Illness Consult date: 10/26/19 Reason for Consult: Abdominal pain, vomiting Requesting physician: Ofe Araujo History of present illness: CHIEF COMPLAINT: Abdominal pain, vomiting HISTORY OF PRESENT ILLNESS: 49-year-old female who recently underwent laparoscopic cholecystectomy with Dr. García secondary to acute calculus chol ecystitis on 10/13/2019. The patient was discharged home in stable condition on 10/18/2019. The patient presents back to the emergency room with a chief complaint of abdominal pain, nausea, and vomiting. Patient examined this morning at the bedside. She states she has not felt back to her baseline since her surgery. She has been nauseous since being discharged. She reports she has been vomiting for the last 2 days and has been unable to keep any fluids or medications down. She reports a lot of pain this morning in the left lower quadrant. She denies any pain in the right upper quadrant. She is passing flatus. She reports having a bowel movement yesterday. PAST MEDICAL HISTORY: See list. PAST SURGICAL HISTORY: See list. SOCIAL HISTORY: No illicit drug use. REVIEW OF SYSTEMS: CONSTITUTIONAL: Denies fever or chills. HEENT: Denies blurred vision, vision changes, or eye pain. Denies hemoptysis CARDIOVASCULAR: Denies chest pain or pressure. RESPIRATORY: No shortness of breath. GASTROINTESTINAL: Refer to HPI for pertinent findings HEMATOLOGIC: Denies bleeding disorders. GENITOURINARY: Denies any blood in urine. SKIN: Denies pruitis. Denies rash. PHYSICAL EXAM: VITAL SIGNS: Reviewed. GENERAL: Well-developed in no acute distress. HEENT: No sclera icterus. Extraocular movements grossly intact. Moist buccal mucosa. Head is atraumatic, normocephalic. ABDOMEN: Soft. Nondistended. Tenderness with palpation to left lower quadrant. Surgical sites healing well without erythema or drainage. NEUROLOGIC: Alert and oriented. Cranial nerves II through XII grossly intact. LABORATORY DATA: WBC 7.2. Hemoglobin 12.9. Platelet count 312. Sodium 127. Potassium 4.4. BUN 8. Creatinine 0.43. Bilirubin 0.4. AST 17. ALT 9. Alkaline phosphatase 109. IMAGING: CT abdomen and pelvis: Negative for an acute process ASSESSMENT: 1. Abdominal pain, nausea, vomiting 2. Recent cholecystectomy secondary to acute calculus cholecystitis, 10/13/2019 PLAN: -Continue IV fluids -Clear liquid diet as tolerated -Continue anti-emetics -GI on consult. Await evaluation. -Patient will be re-evaluated by Dr. García today. Further recommendations p ending. Nurse practitioner note has been reviewed by physician. Signing provider agrees with the documented findings, assessment, and plan of care. 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 History of Any Multi-Drug Resistant Organisms: None Reported Past Surgical History: Tonsillectomy Additional Past Surgical History / Comment(s): brochoscopy with biopsy 2011 Past Anesthesia/Blood Transfusion Reactions: No Reported Reaction Past Psychological History: Anxiety, Depression Smoking Status: Never smoker Past Alcohol Use History: None Reported Past Drug Use History: None Reported - Past Family History Father Family Medical History: Cancer Additional Family Medical History / Comment(s): heart disease Medications and Allergies Home Medications Medication Instructions Recorded Confirmed Type Cyanocobalamin (Vitamin B-12) 1,000 mcg PO DAILY 10/10/19 10/25/19 History [Vitamin B-12] Folic Acid 1 mg PO DAILY 10/10/19 10/25/19 History Insulin Glargine,Hum.rec.anlog 20 unit SQ DAILY 10/10/19 10/25/19 History [Lantus Solostar] Insulin Lispro Protamin/Lispro 3 units SQ TID-W/MEALS 10/10/19 10/25/19 History [humaLOG Mix 75-25 Kwikpen] Ketoconazole 2% Cream [Nizoral 2%] 1 applic TOPICAL BID 10/10/19 10/25/19 History Lisinopril 20 mg PO DAILY 10/10/19 10/25/19 History Phenytoin Sodium Extended 100 mg PO BID 10/10/19 10/25/19 History [Dilantin] QUEtiapine [SEROquel] 25 mg PO TID 10/10/19 10/25/19 History Thiamine [Vitamin B-1] 100 mg PO DAILY 10/10/19 10/25/19 History Zonisamide [Zonegran] 100 mg PO BID 10/10/19 10/25/19 History Acetaminophen [Tylenol] 650 mg PO Q6H PRN 10/25/19 10/25/19 History Bismuth Subsalicylate 30 ml PO QID PRN 10/25/19 10/25/19 History [Pepto-Bismol] Calcium Carbonate [Tums] 500 - 1,000 mg PO QID PRN 10/25/19 10/25/19 History Cetirizine HCl 10 mg PO DAILY 10/25/19 10/25/19 History DULoxetine HCL [Cymbalta] 30 mg PO HS 10/25/19 10/25/19 History Ferrous Sulfate [Feosol] 325 mg PO BID 10/25/19 10/25/19 History Ibuprofen [Motrin Ib] 200 - 400 mg PO Q6H PRN 10/25/19 10/25/19 History Magnesium Hydroxide [Milk of 2,400 mg PO DAILY PRN 10/25/19 10/25/19 History Magnesia] Omeprazole Magnesium [PriLOSEC OTC] 20 mg PO DAILY PRN 10/25/19 10/25/19 History Ondansetron HCl [Zofran] 8 mg PO Q8H PRN 10/25/19 10/25/19 History Simethicone [Gas-X] 125 mg PO DAILY PRN 10/25/19 10/25/19 History levETIRAcetam [Keppra] 1,000 mg PO BID 10/25/19 10/25/19 History Allergies Allergy/AdvReac Type Severity Reaction Status Date / Time cefaclor [From [facility]] Allergy Rash/Hives Verified 10/25/19 21:35 Surgical - Exam Vital Signs Temp Pulse Resp BP Pulse Ox 99.4 F 110 H 18 143/92 98 10/25/19 15:33 10/25/19 15:33 10/25/19 15:33 10/25/19 15:33 10/25/19 15:33 Results - Labs 10/25/19 17:00 10/26/19 08:05 Abnormal Lab Results - Last 24 Hours (Table) 10/25/19 10/25/19 10/25/19 Range/Units 17:00 17:00 17:13 RDW 17.5 H (11.5-15.5) % Sodium 126 L (137-145) mmol/L Chloride 92 L (98-107) mmol/L Carbon Dioxide 18 L (22-30) mmol/L Creatinine (0.52-1.04) mg/dL Glucose 189 H (74-99) mg/dL POC Glucose (mg/dL) (75-99) mg/dL Urine Appearance Cloudy H (Clear) Urine Protein 1+ H (Negative) Urine Ketones 4+ H (Negative) Urine Bilirubin 1+ H (Negative) Ur Leukocyte Esterase Trace H (Negative) Urine WBC 7 H (0-5) /hpf Ur Squamous Epith Cells 5 H (0-4) /hpf Urine Bacteria Rare H (None) /hpf Urine Mucus Moderate H (None) /hpf 10/26/19 10/26/19 10/26/19 Range/Units 00:25 07:25 08:05 RDW (11.5-15.5) % Sodium 127 L 127 L (137-145) mmol/L Chloride 95 L 97 L (98-107) mmol/L Carbon Dioxide 16 L 17 L (22-30) mmol/L Creatinine 0.43 L (0.52-1.04) mg/dL Glucose 183 H 165 H (74-99) mg/dL POC Glucose (mg/dL) 141 H (75-99) mg/dL Urine Appearance (Clear) Urine Protein (Negative) Urine Ketones (Negative) Urine Bilirubin (Negative) Ur Leukocyte Esterase (Negative) Urine WBC (0-5) /hpf Ur Squamous Epith Cells (0-4) /hpf Urine Bacteria (None) /hpf Urine Mucus (None) /hpf Diabetes panel 10/25/19 10/26/19 10/26/19 Range/Units 17:00 00:25 08:05 Sodium 126 L 127 L 127 L (137-145) mmol/L Potassium 4.4 4.2 4.4 (3.5-5.1) mmol/L Chloride 92 L 95 L 97 L (98-107) mmol/L Carbon Dioxide 18 L 16 L 17 L (22-30) mmol/L BUN 11 9 8 (7-17) mg/dL Creatinine 0.55 0.52 0.43 L (0.52-1.04) mg/dL Glucose 189 H 183 H 165 H (74-99) mg/dL Calcium 9.5 9.2 8.8 (8.4-10.2) mg/dL AST 17 (14-36) U/L ALT 9 (4-34) U/L Alkaline Phosphatase 109 (38-126) U/L Total Protein 6.6 (6.3-8.2) g/dL Albumin 3.9 (3.5-5.0) g/dL Calcium panel 10/25/19 10/26/19 10/26/19 Range/Units 17: 00:25 08:05 Calcium 9.5 9.2 8.8 (8.4-10.2) mg/dL Albumin 3.9 (3.5-5.0) g/dL Pituitary panel 10/25/19 10/26/19 10/26/19 Range/Units 17:00 00:25 08:05 Sodium 126 L 127 L 127 L (137-145) mmol/L Potassium 4.4 4.2 4.4 (3.5-5.1) mmol/L Chloride 92 L 95 L 97 L (98-107) mmol/L Carbon Dioxide 18 L 16 L 17 L (22-30) mmol/L BUN 11 9 8 (7-17) mg/dL Creatinine 0.55 0.52 0.43 L (0.52-1.04) mg/dL Glucose 189 H 183 H 165 H (74-99) mg/dL Calcium 9.5 9.2 8.8 (8.4-10.2) mg/dL Adrenal panel 10/25/19 10/26/19 10/26/19 Range/Units 17:00 00:25 08:05 Sodium 126 L 127 L 127 L (137-145) mmol/L Potassium 4.4 4.2 4.4 (3.5-5.1) mmol/L Chloride 92 L 95 L 97 L (98-107) mmol/L Carbon Dioxide 18 L 16 L 17 L (22-30) mmol/L BUN 11 9 8 (7-17) mg/dL Creatinine 0.55 0.52 0.43 L (0.52-1.04) mg/dL Glucose 189 H 183 H 165 H (74-99) mg/dL Calcium 9.5 9.2 8.8 (8.4-10.2) mg/dL Total Bilirubin 0.4 (0.2-1.3) mg/dL AST 17 (14-36) U/L ALT 9 (4-34) U/L Alkaline Phosphatase 109 (38-126) U/L Total Protein 6.6 (6.3-8.2) g/dL Albumin 3.9 (3.5-5.0) g/dL <Juan José García - Last Filed: 10/26/19 11:02> History of Present Illness History of present illness: As above. Patient just seen in the office yesterday. Having intermittent nausea and vomiting. Her pain right upper quadrant has improved since her cholecystectomy. Her incisions are doing nicely. Yesterday in the office I asked that she regroup with neurology to see if maybe some of her anticonvulsants could be contributing to her nausea since her sister states many of the symptoms started around the time that they were initiated. She did have a CAT scan performed in the ER that was unimpressive. No surgical intervention or plans made at this time. We'll follow. Surgical - Exam Vital Signs Temp Pulse Resp BP Pulse Ox 99.4 F 110 H 18 143/92 98 10/25/19 15:33 10/25/19 15:33 10/25/19 15:33 10/25/19 15:33 10/25/19 15:33 Results - Labs 10/25/19 17:00 10/26/19 08:05 Abnormal Lab Results - Last 24 Hours (Table) 10/25/19 10/25/19 10/25/19 Range/Units 17:00 17:00 17:13 RDW 17.5 H (11.5-15.5) % Sodium 126 L (137-145) mmol/L Chloride 92 L (98-107) mmol/L Carbon Dioxide 18 L (22-30) mmol/L Creatinine (0.52-1.04) mg/dL Glucose 189 H (74-99) mg/dL POC Glucose (mg/dL) (75-99) mg/dL Urine Appearance Cloudy H (Clear) Urine Protein 1+ H (Negative) Urine Ketones 4+ H (Negative) Urine Bilirubin 1+ H (Negative) Ur Leukocyte Esterase Trace H (Negative) Urine WBC 7 H (0-5) /hpf Ur Squamous Epith Cells 5 H (0-4) /hpf Urine Bacteria Rare H (None) /hpf Urine Mucus Moderate H (None) /hpf 10/26/19 10/26/19 10/26/19 Range/Units 00:25 07:25 08:05 RDW (11.5-15.5) % Sodium 127 L 127 L (137-145) mmol/L Chloride 95 L 97 L (98-107) mmol/L Carbon Dioxide 16 L 17 L (22-30) mmol/L Creatinine 0.43 L (0.52-1.04) mg/dL Glucose 183 H 165 H (74-99) mg/dL POC Glucose (mg/dL) 141 H (75-99) mg/dL Urine Appearance (Clear) Urine Protein (Negative) Urine Ketones (Negative) Urine Bilirubin (Negative) Ur Leukocyte Esterase (Negative) Urine WBC (0-5) /hpf Ur Squamous Epith Cells (0-4) /hpf Urine Bacteria (None) /hpf Urine Mucus (None) /hpf Microbiology - Last 24 Hours (Table) 10/26/19 00:15 Urine Culture - Preliminary Urine,Clean Catch Diabetes panel 10/25/19 10/26/19 10/26/19 Range/Units 17:00 00:25 08:05 Sodium 126 L 127 L 127 L (137-145) mmol/L Potassium 4.4 4.2 4.4 (3.5-5.1) mmol/L Chloride 92 L 95 L 97 L (98-107) mmol/L Carbon Dioxide 18 L 16 L 17 L (22-30) mmol/L BUN 11 9 8 (7-17) mg/dL Creatinine 0.55 0.52 0.43 L (0.52-1.04) mg/dL Glucose 189 H 183 H 165 H (74-99) mg/dL Calcium 9.5 9.2 8.8 (8.4-10.2) mg/dL AST 17 (14-36) U/L ALT 9 (4-34) U/L Alkaline Phosphatase 109 (38-126) U/L Total Protein 6.6 (6.3-8.2) g/dL Albumin 3.9 (3.5-5.0) g/dL Calcium panel 10/25/19 10/26/19 10/26/19 Range/Units 17:00 00:25 08:05 Calcium 9.5 9.2 8.8 (8.4-10.2) mg/dL Albumin 3.9 (3.5-5.0) g/dL Pituitary panel 10/25/19 10/26/19 10/26/19 Range/Units 17:00 00:25 08:05 Sodium 126 L 127 L 127 L (137-145) mmol/L Potassium 4.4 4.2 4.4 (3.5-5.1) mmol/L Chloride 92 L 95 L 97 L (98-107) mmol/L Carbon Dioxide 18 L 16 L 17 L (22-30) mmol/L BUN 11 9 8 (7-17) mg/dL Creatinine 0.55 0.52 0.43 L (0.52-1.04) mg/dL Glucose 189 H 183 H 165 H (74-99) mg/dL Calcium 9.5 9.2 8.8 (8.4-10.2) mg/dL Adrenal panel 10/25/19 10/26/19 10/26/19 Range/Units 17:00 00:25 08:05 Sodium 126 L 127 L 127 L (137-145) mmol/L Potassium 4.4 4.2 4.4 (3.5-5.1) mmol/L Chloride 92 L 95 L 97 L (98-107) mmol/L Carbon Dioxide 18 L 16 L 17 L (22-30) mmol/L BUN 11 9 8 (7-17) mg/dL Creatinine 0.55 0.52 0.43 L (0.52-1.04) mg/dL Glucose 189 H 183 H 165 H (74-99) mg/dL Calcium 9.5 9.2 8.8 (8.4-10.2) mg/dL Total Bilirubin 0.4 (0.2-1.3) mg/dL AST 17 (14-36) U/L ALT 9 (4-34) U/L Alkaline Phosphatase 109 (38-126) U/L Total Protein 6.6 (6.3-8.2) g/dL Albumin 3.9 (3.5-5.0) g/dL
[2019-10-26 12:07] LABS: Glucose,Whole Blood 143 mg/dL (75-99)
[2019-10-26 13:29] VITALS: BMI 31.4
[2019-10-26 14:31] LABS: African American GFR (CKD) >90 (>60 ml/min/1.73 sqM); Anion Gap 11 mmol/L; Blood Urea Nitrogen 8 mg/dL (7-17); Calcium 8.6 mg/dL (8.4-10.2); Carbon Dioxide 19 mmol/L (22-30); Chloride 97 mmol/L (98-107); Glucose 139 mg/dL (74-99); Non-African American GFR(CKD) >90 (>60 ml/min/1.73 sqM); Potassium 3.7 mmol/L (3.5-5.1); Sodium 127 mmol/L (137-145)
--- NOTE | 2019-10-26 15:00 | P.PN ---
Subjective Progress Note Date: 10/26/19 Principal diagnosis: abdominal pain Patient is a 49-year-old female with a past medical history of diabetes mellitus type 2 poorly controlled, recently diagnosed seizure disorder, fibromyalgia, and osteoarthritis who presented to the emergency department with complaints of nausea vomiting and abdominal pain. Of note patient was hospitalized here at the beginning of August secondary to DKA requiring an insulin drip and mental status changes. She was started on Zosyn for possible sinusitis and was seen by ENT who did not feel she had a fungal infection. She had been improving and the plan was for inpatient psychiatric hospital stay however she developed status epilepticus and she was loaded with Dilantin and Keppra. She was also started on acyclovir due to possible meningitis or encephalitis. LP was done which showed no leukocytes-HSV, VZV, VDRL, enterovir us, PCR, and cryptococcus antigens were sent. Repeat EEG continue to so some epileptiform changes and she was subsequently transferred to [facility] for continuous EEG monitoring. Apparently at [facility] she was diagnosis seizures and started on 3 different antiepileptic medications. She was again hospitalized here from 10/11 through 10/17 secondary to acute cholecystitis and underwent a laparoscopic cholecystectomy. At home she continued to have nausea and vomiting which worsened over 3 days. She also started Cymbalta. On presentation to the hospital this time she was found to be tachycardic in the emergency department with the remainder of her vital signs were within normal limits. Laboratory analysis showed a sodium of 126, chloride 92, carbon dioxide 18, anion gap 16, and glucose of 189. Urinalysis is benign, phenytoin level was normal at 16.6, and COVID-19 testing was negative. Patient seen and examined at bedside. She is no longer having abdominal pain. She is having some nausea but no vomiting. No chest pain or shortness of breath. Objective - Vital Signs Vital signs: Vital Signs Temp 98.8 F 10/26/19 07:30 Pulse 103 H 10/26/19 07:30 Resp 15 10/26/19 07:30 BP 156/91 10/26/19 07:30 Pulse Ox 96 10/26/19 07:30 Intake & Output 10/25/19 10/26/19 10/26/19 18:59 06:59 18:59 Intake Total 420 Balance 420 Weight 93.894 kg 93.894 kg 93.894 kg Intake: Oral 420 Other: Voiding Method Toilet # Voids 1 - Exam General: ill appearing, no distress, appears at stated age Derm: warm, dry Head: atraumatic, normocephalic, symmetric Eyes: EOMI, no lid lag, anicteric sclera Mouth: no lip lesion, mucus membranes moist Cardiovascular: S1S2 reg, no murmur, positive posterior tibial pulse bilateral, Lungs: Decreased bs bilateral, no rhonchi, no rales , no accessory muscle use Abdominal: soft, + tender to palpation diffusely, no guarding, no appreciable organomegaly Ext: no gross muscle atrophy, 1+ edema, no contractures Neuro: CN II-XI grossly intact, no focal neuro deficits Psych: Alert, oriented, appropriate affect - Labs CBC & Chem 7: 10/25/19 17:00 10/26/19 13:43 Labs: Abnormal Lab Results - Last 24 Hours (Table) 10/25/19 10/25/19 10/25/19 Range/Units 17:00 17:00 17:13 RDW 17.5 H (11.5-15.5) % Sodium 126 L (137-145) mmol/L Chloride 92 L (98-107) mmol/L Carbon Dioxide 18 L (22-30) mmol/L Creatinine (0.52-1.04) mg/dL Glucose 189 H (74-99) mg/dL POC Glucose (mg/dL) (75-99) mg/dL Urine Appearance Cloudy H (Clear) Urine Protein 1+ H (Negative) Urine Ketones 4+ H (Negative) Urine Bilirubin 1+ H (Negative) Ur Leukocyte Esterase Trace H (Negative) Urine WBC 7 H (0-5) /hpf Ur Squamous Epith Cells 5 H (0-4) /hpf Urine Bacteria Rare H (None) /hpf Urine Mucus Moderate H (None) /hpf 10/26/19 10/26/19 10/26/19 Range/Units 00:25 07:25 08:05 RDW (11.5-15.5) % Sodium 127 L 127 L (137-145) mmol/L Chloride 95 L 97 L (98-107) mmol/L Carbon Dioxide 16 L 17 L (22-30) mmol/L Creatinine 0.43 L (0.52-1.04) mg/dL Glucose 183 H 165 H (74-99) mg/dL POC Glucose (mg/dL) 141 H (75-99) mg/dL Urine Appearance (Clear) Urine Protein (Negative) Urine Ketones (Negative) Urine Bilirubin (Negative) Ur Leukocyte Esterase (Negative) Urine WBC (0-5) /hpf Ur Squamous Epith Cells (0-4) /hpf Urine Bacteria (None) /hpf Urine Mucus (None) /hpf 10/26/19 10/26/19 Range/Units 12:05 13:43 RDW (11.5-15.5) % Sodium 127 L (137-145) mmol/L Chloride 97 L (98-107) mmol/L Carbon Dioxide 19 L (22-30) mmol/L Creatinine 0.42 L (0.52-1.04) mg/dL Glucose 139 H (74-99) mg/dL POC Glucose (mg/dL) 143 H (75-99) mg/dL Urine Appearance (Clear) Urine Protein (Negative) Urine Ketones (Negative) Urine Bilirubin (Negative) Ur Leukocyte Esterase (Negative) Urine WBC (0-5) /hpf Ur Squamous Epith Cells (0-4) /hpf Urine Bacteria (None) /hpf Urine Mucus (None) /hpf Microbiology - Last 24 Hours (Table) 10/26/19 00:15 Urine Culture - Preliminary Urine,Clean Catch Assessment and Plan Assessment: Intractable nausea and vomiting - question related to meds vs constipation vs gastroparesis - Consult neuro - Consult GI - antiemetics Hyponatremia - SIADH vs hypovolemia vs low solute intake - Follow sodium - Consult nephro - serum and urine osmol, urine sodium levels - hold cymbalta DM 2, improving control - Follow BS - SSI, Levemir - A1C 11.8 08/2019 Seizure disorder -Consult neurology -Continue home antiepileptic medications consistent of Jayson Cochran, and zonegran Hypertension -Blood pressure is slightly elevated with an acceptable range -Continue with lisinopril Fibromyalgia -Cymbalta on hold -Tylenol -Frequent mobilization DVT prophylaxis: SCDs Discussed with: Patient, nursing, Dr. García, Sister Mariola, and Dr. Johnson Anticipated discharge: 2-[address]: home A total of 35 minutes was spent on the care of this complex patient more than 50% of the time was spent in counseling and care coordination.
[2019-10-26] MEDS: SIMETHICONE 40 MG/0.6 ML DROPS 2,000 MG/30 ML BOTTLE PO PRN ×2 (16:01→21:18)
[2019-10-26 17:06] LABS: Glucose,Whole Blood 132 mg/dL (75-99)
--- NOTE | 2019-10-26 17:30 | CONS ---
CONSULTATION DATE OF DICTATION: 10/26/2019 REASON FOR CONSULTATION: Abdominal pain, nausea, vomiting. HISTORY OF PRESENT ILLNESS: The patient is a 49-year-old pleasant white female with history of diabetes mellitus, hypertension, new-onset seizure disorder diagnosed 2 months ago, who was admitted to the hospital because of persistent epigastric pain associated with intermittent nausea and vomiting for the last 2 months' duration. She has these episodes once or twice a week but has epigastric pain almost on a daily basis. She continues to complain of early satiety and weight loss of 20 pounds since the onset of these symptoms. She was diagnosed with new onset of seizures in July of this year during her hospitalization for acute DKA and since then she has been on 3 seizure medications and believes some of her symptoms could be related to the medications. She also takes Motrin on a regular basis. No prior history of peptic ulcer disease. During this hospitalization, she did have a CT of the abdomen and pelvis done that was unremarkable. She did have laparoscopic cholecystectomy a week ago for same symptoms for acalculous cholecystitis, but her symptoms continue to be the same. PAST MEDICAL HISTORY: Significant for diabetes mellitus, fibromyalgia, degenerative joint disease, seizure disorder, hypertension. PAST SURGICAL HISTORY: Gallbladder surgery recently, tonsillectomy, bronchoscopy with biopsies. MEDICATIONS: Medications at home include vitamin B12, folic acid, Lantus, insulin, ketoconazole, lisinopril, Dilantin, Seroquel, Zonegran, Tylenol, Pepto-Bismol, Tums, Cymbalta, iron sulfate, Milk of Magnesia, Prilosec, Zofran, Gas-X, Keppra and ibuprofen. ALLERGIES: CECLOR. SOCIAL HISTORY: No smoking or alcohol use. FAMILY HISTORY: Father had coronary artery disease. REVIEW OF SYSTEMS: CARDIOPULMONARY: No chest pain or shortness of breath. GENITOURINARY: No dysuria or hematuria. MUSCULOSKELETAL: Unremarkable. SKIN: Unremarkable. ENDOCRINE: Unremarkable. PSYCHIATRIC: Unremarkable. NEUROLOGY: Unremarkable. ENT/VISION: Unremarkable. CONSTITUTIONAL: Weight loss of 20 pounds. No fever, chills, night sweats. PHYSICAL EXAMINATION: Blood pressure is 156/91, pulse rate 103, temperature 98.8. HEENT examination unremarkable. Conjunctivae pink. Sclerae anicteric. Oral cavity no lesions. NECK: No JVD or lymph node enlargement. CHEST: Clear to auscultation. HEART: Regular rate and rhythm. ABDOMEN: Soft. Bowel sounds are positive. No organomegaly. EXTREMITIES: No pedal edema. SKIN: No rashes. NEUROLOGIC: Alert and oriented x3. No focal deficits. LABS: Labs done at the time of admission to the hospital: WBC 7.2, hemoglobin 12.9, platelets normal. Basic metabolic panel within normal limits. Sodium 127, BUN and creatinine normal. COVID-[address] of the abdomen and pelvis unremarkable. IMPRESSION: 1. This is a patient who presented to the hospital with persistent nausea, vomiting and epigastric pain associated with weight loss of 20 pounds in the last 2 months' duration. She does have a longstanding history of diabetes mellitus. At this point, possibility of diabetic gastroparesis needs to be considered. The patient has been having early satiety and weight loss of 20 pounds. She also has been taking Motrin on a regular basis, and the possibility of peptic ulcer disease/gastric outlet obstruction also needs to be considered. 2. History of new-onset seizures diagnosed in July of this year. Remains on anti- seizure medications, and some of her symptoms would be medication-related. 3. Diabetes mellitus. 4. Hypertension. 5. History of fibromyalgia. RECOMMENDATIONS: 1. Start her on clear liquid diet. 2. Antiemetics as needed. 3. Protonix 40 mg twice daily. 4. Will proceed with an upper endoscopy tomorrow. I discussed with the patient risks, benefits and complications of the procedure, and she is agreeable to it. Thank you for this consultation. MMODL / IJN: [id number] /
[2019-10-26 20:25] LABS: Glucose,Whole Blood 241 mg/dL (75-99)
[2019-10-26] MEDS ORDERED: FAMOTIDINE 20 MG TAB PO SCH (21:00)
[2019-10-26] MEDS: MELATONIN 3 MG TABLET PO SCH (21:16)
[2019-10-26 22:55] LABS: African American GFR (CKD) >90 (>60 ml/min/1.73 sqM); Anion Gap 8 mmol/L; Blood Urea Nitrogen 6 mg/dL (7-17); Calcium 8.5 mg/dL (8.4-10.2); Carbon Dioxide 22 mmol/L (22-30); Chloride 98 mmol/L (98-107); Glucose 126 mg/dL (74-99); Non-African American GFR(CKD) >90 (>60 ml/min/1.73 sqM); Potassium 3.6 mmol/L (3.5-5.1); Sodium 128 mmol/L (137-145)
[2019-10-27] MEDS: SODIUM CHLORIDE 0.9% 1,000 ML IV SCH (02:32)
[2019-10-27 07:28] LABS: Glucose,Whole Blood 89 mg/dL (75-99)
[2019-10-27] MEDS ORDERED: PROPOFOL 10 MG/ML 20 ML VIAL IV ONE (08:10)
[2019-10-27] MEDS ORDERED: IV FLUID CONTINUATION 1,000 ML IV ONE (08:14)
--- NOTE | 2019-10-27 08:24 | P.PCN ---
Date of Procedure: 10/27/19 Procedure(s) Performed: BRIEF HISTORY: Patient is a 49-year-old, pleasant, female scheduled for an upper endoscopy as a part of evaluation for significant gastric pain associated with intermittent episodes of nausea vomiting for the last 2 months duration. She lost 20 pounds in the last 2 months. PROCEDURE PERFORMED: Esophagogastroduodenoscopy with biopsy. PREOPERATIVE DIAGNOSIS: Forceps and nausea vomitingepigastric pain and weight loss of 2 months duration. IV sedation per anesthesia. PROCEDURE: After informed consent was obtained, the patient was brought into the endoscopy unit. IV sedation was administered by Anesthesia under continuous monitoring. Initially the Olympus GIF-140 video endoscope was inserted into the mouth. Esophagus intubated without any difficulty. It was gradually advanced into the stomach and duodenum and carefully examined. The bulb and the second part of the duodenum appeared normal. The scope at this time was withdrawn to the stomach, adequately insufflated with air, and upon careful examination, mucosa of the antrum, had mild gastritis and biopsies were done from this area. The body, cardia and the fundus appeared normal. The scope was then withdrawn into the esophagus. Small sliding type hiatal hernia noted. The GE junction was located at 39 cm from the incisors. There were multiple linear erosions in the distal esophagus consistent with LA grade B reflux esophagitis. The rest of the esophagus appeared normal. The patient tolerated the procedure well. IMPRESSION: 1. Antral gastritis. 2. Multiple linear erosions in the distal esophagus consistent with LA grade B reflux esophagitis 3. Small hiatal hernia. RECOMMENDATIONS: The findings of this examination were discussed with the patient as well as a family. She was advised to follow with the biopsy results. In the meantime she will continue with antiemetics and Protonix 40 mg twice daily. Some of the symptoms could be related to antiseizure medications and restarted 2 months ago which needs to be addressed. Her diet and advance as tolerated.
[2019-10-27 08:35] LABS: African American GFR (CKD) >90 (>60 ml/min/1.73 sqM); Anion Gap 6 mmol/L; Blood Urea Nitrogen 5 mg/dL (7-17); Calcium 8.7 mg/dL (8.4-10.2); Carbon Dioxide 21 mmol/L (22-30); Chloride 106 mmol/L (98-107); Glucose 88 mg/dL (74-99); Magnesium 1.7 mg/dL (1.6-2.3); Non-African American GFR(CKD) >90 (>60 ml/min/1.73 sqM); Phosphorus 4.7 mg/dL (2.5-4.5); Potassium 3.7 mmol/L (3.5-5.1); Sodium 133 mmol/L (137-145)
[2019-10-27] MEDS: INSULIN ASPART (NovoLOG) 100 UNIT/ML VIAL SQ SCH ×4 (09:45→21:14)
[2019-10-27 09:47] LABS: Anisocytosis Slight; HCT 35.6 % (34.0-46.0); HGB 11.6 gm/dL (11.4-16.0); Hypochromasia Slight; MCH 27.2 pg (25.0-35.0); MCHC 32.6 g/dL (31.0-37.0); MCV 83.4 fL (80.0-100.0); Mean Platelet Volume 11.9; Platelet Count 211 k/uL (150-450); RBC 4.26 m/uL (3.80-5.40); RDW 17.3 % (11.5-15.5); WBC 5.1 k/uL (3.8-10.6)
[2019-10-27] MEDS: ACETAMINOPHEN TAB 325 MG TAB PO PRN ×3 (10:01→21:12)
[2019-10-27] MEDS: LISINOPRIL 20 MG TAB PO SCH (10:01)
[2019-10-27] MEDS: ZONISAMIDE 100 MG CAP PO SCH ×2 (10:01→21:13)
[2019-10-27] MEDS: LORATADINE 10 MG TAB PO SCH (10:01)
[2019-10-27] MEDS: levETIRAcetam 500 MG TAB PO SCH ×2 (10:01→21:13)
[2019-10-27] MEDS: QUEtiapine 25 MG TAB PO SCH ×3 (10:02→21:13)
[2019-10-27] MEDS: PANTOPRAZOLE 40 MG TABLET PO SCH ×2 (10:03→16:29)
[2019-10-27] MEDS: HEPARIN SODIUM,PORCINE 5,000 UNIT/ML 1 ML VIAL SQ SCH ×2 (10:03→16:29)
--- NOTE | 2019-10-27 10:09 | P.PN ---
Subjective Progress Note Date: 10/27/19 Principal diagnosis: Abdominal pain Patient appears to be doing better today. She did undergo EGD this morning showing gastritis and esophagitis. Neurology consult still pending. Objective - Vital Signs Vital signs: Vital Signs Temp 98.3 F 10/27/19 07:00 Pulse 94 10/27/19 07:00 Resp 18 10/27/19 01:38 BP 143/86 10/27/19 07:00 Pulse Ox 96 10/27/19 07:00 Intake & Output 10/26/19 10/27/19 10/27/19 18:59 06:59 18:59 Intake Total 600 100 Balance 600 100 Weight 93.894 kg Intake: IV 100 Oral 600 Other: Voiding Method Toilet # Voids 3 3 - Exam Abdomen: Soft, nontender, nondistended, incisions clean and dry - Labs CBC & Chem 7: 10/27/19 08:49 10/27/19 07:39 Labs: Abnormal Lab Results - Last 24 Hours (Table) 10/26/19 10/26/19 10/26/19 Range/Units 12:05 13:43 17:05 RDW (11.5-15.5) % Sodium 127 L (137-145) mmol/L Chloride 97 L (98-107) mmol/L Carbon Dioxide 19 L (22-30) mmol/L BUN (7-17) mg/dL Creatinine 0.42 L (0.52-1.04) mg/dL Glucose 139 H (74-99) mg/dL POC Glucose (mg/dL) 143 H 132 H (75-99) mg/dL Osmolality 265 L (280-301) mosm/kg Phosphorus (2.5-4.5) mg/dL 10/26/19 10/26/19 10/27/19 Range/Units 20:23 22:26 07:39 RDW (11.5-15.5) % Sodium 128 L 133 L (137-145) mmol/L Chloride (98-107) mmol/L Carbon Dioxide 21 L (22-30) mmol/L BUN 6 L 5 L (7-17) mg/dL Creatinine 0.40 L 0.37 L (0.52-1.04) mg/dL Glucose 126 H (74-99) mg/dL POC Glucose (mg/dL) 241 H (75-99) mg/dL Osmolality 277 L (280-301) mosm/kg Phosphorus 4.7 H (2.5-4.5) mg/dL 10/27/19 Range/Units 08:49 RDW 17.3 H (11.5-15.5) % Sodium (137-145) mmol/L Chloride (98-107) mmol/L Carbon Dioxide (22-30) mmol/L BUN (7-17) mg/dL Creatinine (0.52-1.04) mg/dL Glucose (74-99) mg/dL POC Glucose (mg/dL) (75-99) mg/dL Osmolality (280-301) mosm/kg Phosphorus (2.5-4.5) mg/dL Microbiology - Last 24 Hours (Table) 10/26/19 00:15 Urine Culture - Preliminary Urine,Clean Catch Gram Neg Bacilli Assessment and Plan (1) Intractable abdominal pain Narrative/Plan: EGD results noted. Continue antiacids. Await neurology evaluation to evaluate and possibly modify her anticonvulsants. Advance diet. Current Visit: Yes Status: Acute Code(s): R10.9 - UNSPECIFIED ABDOMINAL PAIN SNOMED Code(s): 20188502
[2019-10-27 11:43] LABS: Glucose,Whole Blood 128 mg/dL (75-99)
[2019-10-27] MEDS: MAGNESIUM SULFATE-D5W PMX 1 GM in DEXTROSE/WATER 1 100ML.BAG IVPB SCH ×2 (11:53→14:08)
--- NOTE | 2019-10-27 15:45 | P.PN ---
Subjective Progress Note Date: 10/27/19 (Delayed charting seen at 11am) Principal diagnosis: abdominal pain Patient is a 49-year-old female with a past medical history of diabetes mellitus type 2 poorly controlled, recently diagnosed seizure disorder, fibromyalgia, and osteoarthritis who presented to the emergency department with complaints of nausea vomiting and abdominal pain. Of note patient was hospita lized here at the beginning of August secondary to DKA requiring an insulin drip and mental status changes. She was started on Zosyn for possible sinusitis and was seen by ENT who did not feel she had a fungal infection. She had been improving and the plan was for inpatient psychiatric hospital stay however she developed status epilepticus and she was loaded with Dilantin and Keppra. She was also started on acyclovir due to possible meningitis or encephalitis. LP was done which showed no leukocytes-HSV, VZV, VDRL, enterovirus, PCR, and cryptococcus antigens were sent. Repeat EEG continue to so some epileptiform changes and she was subsequently transferred to [facility] for continuous EEG monitoring. Apparently at [facility] she was diagnosis seizures and started on 3 different antiepileptic medications. She was again hospitalized here from 10/11 through 10/17 secondary to acute cholecystitis and underwent a laparoscopic cholecystectomy. At home she continued to have nausea and vomiting which worsened over 3 days. She also started Cymbalta. On presentation to the hospital this time she was found to be tachycardic in the emergency department with the remainder of her vital signs were within normal limits. Laboratory analysis showed a sodium of 126, chloride 92, carbon dioxide 18, anion gap 16, and glucose of 189. Urinalysis is benign, phenytoin level was normal at 16.6, and COVID-19 testing was negative. She was treated with IVF fluids which improved her sodium level, and testing was not consistent with SIADH. She was seen by GI and had an EGD completed which showed Esophagitis and antral gastritis they recommended PPI therapy and possible medication adjustment. N eurology was consulted. Patient seen and examined at bedside. She continues to have abdominal pain across the upper part of her abdomen, she states it feels hard and distended, initially stating stated her nausea is better but then she was asking about Zofran. We discussed a trial of Carafate tomorrow to see if it helps if her belly pain does not improve throughout the day. Objective - Vital Signs Vital signs: Vital Signs Temp 98.6 F 10/27/19 15:00 Pulse 112 H 10/27/19 15:00 Resp 16 10/27/19 15:00 BP 153/99 10/27/19 15:00 Pulse Ox 99 10/27/19 15:00 Intake & Output 10/26/19 10/27/19 10/27/19 18:59 06:59 18:59 Intake Total 600 270 Balance 600 270 Weight 93.894 kg Intake: IV 100 Intake, IV Titration 170 Amount Magnesium Sulfate-D5w Pmx 100 1 gm In Dextrose/Water 1 100ml.bag @ 100 mls/hr IVPB Q1H HENRI Rx#: [id number] Sodium Chloride 0.9% 1, 70 000 ml @ 75 mls/hr IV . [id number] HENRI Rx#:[id number] Oral 600 Other: Voiding Method Toilet Toilet # Voids 3 3 - Exam General: non toxic, no distress, appears at stated age Derm: warm, dry Head: atraumatic, normocephalic, symmetric Eyes: EOMI, no lid lag, anicteric sclera Mouth: no lip lesion, mucus membranes moist Cardiovascular: S1S2 reg, no murmur, positive posterior tibial pulse bilateral, Lungs: Decreased bs bilateral, no rhonchi, no rales , no accessory muscle use Abdominal: soft, + tender to palpation diffusely, no guarding, no appreciable organomegaly Ext: no gross muscle atrophy, 1+ edema, no contractures Neuro: CN II-XI grossly intact, no focal neuro deficits Psych: Alert, oriented, flat affect - Labs CBC & Chem 7: 10/27/19 08:49 10/27/19 07:39 Labs: Abnormal Lab Results - Last 24 Hours (Table) 10/26/19 10/26/19 10/26/19 Range/Units 17:05 20:23 22:26 RDW (11.5-15.5) % Sodium 128 L (137-145) mmol/L Carbon Dioxide (22-30) mmol/L BUN 6 L (7-17) mg/dL Creatinine 0.40 L (0.52-1.04) mg/dL Glucose 126 H (74-99) mg/dL POC Glucose (mg/dL) 132 H 241 H (75-99) mg/dL Osmolality (280-301) mosm/kg Phosphorus (2.5-4.5) mg/dL 10/27/19 10/27/19 10/27/19 Range/Units 07:39 08:49 11:41 RDW 17.3 H (11.5-15.5) % Sodium 133 L (137-145) mmol/L Carbon Dioxide 21 L (22-30) mmol/L BUN 5 L (7-17) mg/dL Creatinine 0.37 L (0.52-1.04) mg/dL Glucose (74-99) mg/dL POC Glucose (mg/dL) 128 H (75-99) mg/dL Osmolality 277 L (280-301) mosm/kg Phosphorus 4.7 H (2.5-4.5) mg/dL Microbiology - Last 24 Hours (Table) 10/26/19 00:15 Urine Culture - Preliminary Urine,Clean Catch Gram Neg Bacilli Assessment and Plan Assessment: Intractable nausea and vomiting - question related to meds vs constipation - await neuro recs - GI and surgery recs appreciated - add miralax for constipation - antiemetics esophagitis and gastritis - s/p EGD - stop NSAIDS - PPI BID - GI recs appreciated - IF continued pain in AM add carafate - stop peptobismol for heart burn with constipation Hyponatremia, improving - due to low solute intake - Follow sodium - hold cymbalta DM 2, improving control - Follow BS - SSI, Levemir - A1C 11.8 08/2019 Seizure disorder -[facility] neurology recs -Continue home antiepileptic medications consistent of Jayson Cochran, and zonemel Hypertension -Blood pressure is slightly elevated with an acceptable range -Continue with lisinopril Fibromyalgia -Cymbalta on hold -Tylenol -Frequent mobilization DVT prophylaxis: SCDs Discussed with: Patient, nursing, Sister Mariola, Anticipated discharge: 1-[address]: home A total of 35 minutes was spent on the care of this complex patient more than 50% of the time was spent in counseling and care coordination.
[2019-10-27] MEDS: INSULIN DETEMIR (LEVEMIR) 100 UNIT/ML SYR SQ SCH (16:25)
[2019-10-27] MEDS: POLYETHYLENE GLYCOL 3350 17 GM POWD.PACK PO SCH (16:29)
[2019-10-27 16:43] LABS: Glucose,Whole Blood 164 mg/dL (75-99)
[2019-10-27] MEDS: CALCIUM CARBONATE 500 MG CHEWABLE PO PRN ×2 (16:50→21:18)
[2019-10-27 21:07] LABS: Glucose,Whole Blood 256 mg/dL (75-99)
[2019-10-27] MEDS: MELATONIN 3 MG TABLET PO SCH (21:13)
[2019-10-28] MEDS: HEPARIN SODIUM,PORCINE 5,000 UNIT/ML 1 ML VIAL SQ SCH ×3 (00:10→16:13)
[2019-10-28] MEDS: SODIUM CHLORIDE 0.9% 1,000 ML IV SCH (00:11)
[2019-10-28] MEDS: ACETAMINOPHEN TAB 325 MG TAB PO PRN ×2 (03:36→12:10)
[2019-10-28 06:51] LABS: Anisocytosis Slight; HCT 38.2 % (34.0-46.0); HGB 11.5 gm/dL (11.4-16.0); Hypochromasia Marked; MCHC 30.2 g/dL (31.0-37.0); MCV 89.2 fL (80.0-100.0); Mean Platelet Volume 8.8; Platelet Count 210 k/uL (150-450); RBC 4.28 m/uL (3.80-5.40); RDW 17.5 % (11.5-15.5); WBC 4.3 k/uL (3.8-10.6)
[2019-10-28] MEDS ORDERED: INSULIN DETEMIR (LEVEMIR) 100 UNIT/ML SYR SQ SCH (07:00)
[2019-10-28 07:08] LABS: African American GFR (CKD) >90 (>60 ml/min/1.73 sqM); Amylase <30 U/L (30-110); Anion Gap 6 mmol/L; Blood Urea Nitrogen 5 mg/dL (7-17); Calcium 8.9 mg/dL (8.4-10.2); Carbon Dioxide 22 mmol/L (22-30); Chloride 104 mmol/L (98-107); Glucose 136 mg/dL (74-99); HDL Cholesterol 36 mg/dL (40-60); Non-African American GFR(CKD) >90 (>60 ml/min/1.73 sqM); Potassium 3.7 mmol/L (3.5-5.1); Sodium 132 mmol/L (137-145); Triglycerides 505 mg/dL (<150)
[2019-10-28 07:13] LABS: Glucose,Whole Blood 131 mg/dL (75-99)
[2019-10-28 07:43] LABS: Cholesterol 352 mg/dL (<200)
[2019-10-28] MEDS: LISINOPRIL 20 MG TAB PO SCH (08:08)
[2019-10-28] MEDS: ZONISAMIDE 100 MG CAP PO SCH (08:08)
[2019-10-28] MEDS: INSULIN ASPART (NovoLOG) 100 UNIT/ML VIAL SQ SCH ×3 (08:09→17:20)
[2019-10-28] MEDS: LORATADINE 10 MG TAB PO SCH (08:09)
[2019-10-28] MEDS: POLYETHYLENE GLYCOL 3350 17 GM POWD.PACK PO SCH (08:09)
[2019-10-28] MEDS: QUEtiapine 25 MG TAB PO SCH ×2 (08:09→16:13)
[2019-10-28] MEDS: PANTOPRAZOLE 40 MG TABLET PO SCH ×2 (08:09→17:21)
[2019-10-28] MEDS ORDERED: levETIRAcetam 250 MG TAB PO SCH (09:00)
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
--- NOTE | 2019-10-28 11:17 | P.PN ---
Subjective Progress Note Date: 10/28/19 Principal diagnosis: Abdominal pain Patient does feel better. She was able to tolerate her breakfast. Her Keppra was decreased by neurology yesterday. No fevers. Objective - Vital Signs Vital signs: Vital Signs Temp 98.3 F 10/28/19 07:00 Pulse 104 H 10/28/19 08:16 Resp 16 10/28/19 08:16 BP 136/92 10/28/19 07:00 Pulse Ox 96 10/28/19 07:00 Intake & Output 10/27/19 10/28/19 10/28/19 18:59 06:59 18:59 Intake Total 270 200 Balance 270 200 Intake: IV 100 Intake, IV Titration 170 Amount Magnesium Sulfate-D5w Pmx 100 1 gm In Dextrose/Water 1 100ml.bag @ 100 mls/hr IVPB Q1H [facility]ENRI Rx#: [id number] Sodium Chloride 0.9% 1, 70 000 ml @ 75 mls/hr IV . [id number] HENRI Rx#:[id number] Oral 200 Other: Voiding Method Toilet Toilet # Voids 1 - Exam Abdomen: Soft, nontender, nondistended, incisions clean dry - Labs CBC & Chem 7: 10/28/19 06:22 10/28/19 06:22 Labs: Abnormal Lab Results - Last 24 Hours (Table) 10/27/19 10/27/19 10/27/19 Range/Units 11:41 16:40 21:05 MCHC (31.0-37.0) g/dL RDW (11.5-15.5) % Sodium (137-145) mmol/L BUN (7-17) mg/dL Creatinine (0.52-1.04) mg/dL Glucose (74-99) mg/dL POC Glucose (mg/dL) 128 H 164 H 256 H (75-99) mg/dL Triglycerides (<150) mg/dL Cholesterol (<200) mg/dL HDL Cholesterol (40-60) mg/dL Amylase (30-110) U/L 10/28/19 10/28/19 10/28/19 Range/Units 06:22 06:22 07:11 MCHC 30.2 L (31.0-37.0) g/dL RDW 17.5 H (11.5-15.5) % Sodium 132 L (137-145) mmol/L BUN 5 L (7-17) mg/dL Creatinine 0.39 L (0.52-1.04) mg/dL Glucose 136 H (74-99) mg/dL POC Glucose (mg/dL) 131 H (75-99) mg/dL Triglycerides 505 H (<150) mg/dL Cholesterol 352 H (<200) mg/dL HDL Cholesterol 36 L (40-60) mg/dL Amylase <30 L (30-110) U/L Microbiology - Last 24 Hours (Table) 10/26/19 00:15 Urine Culture - Final Urine,Clean Catch Escherichia coli Assessment and Plan (1) Intractable abdominal pain Narrative/Plan: Continue diet as tolerated. Increase activity levels. Home per primary service. Current Visit: Yes Status: Acute Code(s): R10.9 - UNSPECIFIED ABDOMINAL PAIN SNOMED Code(s): 83473581
[2019-10-28 11:31] LABS: Glucose,Whole Blood 223 mg/dL (75-99)
--- NOTE | 2019-10-28 11:46 | PN ---
PROGRESS NOTE DATE OF SERVICE: 10/28/2019 The patient is a 49-year-old pleasant white female admitted to the hospital with epigastric pain associated with nausea, vomiting for the last 2 months' duration. Also, has weight loss of 20 pounds. She had an EGD done yesterday that showed a small hiatal hernia and early grade B reflux esophagitis. She is presently on Protonix 40 mg twice daily as well as antiemetics and her symptoms are gradually improving. PHYSICAL EXAMINATION: She appears comfortable, no apparent distress. VITAL SIGNS: Stable. Blood pressure is 136/92, pulse is 104, temperature 98.3. HEENT examination unremarkable. Conjunctivae pink. Sclerae anicteric. Oral cavity, no lesions. NECK: No JVD or lymph node enlargement. CHEST: Clear to auscultation. HEART: Regular rate and rhythm. ABDOMEN: Soft. Bowel sounds are positive. No organomegaly. EXTREMITIES: No pedal edema. SKIN: No rashes. NEUROLOGIC: Alert and oriented x3. No focal deficits. LAB DATA: WBC 4.3, hemoglobin 11.5, platelets normal. Basic metabolic panel is within normal limits. IMPRESSION: 1. Chronic nausea, vomiting of two months duration, status post EGD yesterday that showed early grade B reflux esophagitis and a small hiatal hernia as well as gastritis. Remains on Protonix 40 mg twice daily. Her symptoms are gradually improving. 2. Epigastric pain, improving. 3. Seizure disorder diagnosed about two months ago. Remains on anti-seizure medications, and according to the patient she was seen by Neurology last night and one of her seizure medication dose has decreased and patient is hoping that this will help her symptoms. 4. Fall frequently. 5. Aggressive control of her blood sugars. 6. Will follow with you closely. Thank you for this consultation. MMODL / IJN: [id number] /
[2019-10-28 16:14] LABS: African American GFR (CKD) >90 (>60 ml/min/1.73 sqM); Anion Gap 7 mmol/L; Blood Urea Nitrogen 5 mg/dL (7-17); Calcium 8.9 mg/dL (8.4-10.2); Carbon Dioxide 23 mmol/L (22-30); Chloride 102 mmol/L (98-107); Glucose 240 mg/dL (74-99); Non-African American GFR(CKD) >90 (>60 ml/min/1.73 sqM); Potassium 3.5 mmol/L (3.5-5.1); Sodium 132 mmol/L (137-145)
[2019-10-28 16:34] VITALS: BP 132/86; PULSE 94; RESP 18; TEMP 98.6
[2019-10-28 16:54] LABS: Glucose,Whole Blood 252 mg/dL (75-99)
--- NOTE | 2019-10-28 17:53 | P.DS ---
Providers Date of admission: 10/25/19 20:21 Expected date of discharge: 10/28/19 Attending physician: Taco Robb MD Consults: 10/25/19 20:35 Consult Physician Routine Consulting Provider: Juan José García Consult Reason/Comments: Abd pain; vomiting; cholecystectomy 2 weeks ago Do you want consulting provider notified?: Yes 10/25/19 20:36 Consult Physician Routine Consulting Provider: Domenica Walton Consult Reason/Comments: Vomiting; abd pain Do you want consulting provider notified?: Yes 10/26/19 10:15 Consult Physician Routine Consulting Provider: Catherine Johnson Consult Reason/Comments: multiple antieleptics with persistent N/V Do you want consulting provider notified?: Yes Primary care physician: Skye Perez [facility] Hospital Course: Discharge Diagnosis: Esophagitis and gastritis Intractable nausea and vomiting Hyponatremia Diabetes mellitus type 2 Seizure disorder Hypertension Fibromyalgia [place] phobia with ordering tendencies and depression Hospital Course: Patient is a 49-year-old female with a past medical history of diabetes mellitus type 2 poorly controlled, recently diagnosed seizure disorder, fibromyalgia, and osteoarthritis who presented to the emergency department with complaints of nausea vomiting and abdominal pain. Of note the patient was hospitalized here at the beginning of August secondary to DKA requiring an insulin drip and mental status changes. She was started on Zosyn for possible sinusitis and was seen by ENT who did not feel she had a fungal infection. She had been improving and the plan was for inpatient psychiatric hospital stay however she developed status epilepticus and she was loaded with Dilantin and Keppra. She was also started on acyclovir due to possible meningitis or encephalitis. LP was done which showed no leukocytes-HSV, VZV, VDRL, enterovirus, PCR, and cryptococcus antigens were sent. Repeat EEG continue to so some epileptiform changes and she was subsequently transferred to [facility] for continuous EEG monitoring. Apparently at [facility] she was diagnosis seizures and started on 3 different antiepileptic medications. She was again hospitalized here from 10/11 through 10/17 secondary to acute cholecystitis and underwent a laparoscopic cholecystectomy. At home she continued to have nausea and vomiting which worsened over 3 days. She also started Cymbalta. On presentation to the hospital this time she was found to be tachycardic in the emergency department with the remainder of her vital signs were within normal limits. Laboratory analysis showed a sodium of 126, chloride 92, carbon dioxide 18, anion gap 16, and glucose of 189. Urinalysis is benign, phenytoin level was normal at 16.6, and COVID-19 testing was negative. She was treated with IVF fluids which improved her sodium level, and testing was not consistent with SIADH. She was seen by GI and had an EGD completed which showed Esophagitis and antral gastritis they recommended PPI therapy and possible medication adjustment. Neurology was consulted and recommended decreasing her keppra dose and completing a keppra caitlin. On the morning of 10/27 she had significant improvement in her abdominal pain and nausea, she was tolerating a diet, and felt like she could go home. She was taken off her IVF and her sodium levels remained stable. She was determined stable for discharge. She will stay off cymbalta. She will follow with otology at [facility]. I've also recommended that she establish with a therapist, her sister has found one on the low back area that she will start seeing. We had a long discussion about not using opiate medications for her fibromyalgia. Her and the family are in agreement. She has tried both Lyrica and gabapentin with suboptimal results. We discussed the importance of the stay off NSAIDs and that she could use up to 4 g of Tylenol daily. I also recommended the use of possible topical medication such as capsaicin, Voltaren, or Biafine gel to help with pain. I encouraged ambulation and possible physical therapy. We talked with the importance of mental health and controlling her fibromyalgia symptoms. Patient seen and examined at bedside.Her pain is better, we discussed her pain management, nausea and vomiting is improved. Vital signs reviewed and stable. General: non toxic, no distress, appears at stated age Derm: healing scars on her hands and arm, warm, dry Head: atraumatic, normocephalic, symmetric Eyes: EOMI, no lid lag, anicteric sclera Mouth: no lip lesion, mucus membranes moist Cardiovascular: S1S2 reg, no murmur, positive posterior tibial pulse bilateral, Lungs: CTA bilateral, no rhonchi, no rales , no accessory muscle use Abdominal: soft, nontender to palpation, no guarding, no appreciable organomegaly Ext: no gross muscle atrophy, no edema, no contractures Neuro: CN II-XI grossly intact, no focal neuro deficits Psych: Alert, oriented, appropriate affect A total of 35 minutes of time were spent preparing this complex discharge summary . Patient Condition at Discharge: Stable Plan - Discharge Summary Discharge Rx Participant: Yes New Discharge Prescriptions: New levETIRAcetam [Keppra] 500 mg PO HS tab levETIRAcetam [Keppra] 250 mg PO DAILY #30 tab Polyethylene Glycol 3350 [Miralax] 17 gm PO DAILY powd.pack Pantoprazole [Protonix] 40 mg PO AC-BID #60 tablet.dr Continue Zonisamide [Zonegran] 100 mg PO BID Thiamine [Vitamin B-1] 100 mg PO DAILY QUEtiapine [SEROquel] 25 mg PO TID Phenytoin Sodium Extended [Dilantin] 100 mg PO BID Lisinopril 20 mg PO DAILY Ketoconazole 2% Cream [Nizoral 2%] 1 applic TOPICAL BID Insulin Glargine,Hum.rec.anlog [Lantus Solostar] 20 unit SQ DAILY Insulin Lispro Protamin/Lispro [humaLOG Mix 75-25 Kwikpen] 3 units SQ TID- W/MEALS Folic Acid 1 mg PO DAILY Cyanocobalamin (Vitamin B-12) [Vitamin B-12] 1,000 mcg PO DAILY Simethicone [Gas-X] 125 mg PO DAILY PRN PRN Reason: gas Calcium Carbonate [Tums] 500 - 1,000 mg PO QID PRN PRN Reason: Heartburn Magnesium Hydroxide [Milk of Magnesia] 2,400 mg PO DAILY PRN PRN Reason: Constipation Acetaminophen [Tylenol] 650 mg PO Q6H PRN PRN Reason: Fever And/ Or Pain Cetirizine HCl 10 mg PO DAILY Ondansetron HCl [Zofran] 8 mg PO Q8H PRN PRN Reason: Nausea And Vomiting Discontinued levETIRAcetam [Keppra] 1,000 mg PO BID Ferrous Sulfate [Feosol] 325 mg PO BID Omeprazole Magnesium [PriLOSEC OTC] 20 mg PO DAILY PRN PRN Reason: Heartburn Ibuprofen [Motrin Ib] 200 - 400 mg PO Q6H PRN PRN Reason: Fever And/ Or Pain DULoxetine HCL [Cymbalta] 30 mg PO HS Bismuth Subsalicylate [Pepto-Bismol] 30 ml PO QID PRN PRN Reason: Heartburn Discharge Medication List Cyanocobalamin (Vitamin B-12) [Vitamin B-12] 1,000 mcg PO DAILY 10/10/19 [History] Folic Acid 1 mg PO DAILY 10/10/19 [History] Insulin Glargine,Hum.rec.anlog [Lantus Solostar] 20 unit SQ DAILY 10/10/19 [History] Insulin Lispro Protamin/Lispro [humaLOG Mix 75-25 Kwikpen] 3 units SQ TID- W/MEALS 10/10/19 [History] Ketoconazole 2% Cream [Nizoral 2%] 1 applic TOPICAL BID 10/10/19 [History] Lisinopril 20 mg PO DAILY 10/10/19 [History] Phenytoin Sodium Extended [Dilantin] 100 mg PO BID 10/10/19 [History] QUEtiapine [SEROquel] 25 mg PO TID 10/10/19 [History] Thiamine [Vitamin B-1] 100 mg PO DAILY 10/10/19 [History] Zonisamide [Zonegran] 100 mg PO BID 10/10/19 [History] Acetaminophen [Tylenol] 650 mg PO Q6H PRN 10/25/19 [History] Calcium Carbonate [Tums] 500 - 1,000 mg PO QID PRN 10/25/19 [History] Cetirizine HCl 10 mg PO DAILY 10/25/19 [History] Magnesium Hydroxide [Milk of Magnesia] 2,400 mg PO DAILY PRN 10/25/19 [History] Ondansetron HCl [Zofran] 8 mg PO Q8H PRN 10/25/19 [History] Simethicone [Gas-X] 125 mg PO DAILY PRN 10/25/19 [History] Pantoprazole [Protonix] 40 mg PO AC-BID #60 tablet.dr 10/28/19 [Rx] Polyethylene Glycol 3350 [Miralax] 17 gm PO DAILY powd.pack 10/28/19 [Rx] levETIRAcetam [Keppra] 250 mg PO DAILY #30 tab 10/28/19 [Rx] levETIRAcetam [Keppra] 500 mg PO HS tab 10/28/19 [Rx] Follow up Appointment(s)/Referral(s): Skye Perez MD [Primary Care Provider] - 1-2 days Activity/Diet/Wound Care/Special Instructions: Activity: as tolerated Diet: carb consistent Special Instructions: Keppra 250mg in AM and 500 mg in PM for at least 4 weeks Please get connected with a therapist [facility] Comprehensive Epilepsy Program: [id number] [place] [id number] EPI/Neuromuscular/General Neuro Discharge Disposition: HOME SELF-CARE
[2019-10-28] MEDS ORDERED: levETIRAcetam 500 MG TAB PO SCH (21:00)
[2019-10-29 11:12] LABS: Ferritin 34.4 ng/mL (10.0-291.0)
== END 2019-10-28 19:05 | disposition home or self-care (01) | DRG 392 ==
LOC: EC 15:29 → 4SSUR 20:21
PROVIDERS: ADMIT Internal Medicine; ATTEND Internal Medicine
PROC: 0DB58ZX Excision of Esophagus, Via Natural or Artificial Opening Endoscopic, Diagnostic (ICD-10-PCS; principal; 2019-10-27 09:00)
PROC: 0DB98ZX Excision of Duodenum, Via Natural or Artificial Opening Endoscopic, Diagnostic (ICD-10-PCS; principal; 2019-10-27 09:00)
PROC: 0DB78ZX Excision of Stomach, Pylorus, Via Natural or Artificial Opening Endoscopic, Diagnostic (ICD-10-PCS; principal; 2019-10-27 09:00)
DX: K21.0 Gastro-esophageal reflux disease with esophagitis (principal); E87.1 Hypo-osmolality and hyponatremia; Z20.828 Contact with and (suspected) exposure to other viral communicable diseases; K76.0 Fatty (change of) liver, not elsewhere classified; E11.65 Type 2 diabetes mellitus with hyperglycemia; G40.909 Epilepsy, unspecified, not intractable, without status epilepticus; Z79.4 Long term (current) use of insulin; F32.9 Major depressive disorder, single episode, unspecified; F41.9 Anxiety disorder, unspecified; M79.7 Fibromyalgia; E86.1 Hypovolemia; M19.90 Unspecified osteoarthritis, unspecified site; L98.9 Disorder of the skin and subcutaneous tissue, unspecified; G93.9 Disorder of brain, unspecified; I10 Essential (primary) hypertension; F40.00 Agoraphobia, unspecified; K86.9 Disease of pancreas, unspecified; G47.33 Obstructive sleep apnea (adult) (pediatric); E66.9 Obesity, unspecified; K44.9 Diaphragmatic hernia without obstruction or gangrene; K29.70 Gastritis, unspecified, without bleeding; K59.00 Constipation, unspecified; Z71.3 Dietary counseling and surveillance; Z68.31 Body mass index [BMI] 31.0-31.9, adult; Z79.899 Other long term (current) drug therapy; Z90.49 Acquired absence of other specified parts of digestive tract; Z98.890 Other specified postprocedural states; Z87.440 Personal history of urinary (tract) infections; Z88.1 Allergy status to other antibiotic agents; Z80.9 Family history of malignant neoplasm, unspecified; Z82.49 Family history of ischemic heart disease and other diseases of the circulatory system; Z81.8 Family history of other mental and behavioral disorders
CPT/HCPCS: 36415; 43239; 74177; 80048; 80053; 80061; 80185; 81001; 81025; 82150; 82607; 82728; 82746; 83690; 83735; 83930; 83935; 84100; 84300; 85025; 85027; 87077; 87086; 87186; 87635; 88305; 96361; 96374; 96375; 96376; 99285

== ENCOUNTER 2019-12-02 17:09 | Inpatient (IN) | payer MEDICARE ==
[2019-12-02] MEDS ORDERED: DIAZEPAM 5 MG/ML 2 ML INJ IVP STA (17:27)
[2019-12-02] MEDS ORDERED: SODIUM CHLORIDE 0.9% 1,000 ML IV STA (17:27)
[2019-12-02] MEDS ORDERED: levETIRAcetam IV 1,000 MG in SALINE 1 100ML.BAG IVPB STA (17:27)
--- NOTE | 2019-12-02 17:28 | ED ---
Seizure HPI - General Chief Complaint: Seizure Stated Complaint: Seizure Time Seen by Provider: 12/02/19 17:10 Source: patient, RN notes reviewed, old records reviewed Mode of arrival: ambulatory Limitations: no limitations - History of Present Illness Initial Comments: This is a 49-year-old female ER with seizure history of seizure. Patient is not taking seizure medications for 2 days secondary to feeling sick. Patient is seizures today witnessed by family. Patient denies injury from seizure and currently is at baseline. Per EMS patient was postictal on arrival in [facility] postictal throughout transport MD Complaint: seizure -: minutes(s) Description of Episode: loss of consciousness, tonic-clonic movement -: second(s) Witnessed: yes - by bystander Trauma: No Seizure History: known seizure disorder Place: home Possible Precipitating Event: none Associated Symptoms: denies other symptoms Treatments Prior to Arrival: none - Related Data Home Medications Medication Instructions Recorded Confirmed Cyanocobalamin (Vitamin B-12) 1,000 mcg PO DAILY 10/10/19 10/25/19 [Vitamin B-12] Folic Acid 1 mg PO DAILY 10/10/19 10/25/19 Insulin Glargine,Hum.rec.anlog 20 unit SQ DAILY 10/10/19 10/25/19 [Lantus Solostar] Insulin Lispro Protamin/Lispro 3 units SQ TID-W/MEALS 10/10/19 10/25/19 [humaLOG Mix 75-25 Kwikpen] Ketoconazole 2% Cream [Nizoral 2%] 1 applic TOPICAL BID 10/10/19 10/25/19 Lisinopril 20 mg PO DAILY 10/10/19 10/25/19 Phenytoin Sodium Extended 100 mg PO BID 10/10/19 10/25/19 [Dilantin] QUEtiapine [SEROquel] 25 mg PO TID 10/10/19 10/25/19 Thiamine [Vitamin B-1] 100 mg PO DAILY 10/10/19 10/25/19 Zonisamide [Zonegran] 100 mg PO BID 10/10/19 10/25/19 Acetaminophen [Tylenol] 650 mg PO Q6H PRN 10/25/19 10/25/19 Calcium Carbonate [Tums] 500 - 1,000 mg PO QID PRN 10/25/19 10/25/19 Cetirizine HCl 10 mg PO DAILY 10/25/19 10/25/19 Magnesium Hydroxide [Milk of 2,400 mg PO DAILY PRN 10/25/19 10/25/19 Magnesia] Ondansetron HCl [Zofran] 8 mg PO Q8H PRN 10/25/19 10/25/19 Simethicone [Gas-X] 125 mg PO DAILY PRN 10/25/19 10/25/19 Previous Rx's Medication Instructions Recorded Pantoprazole [Protonix] 40 mg PO AC-BID #60 tablet.dr 10/28/19 Polyethylene Glycol 3350 [Miralax] 17 gm PO DAILY powd.pack 10/28/19 levETIRAcetam [Keppra] 250 mg PO DAILY #30 tab 10/28/19 levETIRAcetam [Keppra] 500 mg PO HS tab 10/28/19 Allergies Allergy/AdvReac Type Severity Reaction Status Date / Time cefaclor [From Ceclor] Allergy Rash/Hives Verified 10/26/19 11:04 Review of Systems ROS Statement: Those systems with pertinent positive or pertinent negative responses have been documented in the HPI. ROS Other: All systems not noted in ROS Statement are negative. 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 History of Any Multi-Drug Resistant Organisms: None Reported Past Surgical History: Tonsillectomy Additional Past Surgical History / Comment(s): brochoscopy with biopsy 2011 Past Anesthesia/Blood Transfusion Reactions: No Reported Reaction Past Psychological History: Anxiety, Depression Smoking Status: Never smoker Past Alcohol Use History: None Reported Past Drug Use History: None Reported - Past Family History Father Family Medical History: Cancer Additional Family Medical History / Comment(s): heart disease General Exam Limitations: no limitations General appearance: alert, in no apparent distress Head exam: Present: atraumatic, normocephalic, normal inspection Eye exam: Present: normal appearance, PERRL, EOMI. Absent: scleral icterus, conjunctival injection, periorbital swelling ENT exam: Present: normal exam, mucous membranes moist Neck exam: Present: normal inspection. Absent: tenderness, meningismus, lymphadenopathy Respiratory exam: Present: normal lung sounds bilaterally. Absent: respiratory distress, wheezes, rales, rhonchi, stridor Cardiovascular Exam: Present: regular rate, normal rhythm, normal heart sounds. Absent: systolic murmur, diastolic murmur, rubs, gallop, clicks GI/Abdominal exam: Present: soft, normal bowel sounds. Absent: distended, tenderness, guarding, rebound, rigid Extremities exam: Present: normal inspection, full ROM, normal capillary refill. Absent: tenderness, pedal edema, joint swelling, calf tenderness Back exam: Present: normal inspection Neurological exam: Present: alert, oriented X3, CN II-XII intact Psychiatric exam: Present: normal affect, normal mood Skin exam: Present: warm, dry, intact, normal color. Absent: rash Course Vital Signs 12/02/19 17:18 Temperature 98.3 F Pulse Rate 99 Respiratory 18 Rate Blood Pressure 138/92 O2 Sat by Pulse 99 Oximetry - Reevaluation(s) Reevaluation #1: 12/02/19 18:24 Medical records reviewed as well as medication last Reevaluation #2: 12/02/19 18:24 Patient given seizure medication here in the ER and she has missed her home doses Medical Decision Making - Medical Decision Making 29 female history of surgery seizure recurrent seizure here patient currently feeling better, given doses of medications and can be discharged home - Lab Data Result diagrams: 12/02/19 17:35 12/02/19 17:35 Lab Results 12/02/19 12/02/19 Range/Units 17:35 17:35 WBC 5.5 (3.8-10.6) k/uL RBC 4.46 (3.80-5.40) m/uL Hgb 12.3 (11.4-16.0) gm/dL Hct 37.8 (34.0-46.0) % MCV 84.8 (80.0-100.0) fL MCH 27.7 (25.0-35.0) pg MCHC 32.6 (31.0-37.0) g/dL RDW 15.0 (11.5-15.5) % Plt Count 401 (150-450) k/uL Neutrophils % 79 % Lymphocytes % 11 % Monocytes % 7 % Eosinophils % 2 % Basophils % 1 % Neutrophils # 4.4 (1.3-7.7) k/uL Lymphocytes # 0.6 L (1.0-4.8) k/uL Monocytes # 0.4 (0-1.0) k/uL Eosinophils # 0.1 (0-0.7) k/uL Basophils # 0.0 (0-0.2) k/uL Sodium 128 L (137-145) mmol/L Potassium 4.2 (3.5-5.1) mmol/L Chloride 93 L (98-107) mmol/L Carbon Dioxide 22 (22-30) mmol/L Anion Gap 13 mmol/L BUN 8 (7-17) mg/dL Creatinine 0.50 L (0.52-1.04) mg/dL Est GFR (CKD-EPI)AfAm >90 (>60 ml/min/1.73 sqM) Est GFR (CKD-EPI)NonAf >90 (>60 ml/min/1.73 sqM) Glucose 224 H (74-99) mg/dL Calcium 9.3 (8.4-10.2) mg/dL Total Bilirubin 0.4 (0.2-1.3) mg/dL AST 18 (14-36) U/L ALT 12 (4-34) U/L Alkaline Phosphatase 109 (38-126) U/L Total Protein 6.5 (6.3-8.2) g/dL Albumin 3.7 (3.5-5.0) g/dL Salicylates <1.0 mg/dL Acetaminophen <10.0 ug/mL Serum Alcohol <10 mg/dL - EKG Data -: EKG Interpreted by Me (EKG shows sinus tachycardia 111, ME 13 QRS 74 QTc 454) Disposition Clinical Impression: Altered mental status, History of seizures, Epileptic seizure, generalized Disposition: HOME SELF-CARE Condition: Good Instructions (If sedation given, give patient instructions): Recurrent Seizures in Adults (ED) Is patient prescribed a controlled substance at d/c from ED?: No Referrals: Skye Perez MD [Primary Care Provider] - 1-2 days
[2019-12-02 17:46] LABS: Basophils % (A) 1 %; Eosinophils # (A) 0.1 k/uL (0-0.7); Eosinophils % (A) 2 %; HCT 37.8 % (34.0-46.0); HGB 12.3 gm/dL (11.4-16.0); Lymphocytes # (A) 0.6 k/uL (1.0-4.8); Lymphocytes % (A) 11 %; MCH 27.7 pg (25.0-35.0); MCHC 32.6 g/dL (31.0-37.0); MCV 84.8 fL (80.0-100.0); Mean Platelet Volume 7.9; Monocytes # (A) 0.4 k/uL (0-1.0); Monocytes % (A) 7 %; Neutrophils # (A) 4.4 k/uL (1.3-7.7); Neutrophils % (A) 79 %; Platelet Count 401 k/uL (150-450); RBC 4.46 m/uL (3.80-5.40); WBC 5.5 k/uL (3.8-10.6)
[2019-12-02 17:57] LABS: ALT 12 U/L (4-34); AST 18 U/L (14-36); Acetaminophen <10.0 ug/mL; African American GFR (CKD) >90 (>60 ml/min/1.73 sqM); Albumin 3.7 g/dL (3.5-5.0); Alcohol <10 mg/dL; Alkaline Phosphatase 109 U/L (38-126); Anion Gap 13 mmol/L; Blood Urea Nitrogen 8 mg/dL (7-17); Calcium 9.3 mg/dL (8.4-10.2); Carbon Dioxide 22 mmol/L (22-30); Chloride 93 mmol/L (98-107); Glucose 224 mg/dL (74-99); Non-African American GFR(CKD) >90 (>60 ml/min/1.73 sqM); Potassium 4.2 mmol/L (3.5-5.1); Salicylate <1.0 mg/dL; Sodium 128 mmol/L (137-145); Total Bilirubin 0.4 mg/dL (0.2-1.3); Total Protein 6.5 g/dL (6.3-8.2)
[2019-12-02] MEDS ORDERED: PHENYTOIN SODIUM INJ 500 MG in SODIUM CHLORIDE 0.9% 100 ML IVPB STA (19:05)
[2019-12-02] MEDS ORDERED: HYDROmorphone 1 MG/ML 1 ML SYRINGE IVP STA ×2 (19:23→19:53)
[2019-12-02] MEDS ORDERED: PHENYTOIN SODIUM EXTENDED 100 MG CAP PO STA (19:53)
[2019-12-02] MEDS ORDERED: LACOSAMIDE 50 MG TABLET PO STA (19:53)
[2019-12-02] MEDS ORDERED: levETIRAcetam 500 MG TAB PO STA (19:53)
[2019-12-02] MEDS ORDERED: ONDANSETRON 4 MG ODT STARTER PACK 2 TAB BTL PO STA (19:53)
[2019-12-02] MEDS ORDERED: ONDANSETRON 4 MG/2 ML VIAL IVP STA (19:53)
--- NOTE | 2019-12-02 21:05 | ED ---
Medical Decision Making - Medical Decision Making Auty 9 female having difficulty taking medications at home here in the emergency department. Patient be admitted for treatment of seizures and further monitoring - Lab Data Result diagrams: 12/02/19 17:35 12/02/19 17:35 Lab Results 12/02/19 12/02/19 12/02/19 Range/Units 17:35 17:35 17:35 WBC 5.5 (3.8-10.6) k/uL RBC 4.46 (3.80-5.40) m/uL Hgb 12.3 (11.4-16.0) gm/dL Hct 37.8 (34.0-46.0) % MCV 84.8 (80.0-100.0) fL MCH 27.7 (25.0-35.0) pg MCHC 32.6 (31.0-37.0) g/dL RDW 15.0 (11.5-15.5) % Plt Count 401 (150-450) k/uL Neutrophils % 79 % Lymphocytes % 11 % Monocytes % 7 % Eosinophils % 2 % Basophils % 1 % Neutrophils # 4.4 (1.3-7.7) k/uL Lymphocytes # 0.6 L (1.0-4.8) k/uL Monocytes # 0.4 (0-1.0) k/uL Eosinophils # 0.1 (0-0.7) k/uL Basophils # 0.0 (0-0.2) k/uL Sodium 128 L (137-145) mmol/L Potassium 4.2 (3.5-5.1) mmol/L Chloride 93 L (98-107) mmol/L Carbon Dioxide 22 (22-30) mmol/L Anion Gap 13 mmol/L BUN 8 (7-17) mg/dL Creatinine 0.50 L (0.52-1.04) mg/dL Est GFR (CKD-EPI)AfAm >90 (>60 ml/min/1.73 sqM) Est GFR (CKD-EPI)NonAf >90 (>60 ml/min/1.73 sqM) Glucose 224 H (74-99) mg/dL Calcium 9.3 (8.4-10.2) mg/dL Total Bilirubin 0.4 (0.2-1.3) mg/dL AST 18 (14-36) U/L ALT 12 (4-34) U/L Alkaline Phosphatase 109 (38-126) U/L Total Protein 6.5 (6.3-8.2) g/dL Albumin 3.7 (3.5-5.0) g/dL Salicylates <1.0 mg/dL Acetaminophen <10.0 ug/mL Phenytoin 17.5 ug/mL Serum Alcohol <10 mg/dL Disposition Clinical Impression: Altered mental status, History of seizures, Epileptic seizure, generalized, Dehydration Disposition: ADMITTED IP TO THIS HOSP Condition: Fair Instructions (If sedation given, give patient instructions): Recurrent Seizures in Adults (ED) Referrals: Skye Perez MD [Primary Care Provider] - 1-2 days
[2019-12-02] MEDS ORDERED: PANTOPRAZOLE 40 MG/10 ML VIAL IVP STA (21:06)
[2019-12-02] MEDS: SODIUM CHLORIDE 0.9% 1,000 ML IV ONE (22:13)
[2019-12-02 23:57] LABS: Glucose,Whole Blood 190 mg/dL (75-99)
[2019-12-03] MEDS: INSULIN ASPART (NovoLOG) 100 UNIT/ML VIAL SQ SCH ×7 (00:35→17:33)
[2019-12-03 02:33] LABS: Amphetamine Screen,Urine Not Detected (NotDetected); Barbiturate Screen,Urine Detected (NotDetected); Benzodiazepines Screen,Urine Detected (NotDetected); Cocaine Screen,Urine Not Detected (NotDetected); Methadone Screen, Urine Not Detected (NotDetected); Opiate Screen,Urine Detected (NotDetected); Oxycodone Screen, Urine Not Detected (NotDetected); Phencyclidine Screen,Urine Not Detected (NotDetected); Tricyclic Antidepressant,Urine Not Detected (NotDetected); Urn Cannabinoid Scrn Not Detected (NotDetected)
[2019-12-03 02:33] LABS: Appearance,Urine Cloudy (Clear); Bacteria,Urine Occasional /hpf; Bilirubin,Urine Negative (Negative); Blood,Urine Small (Negative); Color,Urine Yellow; Glucose,Urine (UA) Negative (Negative); Hyaline Casts,Urine 4 /lpf (0-2); Ketones,Urine Negative (Negative); Leukocyte Esterase,Urine Large (Negative); Mucus,Urine Rare /hpf; Nitrite,Urine Negative (Negative); Protein,Urine 1+ (Negative); RBC,Urine 4 /hpf (0-5); Specific Gravity,Urine 1.013 (1.001-1.035); Squamous Epithelial Cell,Urine <1 /hpf (0-4); Urobilinogen,Urine <2.0 mg/dL (<2.0); WBC,Urine >182 /hpf (0-5)
[2019-12-03 07:08] LABS: Glucose,Whole Blood 94 mg/dL (75-99)
[2019-12-03] MEDS: SODIUM CHLORIDE 0.9% 1,000 ML IV ONE ×2 (07:59→17:35)
[2019-12-03] MEDS ORDERED: PANTOPRAZOLE 40 MG/10 ML VIAL IVP SCH (09:00)
[2019-12-03] MEDS ORDERED: MAGNESIUM HYDROXIDE 2,400 MG/10 ML CUP PO PRN (10:03)
[2019-12-03] MEDS ORDERED: POLYETHYLENE GLYCOL 3350 17 GM POWD.PACK PO PRN (10:03)
[2019-12-03] MEDS ORDERED: levETIRAcetam IV 1,000 MG in SALINE 1 100ML.BAG IVPB SCH (11:15)
[2019-12-03 11:34] LABS: Glucose,Whole Blood 125 mg/dL (75-99)
[2019-12-03] MEDS ORDERED: LORazepam 2 MG/ML INJ IV PRN (11:39)
[2019-12-03] MEDS ORDERED: levETIRAcetam 250 MG TAB PO SCH (12:15)
[2019-12-03] MEDS ORDERED: PHENYTOIN SODIUM EXTENDED 100 MG CAP PO SCH (12:15)
[2019-12-03] MEDS ORDERED: ZONISAMIDE 100 MG CAP PO SCH (12:15)
[2019-12-03] MEDS: ACETAMINOPHEN TAB 325 MG TAB PO PRN ×2 (12:18→19:49)
[2019-12-03] MEDS: levETIRAcetam 250 MG TAB PO SCH (12:19)
[2019-12-03] MEDS: ONDANSETRON 4 MG/2 ML VIAL IVP PRN ×2 (12:48→19:50)
--- NOTE | 2019-12-03 12:58 | CONS ---
CONSULTATION DATE OF THIS DICTATION: 12/03/2019. REFERRING PHYSICIAN: Dr. Ibrahim HISTORY OF PRESENT ILLNESS: Thank you for allowing me to evaluate Neli Chavez who is a 49-year-old right- handed white female who presented to [facility] on 12/02/2019 for evaluation of a breakthrough seizure. The patient states that she has been staying at her mother's house with her sister and on the day of presentation, had just taken a shower, sat on the toilet to dry off and sister apparently witnessed a breakthrough seizure. The patient states she was still sitting on the toilet when she woke up and believes the episode was relatively brief, lasting about 1 minute. She is unaware of any further description regarding the event. She has no recollection of the episode and had no prodrome prior to passing out. In particular, the patient denied lightheadedness, nausea, vomiting, or diaphoresis. She denied associated urine/stool incontinence or tongue-biting and states when she woke up, she was not excessively confused. The patient has history of chronic nausea and vomiting, which has been present for several months and led to a cholecystectomy being performed in September 2019, as well as an EGD, which the patient states revealed a hiatal hernia and significant GERD. The patient states over the past 3 days preceding this hospitalization, she was unable to hold down any of her medications (including her anticonvulsants and Klonopin), food, or liquid, and this has been accompanied by abdominal pain. She states her nausea is mildly better today and was able to hold down breakfast. Interestingly, despite the patient reportedly not being able to hold down medications, her presenting Dilantin level was 17.5. The patient has a history of seizures which began in August 2019 during hospitalization at [facility] where she initially presented with DKA on 09/01/2019, and blood sugar of 558. At that time, the patient was found on the floor and evaluated by Dr. Mccabe of Neurology due to developing seizure activity. The patient had multiple EEGs completed during that hospitalization, which demonstrated left temporal epileptiform discharges and partial status epilepticus. CT of the brain at that time demonstrated no acute pathology and lumbar puncture demonstrated CSF WBC 2, CSF RBC 23, CSF protein 49, and CSF glucose 90. The patient was loaded with Dilantin, but due to the continuous seizure activity, transferred to [facility] and discharged on a combination of Keppra, Dilantin, and Zonegran. She continues to follow with an epileptologist at [facility] (Dr. Leung) and recently had a virtual visit with him. She was rehospitalized at [facility] for nausea/vomiting between 10/24 and 10/28/[address] Johnson of Neurology, who reduced her Keppra dose from 500 mg b.i.d. to 250 q.a.m., 500 q.p.m. and raised question of possible nonepileptic events. In addition to the above issues, the patient reports a history of chronic daily headache, which she has had over the past 2 years, she currently reports mild headache which is similar to what she has on a regular basis, characterized as a holocephalic dull ache. The patient has also had numbness involving the left lateral thigh for the past 2 months, she denies any inciting trauma at the onset of this symptom and denies associated back pain. For history of fibromyalgia and osteoarthritis, the patient is maintained on Buprenorphine patch and with history of anxiety, takes Klonopin 0.5 mg b.i.d. on a daily basis. ALLERGIES: [facility] MEDICATIONS: Cetirizine, Keppra 250 q.a.m. 500 mg q.p.m., Zofran, insulin, Gas-X, MiraLAX, milk of magnesia, Tums, Buprenorphine patch, Tylenol, Klonopin 0.5 mg b.i.d., thiamine, Zoloft, Seroquel, folic acid, B12, Protonix, Zonegran 100 mg b.i.d., lisinopril, and Dilantin 100 mg b.i.d. 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 PAST SURGICAL HISTORY: Cholecystectomy in September 2019, lung biopsy, which the patient states was benign and tonsillectomy. SOCIAL HISTORY: Patient denies tobacco, alcohol or drug use. She has no history/diseases. She is single without children and is currently residing at her mother's house with her sister. She does have a house that she lives in by herself when she is not staying with her mother. She states she has a four-wheel walker as well as occasionally using a cane. FAMILY HISTORY: Patient's mother has diabetes mellitus and sarcoid. Sister has bipolar disorder. Father is , who had heart issues including a cardiac transplant. There is no family history of epilepsy. REVIEW OF SYSTEMS: Fourteen systems are reviewed and no dissuade identified. The review of systems documented in history and physical. PHYSICAL EXAM: Upon arrival to the patient's room, she is lying in bed, receptive to the examiner. Affect is flat. She is a fair historian. She is overweight, deconditioned and appears of stated age. VITAL SIGNS: Blood pressure is 151/95 with a pulse of 103, respiratory rate 18, temperature 98.8, weight is 89.3 kg on a 5 foot 7 inch frame. SKIN AND EXTREMITIES: The patient has mild distal lower extremity edema. HEAD AND NECK: no tenderness or signs of trauma. Neck is supple without meningeal signs. Arteries are nontender and without bruits. HEART: Regular rhythm, higher cortical function. MENTAL STATUS: Patient was alert, oriented to self. She knew she was at "[facility]" She knew the city, year, month, day of week and could name the current president. She was able to name, repeat and read there was normal left fist disorientation, finger to nose extinction, double simultaneous stimulation or dysarthria. At times, the course of the evaluation, the patient did have a stuttering speech pattern which was inconsistent and appeared functional in nature. Cranial nerves: Pupils are equal and reactive to light symmetrically. No afferent pupillary defect. Visual gaytan are intact to confrontation. No ptosis or extra movements were full. No nystagmus. Five pinprick light touch intact in all 3 divisions. Motor 5 intact. 7. No facial asymmetry or weakness. Acuity intact for palate. Trapezius strength intact, 12 tongue protruded midline without fasciculation or atrophy. No tongue bite was noted. Motor examination there is no pronator drift. Normal bulk and tone is noted in all major muscle groups with no involuntary movements noted. Strength is 5/5 throughout except at the interossei and iliopsoas which are 4+/5 bilaterally. Sensory intact to pinprick and light touch in all extremities except the patient reports diminution along the lateral left thigh as compared to the right. Reflexes, patient is areflexic throughout. Plantar responses flexor bilaterally. Grajeda's is absent. Coordination finger-to- nose, [id number] movements are intact. Rapid alternating movements are symmetric. DIAGNOSTIC TESTING: The patient's present lab work demonstrates a white blood count of 5.5, hemoglobin" 12.3, platelet count 401. Sodium 128, potassium 4.2, BUN 8 with creatinine 0.5, ALT 12, AST 18. Urinalysis revealed large leukocyte esterase, negative nitrate, greater than 182 WBCs, 4 RBCs. Urine tox screen was positive for opiates, barbiturates and benzodiazepine. Dilantin level 17.5, salicylate level less than 1 cm and level less than 10. Alcohol screen negative. IMPRESSION: 1. Breakthrough seizure in a patient with a history of partial epilepsy, likely secondary to multiple factors including inability to hold down medications including anticonvulsants/Klonopin (resulting in potential benzodiazepine withdrawal), urinary tract infection, lowering seizure threshold and hyponatremia. Previous EEGs have demonstrated left temporal epileptiform discharges and in fact, the patient was reported to be in partial status epilepticus with left temporal onset in August 2019 at which time she was transferred to [facility]. The patient currently follows with Dr. Leung at [facility] and is maintained on Keppra, Dilantin, and Zonegran. 2. Chronic daily headache x2 years. 3. Inconsistent stuttering speech pattern which appears functional in nature. 4. Left lateral thigh numbness x2 months, likely secondary to left meralgia paresthetica. 5. Remote history of obstructive sleep apnea, not on CPAP. 6. Fibromyalgia/osteoarthritis, maintained on chronic narcotics. 7. Depression, anxiety, agoraphobia and history of hoarding. 8. Chronic nausea/vomiting with history of recent cholecystectomy, hiatal hernia, and gastroesophageal reflux disease - deferred to your expertise. 9. Medical problems including diabetes mellitus x10 years and hypertension. RECOMMENDATION: 1. I discussed my impression and plan with the patient and she expressed understanding. Case was also discussed with nursing staff. 2. Reinitiate home anticonvulsant medications and home dose of Klonopin. 3. The patient has been placed under seizure precautions and Ativan will be available on a p.r.n. basis for breakthrough episodes. 4. Will obtain the records from the [facility] hospitalization in August 2019. 5. Treatment of urinary tract infection, electrolyte correction and evaluations/treatment of nausea/vomiting per Primary Service. 6. The patient will follow up with her outpatient neurologist at [facility] upon discharge. 7. Please feel free to contact me if there are further questions from a neurologic standpoint. MMODL / IJN: [id number] / TIFFANIE
--- NOTE | 2019-12-03 13:25 | P.CN ---
Psychiatric Consult - . Consult date: 12/03/19 Consult:: 12/03/19 12:52 IDENTIFYING DATA: This patient is a 39-year-old female who is currently single visit her sister at her mom's house and has no kids and collects as SSD HISTORY OF PRESENT ILLNESS: The patient presented to the hospital after having a seizure and admitting to being noncompliant for the past 2 days due to "feeling sick" as per ER report. Patient seizure was witnessed by family members. Patient does have a history of seizure disorder and was found to have sodium level of 128 and dehydration as well. Patient was admitted to the medical floor for monitoring. Psychiatry was consulted for anxiety and depression. Patient was laying in her bed with her food in front of her and claims that she was not feeling hungry. She describes having a poor appetite and was preoccupied with the "pain and nausea" and when asked to speak more about it she states that it was "all over my body". He states that she's been dealing with fibromyalgia for several years. She states that her mood is depressed. She claims to have poor sleep. She states that she's been doing with these symptoms since August. She denied any recreational drug use including cigarettes and alcohol and denied any access to guns or weapons. At this time patient denies any suicidal or homical ideations, intent or plan. Patient denies any auditory, visual hallucinations and denies any paranoia or delusions PAST PSYCHIATRIC HISTORY: Patient has a a history of anxiety and depression. Patient is currently on Klonopin 0.5 mg twice a day, Zoloft 50 mg daily. Patient denies any previous psychiatric hospitalizations. Patient claims that she follows up with Dr. Miller at [facility] in [place]. Patient denies any history of suicide attempts in the past. PAST MEDICAL HISTORY: Fibromyalgia, diabetes mellitus, osteoarthritis, seizure disorder. ALLERGIES: as per EMR. CHEMICAL DEPENDENCY HISTORY: as per HPI. FAMILY PSYCHIATRIC/SUBSTANCE USE HISTORY: Dates that her sister has bipolar disorder. SOCIAL HISTORY: Patient was born and raised in her on [place] and claims to now live in [place]. 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 She is currently single as and lives at her mother's house with her sister. MENTAL STATUS EXAM: General Appearance: Patient appears to be stated age is alert, directable and appears to be in moderate distress secondary to pain and nausea. Patient appears to have fair hygiene and grooming wearing hospital gown with fair eye contact. Behavior: Patient is calmly lying in bed without any agitated behavior. Attempts to cooperate. Speech: Patient's speech is fluent and nonpressured. Mood/Affect: Patient reports their mood is "depressed", affect is congruent Suicidality/Homicidality: Patient denies having any suicidal or homicidal ideation intent or plan. Perceptions: Patient denies any visual hallucinations and denies any auditory hallucinations Though content/process: There is no evidence of any delusional thought content and thought process is linear and goal-directed. Preoccupied with pain and nausea. Memory and concentration: AOX3, grossly intact for the purposes of this session. Can spell "WORLD" backwards Judgment and insight: Limited IMPRESSIONS: Major depressive disorder, without psychotic features Anxiety disorder unspecified PLAN: -At this time patient DOES NOT meet criteria for inpatient psychiatric admission however we will continue to evaluate patient to see if she does meet criteria tomorrow. -Would recommend the following medication changes/additions: We'll start trazodone 25 mg daily at bedtime for sleep/mood, increase Zoloft to 100 mg daily for mood/anxiety. Can continue on home dose of Klonopin 0.5 mg twice a day for anxiety. -Will continue to follow along -Please contact with any questions. 12/03/19 13:18
--- NOTE | 2019-12-03 14:57 | P.HPIM ---
History of Present Illness H&P Date: 12/03/19 Chief Complaint: Seizure 49-year-old female with PMH of diabetes mellitus, seizure disorder, fibromyalgia and osteoarthritis presented to the ED after a witnessed seizure. Patient reports chronic nausea and vomiting. Patient states that she has been unable to take her medications over the last 2 days. She does complain of some dysuria with urination. Patient does not remember the events of her seizure. She denied any bladder or bowel incontinence or tongue biting. Of note, patient underwent laparoscopic cholecystectomy for calculous cholecystitis on 10/13/2019. Patient also underwent EGD during her previous admission in October 2019 which showed small hiatal hernia and reflux esophagitis. Patient denies any headache, lower extremity edema, fever or chills, cough, chest pain, shortness of breath, palpitations, changes in urination or bowel habits. She denies any dizziness, numbness/weakness/tingling of the extremities. She does report chronic pain related to costochondritis and fibromyalgia that is not very controlled. She does see pain management in the outpatient setting and was started on Buprenorphine patches. In the ED, her vital signs were stable. CBC showed low lymphocyte count. CMP showed sodium 128, chloride 93, creatinine 0.5, glucose of 224. Urinalysis shows large leukocyte esterase. Salicylate, acetaminophen and alcohol levels were negative. UDS was positive for benzodiazepine, barbiturates and opiates. Her Dilantin level was therapeutic. Patient is admitted for anticipated greater than 48 hours for seizures, and neurology evaluation. Review of Systems Pertinent positives and negatives as discussed in HPI, a complete review of systems was performed and all other systems are negative. Past Medical History Past Medical History: Diabetes Mellitus, Fibromyalgia, GERD/Reflux, Osteoarthritis (OA), Pneumonia, Seizure Disorder, Skin Disorder Additional Past Medical History / Comment(s): pt stated a lesion in her brain with new onset seizures with hallucinations in august 2019. hiatal hernia. History of Any Multi-Drug Resistant Organisms: None Reported Past Surgical History: Cholecystectomy, Tonsillectomy Additional Past Surgical History / Comment(s): brochoscopy with biopsy 2011 lung biopsy. lap choly 09/2019. egd 10/25/2019 Past Anesthesia/Blood Transfusion Reactions: No Reported Reaction Past Psychological History: Anxiety, Depression Additional Psychological History / Comment(s): agoraphobia Smoking Status: Never smoker Past Alcohol Use History: None Reported Past Drug Use History: None Reported - Past Family History Father Family Medical History: Cancer Additional Family Medical History / Comment(s): heart disease Medications and Allergies Home Medications Medication Instructions Recorded Confirmed Type Cyanocobalamin (Vitamin B-12) 1,000 mcg PO DAILY 10/10/19 12/02/19 History [Vitamin B-12] Folic Acid 1 mg PO DAILY 10/10/19 12/02/19 History Insulin Glargine,Hum.rec.anlog 20 unit SQ DAILY 10/10/19 12/02/19 History [Lantus Solostar] Insulin Lispro Protamin/Lispro 3 units SQ TID-W/MEALS 10/10/19 12/02/19 History [humaLOG Mix 75-25 Kwikpen] Lisinopril 20 mg PO DAILY 10/10/19 12/02/19 History Phenytoin Sodium Extended 100 mg PO BID 10/10/19 12/02/19 History [Dilantin] QUEtiapine [SEROquel] 25 mg PO TID 10/10/19 12/02/19 History Thiamine [Vitamin B-1] 100 mg PO DAILY 10/10/19 12/02/19 History Zonisamide [Zonegran] 100 mg PO BID 10/10/19 12/02/19 History Acetaminophen [Tylenol] 650 mg PO Q6H PRN 10/25/19 12/02/19 History Calcium Carbonate [Tums] 500 - 1,000 mg PO QID PRN 10/25/19 12/02/19 History Cetirizine HCl 10 mg PO DAILY 10/25/19 12/02/19 History Magnesium Hydroxide [Milk of 2,400 mg PO DAILY PRN 10/25/19 12/02/19 History Magnesia] Ondansetron HCl [Zofran] 8 mg PO Q8H PRN 10/25/19 12/02/19 History Simethicone [Gas-X] 125 mg PO DAILY PRN 10/25/19 12/02/19 History Pantoprazole [Protonix] 40 mg PO AC-BID #60 tablet. 10/28/19 12/02/19 Rx levETIRAcetam [Keppra] 250 mg PO DAILY #30 tab 10/28/19 12/02/19 Rx levETIRAcetam [Keppra] 500 mg PO HS tab 10/28/19 12/02/19 Rx Buprenorphine [Buprenorphine 1 patch TRANSDERM FR 12/02/19 12/02/19 History 10MCG/HR] Polyethylene Glycol 3350 [Miralax] 17 gm PO DAILY PRN 12/02/19 12/02/19 History Sertraline [Zoloft] 50 mg PO HS 12/02/19 12/02/19 History clonazePAM [KlonoPIN] 0.5 mg PO BID 12/02/19 12/02/19 History Allergies Allergy/AdvReac Type Severity Reaction Status Date / Time cefaclor [From [facility]] Allergy Rash/Hives Verified 12/03/19 10:13 Physical Exam Vitals: Vital Signs Temp Pulse Pulse Resp BP BP Pulse Ox 12/03/19 05:58 99.1 F 109 H 16 127/83 100 12/02/19 23:00 98.8 F 96 103 H 18 133/76 151/95 98 12/02/19 21:56 16 98 12/02/19 20:48 106 H 16 135/88 100 12/02/19 20:00 99 18 119/89 100 12/02/19 19:21 101 H 16 152/98 100 12/02/19 17:18 98.3 F 99 18 138/92 99 Intake and Output 12/02/19 12/03/19 12/03/19 22:59 06:59 14:59 Intake Total 1800 240 Output Total 400 Balance 1400 240 Intake: Amount of Fluid Infused ( 1800 ml) Oral 240 Output: Urine 400 Other: # Voids 2 Weight 89.358 kg 89.358 kg General: [non toxic], [no distress], [appears at stated age] Derm: [warm], [dry] Head: [atraumatic], [normocephalic], [symmetric] Eyes: [EOMI], [no lid lag], [anicteric sclera] Mouth: [no lip lesion], [mucus membranes moist] Cardiovascular: [S1S2 reg], [no murmur], [positive posterior tibial pulse bilateral], Lungs: [CTA bilateral], [no rhonchi, no rales] , [no accessory muscle use] Abdominal: [soft], [ nontender to palpation], [no guarding], [no appreciable organomegaly] Ext: [no gross muscle atrophy], [no edema], [no contractures] Neuro: [ CN II-XI grossly intact], [no focal neuro deficits] Psych: [Alert], [oriented], [appropriate affect] Results CBC & Chem 7: 12/02/19 17:35 12/02/19 17:35 Labs: Abnormal Lab Results - Last 24 Hours (Table) 12/02/19 12/02/19 12/02/19 Range/Units 17:35 17:35 23:52 Lymphocytes # 0.6 L (1.0-4.8) k/uL Sodium 128 L (137-145) mmol/L Chloride 93 L (98-107) mmol/L Creatinine 0.50 L (0.52-1.04) mg/dL Glucose 224 H (74-99) mg/dL POC Glucose (mg/dL) 190 H (75-99) mg/dL Urine Appearance (Clear) Urine Protein (Negative) Urine Blood (Negative) Ur Leukocyte Esterase (Negative) Urine WBC (0-5) /hpf Urine WBC Clumps (None) /hpf Urine Bacteria (None) /hpf Hyaline Casts (0-2) /lpf Urine Mucus (None) /hpf Urine Opiates Screen (NotDetected) Ur Barbiturates Screen (NotDetected) U Benzodiazepines Scrn (NotDetected) 12/02/19 12/03/19 12/03/19 Range/Units 23:59 02:15 11:31 Lymphocytes # (1.0-4.8) k/uL Sodium (137-145) mmol/L Chloride (98-107) mmol/L Creatinine (0.52-1.04) mg/dL Glucose (74-99) mg/dL POC Glucose (mg/dL) 125 H (75-99) mg/dL Urine Appearance Cloudy H (Clear) Urine Protein 1+ H (Negative) Urine Blood Small H (Negative) Ur Leukocyte Esterase Large H (Negative) Urine WBC >182 H (0-5) /hpf Urine WBC Clumps Moderate H (None) /hpf Urine Bacteria Occasional H (None) /hpf Hyaline Casts 4 H (0-2) /lpf Urine Mucus Rare H (None) /hpf Urine Opiates Screen Detected H (NotDetected) Ur Barbiturates Screen Detected H (NotDetected) U Benzodiazepines Scrn Detected H (NotDetected) Microbiology - Last 24 Hours (Table) 12/03/19 02:15 Urine Culture - Preliminary Urine,Voided Thrombosis Risk Factor Assmnt - Choose All That Apply Any of the Below Risk Factors Present?: Yes Each Factor Represents 1 point: Age 41-60 years, Obesity (BMI >25) Other Risk Factors: No Other congenital or acquired thrombophilia - If yes, enter type in comment: No Thrombosis Risk Factor Assessment Total Risk Factor Score: 2 Thrombosis Risk Factor Assessment Level: Low Risk Assessment and Plan Assessment: Seizure UTI Hyponatremia Nausea and vomiting Diabetes mellitus with hyperglycemia Chronic pain Her seizure is possibly related to medication noncompliance versus benzodiazepine withdrawal versus UTI. Neurology has evaluated the patient and she has been restarted on her Keppra, Zonisamide and Dilantin. Her home medication of Klonopin has also been restarted. Patient is placed on telemetry and seizure precautions. Patient has been started on Rocephin for UTI. Urine culture has been collected. Her sodium of 128 is likely related to dehydration from her nausea and vomiting. She was given a bolus of fluids in the ED. She was started on normal saline at 100 mL/h. Currently IVF has been discontinued and patient has been encouraged hydration by mouth. We will repeat her BMP tomorrow morning. As stated above, patient recently underwent EGD showing hiatal hernia and GERD. She will be continued on Protonix twice a day. Zofran will be given as needed for nausea or vomiting. Her [id number] glucose is 125. She will be started on her home dose of insulin along with insulin sliding scale, regular Accu-Cheks and hypoglycemic precautions. Patient will be restarted on Buprenorphine patch for her chronic pain related to fibromyalgia. She will be given Dilaudid as needed for severe pain. [Patient admitted after seizure. Neurology on board. She is pending clinical improvement. Likely DC in 1-2 days.]
[2019-12-03] MEDS ORDERED: QUEtiapine 25 MG TAB PO SCH (16:00)
[2019-12-03 17:17] LABS: Glucose,Whole Blood 148 mg/dL (75-99)
[2019-12-03] MEDS: PANTOPRAZOLE 40 MG TABLET PO SCH (17:33)
[2019-12-03] MEDS: CALCIUM CARBONATE 500 MG CHEWABLE PO PRN ×2 (17:33→23:10)
[2019-12-03 20:10] LABS: Glucose,Whole Blood 106 mg/dL (75-99)
[2019-12-03] MEDS ORDERED: levETIRAcetam 500 MG TAB PO SCH (21:00)
[2019-12-03] MEDS ORDERED: clonazePAM 0.5 MG TAB PO SCH (21:00)
[2019-12-03] MEDS ORDERED: MIRTAZAPINE 15 MG TAB PO SCH (21:00)
[2019-12-03] MEDS ORDERED: SERTRALINE 50 MG TAB PO SCH (21:00)
[2019-12-03] MEDS: clonazePAM 0.5 MG TAB PO SCH (21:49)
[2019-12-03] MEDS: levETIRAcetam 500 MG TAB PO SCH (21:49)
[2019-12-03] MEDS: SERTRALINE 100 MG TAB PO SCH (21:49)
[2019-12-03] MEDS: ZONISAMIDE 100 MG CAP PO SCH (21:51)
[2019-12-03] MEDS: PHENYTOIN SODIUM EXTENDED 100 MG CAP PO SCH (21:51)
[2019-12-04] MEDS: ACETAMINOPHEN TAB 325 MG TAB PO PRN ×3 (02:29→19:32)
[2019-12-04] MEDS: ONDANSETRON 4 MG/2 ML VIAL IVP PRN (02:30)
[2019-12-04 07:03] LABS: Glucose,Whole Blood 107 mg/dL (75-99)
[2019-12-04] MEDS: INSULIN DETEMIR (LEVEMIR) 100 UNIT/ML SYR SQ SCH (07:52)
[2019-12-04] MEDS: levETIRAcetam 250 MG TAB PO SCH (07:52)
[2019-12-04] MEDS: FOLIC ACID 1 MG TAB PO SCH (07:53)
[2019-12-04] MEDS: clonazePAM 0.5 MG TAB PO SCH ×2 (07:53→21:30)
[2019-12-04] MEDS: LORATADINE 10 MG TAB PO SCH (07:53)
[2019-12-04] MEDS: LISINOPRIL 20 MG TAB PO SCH (07:53)
[2019-12-04] MEDS: PHENYTOIN SODIUM EXTENDED 100 MG CAP PO SCH ×2 (07:53→21:28)
[2019-12-04] MEDS: ZONISAMIDE 100 MG CAP PO SCH ×2 (07:53→21:30)
[2019-12-04] MEDS: PANTOPRAZOLE 40 MG TABLET PO SCH ×2 (07:53→17:37)
[2019-12-04] MEDS: INSULIN ASPART (NovoLOG) 100 UNIT/ML VIAL SQ SCH ×6 (07:54→17:35)
[2019-12-04 09:27] LABS: ALT 9 U/L (4-34); AST 16 U/L (14-36); African American GFR (CKD) >90 (>60 ml/min/1.73 sqM); Albumin 2.7 g/dL (3.5-5.0); Alkaline Phosphatase 84 U/L (38-126); Anion Gap 7 mmol/L; Blood Urea Nitrogen 5 mg/dL (7-17); Calcium 8.2 mg/dL (8.4-10.2); Carbon Dioxide 23 mmol/L (22-30); Chloride 101 mmol/L (98-107); Glucose 117 mg/dL (74-99); Non-African American GFR(CKD) >90 (>60 ml/min/1.73 sqM); Potassium 3.7 mmol/L (3.5-5.1); Sodium 131 mmol/L (137-145); Total Bilirubin 0.2 mg/dL (0.2-1.3); Total Protein 5.2 g/dL (6.3-8.2)
[2019-12-04 11:21] LABS: Glucose,Whole Blood 103 mg/dL (75-99)
[2019-12-04] MEDS ORDERED: HYDROmorphone 0.5 MG/0.5 ML SYRINGE IVP STA (12:26)
--- NOTE | 2019-12-04 12:44 | P.PN ---
Progress Note - Text Progress Note Date: 12/04/19 Interval History: Patient was seen for psychiatric follow-up today regarding depression and anxi ety. Patient was laying in bed and appeared to be less anxious today and had an improved affect. She was more cooperative with consumer loan underwriter and spoke in a more assertive tone. She claims that her mood and anxiety have been improving since admission. She states that she feels "a lot better" with regards to her mood. She claims that she is not having any suicidal thoughts intent or plan and also claims that she continues to struggle with appetite. She claims that her pain and nausea have been mildly improving in the hospital. She states that she slept too much last night and was requesting to have her Remeron decreased in dose. She showed some improvement with regards to her insight and did not endorse any other issues to consumer loan underwriter. At this time patient denies any suicidal or homical ideations, intent or plan. Patient denies any auditory, visual hallucinations and denies any paranoia or delusions. Patient denies any side effects from the medications and has been compliant with meds. Patient after the interview called her sister on the phone who is her legal guardian Mariola and asked to speak to consumer loan underwriter. Mariola spoke more about patient's struggle with depression for years and also the fact that she has been more isolative and having troubles with appetite. Mariola's questions and concerns were answered and addressed over the phone and was agreeable to have patient follow-up with her psychiatrist at [facility] upon discharge and also explained to her the treatment plan of her medications and also that patient will be going to [facility] when she is medically cleared. Guardian/sister was agreeable to this plan. Mental Status Exam: General Appearance: Patient appears to be stated age is alert, directable and appears to be in no significant distress. She was more cooperative today with consumer loan underwriter and appeared to have a brighter affect. Patient appears to have fair hygiene and grooming wearing hospital gown with fair eye contact. Behavior: Patient is calmly lying in bed without any agitated behavior. Attempts to cooperate. Speech: Patient's speech is fluent and nonpressured. Mood/Affect: Patient reports their mood is "a lot better", affect is congruent with improved affect. Suicidality/Homicidality: Patient denies having any suicidal or homicidal ideation intent or plan. Perceptions: Patient denies any visual hallucinations and denies any auditory hallucinations Though content/process: There is no evidence of any delusional thought content and thought process is linear and goal-directed. Less Preoccupied with pain and nausea. More future oriented. Memory and concentration: AOX3, grossly intact for the purposes of this session Judgment and insight: Limited, improving Assessment Major depressive disorder, without psychotic features Anxiety disorder unspecified Plan: -At this time patient DOES NOT meet criteria for inpatient psychiatric admission. -Would recommend the following medication changes/additions: We'll decrease Remeron to 7.5 mg daily at bedtime for sleep/mood, continue with Zoloft to 100 mg daily for mood/anxiety. Can continue on home dose of Klonopin 0.5 mg twice a day for anxiety. -Will sign off at this time. Staff Nurse spoke with patient's guardian/sister Mariola over the phone, please see above for more details. Sister/guardian is okay with above-mentioned plan and [facility]. -Please contact with any questions.
[2019-12-04] MEDS: SIMETHICONE 80 MG CHEWABLE PO SCH ×3 (12:55→21:28)
[2019-12-04 13:18] VITALS: BMI 30.8
--- NOTE | 2019-12-04 13:24 | P.PN ---
Subjective Progress Note Date: 12/04/19 Principal diagnosis: generalized pain Patient was seen and examined. No acute events overnight. Patient reports pain related to fibromyalgia, 7 out of 10 in severity. No more seizure-like activity. She denies any chest pain, shortness of breath or palpitations. Her nausea has slightly improved since yesterday. She denies any vomiting and is tolerating oral intake. Objective - Vital Signs Vital signs: Vital Signs Temp 97.9 F 12/04/19 12:50 Pulse 97 12/04/19 12:50 Resp 20 12/04/19 12:50 BP 128/84 12/04/19 12:50 Pulse Ox 95 12/04/19 12:50 Intake & Output 12/03/19 12/04/19 12/04/19 18:59 06:59 18:59 Intake Total 1040 600 140 Balance 1040 600 140 Weight 89.358 kg Intake: Intake, IV Titration 800 Amount Sodium Chloride 0.9% 1, 750 000 ml @ 100 mls/hr IV . Q10H ONE Rx#:[id number] cefTRIAXone 1 gm In 50 Sodium Chloride 0.9% 50 ml @ 100 mls/hr IVPB Q24HR [facility] Rx#:[id number] Oral 240 600 140 Other: Voiding Method Toilet # Voids 3 - Exam General: [non toxic], [no distress], [appears at stated age] Derm: [warm], [dry] Head: [atraumatic], [normocephalic], [symmetric] Eyes: [EOMI], [no lid lag], [anicteric sclera] Mouth: [no lip lesion], [mucus membranes moist] Cardiovascular: [S1S2 reg], [no murmur], [positive posterior tibial pulse bilateral], Lungs: [CTA bilateral], [no rhonchi, no rales] , [no accessory muscle use] Abdominal: [soft], [ nontender to palpation], [no guarding], [no appreciable organomegaly] Ext: [no gross muscle atrophy], [no edema], [no contractures] Neuro: [no focal neuro deficits] Psych: [Alert], [oriented], [appropriate affect] - Labs CBC & Chem 7: 12/02/19 17:35 12/04/19 08:52 Labs: Abnormal Lab Results - Last 24 Hours (Table) 12/03/19 12/03/19 12/04/19 Range/Units 17:13 20:07 07:01 Sodium (137-145) mmol/L BUN (7-17) mg/dL Creatinine (0.52-1.04) mg/dL Glucose (74-99) mg/dL POC Glucose (mg/dL) 148 H 106 H 107 H (75-99) mg/dL Calcium (8.4-10.2) mg/dL Total Protein (6.3-8.2) g/dL Albumin (3.5-5.0) g/dL 12/04/19 12/04/19 Range/Units 08:52 11:19 Sodium 131 L (137-145) mmol/L BUN 5 L (7-17) mg/dL Creatinine 0.40 L (0.52-1.04) mg/dL Glucose 117 H (74-99) mg/dL POC Glucose (mg/dL) 103 H (75-99) mg/dL Calcium 8.2 L (8.4-10.2) mg/dL Total Protein 5.2 L (6.3-8.2) g/dL Albumin 2.7 L (3.5-5.0) g/dL Microbiology - Last 24 Hours (Table) 12/03/19 02:15 Urine Culture - Preliminary Urine,Voided Gram Neg Bacilli Assessment and Plan Assessment: Seizure UTI Hyponatremia Nausea and vomiting Diabetes mellitus with hyperglycemia Chronic pain Her seizure is possibly related to medication noncompliance versus benzodiazepine withdrawal versus UTI. Neurology has evaluated the patient and she has been restarted on her Keppra, Zonisamide and Dilantin. Her home medication of Klonopin has also been restarted. Patient is placed on telemetry and seizure precautions. Patient has been started on Rocephin for UTI. Urine culture has been collected and is positive for gram-negative bacilli. Her sodium of 128 is likely related to dehydration from her nausea and vomiting, has improved to 131 today. IVF has been discontinued and patient has been encouraged hydration by mouth. As stated above, patient recently underwent EGD showing hiatal hernia and GERD. She will be continued on Protonix twice a day. Zofran will be given as needed for nausea or vomiting. We'll add simethicone for bloating. Her [id number] glucose is 103. She will be started on her home dose of insulin along with insulin sliding scale, regular Accu-Cheks and hypoglycemic precautions. Patient will be restarted on Buprenorphine patch for her chronic pain related to fibromyalgia. She will be given Dilaudid as needed for severe pain. [Patient admitted after seizure. Neurology on board. Found to have UTI, cultures pending. PT and OT has been consulted for possible LINA. Patient is pending clinical improvement. Likely DC in 1-2 days.]
[2019-12-04 17:02] LABS: Glucose,Whole Blood 143 mg/dL (75-99)
[2019-12-04 20:32] LABS: Glucose,Whole Blood 147 mg/dL (75-99)
[2019-12-04] MEDS ORDERED: MIRTAZAPINE 15 MG TAB PO SCH (21:00)
[2019-12-04] MEDS: levETIRAcetam 500 MG TAB PO SCH (21:27)
[2019-12-04] MEDS: SERTRALINE 100 MG TAB PO SCH (21:28)
[2019-12-04] MEDS: HYDROmorphone 1 MG/ML 1 ML SYRINGE IVP PRN (22:27)
[2019-12-05] MEDS: HYDROmorphone 1 MG/ML 1 ML SYRINGE IVP PRN ×3 (02:38→13:25)
[2019-12-05 07:06] LABS: Glucose,Whole Blood 92 mg/dL (75-99)
[2019-12-05] MEDS: INSULIN ASPART (NovoLOG) 100 UNIT/ML VIAL SQ SCH ×4 (08:27→13:05)
[2019-12-05] MEDS: PANTOPRAZOLE 40 MG TABLET PO SCH (08:30)
[2019-12-05] MEDS: clonazePAM 0.5 MG TAB PO SCH (08:30)
[2019-12-05] MEDS: FOLIC ACID 1 MG TAB PO SCH (08:30)
[2019-12-05] MEDS: LISINOPRIL 20 MG TAB PO SCH (08:30)
[2019-12-05] MEDS: LORATADINE 10 MG TAB PO SCH (08:30)
[2019-12-05] MEDS: levETIRAcetam 250 MG TAB PO SCH (08:32)
[2019-12-05] MEDS: PHENYTOIN SODIUM EXTENDED 100 MG CAP PO SCH (08:35)
[2019-12-05] MEDS: SIMETHICONE 80 MG CHEWABLE PO SCH ×2 (08:37→11:53)
[2019-12-05] MEDS: ZONISAMIDE 100 MG CAP PO SCH (09:08)
[2019-12-05 11:03] LABS: Glucose,Whole Blood 252 mg/dL (75-99)
[2019-12-05 11:32] VITALS: BP 106/72; PULSE 103; RESP 17; TEMP 97.7
[2019-12-05] MEDS: INSULIN DETEMIR (LEVEMIR) 100 UNIT/ML SYR SQ SCH (11:52)
[2019-12-05] MEDS: ONDANSETRON 4 MG/2 ML VIAL IVP PRN (13:11)
--- NOTE | 2019-12-05 14:36 | P.DS ---
Providers Date of admission: 12/02/19 21:06 Expected date of discharge: 12/05/19 Attending physician: Margaret Jansen MD Consults: 12/02/19 21:05 Consult Physician Routine Consulting Provider: Saman Craven Consult Reason/Comments: SZ Do you want consulting provider notified?: Yes 12/03/19 10:08 Consult Physician Urgent Consulting Provider: Chito Toledo Consult Reason/Comments: anxiety, depression, possible mental health placement Do you want consulting provider notified?: Yes Primary care physician: [facility] Course: 49-year-old female with PMH of diabetes mellitus, seizure disorder, fibromyalgia and osteoarthritis presented to the ED after a witnessed seizure. Patient reports chronic nausea and vomiting. Patient states that she has been unable to take her medications over the last 2 days. She does complain of some dysuria with urination. Patient does not remember the events of her seizure. She denied any bladder or bowel incontinence or tongue biting. Of note, patient underwent laparoscopic cholecystectomy for calculous cholecystitis on 10/13/2019. Patient also underwent EGD during her previous admission in October 2019 which showed small hiatal hernia and reflux esophagitis. Patient denies any headache, lower extremity edema, fever or chills, cough, chest pain, shortness of breath, palpitations, changes in urination or bowel habits. She denies any dizziness, numbness/weakness/tingling of the extremities. She does report chronic pain related to costochondritis and fibromyalgia that is not very controlled. She does see pain management in the outpatient setting and was started on Buprenorphine patches. In the ED, her vital signs were stable. CBC showed low lymphocyte count. CMP showed sodium 128, chloride 93, creatinine 0.5, glucose of 224. Urinalysis shows large leukocyte esterase. Salicylate, acetaminophen and alcohol levels were negative. UDS was positive for benzodiazepine, barbiturates and opiates. Her Dilantin level was therapeutic. Patient is admitted for anticipated greater than 48 hours for seizures, and neurology evaluation. Her breakthrough seizure was thought to be related to medication noncompliance versus benzodiazepine withdrawal versus UTI. Neurology was consulted and recommended that patient resume her home antiepileptic medication. She was also restarted on her Klonopin. She was given Rocephin for UTI. Urine culture came back pansensitive E. coli. She received 3 days of IV antibiotics. Patient initially had a sodium of 128 thought to be likely related to dehydration. She was given IVF and her sodium was 131 at the time of discharge. Her nausea and vomiting related to hiatal hernia and GERD was controlled with Protonix and Zofran as needed. Patient was seen and examined. No acute events overnight. No further seizure episodes while inpatient. Patient complains of pain related to fibromyalgia. She also complains of bloating and nausea but no vomiting. She denies any chest pain, shortness of breath or palpitations. No fever or chills. General: [non toxic], [no distress], [appears at stated age] Derm: [warm], [dry] Head: [atraumatic], [normocephalic], [symmetric] Eyes: [EOMI], [no lid lag], [anicteric sclera] Mouth: [no lip lesion], [mucus membranes moist] Cardiovascular: [S1S2 reg], [no murmur], [positive posterior tibial pulse bilateral], Lungs: [CTA bilateral], [no rhonchi, no rales] , [no accessory muscle use] Abdominal: [soft], [ nontender to palpation], [no guarding], [no appreciable organomegaly] Ext: [no gross muscle atrophy], [no edema], [no contractures] Neuro: [no focal neuro deficits] Psych: [Alert], [oriented], [appropriate affect] Seizure UTI Hyponatremia Nausea and vomiting Diabetes mellitus with hyperglycemia Chronic pain Her seizure is possibly related to medication noncompliance versus benzodiazepine withdrawal versus UTI. Neurology has evaluated the patient and she has been restarted on her Keppra, Zonisamide and Dilantin. Her home medication of Klonopin has also been restarted. Patient is placed on telemetry and seizure precautions. Patient has been started on Rocephin for UTI. Urine culture has been collected and is positive for E. coli. She received 3 days of IV antibiotics and does not require any antibiotics for discharge. Her sodium of 128 is likely related to dehydration from her nausea and vomiting, has improved to 131 today. IVF has been discontinued and patient has been encouraged hydration by mouth. As stated above, patient recently underwent EGD showing hiatal hernia and GERD. She will be continued on Protonix twice a day. Zofran will be given as needed for nausea or vomiting. We'll add simethicone for bloating. Her cwcos-vi-[id number] glucose is 252. She will be started on her home dose of insulin along with insulin sliding scale, regular Accu-Cheks and hypoglycemic precautions. Patient will be restarted on Buprenorphine patch for her chronic pain related to fibromyalgia. She will be given Dilaudid as needed for severe pain. [Patient admitted after seizure, neurology on board, plans to resume home medications. Received 3 days of IV antibiotics for UTI. Plans for DC to [facility] today.] Patient Condition at Discharge: Stable Plan - Discharge Summary New Discharge Prescriptions: New Mirtazapine [Remeron] 7.5 mg PO HS tab Sertraline [Zoloft] 100 mg PO HS tab Continue Zonisamide [Zonegran] 100 mg PO BID Thiamine [Vitamin B-1] 100 mg PO DAILY QUEtiapine [SEROquel] 25 mg PO TID Phenytoin Sodium Extended [Dilantin] 100 mg PO BID Lisinopril 20 mg PO DAILY Insulin Glargine,Hum.rec.anlog [Lantus Solostar] 20 unit SQ DAILY Insulin Lispro Protamin/Lispro [humaLOG Mix 75-25 Kwikpen] 3 units SQ TID- W/MEALS Folic Acid 1 mg PO DAILY Cyanocobalamin (Vitamin B-12) [Vitamin B-12] 1,000 mcg PO DAILY Simethicone [Gas-X] 125 mg PO DAILY PRN PRN Reason: Gi Upset Calcium Carbonate [Tums] 500 - 1,000 mg PO QID PRN PRN Reason: Heartburn Magnesium Hydroxide [Milk of Magnesia] 2,400 mg PO DAILY PRN PRN Reason: Constipation Acetaminophen [Tylenol] 650 mg PO Q6H PRN PRN Reason: Fever And/ Or Pain Cetirizine HCl 10 mg PO DAILY Ondansetron HCl [Zofran] 8 mg PO Q8H PRN PRN Reason: Nausea And Vomiting levETIRAcetam [Keppra] 500 mg PO HS tab levETIRAcetam [Keppra] 250 mg PO DAILY #30 tab Pantoprazole [Protonix] 40 mg PO AC-BID #60 tablet. Buprenorphine [Buprenorphine 10MCG/HR] 1 patch TRANSDERM FR Polyethylene Glycol 3350 [Miralax] 17 gm PO DAILY PRN PRN Reason: Constipation clonazePAM [KlonoPIN] 0.5 mg PO BID #4 tab Discontinued Sertraline [Zoloft] 50 mg PO HS Discharge Medication List Cyanocobalamin (Vitamin B-12) [Vitamin B-12] 1,000 mcg PO DAILY 10/10/19 [History] Folic Acid 1 mg PO DAILY 10/10/19 [History] Insulin Glargine,Hum.rec.anlog [Lantus Solostar] 20 unit SQ DAILY 10/10/19 [History] Insulin Lispro Protamin/Lispro [humaLOG Mix 75-25 Kwikpen] 3 units SQ TID-W/MEALS 10/10/19 [History] Lisinopril 20 mg PO DAILY 10/10/19 [History] Phenytoin Sodium Extended [Dilantin] 100 mg PO BID 10/10/19 [History] QUEtiapine [SEROquel] 25 mg PO TID 10/10/19 [History] Thiamine [Vitamin B-1] 100 mg PO DAILY 10/10/19 [History] Zonisamide [Zonegran] 100 mg PO BID 10/10/19 [History] Acetaminophen [Tylenol] 650 mg PO Q6H PRN 10/25/19 [History] Calcium Carbonate [Tums] 500 - 1,000 mg PO QID PRN 10/25/19 [History] Cetirizine HCl 10 mg PO DAILY 10/25/19 [History] Magnesium Hydroxide [Milk of Magnesia] 2,400 mg PO DAILY PRN 10/25/19 [History] Ondansetron HCl [Zofran] 8 mg PO Q8H PRN 10/25/19 [History] Simethicone [Gas-X] 125 mg PO DAILY PRN 10/25/19 [History] Pantoprazole [Protonix] 40 mg PO AC-BID #60 tablet.dr 10/28/19 [Rx] levETIRAcetam [Keppra] 250 mg PO DAILY #30 tab 10/28/19 [Rx] levETIRAcetam [Keppra] 500 mg PO HS tab 10/28/19 [Rx] Buprenorphine [Buprenorphine 10MCG/HR] 1 patch TRANSDERM FR 12/02/19 [History] Polyethylene Glycol 3350 [Miralax] 17 gm PO DAILY PRN 12/02/19 [History] Mirtazapine [Remeron] 7.5 mg PO HS tab 12/05/19 [Rx] Sertraline [Zoloft] 100 mg PO HS tab 12/05/19 [Rx] clonazePAM [KlonoPIN] 0.5 mg PO BID #4 tab 12/05/19 [Rx] Follow up Appointment(s)/Referral(s): Chito Toledo MD [Medical Doctor] - 1 Week (please call office to set up appt. time and date.) Thuan Borden MD [REFERRING] - 1 Week (office to call you with appt. time and date.) Skye Perez MD [Primary Care Provider] - 1-2 days (Please call office to set up appt. time and date.) Patient Instructions/Handouts: Recurrent Seizures in Adults (ED) Activity/Diet/Wound Care/Special Instructions: Diet: Diabetic FU PCP within 3 days of DC. Take all medications as advised. FU with Neurology within 1 week. FU with Psychiatry within 1 week. Discharge Disposition: TRANSFER TO SNF/ECF
[2019-12-07] MEDS ORDERED: BUPRENORPHINE 10 MCG/HR TOPICAL SCH (09:00)
== END 2019-12-05 17:08 | DRG 101 ==
LOC: EC 17:09 → 5NMEDONC 21:06
PROVIDERS: ADMIT Family Medicine; ATTEND Family Medicine
DX: G40.409 Other generalized epilepsy and epileptic syndromes, not intractable, without status epilepticus (principal); N39.0 Urinary tract infection, site not specified; E87.1 Hypo-osmolality and hyponatremia; M94.0 Chondrocostal junction syndrome [Tietze]; M79.7 Fibromyalgia; G89.29 Other chronic pain; G57.12 Meralgia paresthetica, left lower limb; F80.81 Childhood onset fluency disorder; F40.00 Agoraphobia, unspecified; K44.9 Diaphragmatic hernia without obstruction or gangrene; M19.90 Unspecified osteoarthritis, unspecified site; B96.20 Unspecified Escherichia coli [E. coli] as the cause of diseases classified elsewhere; E11.65 Type 2 diabetes mellitus with hyperglycemia; E86.0 Dehydration; F32.9 Major depressive disorder, single episode, unspecified; I10 Essential (primary) hypertension; K21.9 Gastro-esophageal reflux disease without esophagitis; Z79.4 Long term (current) use of insulin; Z79.891 Long term (current) use of opiate analgesic; Z79.899 Other long term (current) drug therapy; Z81.8 Family history of other mental and behavioral disorders; Z83.3 Family history of diabetes mellitus; Z90.49 Acquired absence of other specified parts of digestive tract; Z88.1 Allergy status to other antibiotic agents; Z11.59 Encounter for screening for other viral diseases
CPT/HCPCS: 36415; 80053; 80185; 80186; 80306; 80320; 80329; 81001; 83036; 83520; 85025; 87077; 87086; 87186; 93005; 96365; 96367; 96375; 96376; 99285

== ENCOUNTER 2020-06-24 13:32 | Inpatient (IN) | payer MEDICARE ==
[2020-06-24 14:14] LABS: Basophils % (A) 2 %; Eosinophils # (A) 0.1 k/uL (0-0.7); Eosinophils % (A) 2 %; HCT 40.9 % (34.0-46.0); Lymphocytes # (A) 0.8 k/uL (1.0-4.8); Lymphocytes % (A) 34 %; MCH 30.4 pg (25.0-35.0); MCHC 34.3 g/dL (31.0-37.0); MCV 88.6 fL (80.0-100.0); Mean Platelet Volume 7.8; Monocytes # (A) 0.2 k/uL (0-1.0); Monocytes % (A) 7 %; Neutrophils # (A) 1.3 k/uL (1.3-7.7); Neutrophils % (A) 53 %; Platelet Count 173 k/uL (150-450); RBC 4.61 m/uL (3.80-5.40); RDW 13.6 % (11.5-15.5); WBC 2.4 k/uL (3.8-10.6)
[2020-06-24 14:26] LABS: ALT 8 U/L (4-34); AST 18 U/L (14-36); African American GFR (CKD) >90 (>60 ml/min/1.73 sqM); Albumin 3.3 g/dL (3.5-5.0); Alkaline Phosphatase 54 U/L (38-126); Anion Gap 2 mmol/L; Blood Urea Nitrogen 14 mg/dL (7-17); Calcium 9.4 mg/dL (8.4-10.2); Carbon Dioxide 30 mmol/L (22-30); Chloride 99 mmol/L (98-107); Glucose 154 mg/dL (74-99); Non-African American GFR(CKD) >90 (>60 ml/min/1.73 sqM); Phenytoin (Dilantin) 24.8 ug/mL; Potassium 4.6 mmol/L (3.5-5.1); Sodium 131 mmol/L (137-145); Total Bilirubin 0.4 mg/dL (0.2-1.3); Total Protein 5.7 g/dL (6.3-8.2)
--- NOTE | 2020-06-24 14:35 | ED ---
General Adult HPI - General Chief complaint: Seizure Stated complaint: SEIZURE Time Seen by Provider: 06/24/20 13:35 Source: patient, EMS, RN notes reviewed, old records reviewed Mode of arrival: EMS Limitations: physical limitation - History of Present Illness Initial comments: This a 50-year-old female with past medical history significant for seizures. Patient also has a history of 150 per weight loss since August. Patient is on multiple seizure medications but according to the Cardene her sister the patient has 5-7 seizures a day and this is an increase over the last 3-4 weeks. Patient denies any fever chills. Patient denies patient's sister sent her in because she is having this increased seizures as well as the fact that the patient is refusing to eat and the patient is refusing to have a bowel movement or urinate. Patient's sister states yesterday she did not urinate for over 24 hours. Patient does not give any information as to why she is not eating or why she is not having a bowel movement or urinate. Patient sister with like the patient to the psychiatric evaluation. - Related Data Home Medications Medication Instructions Recorded Confirmed Phenytoin Sodium Extended 100 mg PO BID@0000,1200 10/10/19 06/24/20 [Dilantin] Zonisamide [Zonegran] See Taper PO DIRECTED 10/10/19 06/24/20 Acetaminophen [Tylenol] 650 mg PO Q6H PRN 10/25/19 06/24/20 Calcium Carbonate [Tums] 500 - 1,000 mg PO QID PRN 10/25/19 06/24/20 Cetirizine HCl 10 mg PO HS@0000 10/25/19 06/24/20 Simethicone [Gas-X] 125 mg PO DAILY PRN 10/25/19 06/24/20 ondansetron HCL [Zofran] 8 mg PO Q8H PRN 10/25/19 06/24/20 Mirtazapine [Remeron] 15 mg PO HS@0000 02/16/20 06/24/20 Buprenorphine [Butrans 20 MCG/HOUR] 1 patch TRANSDERM Q7D 06/24/20 06/24/20 Insulin Glargine,Hum.rec.anlog 11 unit SQ DAILY 06/24/20 06/24/20 [Lantus Solostar] Melatonin 5 mg PO HS@0000 06/24/20 06/24/20 Pantoprazole [Protonix] 40 mg PO AC-BID PRN 06/24/20 06/24/20 Sertraline [Zoloft] 200 mg PO HS@0000 06/24/20 06/24/20 clonazePAM [KlonoPIN] 0.5 mg PO BID@0000,1200 06/24/20 06/24/20 lamoTRIgine [LaMICtal] 150 mg PO BID@0000,1200 06/24/20 06/24/20 levETIRAcetam [Keppra] 250 mg PO BID@0000,1200 06/24/20 06/24/20 Previous Rx's Medication Instructions Recorded Dicyclomine [Bentyl] 20 mg PO TID tab 02/23/20 Allergies Allergy/AdvReac Type Severity Reaction Status Date / Time cefaclor [From Ceclor] Allergy Rash/Hives Verified 06/24/20 15:07 Review of Systems ROS Statement: Those systems with pertinent positive or pertinent negative responses have been documented in the HPI. ROS Other: All systems not noted in ROS Statement are negative. Past Medical History Past Medical History: Diabetes Mellitus, Fibromyalgia, GERD/Reflux, Osteoarthritis (OA), Pneumonia, Seizure Disorder, Skin Disorder Additional Past Medical History / Comment(s): pt stated a lesion in her brain with new onset seizures with hallucinations in august 2019. hiatal hernia. History of Any Multi-Drug Resistant Organisms: None Reported Past Surgical History: Cholecystectomy, Tonsillectomy Additional Past Surgical History / Comment(s): brochoscopy with biopsy 2011 lung biopsy. lap choly 09/2019. egd 10/25/2019 Past Anesthesia/Blood Transfusion Reactions: No Reported Reaction Past Psychological History: Anxiety, Depression Smoking Status: Never smoker Past Alcohol Use History: None Reported Past Drug Use History: None Reported - Past Family History Father Family Medical History: Cancer Additional Family Medical History / Comment(s): heart disease General Exam - General Exam Comments Initial Comments: GENERAL: Patient is well-developed and well-nourished. Patient is nontoxic and well- hydrated and is in no acute distress. ENT: Neck is soft and supple. No significant lymphadenopathy is noted. Oropharynx is clear. Moist mucous membranes. Neck has full range of motion without eliciting any pain. EYES: The sclera were anicteric and conjunctiva were pink and moist. Extraocular movements were intact and pupils were equal round and reactive to light. Eyelids were unremarkable. PULMONARY: Unlabored respirations. Good breath sounds bilaterally. No audible rales rhonchi or wheezing was noted. CARDIOVASCULAR: There is a regular rate and rhythm without any murmurs gallops or rubs. ABDOMEN: Soft and nontender with normal bowel sounds. SKIN: Skin is clear with no lesions or rashes and otherwise unremarkable. NEUROLOGIC: Patient is alert and oriented x3. Cranial nerves II through XII are grossly intact. Motor and sensory are also intact. Normal speech, volume and content. Symmetrical smile. MUSCULOSKELETAL: Normal extremities with adequate strength and full range of motion. LYMPHATICS: No significant lymphadenopathy is noted PSYCHIATRIC: Patient refuses to have a bowel movement or urinates but does not Wish is to why. Patient states she does not eat because she doesn't feel like it. Limitations: physical limitation Course Vital Signs 06/24/20 06/24/20 06/24/20 13:35 14:47 15:41 Temperature 98 F Pulse Rate 103 H 85 79 Respiratory 18 18 18 Rate Blood Pressure 111/85 130/92 109/81 O2 Sat by Pulse 99 96 96 Oximetry 06/24/20 16:00 Temperature Pulse Rate Respiratory 18 Rate Blood Pressure O2 Sat by Pulse Oximetry Medical Decision Making - Medical Decision Making EKG showed normal sinus rhythm at 82 bpm VT interval is 126 QRS is 90 QT interval 366 QTC is 427. Patient's EKG shows no ST segment elevation or depression. EPS evaluated the patient and determined the patient could follow-up outpatient with her psychiatrist. Patient's delirium level was 24.8 and because of this and her increased seizures we are going to admit the patient and have neurology see the patient. - Lab Data Result diagrams: 06/24/20 13:56 06/24/20 13:56 Lab Results 06/24/20 06/24/20 06/24/20 Range/Units 13:56 13:56 14:33 WBC 2.4 L (3.8-10.6) k/uL RBC 4.61 (3.80-5.40) m/uL Hgb 14.0 (11.4-16.0) gm/dL Hct 40.9 (34.0-46.0) % MCV 88.6 (80.0-100.0) fL MCH 30.4 (25.0-35.0) pg MCHC 34.3 (31.0-37.0) g/dL RDW 13.6 (11.5-15.5) % Plt Count 173 (150-450) k/uL MPV 7.8 Neutrophils % 53 % Lymphocytes % 34 % Monocytes % 7 % Eosinophils % 2 % Basophils % 2 % Neutrophils # 1.3 (1.3-7.7) k/uL Lymphocytes # 0.8 L (1.0-4.8) k/uL Monocytes # 0.2 (0-1.0) k/uL Eosinophils # 0.1 (0-0.7) k/uL Basophils # 0.0 (0-0.2) k/uL Sodium 131 L (137-145) mmol/L Potassium 4.6 (3.5-5.1) mmol/L Chloride 99 (98-107) mmol/L Carbon Dioxide 30 (22-30) mmol/L Anion Gap 2 mmol/L BUN 14 (7-17) mg/dL Creatinine 0.70 (0.52-1.04) mg/dL Est GFR (CKD-EPI)AfAm >90 (>60 ml/min/1.73 sqM) Est GFR (CKD-EPI)NonAf >90 (>60 ml/min/1.73 sqM) Glucose 154 H (74-99) mg/dL Calcium 9.4 (8.4-10.2) mg/dL Total Bilirubin 0.4 (0.2-1.3) mg/dL AST 18 (14-36) U/L ALT 8 (4-34) U/L Alkaline Phosphatase 54 (38-126) U/L Total Protein 5.7 L (6.3-8.2) g/dL Albumin 3.3 L (3.5-5.0) g/dL Urine Color Yellow Urine Appearance Clear (Clear) Urine pH 6.0 (5.0-8.0) Ur Specific Jackson 1.023 (1.001-1.035) Urine Protein Negative (Negative) Urine Glucose (UA) Negative (Negative) Urine Ketones Negative (Negative) Urine Blood Negative (Negative) Urine Nitrite Negative (Negative) Urine Bilirubin Negative (Negative) Urine Urobilinogen 2.0 (<2.0) mg/dL Ur Leukocyte Esterase Trace H (Negative) Urine RBC 1 (0-5) /hpf Urine WBC 3 (0-5) /hpf Ur Squamous Epith Cells 3 (0-4) /hpf Urine Bacteria Rare H (None) /hpf Hyaline Casts 11 H (0-2) /lpf Urine Mucus Occasional H (None) /hpf Urine Yeast (Budding) Few H (None) /hpf Urine Opiates Screen (NotDetected) Ur Oxycodone Screen (NotDetected) Urine Methadone Screen (NotDetected) Ur Propoxyphene Screen (NotDetected) Ur Barbiturates Screen (NotDetected) Phenytoin 24.8 ug/mL U Tricyclic Antidepress (NotDetected) Ur Phencyclidine Scrn (NotDetected) Ur Amphetamines Screen (NotDetected) U Methamphetamines Scrn (NotDetected) U Benzodiazepines Scrn (NotDetected) Urine Cocaine Screen (NotDetected) U Marijuana (THC) Screen (NotDetected) 06/24/20 Range/Units 14:33 WBC (3.8-10.6) k/uL RBC (3.80-5.40) m/uL Hgb (11.4-16.0) gm/dL Hct (34.0-46.0) % MCV (80.0-100.0) fL MCH (25.0-35.0) pg MCHC (31.0-37.0) g/dL RDW (11.5-15.5) % Plt Count (150-450) k/uL MPV Neutrophils % % Lymphocytes % % Monocytes % % Eosinophils % % Basophils % % Neutrophils # (1.3-7.7) k/uL Lymphocytes # (1.0-4.8) k/uL Monocytes # (0-1.0) k/uL Eosinophils # (0-0.7) k/uL Basophils # (0-0.2) k/uL Sodium (137-145) mmol/L Potassium (3.5-5.1) mmol/L Chloride (98-107) mmol/L Carbon Dioxide (22-30) mmol/L Anion Gap mmol/L BUN (7-17) mg/dL Creatinine (0.52-1.04) mg/dL Est GFR (CKD-EPI)AfAm (>60 ml/min/1.73 sqM) Est GFR (CKD-EPI)NonAf (>60 ml/min/1.73 sqM) Glucose (74-99) mg/dL Calcium (8.4-10.2) mg/dL Total Bilirubin (0.2-1.3) mg/dL AST (14-36) U/L ALT (4-34) U/L Alkaline Phosphatase (38-126) U/L Total Protein (6.3-8.2) g/dL Albumin (3.5-5.0) g/dL Urine Color Urine Appearance (Clear) Urine pH (5.0-8.0) Ur Specific Jackson (1.001-1.035) Urine Protein (Negative) Urine Glucose (UA) (Negative) Urine Ketones (Negative) Urine Blood (Negative) Urine Nitrite (Negative) Urine Bilirubin (Negative) Urine Urobilinogen (<2.0) mg/dL Ur Leukocyte Esterase (Negative) Urine RBC (0-5) /hpf Urine WBC (0-5) /hpf Ur Squamous Epith Cells (0-4) /hpf Urine Bacteria (None) /hpf Hyaline Casts (0-2) /lpf Urine Mucus (None) /hpf Urine Yeast (Budding) (None) /hpf Urine Opiates Screen Not Detected (NotDetected) Ur Oxycodone Screen Not Detected (NotDetected) Urine Methadone Screen Not Detected (NotDetected) Ur Propoxyphene Screen Not Detected (NotDetected) Ur Barbiturates Screen Detected H (NotDetected) Phenytoin ug/mL U Tricyclic Antidepress Not Detected (NotDetected) Ur Phencyclidine Scrn Not Detected (NotDetected) Ur Amphetamines Screen Not Detected (NotDetected) U Methamphetamines Scrn Not Detected (NotDetected) U Benzodiazepines Scrn Detected H (NotDetected) Urine Cocaine Screen Not Detected (NotDetected) U Marijuana (THC) Screen Not Detected (NotDetected) Disposition Clinical Impression: Generalized seizure Disposition: ADMITTED IP TO THIS HOSP Condition: Good Referrals: Skye Perez MD [Primary Care Provider] - 1-2 days Time of Disposition: 17:02
[2020-06-24 14:43] LABS: Appearance,Urine Clear (Clear); Bacteria,Urine Rare /hpf; Bilirubin,Urine Negative (Negative); Blood,Urine Negative (Negative); Budding Yeast,Urine Few /hpf; Color,Urine Yellow; Glucose,Urine (UA) Negative (Negative); Hyaline Casts,Urine 11 /lpf (0-2); Ketones,Urine Negative (Negative); Leukocyte Esterase,Urine Trace (Negative); Mucus,Urine Occasional /hpf; Nitrite,Urine Negative (Negative); Protein,Urine Negative (Negative); RBC,Urine 1 /hpf (0-5); Specific Gravity,Urine 1.023 (1.001-1.035); Squamous Epithelial Cell,Urine 3 /hpf (0-4); WBC,Urine 3 /hpf (0-5)
[2020-06-24 15:01] LABS: Amphetamine Screen,Urine Not Detected (NotDetected); Barbiturate Screen,Urine Detected (NotDetected); Benzodiazepines Screen,Urine Detected (NotDetected); Cocaine Screen,Urine Not Detected (NotDetected); Methadone Screen, Urine Not Detected (NotDetected); Opiate Screen,Urine Not Detected (NotDetected); Oxycodone Screen, Urine Not Detected (NotDetected); Phencyclidine Screen,Urine Not Detected (NotDetected); Tricyclic Antidepressant,Urine Not Detected (NotDetected); Urn Cannabinoid Scrn Not Detected (NotDetected)
[2020-06-24] MEDS ORDERED: NALOXONE 0.4 MG/ML 1 ML VIAL IV PRN (17:07)
[2020-06-24] MEDS ORDERED: ACETAMINOPHEN TAB 325 MG TAB PO PRN (17:10)
--- NOTE | 2020-06-24 18:04 | CT ---
EXAMINATION TYPE: CT brain wo con DATE OF EXAM: 06/24/2020 COMPARISON: 09/07/2019 INDICATION: Seizure. DLP: 1099.4 mGycm, Automated exposure control for dose reduction was used. CONTRAST: None CT of the brain is performed utilizing 3 mm thick sections through the posterior fossa and 3 mm thick sections through the remaining calvarium. Study is performed within 24 hours of arrival to the hosp [facility]. No abnormal hyperdensity is present to suggest an acute intracranial hemorrhage. No mass lesion is evident. No acute infarcts are evident. Ventricles and sulci are appropriate for the patient age. Paranasal sinuses and mastoid air cells within the [id number] are clear. IMPRESSIONS: 1. No acute intracranial process.
--- NOTE | 2020-06-24 18:20 | P.HPIM ---
History of Present Illness H&P Date: 06/24/20 Chief Complaint: seizures 50 year old woman with history of compression fractures, chronic pain, seizure disorder, depression/fibromyalgias presented with seizures. Patient tells me that her seizures started in august, and she was started on AEDs, which had been resolving her seizures over the summer, however, over the last two weeks, her frequency of seizures has increased. Specificially, she tells me that she has had 5-7 seizures/day for the last two weeks. Each last ~1 min and are tonic- clonic in nature. She has post-ictal confusion, but no aura. She has some eli wel/bladder incontinence during these episodes. She denies tongue biting, fevers, chills, visual changes, photo/phonophobia. She does have many chronic complaints including: constipation, nausea, vomiting, abd pain, back pain, numbness/weakness. Her labs were significant for low WBC and elevated phenytoin level. Review of Systems All Systems reviewed and pertinent positives and negatives noted in HPI, all other symptoms are negative Past Medical History Past Medical History: Diabetes Mellitus, Fibromyalgia, GERD/Reflux, Ost eoarthritis (OA), Pneumonia, Seizure Disorder, Skin Disorder Additional Past Medical History / Comment(s): pt stated a lesion in her brain with new onset seizures with hallucinations in august 2019. hiatal hernia. History of Any Multi-Drug Resistant Organisms: None Reported Past Surgical History: Cholecystectomy, Tonsillectomy Additional Past Surgical History / Comment(s): brochoscopy with biopsy 2011 lung biopsy. lap choly 09/2019. egd 10/25/2019 Past Anesthesia/Blood Transfusion Reactions: No Reported Reaction Past Psychological History: Anxiety, Depression Smoking Status: Never smoker Past Alcohol Use History: None Reported Past Drug Use History: None Reported - Past Family History Father Family Medical History: Cancer Additional Family Medical History / Comment(s): heart disease Medications and Allergies Home Medications Medication Instructions Recorded Confirmed Type Phenytoin Sodium Extended 100 mg PO BID@0000,1200 10/10/19 06/24/20 History [Dilantin] Zonisamide [Zonegran] See Taper PO DIRECTED 10/10/19 06/24/20 History Acetaminophen [Tylenol] 650 mg PO Q6H PRN 10/25/19 06/24/20 History Calcium Carbonate [Tums] 500 - 1,000 mg PO QID PRN 10/25/19 06/24/20 History Cetirizine HCl 10 mg PO HS@0000 10/25/19 06/24/20 History Simethicone [Gas-X] 125 mg PO DAILY PRN 10/25/19 06/24/20 History ondansetron HCL [Zofran] 8 mg PO Q8H PRN 10/25/19 06/24/20 History Mirtazapine [Remeron] 15 mg PO HS@0000 02/16/20 06/24/20 History Dicyclomine [Bentyl] 20 mg PO TID tab 02/23/20 06/24/20 Rx Buprenorphine [Butrans 20 MCG/HOUR] 1 patch TRANSDERM Q7D 06/24/20 06/24/20 History Insulin Glargine,Hum.rec.anlog 11 unit SQ DAILY 06/24/20 06/24/20 History [Lantus Solostar] Melatonin 5 mg PO HS@0000 06/24/20 06/24/20 History Pantoprazole [Protonix] 40 mg PO AC-BID PRN 06/24/20 06/24/20 History Sertraline [Zoloft] 200 mg PO HS@0000 06/24/20 06/24/20 History clonazePAM [KlonoPIN] 0.5 mg PO BID@0000,1200 06/24/20 06/24/20 History lamoTRIgine [LaMICtal] 150 mg PO BID@0000,1200 06/24/20 06/24/20 History levETIRAcetam [Keppra] 250 mg PO BID@0000,1200 06/24/20 06/24/20 History Allergies Allergy/AdvReac Type Severity Reaction Status Date / Time cefaclor [From [facility]] Allergy Rash/Hives Verified 06/24/20 15:07 Physical Exam Osteopathic Statement: *. No significant issues noted on an osteopathic structural exam other than those noted in the History and Physical/Consult. Vitals: Vital Signs Temp Pulse Resp BP Pulse Ox 06/24/20 16:00 18 06/24/20 15:41 79 18 109/81 96 06/24/20 14:47 85 18 130/92 96 06/24/20 13:35 98 F 103 H 18 111/85 99 Intake and Output 12/06/24/20 06/24/20 06:59 14:59 22:59 Other: Weight 74.843 kg Gen: awake, alert HEENT: normocephalic, atraumatic, good hearing acuity, moist mucous membranes Resp: good air exchange, breathing comfortably with no accessory muscle use, c lear to auscultation bilaterally CVS: good distal perfusion x 4, regular rate and rhythm without murmurs GI: soft, diffusely tender to palpation, ND : no SPT, no CVAT, munoz catheter not present MSK: no pitting edema, no clubbing Neuro: non-focal, moving all extremities Psych: cooperative, flat affect Results CBC & Chem 7: 06/24/20 13:56 06/24/20 13:56 Labs: Abnormal Lab Results - Last 24 Hours (Table) 06/24/20 06/24/20 06/24/20 Range/Units 13:56 13:56 14:33 WBC 2.4 L (3.8-10.6) k/uL Lymphocytes # 0.8 L (1.0-4.8) k/uL Sodium 131 L (137-145) mmol/L Glucose 154 H (74-99) mg/dL Total Protein 5.7 L (6.3-8.2) g/dL Albumin 3.3 L (3.5-5.0) g/dL Ur Leukocyte Esterase Trace H (Negative) Urine Bacteria Rare H (None) /hpf Hyaline Casts 11 H (0-2) /lpf Urine Mucus Occasional H (None) /hpf Urine Yeast (Budding) Few H (None) /hpf Ur Barbiturates Screen (NotDetected) U Benzodiazepines Scrn (NotDetected) 06/24/20 Range/Units 14:33 WBC (3.8-10.6) k/uL Lymphocytes # (1.0-4.8) k/uL Sodium (137-145) mmol/L Glucose (74-99) mg/dL Total Protein (6.3-8.2) g/dL Albumin (3.5-5.0) g/dL Ur Leukocyte Esterase (Negative) Urine Bacteria (None) /hpf Hyaline Casts (0-2) /lpf Urine Mucus (None) /hpf Urine Yeast (Budding) (None) /hpf Ur Barbiturates Screen Detected H (NotDetected) U Benzodiazepines Scrn Detected H (NotDetected) Assessment and Plan Assessment: 1. Seizures 2. Supratherapeutic Phenytoin Level 3. Fibromyalgia/Depression 4. Chronic Pain 5. Compression Fractures 6. Diabetes Type II 7. GERD without esophagitis 50 year old woman with history of compression fractures, chronic pain, seizure disorder, depression/fibromyalgias presented with seizures of increasing frequency despite compliance to AEDs. Plan: - admit to telemetry, observation - neurology consult, appreciate recs - EEG pending - continue home AEDs, hold phenytoin - ativan PRN for seizures - continue home pain medicatin - continue home bowel regimen - aspart SSI ACHS TID + 11U levemir - continue home PPI - CT Head to r/o bleed Full Code Sister is DPOA
[2020-06-24] MEDS: INSULIN ASPART (NovoLOG) 100 UNIT/ML VIAL SQ SCH (18:53)
[2020-06-24] MEDS: PANTOPRAZOLE 40 MG TABLET PO PRN (18:57)
[2020-06-24] MEDS: DICYCLOMINE 20 MG TAB PO SCH (22:47)
[2020-06-24] MEDS: lamoTRIgine 100 MG TAB PO SCH (22:47)
[2020-06-24] MEDS: clonazePAM 0.5 MG TAB PO SCH (22:47)
[2020-06-24] MEDS: MELATONIN 5 MG TABLET PO SCH (22:48)
[2020-06-24] MEDS: SERTRALINE 100 MG TAB PO SCH (22:48)
[2020-06-24] MEDS: LORATADINE 10 MG TAB PO SCH (22:48)
[2020-06-24] MEDS: MIRTAZAPINE 15 MG TAB PO SCH (22:48)
[2020-06-24] MEDS: levETIRAcetam 250 MG TAB PO SCH (22:48)
[2020-06-25] MEDS: ACETAMINOPHEN TAB 325 MG TAB PO PRN ×3 (00:42→23:23)
[2020-06-25 06:27] LABS: Glucose,Whole Blood 85 mg/dL (75-99)
[2020-06-25] MEDS: INSULIN ASPART (NovoLOG) 100 UNIT/ML VIAL SQ SCH ×3 (06:28→17:05)
[2020-06-25 07:04] LABS: Basophils % (A) 1 %; Eosinophils % (A) 1 %; HCT 37.2 % (34.0-46.0); HGB 12.6 gm/dL (11.4-16.0); Lymphocytes # (A) 1.3 k/uL (1.0-4.8); Lymphocytes % (A) 42 %; MCV 88.4 fL (80.0-100.0); Mean Platelet Volume 7.3; Monocytes # (A) 0.3 k/uL (0-1.0); Monocytes % (A) 8 %; Neutrophils # (A) 1.4 k/uL (1.3-7.7); Neutrophils % (A) 45 %; Platelet Count 182 k/uL (150-450); RBC 4.21 m/uL (3.80-5.40); RDW 13.6 % (11.5-15.5); WBC 3.1 k/uL (3.8-10.6)
[2020-06-25 07:12] LABS: African American GFR (CKD) >90 (>60 ml/min/1.73 sqM); Anion Gap 0 mmol/L; Blood Urea Nitrogen 15 mg/dL (7-17); Calcium 9.1 mg/dL (8.4-10.2); Carbon Dioxide 34 mmol/L (22-30); Chloride 98 mmol/L (98-107); Glucose 96 mg/dL (74-99); Magnesium 1.7 mg/dL (1.6-2.3); Non-African American GFR(CKD) >90 (>60 ml/min/1.73 sqM); Potassium 4.6 mmol/L (3.5-5.1); Sodium 132 mmol/L (137-145)
[2020-06-25] MEDS: INSULIN DETEMIR (LEVEMIR) 100 UNIT/ML SYR SQ SCH (08:14)
[2020-06-25] MEDS: DICYCLOMINE 20 MG TAB PO SCH ×3 (08:24→20:57)
[2020-06-25] MEDS ORDERED: BUPRENORPHINE TOPICAL SCH (09:00)
[2020-06-25] MEDS ORDERED: ZONISAMIDE 100 MG CAP PO SCH ×2 (09:00→21:00)
[2020-06-25] MEDS: ONDANSETRON 4 MG TAB PO PRN (10:45)
--- NOTE | 2020-06-25 11:14 | EEG ---
ELECTROENCEPHALOGRAM REPORT DATE OF SERVICE: 06/25/2020. PREAMBLE: This is a 50-year-old female with history of seizure disorder, came with recurrent seizures and toxic Dilantin level. This study is performed to evaluate for any epileptiform activity. EEG FINDINGS: This is a 21 channel routine EEG recording on patient utilizing 10/20 international system with referential and bipolar montages. Background consists of well developed, well regulated, moderate voltage activity in 8 hertz alpha. Background is posterior dominant and reactive to eye opening and closing. Photic driving response was not clearly seen. Mild drowsiness was seen with appearance of bilaterally symmetric theta frequency rhythm. Deeper stages of sleep were not seen. Intermittent left temporal slowing in theta range was seen. Very rare left temporal sharp waves were seen. No electrographic seizures were recorded. EKG channel revealed no arrhythmia. IMPRESSION: Mildly abnormal EEG due to intermittent left temporal slowing, and very rare left temporal sharp waves. This is suggestive of focal cortical neuronal dysfunction with underlying cortical irritability and tendency for seizure. No electrographic seizures were recorded. MMODL / IJN: [id number] / MTDD
[2020-06-25 12:17] LABS: Glucose,Whole Blood 83 mg/dL (75-99)
[2020-06-25] MEDS: clonazePAM 0.5 MG TAB PO SCH ×2 (12:22→23:21)
[2020-06-25] MEDS: levETIRAcetam 250 MG TAB PO SCH (12:22)
[2020-06-25] MEDS: lamoTRIgine 100 MG TAB PO SCH ×2 (12:22→20:57)
[2020-06-25] MEDS: PANTOPRAZOLE 40 MG TABLET PO PRN (12:28)
--- NOTE | 2020-06-25 15:04 | P.CNNES ---
History of Present Illness Consult date: 06/25/20 Requesting physician: Mandeep Riddle Reason for Consult: Seizures despite supratherapeutic Dilantin History of Present Illness: Patient is a 50-year-old female came to the hospital yesterday at 1:32 PM for frequent seizures. Patient is known to me from previous admission to the hospital in August 2019, when she has presented with altered mental status, found on the floor and was diagnosed with DKA with pancreatitis. Patient also had status epilepticus at that time. Spinal fluid was performed which was negative for meningitis/encephalitis. Patient was started on Dilantin. MRI of the brain on 09/01/2019 was significant for cerebral atrophy, and mild white matter change suggestive of chronic small vessel ischemia, with no acute process. Patient at that time was transferred to [facility] for continuous EEG monitoring. Patient subsequently started following Dr. Leung at [facility]. Patient came to the hospital because she has been having increased frequency of seizures in the past 10 days. She is having 3-4 seizures per day. According to her sister, who was present on the phone Y as speaker phone, states that her head starts shaking front and back or side to side and she is "out of it". Pupils are dilated, she is somewhat awake but not really aware of surroundings. Sometimes she states shakes on her right side or sometimes both. The seizures may last from 5 minutes to 30 minutes. There is no tongue bite. Vital signs on arrival blood pressure 111/85, pulse rate 103, temperature 98.0. Computed tomography scan of head showed no acute process.. Blood test shows WBC 2.4, which is improved to 3.1 today. Hemoglobin and platelets are normal, sodium 131 potassium 4.6, normal renal functions. Normal hepatic panel, UA negative. Urine drug screen positive for barbiturate and benzodiazepine. Patient's Dilantin level is 24.8 and Keppra 7.1 (3-60). I spoke to patient's sister, who informed me that patient is currently taking Keppra 250 mg twice a day, Lamictal 150 mg twice a day, Dilantin 100 mg twice a day and zonisamide 200 mg twice a day. Apparently patient was having increased frequency of seizures, and on 06/10/2020 her dose of Lamictal was increased from 100 twice a day to 150 mg twice a day. On 06/23/2020, her dose of Zonegran was increased to 200 mg twice a day. Patient at present lives with her sister. Patient also has significant psychiatric problems, does not want to perform any activities of daily living. Sometimes she does not get up for about 36 hours. She does not want to get out, as she is afraid of falling. She has severe anxiety and depression. She is not eating, and whenever she eats, she takes Imodium, Pepto-Bismol to control her bowels. Patient has been noticing some dizzy spells, and some shaking spells, which she does not believe those seizures. Patient had a 5 hour EEG in February 2020 which did not reveal any seizure activity. Review of Systems Significant for anxiety depression, memory disturbance, dizziness, decreased appetite, nausea, denies any chest pain shortness of breath wheezing or cough. Denies abdominal pain or diarrhea. Denies significant back pain. Denies any rash. Patient has diabetes. All other review of systems reviewed and noncontributory. Past Medical History Past Medical History: Diabetes Mellitus, Fibromyalgia, GERD/Reflux, Osteoarthritis (OA), Pneumonia, Seizure Disorder, Skin Disorder Additional Past Medical History / Comment(s): pt stated a lesion in her brain with new onset seizures with hallucinations in august 2019. hiatal hernia. 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 back pain- compression L1-L2. since august 2019 stomach pain and nausea. History of Any Multi-Drug Resistant Organisms: None Reported Past Surgical History: Cholecystectomy, Tonsillectomy Additional Past Surgical History / Comment(s): brochoscopy with biopsy 2011 lung biopsy. lap choly 09/2019. egd 10/25/2019 Past Anesthesia/Blood Transfusion Reactions: No Reported Reaction Past Psychological History: Anxiety, Depression Additional Psychological History / Comment(s): agoraphobia-per pt getting be tter. Smoking Status: Never smoker Past Alcohol Use History: None Reported Past Drug Use History: None Reported - Past Family History Father Family Medical History: Cancer Additional Family Medical History / Comment(s): heart disease Medications and Allergies Home Medications Medication Instructions Recorded Confirmed Type Phenytoin Sodium Extended 100 mg PO BID@0000,1200 10/10/19 06/24/20 History [Dilantin] Zonisamide [Zonegran] See Taper PO DIRECTED 10/10/19 06/24/20 History Acetaminophen [Tylenol] 650 mg PO Q6H PRN 10/25/19 06/24/20 History Calcium Carbonate [Tums] 500 - 1,000 mg PO QID PRN 10/25/19 06/24/20 History Cetirizine HCl 10 mg PO HS@0000 10/25/19 06/24/20 History Simethicone [Gas-X] 125 mg PO DAILY PRN 10/25/19 06/24/20 History ondansetron HCL [Zofran] 8 mg PO Q8H PRN 10/25/19 06/24/20 History Mirtazapine [Remeron] 15 mg PO HS@0000 02/16/20 06/24/20 History Dicyclomine [Bentyl] 20 mg PO TID tab 02/23/20 06/24/20 Rx Buprenorphine [Butrans 20 MCG/HOUR] 1 patch TRANSDERM Q7D 06/24/20 06/24/20 History Insulin Glargine,Hum.rec.anlog 11 unit SQ DAILY 06/24/20 06/24/20 History [Lantus Solostar] Melatonin 5 mg PO HS@0000 06/24/20 06/24/20 History Pantoprazole [Protonix] 40 mg PO AC-BID PRN 06/24/20 06/24/20 History Sertraline [Zoloft] 200 mg PO HS@0000 06/24/20 06/24/20 History clonazePAM [KlonoPIN] 0.5 mg PO BID@0000,1200 06/24/20 06/24/20 History lamoTRIgine [LaMICtal] 150 mg PO BID@0000,1200 06/24/20 06/24/20 History levETIRAcetam [Keppra] 250 mg PO BID@0000,1200 06/24/20 06/24/20 History Allergies Allergy/AdvReac Type Severity Reaction Status Date / Time cefaclor [From [facility]] Allergy Rash/Hives Verified 06/24/20 15:07 Physical Examination - Vital Signs Vital Signs: Vital Signs Temp Pulse Pulse Resp BP BP Pulse Ox 06/25/20 08:28 98.0 F 78 16 116/73 96 06/25/20 03:10 98.2 F 77 17 98/63 94 L 06/24/20 19:36 98.8 F 91 17 109/71 98 06/24/20 18:25 98.9 F 87 16 124/77 98 06/24/20 18:02 98 F 79 18 109/81 96 06/24/20 18:00 75 18 115/79 96 06/24/20 17:00 18 06/24/20 16:00 18 06/24/20 15:41 79 18 109/81 96 06/24/20 14:47 85 18 130/92 96 06/24/20 13:35 98 F 103 H 18 111/85 99 Intake and Output 06/24/20 06/25/20 06/25/20 22:59 06:59 14:59 Other: Voiding Method Bedside Commode Bedside Commode Diaper # Voids 1 Weight 74.843 kg On examination patient is a middle aged female, appears older than his stated age. She is alert and awake fully oriented. She knows it is May 2020 and that she is in [facility] name of the current and the next president. Speech and language functions are normal. Attention and concentration fund of knowledge adequate. Detail testing deferred. On cranial examination pupils are round and reactive to light, visual gaytan are full on confrontation, extraocular muscles are intact with no nystagmus. Face is symmetric, tongue protrudes to the midline. Palatal elevation and sensation normal, hearing and shoulder shrug normal. On muscle strength testing there is no pronator drift and the strength is normal in arms and legs except hip flexion which is about 4+ bilaterally. Reflexes are diminished and plantars are downgoing. Sensory touch is equal. No ataxia for [id number]-[id number] testing, tone and bulk of muscles normal. Gait deferred. Her general examination there is no carotid bruit or murmur, peripheral pulses present, no peripheral edema, abdomen soft nontender, chest clear. Results - Laboratory Findings CBC and BMP: 06/25/20 06:45 06/25/20 06:45 Abnormal Lab Findings: Abnormal Labs 06/24/20 06/24/20 06/24/20 13:56 13:56 14:33 WBC 2.4 L Lymphocytes # 0.8 L Sodium 131 L Carbon Dioxide Glucose 154 H Total Protein 5.7 L Albumin 3.3 L Ur Leukocyte Esterase Trace H Urine Bacteria Rare H Hyaline Casts 11 H Urine Mucus Occasional H Urine Yeast (Budding) Few H Ur Barbiturates Screen U Benzodiazepines Scrn 06/24/20 06/25/20 06/25/20 14:33 06:45 06:45 WBC 3.1 L Lymphocytes # Sodium 132 L Carbon Dioxide 34 H Glucose Total Protein Albumin Ur Leukocyte Esterase Urine Bacteria Hyaline Casts Urine Mucus Urine Yeast (Budding) Ur Barbiturates Screen Detected H U Benzodiazepines Scrn Detected H Assessment and Plan Assessment: * 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 Patient came with frequent seizures. She has not had any seizures since she arrived to the hospital. * Seizure disorder since August 2019 * Diabetes, controlled * Anxiety depression, agoraphobia Plan: * Patient is on multiple seizure medications. She is on Dilantin, only 100 mg twice a day, but her levels were supratherapeutic. Patient denies taking extra doses by mistake. Patient's sister manages and administers her medication. We will check stat Dilantin level. If therapeutic, then we will resume Dilantin 100 mg twice a day. * Patient has significant weight loss, therefore would decrease Zonegran back to 100 mg twice a day, as Zonegran can produce further weight loss. * We will gradually increase Lamictal to 200 mg twice a day. She will start with 150 mg in the morning, 200 mg at night for 1 week and then 200 mg twice a day. * May consider slowly taking her off Keppra, as she is currently on a very low- dose Keppra, and Keppra can be associated with behavioral problems. * Patient had EEG performed today, which revealed occasional left temporal slowing with rare left temporal sharp waves. No electrographic seizure was recorded. Patient has not had any seizures since arrival to the hospital. * Patient's sister is requesting psychiatric consultation. * Neurologically patient is clear with the above recommendations, to follow-up with her neurologist.
[2020-06-25 17:00] LABS: Glucose,Whole Blood 138 mg/dL (75-99)
--- NOTE | 2020-06-25 17:19 | P.PN ---
Subjective Progress Note Date: 06/25/20 Principal diagnosis: Seizures Patient has not had seizures since she came into the hospital. Further history was obtained from her sister over the phone, patient has lost significant amount of weight recently. She has not been eating or drinking much over the past few weeks. She has been having increasing frequency of seizures. Seizures described as tonic-clonic with urinary incontinence. No tongue biting. Objective - Vital Signs Vital signs: Vital Signs Temp 98.0 F 06/25/20 08:28 Pulse 78 06/25/20 09:00 Resp 16 06/25/20 09:00 BP 116/73 06/25/20 08:28 Pulse Ox 96 06/25/20 08:28 Intake & Output 06/24/20 06/25/20 06/25/20 18:59 06:59 18:59 Intake Total 240 Output Total 300 Balance -60 Weight 74.843 kg 74.843 kg Intake: Oral 240 Output: Urine 300 Other: Voiding Method Bedside Commode Bedside Commode Diaper Diaper # Voids 1 - Labs CBC & Chem 7: 06/25/20 06:45 06/25/20 06:45 Labs: Abnormal Lab Results - Last 24 Hours (Table) 06/25/20 06/25/20 06/25/20 Range/Units 06:45 06:45 16:58 WBC 3.1 L (3.8-10.6) k/uL Sodium 132 L (137-145) mmol/L Carbon Dioxide 34 H (22-30) mmol/L POC Glucose (mg/dL) 138 H (75-99) mg/dL Assessment and Plan Plan: 1. Seizures already on 4 antiepileptic medications, being followed by seizure neurologist at [facility]. 2. Supratherapeutic Phenytoin Level 3. Fibromyalgia/Depression 4. Chronic Pain 5. Compression Fractures 6. Diabetes Type II 7. GERD without esophagitis 8. Weight loss, adult failure to thrive. 50 year old woman with history of compression fractures, chronic pain, seizure disorder, depression/fibromyalgias presented with seizures of increasing frequency despite compliance to AEDs. Full admit due to severity of her seizures Discussed with neurology service, Dr. Oakley, who advised to cut down the zonisamide dose in half due to possibility of it causing anorexia. Lamictal will be increased instead. Continue to hold phenytoin until level falls below 20 Ativan PRN for seizures EEG ok Psych consult Patient not eating or able to function at home without her sister, consider NH placement. Continue rest of meds D/W sister and neurology
[2020-06-25 20:41] LABS: Glucose,Whole Blood 168 mg/dL (75-99)
[2020-06-25] MEDS: ZONISAMIDE 100 MG CAP PO SCH (20:57)
[2020-06-25] MEDS: MIRTAZAPINE 15 MG TAB PO SCH (23:21)
[2020-06-25] MEDS: LORATADINE 10 MG TAB PO SCH (23:21)
[2020-06-25] MEDS: MELATONIN 5 MG TABLET PO SCH (23:21)
[2020-06-25] MEDS: SERTRALINE 100 MG TAB PO SCH (23:22)
[2020-06-25] MEDS ORDERED: LORazepam 2 MG/ML INJ ONE (23:42)
[2020-06-25] MEDS ORDERED: LORazepam 2 MG/ML INJ IV STA (23:44)
[2020-06-25] MEDS ORDERED: LORazepam 2 MG/ML INJ IV PRN (23:49)
[2020-06-26] MEDS: levETIRAcetam 250 MG TAB PO SCH ×3 (00:18→22:18)
[2020-06-26 06:03] LABS: Glucose,Whole Blood 102 mg/dL (75-99)
[2020-06-26] MEDS: INSULIN ASPART (NovoLOG) 100 UNIT/ML VIAL SQ SCH ×3 (06:07→17:10)
[2020-06-26] MEDS: INSULIN DETEMIR (LEVEMIR) 100 UNIT/ML SYR SQ SCH (06:57)
[2020-06-26 08:32] LABS: African American GFR (CKD) >90 (>60 ml/min/1.73 sqM); Anion Gap 3 mmol/L; Blood Urea Nitrogen 15 mg/dL (7-17); Calcium 8.9 mg/dL (8.4-10.2); Carbon Dioxide 32 mmol/L (22-30); Chloride 97 mmol/L (98-107); Glucose 122 mg/dL (74-99); Non-African American GFR(CKD) >90 (>60 ml/min/1.73 sqM); Potassium 3.9 mmol/L (3.5-5.1); Sodium 132 mmol/L (137-145)
[2020-06-26] MEDS: ZONISAMIDE 100 MG CAP PO SCH ×2 (09:09→21:11)
[2020-06-26] MEDS: DICYCLOMINE 20 MG TAB PO SCH ×3 (09:10→21:10)
[2020-06-26] MEDS: lamoTRIgine 100 MG TAB PO SCH ×2 (09:10→21:10)
[2020-06-26] MEDS: PANTOPRAZOLE 40 MG TABLET PO PRN ×2 (09:17→18:17)
[2020-06-26 09:24] LABS: Phenytoin (Dilantin) 19.6 ug/mL
[2020-06-26 11:06] LABS: Glucose,Whole Blood 109 mg/dL (75-99)
[2020-06-26] MEDS: CALCIUM CARBONATE 500 MG CHEWABLE PO PRN ×2 (12:05→22:26)
[2020-06-26] MEDS: ACETAMINOPHEN TAB 325 MG TAB PO PRN ×2 (12:05→22:26)
[2020-06-26] MEDS: clonazePAM 0.5 MG TAB PO SCH (12:05)
[2020-06-26 12:21] LABS: Glucose,Whole Blood 88 mg/dL (75-99)
--- NOTE | 2020-06-26 14:06 | P.CN ---
Psychiatric Consult - . Consult date: 06/26/20 Consult:: IDENTIFYING DATA: This patient is a 50-year-old female who currently lives with her sister who is her guardian, her mother has no kids is single and collects Social Security disability. HISTORY OF PRESENT ILLNESS: The patient presented to the hospital on 06/24 for seizures. Patient apparently has been having significant weight loss since August. According to ER report patient has been having approximately 5-7 seizures today which have been increasing for the past 2 weeks or so. Patient has also has been reporting to have poor oral intake. Neurology was consulted and adjusted medications for seizures and also performed EEG. Patient's sodium was 131 on admission. UDS was positive for barbiturates and benzodiazepines. Computed tomography scan of the head was negative. Nurse taking care of patient states that patient was initially withdrawn however is now more calm and cooperative and oriented and has been eating her food. 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 Patient was seen at the bedside and appears to be debilitated. She speaks in a soft tone of voice. She states that she is here in the hospital due to her seizures. She claims that for the most part she cannot remember what triggered them or where she was when it happened. She describes only having a few seizures in the past. She claims that she has been seeing her psychiatrist regularly and her Seroquel has been discontinued. She claims that her appetite is continuing to be fairly poor however states that within the past few days it has increased mildly. She states that her mood is "not good" and describes an ongoing depression for several years. She also spoke about her stressors in her life including her health and also her mother being in a m[facility]. She states that she has been trying to cope with her m other having dementia. She also spoke about the ongoing tension between her and her sister as she is incontinent at home around her. At this time patient denies any suicidal or homical ideations, intent or plan. Patient denies any auditory, visual hallucinations and denies any paranoia or delusions. Patients admits to using no recreational drugs cigarettes or alcohol. Audio Visual Aide spoke with patients sister/bel Garnett over the phone [phone]. She claims that she has been tired of taking care of patient and her ongoing medical issues. She states that patient has been increasingly more difficult to take care of at home and has been having bowel incontinence. Questions were answered about her medications and addressed the concerns at home and spoke about caregiver burnout. Patient's guardian states that she would be willing to go through with long-term placement for patient from the hospital. PAST PSYCHIATRIC HISTORY: Patient has a history of chronic depression. Patient was previously on Klonopin, Lamictal, melatonin, Remeron, Seroquel and Zoloft. Patient denies any previous psychiatric hospitalizations. Patient states that she follows up with Dr. Miller who is her psychiatrist in [place] Patient denies any history of suicide attempts in the past. PAST MEDICAL HISTORY: Seizure disorder, chronic pain, diabetes mellitus, GERD, fibromyalgia, osteoporosis.. ALLERGIES: as per EMR. CHEMICAL DEPENDENCY HISTORY: as per HPI. FAMILY PSYCHIATRIC/SUBSTANCE USE HISTORY: She states that her parents both had depression and her sister is bipolar. SOCIAL HISTORY: Patient was born and raised in [place] [facility] and claims that she completed a bachelor's degree and also a masters in education. 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 Patient's sister is her guardian. MENTAL STATUS EXAM: General Appearance: Patient appears to be overweight, stated age is alert, pleasant, and attempts to be cooperative. Soft tone of voice. Appears to be fairly debilitated. Behavior: Patient is calmly lying in bed without any agitated behavior. Attempts to cooperate. Speech: Patient's speech is fluent and nonpressured. Soft tone of voice. Mood/Affect: Patient reports their mood is "not good", affect is congruent and constricted Suicidality/Homicidality: Patient denies having any suicidal or homicidal ideation intent or plan. Perceptions: Patient denies any visual hallucinations and denies any auditory hallucinations Though content/process: There is no evidence of any delusional thought content and thought process is linear and goal-directed. Somatically preoccupied. Memory and concentration: AOX3, grossly intact for the purposes of this session. Can spell "WORLD" backwards Judgment and insight: Chronically Limited IMPRESSIONS: Major depressive disorder, mild Anxiety disorder unspecified PLAN: -At this time patient DOES NOT meet criteria for inpatient psychiatric admission. -Would recommend the following medication changes/additions: Changed Klonopin 0.5 mg daily for anxiety. Continue with Lamictal 200 mg + 150mg daily for mood stabilization/seizures. melatonin 5 mg daily at bedtime and added Seroquel 25 mg daily at bedtime. Continue with Zoloft to 200 mg daily at bedtime for mood/anxiety. Continue with Remeron to 15 mg daily at bedtime for insomnia/appetite/mood. -Patient will be following up with her outpatient psychiatrist Dr. Miller upon discharge. -Audio Visual Aide spoke with patient's sister/guardian Mariola over the phone, see above for details. She appears to be struggling to take care of patient at home mainly dealing with incontinence and poor eating. Sister/guardian wants to proceed with long-term placement options as she is not willing to have her back in the house. -Psychiatry will continue to follow along, please contact with any questions. 06/26/20 13:55
[2020-06-26] MEDS: PHENYTOIN SODIUM EXTENDED 100 MG CAP PO SCH ×2 (14:49→22:18)
--- NOTE | 2020-06-26 16:04 | P.PN ---
Subjective Progress Note Date: 06/26/20 Patient states she has a seizure last night, which was fairly long period patient complains of stomach pain, nausea, some dizziness. Objective - Vital Signs Vital signs: Vital Signs Temp 98.7 F 06/26/20 08:30 Pulse 94 06/26/20 12:00 Resp 18 06/26/20 12:00 BP 126/82 06/26/20 12:00 Pulse Ox 96 06/26/20 12:00 Intake & Output 06/25/20 06/26/20 06/26/20 18:59 06:59 18:59 Intake Total 960 240 Output Total 300 800 Balance 660 -560 Weight 74.843 kg 70 kg Intake: Oral 960 240 Output: Urine 300 800 Other: Voiding Method Bedside Commode Bedside Commode Diaper Diaper # Voids 1 1 # Bowel Movements 1 - Exam Essentially unchanged. 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 Patient came with frequent seizures. Patient had a breakthrough seizure last night as well. * Seizure disorder since August 2019 * Diabetes, controlled * Anxiety depression, agoraphobia Plan: * Patient's Dilantin level is now 19.6. We will resume Dilantin 100 mg twice a day. * Patient has significant weight loss, therefore would decrease Zonegran back to 100 mg twice a day, as Zonegran can produce further weight loss. * We will gradually increase Lamictal to 200 mg twice a day. She will start with 150 mg in the morning, 200 mg at night for 1 week and then 200 mg twice a day. * May consider slowly taking her off Keppra, as she is currently on a very low- dose Keppra, and Keppra can be associated with behavioral problems. * EEG performed 06/25/2020 revealed occasional left temporal slowing with rare left temporal sharp waves. No electrographic seizure was recorded. Patient has not had any seizures since arrival to the hospital. * Appreciate psychiatric consultation. Patient is major depressive disorder, mild degree, and anxiety disorder. Patient's sister is requesting psychiatric consultation. Patient on Remeron 15 mg, Zoloft 200 mg and Seroquel 25 mg. * Patient may need placement, as patient's caregiver, her sister is not able to care for her at this time.
[2020-06-26 17:02] LABS: Glucose,Whole Blood 100 mg/dL (75-99)
[2020-06-26 20:13] LABS: Glucose,Whole Blood 115 mg/dL (75-99)
[2020-06-26] MEDS ORDERED: QUEtiapine 25 MG TAB PO SCH (21:00)
[2020-06-26 21:10] LABS: Glucose,Whole Blood 115 mg/dL (75-99)
[2020-06-26] MEDS: MIRTAZAPINE 15 MG TAB PO SCH (22:19)
[2020-06-26] MEDS: MELATONIN 5 MG TABLET PO SCH (22:19)
[2020-06-26] MEDS: SERTRALINE 100 MG TAB PO SCH (22:19)
[2020-06-26] MEDS: LORATADINE 10 MG TAB PO SCH (22:19)
[2020-06-26] MEDS: SIMETHICONE 80 MG CHEWABLE PO PRN (23:03)
[2020-06-27 06:17] LABS: Glucose,Whole Blood 133 mg/dL (75-99)
[2020-06-27] MEDS: INSULIN DETEMIR (LEVEMIR) 100 UNIT/ML SYR SQ SCH (07:00)
[2020-06-27] MEDS: INSULIN ASPART (NovoLOG) 100 UNIT/ML VIAL SQ SCH ×3 (07:00→16:51)
[2020-06-27] MEDS: lamoTRIgine 100 MG TAB PO SCH ×2 (08:31→20:07)
[2020-06-27] MEDS: clonazePAM 0.5 MG TAB PO SCH (08:31)
[2020-06-27] MEDS: DICYCLOMINE 20 MG TAB PO SCH ×3 (08:31→21:43)
[2020-06-27] MEDS: PHENYTOIN SODIUM EXTENDED 100 MG CAP PO SCH ×2 (08:32→20:07)
[2020-06-27] MEDS: ZONISAMIDE 100 MG CAP PO SCH ×2 (08:32→20:07)
[2020-06-27] MEDS: PANTOPRAZOLE 40 MG TABLET PO PRN (08:32)
[2020-06-27] MEDS: ACETAMINOPHEN TAB 325 MG TAB PO PRN ×3 (08:33→21:43)
[2020-06-27 09:45] LABS: African American GFR (CKD) >90 (>60 ml/min/1.73 sqM); Anion Gap 1 mmol/L; Blood Urea Nitrogen 20 mg/dL (7-17); Calcium 8.9 mg/dL (8.4-10.2); Carbon Dioxide 32 mmol/L (22-30); Chloride 98 mmol/L (98-107); Glucose 132 mg/dL (74-99); Magnesium 1.8 mg/dL (1.6-2.3); Non-African American GFR(CKD) >90 (>60 ml/min/1.73 sqM); Phosphorus 4.7 mg/dL (2.5-4.5); Potassium 4.2 mmol/L (3.5-5.1); Sodium 131 mmol/L (137-145)
[2020-06-27 11:51] LABS: Glucose,Whole Blood 135 mg/dL (75-99)
[2020-06-27] MEDS: levETIRAcetam 250 MG TAB PO SCH ×2 (12:33→23:10)
--- NOTE | 2020-06-27 12:45 | P.PN ---
Subjective Progress Note Date: 06/27/20 No seizures since last 24 hours. Patient laying in Trendelenburg position, due to complaint of low back pain. Patient appears very comfortable, using her cellular phone.. Objective - Vital Signs Vital signs: Vital Signs Temp 98.2 F 06/27/20 09:00 Pulse 84 06/27/20 09:00 Resp 16 06/27/20 09:00 BP 106/63 06/27/20 09:00 Pulse Ox 96 06/27/20 09:00 Intake & Output 06/26/20 06/27/20 06/27/20 18:59 06:59 18:59 Intake Total 360 Output Total 800 Balance -440 Intake: Oral 360 Output: Urine 800 Other: Voiding Method Bedside Commode # Voids 1 2 - Exam Essentially unchanged. Mental status, speech and language functions are normal. Patient speaks with a very low tone. - Labs CBC & Chem 7: 06/25/20 06:45 06/27/20 09:01 Labs: Abnormal Lab Results - Last 24 Hours (Table) 06/26/20 06/26/20 06/26/20 Range/Units 16:36 20:01 21:08 Sodium (137-145) mmol/L Carbon Dioxide (22-30) mmol/L BUN (7-17) mg/dL Glucose (74-99) mg/dL POC Glucose (mg/dL) 100 H 115 H 115 H (75-99) mg/dL Phosphorus (2.5-4.5) mg/dL 06/27/20 06/27/20 06/27/20 Range/Units 06:12 09:01 11:49 Sodium 131 L (137-145) mmol/L Carbon Dioxide 32 H (22-30) mmol/L BUN 20 H (7-17) mg/dL Glucose 132 H (74-99) mg/dL POC Glucose (mg/dL) 133 H 135 H (75-99) mg/dL Phosphorus 4.7 H (2.5-4.5) mg/dL Assessment and Plan Assessment: * 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 Patient came with frequent seizures. Patient has been seizure-free for last 24 hours. * Seizure disorder since August 2019 * Diabetes, controlled * Anxiety depression, agoraphobia Plan: * Patient's Dilantin level today is 17.0. Continue Dilantin 100 mg twice a day. * Patient has significant weight loss, therefore would decrease Zonegran back to 100 mg twice a day, as Zonegran can produce further weight loss. * We will gradually increase Lamictal to 200 mg twice a day. She will start with 150 mg in the morning, 200 mg at night for 1 week and then 200 mg twice a day. Await Lamictal level. * May consider slowly taking her off Keppra, as she is currently on a very low- dose Keppra, and Keppra can be associated with behavioral problems. * EEG performed 06/25/2020 revealed occasional left temporal slowing with rare left temporal sharp waves. No electrographic seizure was recorded. Patient has not had any seizures since arrival to the hospital. * Appreciate psychiatric consultation. Patient is major depressive disorder, mild degree, and anxiety disorder. Patient's sister is requesting psychiatric consultation. Patient on Remeron 15 mg, Zoloft 200 mg and Seroquel 25 mg. * Patient may need placement, as patient's caregiver, her sister is not able to care for her at this time. * Neurologically clear for discharge. Neurology service not available on the weekend. I will be available on perfect serve over the weekend. Dr. Reynaldo Arellano Will resume neurology service on Tuesday. Please reconsult neurology if any concerns.
--- NOTE | 2020-06-27 12:57 | P.PN ---
Progress Note - Text Progress Note Date: 06/27/20 Interval History: Patient was seen today for psychiatric follow-up regarding patient's depression. Nurse claims that patient has been eating some of her meals had no behavioral issues today. 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 She continues to speak in a soft tone of voice however states that she feels "a little bit better" compared to yesterday. She states that her mood is mildly improving and denies any anxiety today. She states that she was able to speak with her sister yesterday over the phone who is her guardian and spoke about placement options that would be possible for her and patient appears to be more agreeable to it. She states that she does not want to be a burden on her sister. She claims that she had poor sleep last night and was agreeable to have her Seroquel increased for tonight. She did not offer any other complaints. She states that her appetite has been mildly improving and ate part of her lunch today and also her whole Ensure. At this time patient denies any suicidal or homical ideations, intent or plan. Patient denies any auditory, visual hallucinations and denies any paranoia or delusions. Patient denies any side effects from the medications and has been compliant with meds. Mental Status Exam: General Appearance: Patient appears to be underweight, older than stated age is alert, pleasant, and attempts to be cooperative. Appears to be fairly weak. Behavior: Patient is calmly lying in bed without any agitated behavior. Attempts to cooperate. Speech: Patient's speech is fluent and nonpressured. Soft tone of voice. Mood/Affect: Patient reports their mood is "a bit better", affect is congruent and constricted Suicidality/Homicidality: Patient denies having any suicidal or homicidal ideation intent or plan. Perceptions: Patient denies any visual hallucinations and denies any auditory hallucinations Though content/process: There is no evidence of any delusional thought content and thought process is linear and goal-directed. Rogers. Memory and concentration: AOX3, grossly intact for the purposes of this session Judgment and insight: Chronically Limited, improving mildly Assessment Major depressive disorder, mild Anxiety disorder unspecified Plan: -At this time patient DOES NOT meet criteria for inpatient psychiatric admission. -Would recommend the following medication changes/additions: Continue with Klonopin 0.5 mg daily for anxiety. Continue with Lamictal 200 mg + 150mg daily for mood stabilization/seizures, with gradual titration up to 200 mg twice a day as per neurology recommendations. melatonin 5 mg daily at bedtime and increased Seroquel 50 mg daily at bedtime. Continue with Zoloft to 200 mg daily at bedtime for mood/anxiety. Continue with Remeron to 15 mg daily at bedtime for insomnia/appetite/mood. -Patient will be following up with her outpatient psychiatrist Dr. Miller upon discharge. -Sister/guardian wants to proceed with long-term placement options as she is not willing to have her back in the house. attraction worker and primary team to continue to look into long-term placement options. -Plan was communicated with patient's nurse. -Psychiatry will sign off at this time -Please contact with any questions.
--- NOTE | 2020-06-27 14:54 | P.PN ---
Subjective Progress Note Date: 06/27/20 Principal diagnosis: Seizure Patient is a 50-year-old female with a history of fibromyalgia with chronic pain, severe agoraphobia with depression, seizure disorder, and prior compr ession fractures who presented with breakthrough seizures. In the emergency department she underwent an extensive evaluation. She was slightly tachycardic with a pulse of 103 on arrival. Laboratory analysis showed white blood cell count of 2.4, sodium 131, glucose 154. Urinalysis is negative. Urine drug screen was positive for benzos and barbiturates. Dilantin level is slightly elevated at 24.8. She underwent a CT head which showed no acute intracranial process. She was admitted for further monitoring. She was seen by neurology and underwent an EEG which showed left temporal slowing with very rare temporal sharp waves suggestive of focal cortical neuro dysfunction with underlying co rtical durability and tendency for seizure. Neurology recommended decreasing sonogram as a cause appetite suppression and increasing Lamictal. They recommended psychiatry evaluation. She was evaluated by psych who felt she did not meet inpatient psychiatric hospital criteria. They recommended increasing Seroquel to 50 at bedtime. Patient seen and examined at bedside. She complains of recurrent seizures and feeling weak. Her sister was on the phone and had a 27 minute conversation regarding long-term options. We discussed her neurologic findings, her continued seizures, the possibility of concurrent pseudoseizures, we discussed her weight loss, her depression, and their social situation. I did recommend placement where there is 24-hour care. General: non toxic, no distress, appears at stated age, temporal wasting, buccal wasting Derm: warm, dry Head: atraumatic, normocephalic, symmetric Eyes: EOMI, no lid lag, anicteric sclera Mouth: no lip lesion, mucus membranes moist Cardiovascular: S1S2 reg, no murmur, positive posterior tibial pulse bilateral, Lungs: CTA bilateral, no rhonchi, no rales , no accessory muscle use Abdominal: soft, nontender to palpation, no guarding, no appreciable organomegaly Ext: no gross muscle atrophy, no edema, no contractures Neuro: CN II-XI grossly intact, no focal neuro deficits Psych: Alert, oriented, blunted affect Break through seizure - neuro recs - Decrease Zonegran due to weight loss, increase lamictal - continue other currently medications - currently seizure free for 24 hours Severe particularly malnutrition, failure to thrive -Encourage oral intake -Dietitian about Depression with severe agoraphobia - Psych recs appreciated: does not require inpatient treatment - aggress with increased lamictal - Increase seroquel - continue other home medications DM 2 - She reports that she is off all insulin at home -Continue insulin sliding scale -Last hemoglobin A1c 5.2 in February 2020 Fibromyalgia -Continue current pain medication regimen Chronic: Compression fractures GERD with esophagitis DVT prophylaxis: SCDs Discussed with: Patient, nursing Anticipated discharge: 2-[address]: SNF, vs ACF A total of 35 minutes was spent on the care of this complex patient more than 50% of the time was spent in counseling and care coordination. Objective - Vital Signs Vital signs: Vital Signs Temp 98.2 F 06/27/20 09:00 Pulse 84 06/27/20 09:00 Resp 16 06/27/20 09:00 BP 106/63 06/27/20 09:00 Pulse Ox 96 06/27/20 09:00 Intake & Output 06/26/20 06/27/20 06/27/20 18:59 06:59 18:59 Intake Total 360 Output Total 800 Balance -440 Intake: Oral 360 Output: Urine 800 Other: Voiding Method Bedside Commode # Voids 1 2 - Labs CBC & Chem 7: 06/25/20 06:45 06/27/20 09:01 Labs: Abnormal Lab Results - Last 24 Hours (Table) 06/26/20 06/26/20 06/26/20 Range/Units 16:36 20:01 21:08 Sodium (137-145) mmol/L Carbon Dioxide (22-30) mmol/L BUN (7-17) mg/dL Glucose (74-99) mg/dL POC Glucose (mg/dL) 100 H 115 H 115 H (75-99) mg/dL Phosphorus (2.5-4.5) mg/dL 06/27/20 06/27/20 06/27/20 Range/Units 06:12 09:01 11:49 Sodium 131 L (137-145) mmol/L Carbon Dioxide 32 H (22-30) mmol/L BUN 20 H (7-17) mg/dL Glucose 132 H (74-99) mg/dL POC Glucose (mg/dL) 133 H 135 H (75-99) mg/dL Phosphorus 4.7 H (2.5-4.5) mg/dL
[2020-06-27 16:32] LABS: Glucose,Whole Blood 115 mg/dL (75-99)
[2020-06-27 20:06] LABS: Glucose,Whole Blood 193 mg/dL (75-99)
[2020-06-27] MEDS: QUEtiapine 50 MG TAB PO SCH (20:07)
[2020-06-27] MEDS: ONDANSETRON 4 MG TAB PO PRN (21:43)
[2020-06-27] MEDS: SIMETHICONE 80 MG CHEWABLE PO PRN (22:36)
[2020-06-27] MEDS: MIRTAZAPINE 15 MG TAB PO SCH (23:10)
[2020-06-27] MEDS: SERTRALINE 100 MG TAB PO SCH (23:10)
[2020-06-27] MEDS: LORATADINE 10 MG TAB PO SCH (23:10)
[2020-06-27] MEDS: MELATONIN 5 MG TABLET PO SCH (23:10)
[2020-06-28 06:10] LABS: Glucose,Whole Blood 143 mg/dL (75-99)
[2020-06-28] MEDS: INSULIN ASPART (NovoLOG) 100 UNIT/ML VIAL SQ SCH ×3 (06:17→16:40)
[2020-06-28 06:48] LABS: HGB 11.8 gm/dL (11.4-16.0); MCH 30.6 pg (25.0-35.0); MCHC 34.6 g/dL (31.0-37.0); MCV 88.7 fL (80.0-100.0); Mean Platelet Volume 7.6; Platelet Count 178 k/uL (150-450); RBC 3.84 m/uL (3.80-5.40); RDW 13.8 % (11.5-15.5); WBC 3.1 k/uL (3.8-10.6)
[2020-06-28 06:57] LABS: African American GFR (CKD) >90 (>60 ml/min/1.73 sqM); Anion Gap 2 mmol/L; Blood Urea Nitrogen 19 mg/dL (7-17); Calcium 9.2 mg/dL (8.4-10.2); Carbon Dioxide 32 mmol/L (22-30); Chloride 99 mmol/L (98-107); Glucose 145 mg/dL (74-99); Non-African American GFR(CKD) >90 (>60 ml/min/1.73 sqM); Potassium 4.3 mmol/L (3.5-5.1); Sodium 133 mmol/L (137-145)
[2020-06-28] MEDS: lamoTRIgine 100 MG TAB PO SCH ×2 (10:04→20:07)
[2020-06-28] MEDS: PHENYTOIN SODIUM EXTENDED 100 MG CAP PO SCH ×2 (10:04→20:07)
[2020-06-28] MEDS: ZONISAMIDE 100 MG CAP PO SCH ×2 (10:04→20:07)
[2020-06-28] MEDS: clonazePAM 0.5 MG TAB PO SCH (10:04)
[2020-06-28] MEDS: DICYCLOMINE 20 MG TAB PO SCH ×3 (10:04→22:36)
[2020-06-28] MEDS: PANTOPRAZOLE 40 MG TABLET PO PRN ×2 (10:11→17:09)
[2020-06-28 10:13] LABS: Glucose,Whole Blood 102 mg/dL (75-99)
[2020-06-28] MEDS: levETIRAcetam 250 MG TAB PO SCH ×2 (11:13→22:36)
[2020-06-28] MEDS: ACETAMINOPHEN TAB 325 MG TAB PO PRN ×2 (11:14→20:07)
--- NOTE | 2020-06-28 12:01 | P.PN ---
Subjective Progress Note Date: 06/28/20 (delayed charting seen at ) Principal diagnosis: Seizure Patient is a 50-year-old female with a history of fibromyalgia with chronic pain, severe agoraphobia with depression, seizure disorder, and prior compression fractures who presented with breakthrough seizures. In the emerg ency department she underwent an extensive evaluation. She was slightly tachycardic with a pulse of 103 on arrival. Laboratory analysis showed white blood cell count of 2.4, sodium 131, glucose 154. Urinalysis is negative. Urine drug screen was positive for benzos and barbiturates. Dilantin level is slightly elevated at 24.8. She underwent a CT head which showed no acute intracranial process. She was admitted for further monitoring. She was seen by neurology and underwent an EEG which showed left temporal slowing with very rare temporal sharp waves suggestive of focal cortical neuro dysfunction with underlying cortical durability and tendency for seizure. Neurology recommended decreasing Zonegran as it can cause appetite suppression and increasing Lamictal. They recommended psychiatry evaluation. She was evaluated by psych who felt she did not meet inpatient psychiatric hospital criteria. They recommended increasing Seroquel to 50 at bedtime. They also decreased her Klonopin to once daily in the morning. We had a long discussion with her and her sister on 06/27 regarding long-term care. They're looking at group home versus rehab versus adult foster care. Patient seen and examined at bedside. Initially she was sleeping and woke up when I entered the room. We initially had a good conversation. She has been eating better and continued to 100% of her nighttime snack and 100% of her hands for dinner last night. She denied any abdominal pain or diarrhea. She states she did have some nausea. We then started to discuss where she would after leaving the hospital. She then became dizzy. Blood pressure checked and was 161/68, heart rate 88, O2 sat 98%, blood glucose was 101, afebrile. General: non toxic, no distress, appears at stated age, temporal wasting, buccal wasting Derm: warm, dry Head: atraumatic, normocephalic, symmetric Eyes: EOMI, no lid lag, anicteric sclera Mouth: no lip lesion, mucus membranes moist Cardiovascular: S1S2 reg, no murmur, positive posterior tibial pulse bilateral, Lungs: CTA bilateral, no rhonchi, no rales , no accessory muscle use Abdominal: soft, nontender to palpation, no guarding, no appreciable organomegaly Ext: no gross muscle atrophy, no edema, no contractures Neuro: CN II-XI grossly intact, no focal neuro deficits, intermittent tremor that stops with the right hand when she goes to the last Psych: Alert, oriented, blunted affect Break through seizure - neuro recs - Decrease Zonegran due to weight loss, increase lamictal 250 in the morning and 200 at night for 1 week and then increase to 200 twice daily - continue other currently medications - currently seizure free for 24 hours Severe protein calorie malnutrition, failure to thrive -Encourage oral intake -Dietitian about Depression with severe agoraphobia - Psych recs appreciated: does not require inpatient treatment - aggress with increased lamictal - Increase seroquel - continue other home medications DM 2 - She reports that she is off all insulin at home, stop Levemir -Continue insulin sliding scale -Last hemoglobin A1c 5.2 in February 2020 Fibromyalgia -Continue current pain medication regimen Chronic: Compression fractures GERD with esophagitis DVT prophylaxis: SCDs Discussed with: Patient, nursing Anticipated discharge: 2-[address]: SNF, vs ACF A total of 35 minutes was spent on the care of this complex patient more than 50% of the time was spent in counseling and care coordination. Objective - Vital Signs Vital signs: Vital Signs Temp 98.5 F 06/28/20 09:00 Pulse 90 06/28/20 11:13 Resp 16 06/28/20 11:13 BP 141/79 06/28/20 11:13 Pulse Ox 98 06/28/20 11:13 Intake & Output 06/27/20 06/28/20 06/28/20 18:59 06:59 18:59 Intake Total 480 240 Output Total 520 Balance 480 -520 240 Weight 68.8 kg Intake: Oral 480 240 Output: Urine 520 Other: Voiding Method Bedside Commode Bedside Commode # Voids 1 - Labs CBC & Chem 7: 06/28/20 06:26 06/28/20 06:26 Labs: Abnormal Lab Results - Last 24 Hours (Table) 06/27/20 06/27/20 06/28/20 Range/Units 16:31 20:05 06:09 WBC (3.8-10.6) k/uL Sodium (137-145) mmol/L Carbon Dioxide (22-30) mmol/L BUN (7-17) mg/dL Glucose (74-99) mg/dL POC Glucose (mg/dL) 115 H 193 H 143 H (75-99) mg/dL 06/28/20 06/28/20 06/28/20 Range/Units 06:26 06:26 10:01 WBC 3.1 L (3.8-10.6) k/uL Sodium 133 L (137-145) mmol/L Carbon Dioxide 32 H (22-30) mmol/L BUN 19 H (7-17) mg/dL Glucose 145 H (74-99) mg/dL POC Glucose (mg/dL) 102 H (75-99) mg/dL
[2020-06-28 12:07] LABS: Glucose,Whole Blood 158 mg/dL (75-99)
[2020-06-28 16:35] LABS: Glucose,Whole Blood 134 mg/dL (75-99)
[2020-06-28] MEDS: QUEtiapine 50 MG TAB PO SCH (20:07)
[2020-06-28 20:18] LABS: Glucose,Whole Blood 184 mg/dL (75-99)
[2020-06-28] MEDS: MIRTAZAPINE 15 MG TAB PO SCH (22:36)
[2020-06-28] MEDS: LORATADINE 10 MG TAB PO SCH (22:36)
[2020-06-28] MEDS: SERTRALINE 100 MG TAB PO SCH (22:36)
[2020-06-28] MEDS: MELATONIN 5 MG TABLET PO SCH (22:36)
[2020-06-28] MEDS: SIMETHICONE 80 MG CHEWABLE PO PRN (23:21)
[2020-06-29] MEDS: ACETAMINOPHEN TAB 325 MG TAB PO PRN ×4 (04:12→22:33)
[2020-06-29] MEDS: INSULIN ASPART (NovoLOG) 100 UNIT/ML VIAL SQ SCH ×3 (06:05→16:54)
[2020-06-29 06:07] LABS: Glucose,Whole Blood 140 mg/dL (75-99)
[2020-06-29 06:39] LABS: HCT 36.2 % (34.0-46.0); HGB 12.3 gm/dL (11.4-16.0); MCH 30.2 pg (25.0-35.0); MCHC 34.1 g/dL (31.0-37.0); MCV 88.4 fL (80.0-100.0); Mean Platelet Volume 7.5; Platelet Count 189 k/uL (150-450); RBC 4.09 m/uL (3.80-5.40); WBC 4.6 k/uL (3.8-10.6)
[2020-06-29 06:49] LABS: African American GFR (CKD) >90 (>60 ml/min/1.73 sqM); Anion Gap 2 mmol/L; Blood Urea Nitrogen 18 mg/dL (7-17); Calcium 9.3 mg/dL (8.4-10.2); Carbon Dioxide 32 mmol/L (22-30); Chloride 95 mmol/L (98-107); Glucose 130 mg/dL (74-99); Non-African American GFR(CKD) >90 (>60 ml/min/1.73 sqM); Potassium 4.3 mmol/L (3.5-5.1); Sodium 129 mmol/L (137-145)
[2020-06-29] MEDS ORDERED: SODIUM CHLORIDE 0.9% 1,000 ML IV STA (07:41)
[2020-06-29] MEDS ORDERED: NICOTINE 21MG/24HR PATCH TRANSDERM SCH (09:00)
--- NOTE | 2020-06-29 10:02 | P.PN ---
Subjective Progress Note Date: 06/29/20 Principal diagnosis: Seizures Patient wondered this morning while her Klonopin was cut to once daily instead of twice. She denied having any seizures. She is eating most of her meals. No other overnight events. No fevers or chills. No pain. Objective - Vital Signs Vital signs: Vital Signs Temp 98.5 F 06/29/20 03:00 Pulse 81 06/29/20 09:00 Resp 18 06/29/20 09:00 BP 151/82 06/29/20 03:00 Pulse Ox 97 06/29/20 03:00 Intake & Output 06/28/20 06/29/20 06/29/20 18:59 06:59 18:59 Intake Total 720 0 Output Total 2100 Balance 720 -2100 0 Weight 61.8 kg Intake: Oral 720 0 Output: Urine 2100 Other: Voiding Method Bedside Commode Bedside Commode # Voids 1 2 - Exam Gen: awake, alert HEENT: normocephalic, atraumatic, good hearing acuity, moist mucous membranes Resp: good air exchange, breathing comfortably with no accessory muscle use, clear to auscultation bilaterally CVS: good distal perfusion x 4, regular rate and rhythm without murmurs GI: soft, diffusely tender to palpation, ND : no SPT, no CVAT, munoz catheter not present MSK: Muscle wasting evident. no pitting edema, no clubbing Neuro: non-focal, moving all extremities Psych: cooperative, flat affect - Labs CBC & Chem 7: 06/29/20 06:21 06/29/20 06:21 Labs: Abnormal Lab Results - Last 24 Hours (Table) 06/28/20 06/28/20 06/28/20 Range/Units 10:01 12:05 16:34 Sodium (137-145) mmol/L Chloride (98-107) mmol/L Carbon Dioxide (22-30) mmol/L BUN (7-17) mg/dL Glucose (74-99) mg/dL POC Glucose (mg/dL) 102 H 158 H 134 H (75-99) mg/dL 06/28/20 06/29/20 06/29/20 Range/Units 20:17 06:06 06:21 Sodium 129 L (137-145) mmol/L Chloride 95 L (98-107) mmol/L Carbon Dioxide 32 H (22-30) mmol/L BUN 18 H (7-17) mg/dL Glucose 130 H (74-99) mg/dL POC Glucose (mg/dL) 184 H 140 H (75-99) mg/dL Assessment and Plan Plan: Breakthrough seizures/Dilantin toxicity: Discussed with neurology service, Dr. Oakley, who advised to cut down the zonisamide dose in half due to possibility of it causing anorexia. Lamictal was increased instead. Dilantin and keppra continued Continues to be seizures free Ativan PRN for seizures EEG ok Severe protein calorie malnutrition, failure to thrive -Encourage oral intake -Dietitian about Hyponatremia Likely dehydration IV fluids Follow in am Depression with severe agoraphobia - Psych recs appreciated: does not require inpatient treatment - Klonipin decreased - Seroquel increased - continue other home medications DM 2 - She reports that she is off all insulin at home, stop Levemir -Continue insulin sliding scale -Last hemoglobin A1c 5.2 in February 2020 Fibromyalgia -Continue current pain medication regimen Chronic: Compression fractures GERD with esophagitis DVT prophylaxis: SCDs Discussed with: Patient, nursing Anticipated discharge: 2-[address]: SNF, vs ACF A total of 35 minutes was spent on the care of this complex patient more than 50% of the time was spent in counseling and care coordination.
[2020-06-29 11:12] LABS: Glucose,Whole Blood 118 mg/dL (75-99)
[2020-06-29] MEDS: lamoTRIgine 100 MG TAB PO SCH ×2 (11:17→19:57)
[2020-06-29] MEDS: clonazePAM 0.5 MG TAB PO SCH (11:17)
[2020-06-29] MEDS: DICYCLOMINE 20 MG TAB PO SCH ×3 (11:17→22:33)
[2020-06-29] MEDS: PHENYTOIN SODIUM EXTENDED 100 MG CAP PO SCH ×2 (11:17→19:57)
[2020-06-29] MEDS: levETIRAcetam 250 MG TAB PO SCH ×2 (11:18→22:33)
[2020-06-29] MEDS: ZONISAMIDE 100 MG CAP PO SCH ×2 (11:19→19:57)
[2020-06-29 13:35] LABS: Glucose,Whole Blood 131 mg/dL (75-99)
[2020-06-29 16:53] LABS: Glucose,Whole Blood 106 mg/dL (75-99)
[2020-06-29] MEDS: PANTOPRAZOLE 40 MG TABLET PO PRN (17:05)
[2020-06-29] MEDS: ONDANSETRON 4 MG TAB PO PRN (18:36)
[2020-06-29] MEDS: QUEtiapine 50 MG TAB PO SCH (19:57)
[2020-06-29 20:52] LABS: Glucose,Whole Blood 199 mg/dL (75-99)
[2020-06-29] MEDS: MIRTAZAPINE 15 MG TAB PO SCH (22:33)
[2020-06-29] MEDS: SERTRALINE 100 MG TAB PO SCH (22:33)
[2020-06-29] MEDS: MELATONIN 5 MG TABLET PO SCH (22:33)
[2020-06-29] MEDS: LORATADINE 10 MG TAB PO SCH (22:33)
[2020-06-29 23:18] VITALS: RESP 16
[2020-06-30 06:06] LABS: Glucose,Whole Blood 129 mg/dL (75-99)
[2020-06-30] MEDS: INSULIN ASPART (NovoLOG) 100 UNIT/ML VIAL SQ SCH ×2 (06:10→12:01)
[2020-06-30 08:27] LABS: African American GFR (CKD) >90 (>60 ml/min/1.73 sqM); Anion Gap 3 mmol/L; Blood Urea Nitrogen 19 mg/dL (7-17); Calcium 9.2 mg/dL (8.4-10.2); Carbon Dioxide 31 mmol/L (22-30); Chloride 99 mmol/L (98-107); Glucose 126 mg/dL (74-99); Non-African American GFR(CKD) >90 (>60 ml/min/1.73 sqM); Potassium 4.5 mmol/L (3.5-5.1); Sodium 133 mmol/L (137-145)
[2020-06-30] MEDS: DICYCLOMINE 20 MG TAB PO SCH ×2 (09:14→16:24)
[2020-06-30] MEDS: clonazePAM 0.5 MG TAB PO SCH (09:14)
[2020-06-30] MEDS: lamoTRIgine 100 MG TAB PO SCH (09:15)
[2020-06-30] MEDS: PHENYTOIN SODIUM EXTENDED 100 MG CAP PO SCH (09:15)
[2020-06-30] MEDS: ZONISAMIDE 100 MG CAP PO SCH (09:16)
[2020-06-30] MEDS: ACETAMINOPHEN TAB 325 MG TAB PO PRN ×2 (09:17→14:54)
[2020-06-30 11:41] LABS: Glucose,Whole Blood 114 mg/dL (75-99)
[2020-06-30] MEDS: levETIRAcetam 250 MG TAB PO SCH (12:03)
[2020-06-30 12:37] VITALS: BMI 20.7
[2020-06-30] MEDS: ONDANSETRON 4 MG TAB PO PRN (14:39)
--- NOTE | 2020-06-30 14:53 | P.DS ---
Providers Date of admission: 06/25/20 09:03 Expected date of discharge: 06/30/20 Attending physician: Mandeep Riddle MD Consults: 06/24/20 17:09 Consult Physician Routine Consulting Provider: Markell Mccabe Consult Reason/Comments: Seizures despite supratherapeutic dilantin Do you want consulting provider notified?: Yes 06/25/20 17:03 Consult Physician Routine Consulting Provider: Chito Toledo Consult Reason/Comments: psychogenic seizures? Do you want consulting provider notified?: Yes Primary care physician: [facility] Course: 50 year old woman with history of compression fractures, chronic pain, seizure disorder, depression/fibromyalgias presented with seizures. 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 According to her sister she follows up with the neurologist in [facility]. Patient has been having increasing frequency of seizures over the last several weeks. According to her sister patient is not able to attend to her activities of daily living, the sister had to clean her up multiple times a day as she was not controlling her urine or bowel movement. Patient is currently taking 4 different antiepileptic medications PRESCRIBED by her neurologist. Despite being on 4 different seizure medications she continues to have seizures. Patient was having 5-7 seizures/day for the last two weeks. Each last ~1 min and are tonic-clonic in nature. She comes around right away after her seizures without any post-ictal confusion. No tongue biting, fevers, chills, visual ch anges, photo/phonophobia. Upon admission she did have many different complaints including: constipation, nausea, vomiting, abd pain, back pain, numbness/weakness. Laboratory evaluation in the emergency department revealed normal vital signs. Her labs were significant for low WBC and elevated phenytoin level. His head CT was pretty unremarkable. Patient was admitted for intractable seizure jessica atment. She was evaluated by neurology who did an EEG that did not show any specific seizure focus according to the neurologist. Of note patient lost so much weight over the past several months according to her sister, according to the neurologist could cause anorexia, so the dose was decreased in half to 100mg bid.. Lamictal was increased instead to 150 mg in the morning and 200 mg at night. During the hospitalization patient had 2 episodes of witnessed shaking during which patient claims that she was having a seizure. She was told by the nursing staff that she wasn't and right after that she stopped shaking. It was felt that the seizures were most likely psychogenic in nature. Patient was seen by psychiatry who did not feel that she was a candidate for inpatient psychiatric admission. Psychiatrist recommended cutting down the Klonopin to once daily instead of twice and to start her on Seroquel at night. This was done. According to patient's sister who has been taking care of the patient recently patient is not functional enough to qualify to go home. Referral made to [facility] and patient was accepted for transfer. Time for discharge 36 min Patient Condition at Discharge: Good Plan - Discharge Summary Discharge Rx Participant: No New Discharge Prescriptions: New clonazePAM [KlonoPIN] 0.5 mg PO DAILY tab lamoTRIgine [LaMICtal] 200 mg PO HS tab lamoTRIgine [LaMICtal] 150 mg PO DAILY tab QUEtiapine [SEROquel] 50 mg PO HS tab Zonisamide [Zonegran] 100 mg PO Q12HR cap Continue Phenytoin Sodium Extended [Dilantin] 100 mg PO BID@0000,1200 Simethicone [Gas-X] 125 mg PO DAILY PRN PRN Reason: Gi Upset Calcium Carbonate [Tums] 500 - 1,000 mg PO QID PRN PRN Reason: Heartburn Acetaminophen [Tylenol] 650 mg PO Q6H PRN PRN Reason: Fever And/ Or Pain Cetirizine HCl 10 mg PO HS@0000 ondansetron HCL [Zofran] 8 mg PO Q8H PRN PRN Reason: Nausea And Vomiting Mirtazapine [Remeron] 15 mg PO HS@0000 Dicyclomine [Bentyl] 20 mg PO TID tab lamoTRIgine [LaMICtal] 150 mg PO BID@0000,1200 Sertraline [Zoloft] 200 mg PO HS@0000 levETIRAcetam [Keppra] 250 mg PO BID@0000,1200 Pantoprazole [Protonix] 40 mg PO AC-BID PRN PRN Reason: Heartburn Melatonin 5 mg PO HS@0000 Discontinued Zonisamide [Zonegran] See Taper PO DIRECTED Buprenorphine [Butrans 20 MCG/HOUR] 1 patch TRANSDERM Q7D Insulin Glargine,Hum.rec.anlog [Lantus Solostar] 11 unit SQ DAILY clonazePAM [KlonoPIN] 0.5 mg PO BID@0000,1200 Discharge Medication List Phenytoin Sodium Extended [Dilantin] 100 mg PO BID@0000,1200 10/10/19 [History] Acetaminophen [Tylenol] 650 mg PO Q6H PRN 10/25/19 [History] Calcium Carbonate [Tums] 500 - 1,000 mg PO QID PRN 10/25/19 [History] Cetirizine HCl 10 mg PO HS@0000 10/25/19 [History] Simethicone [Gas-X] 125 mg PO DAILY PRN 10/25/19 [History] ondansetron HCL [Zofran] 8 mg PO Q8H PRN 10/25/19 [History] Mirtazapine [Remeron] 15 mg PO HS@0000 02/16/20 [History] Dicyclomine [Bentyl] 20 mg PO TID tab 02/23/20 [Rx] Melatonin 5 mg PO HS@0000 06/24/20 [History] Pantoprazole [Protonix] 40 mg PO AC-BID PRN 06/24/20 [History] Sertraline [Zoloft] 200 mg PO HS@0000 06/24/20 [History] lamoTRIgine [LaMICtal] 150 mg PO BID@0000,1200 06/24/20 [History] levETIRAcetam [Keppra] 250 mg PO BID@0000,1200 06/24/20 [History] QUEtiapine [SEROquel] 50 mg PO HS tab 06/30/20 [Rx] Zonisamide [Zonegran] 100 mg PO Q12HR cap 06/30/20 [Rx] clonazePAM [KlonoPIN] 0.5 mg PO DAILY tab 06/30/20 [Rx] lamoTRIgine [LaMICtal] 150 mg PO DAILY tab 06/30/20 [Rx] lamoTRIgine [LaMICtal] 200 mg PO HS tab 06/30/20 [Rx] Follow up Appointment(s)/Referral(s): Skye Perez MD [Primary Care Provider] - 1-2 days
[2020-06-30 16:50] LABS: Glucose,Whole Blood 123 mg/dL (75-99)
[2020-06-30 17:19] VITALS: BP 174/88; PULSE 89; TEMP 97
== END 2020-06-30 17:57 | DRG 100 ==
LOC: EC 13:32 → 1SOBS 17:07 → OBSVTOIN 06-25 09:03 → 3SCARD 06-25 21:28
PROVIDERS: ADMIT Internal Medicine; ATTEND Internal Medicine
DX: G40.219 Localization-related (focal) (partial) symptomatic epilepsy and epileptic syndromes with complex partial seizures, intractable, without status epilepticus (principal); E43 Unspecified severe protein-calorie malnutrition; M48.50XA Collapsed vertebra, not elsewhere classified, site unspecified, initial encounter for fracture; D72.819 Decreased white blood cell count, unspecified; F40.00 Agoraphobia, unspecified; F41.8 Other specified anxiety disorders; G31.9 Degenerative disease of nervous system, unspecified; G89.29 Other chronic pain; H57.04 Mydriasis; K21.00 Gastro-esophageal reflux disease with esophagitis, without bleeding; K59.00 Constipation, unspecified; M79.7 Fibromyalgia; E11.9 Type 2 diabetes mellitus without complications; R32 Unspecified urinary incontinence; R15.9 Full incontinence of feces; R62.7 Adult failure to thrive; Z79.4 Long term (current) use of insulin; Z79.899 Other long term (current) drug therapy; Z20.822 Contact with and (suspected) exposure to COVID-19; R63.0 Anorexia; Z68.20 Body mass index [BMI] 20.0-20.9, adult; T42.6X5A Adverse effect of other antiepileptic and sedative-hypnotic drugs, initial encounter; Z81.8 Family history of other mental and behavioral disorders; Z88.1 Allergy status to other antibiotic agents; Z90.89 Acquired absence of other organs; Z90.49 Acquired absence of other specified parts of digestive tract; M81.0 Age-related osteoporosis without current pathological fracture
CPT/HCPCS: 36415; 70450; 80048; 80053; 80175; 80177; 80185; 80306; 81001; 82075; 83036; 83735; 84100; 85025; 85027; 87635; 95816; 99285

== ENCOUNTER → 2021-05-19 | Outpatient (CLI) | payer MEDICARE ==
--- NOTE | 2021-05-20 13:26 | P.ARTDOP ---
Arterial Doppler LOWER EXTREMITY ARTERIAL DOPPLER: DATE OF SERVICE: 05/19/2021 Reason for study: Ulcer right foot. Doppler waveforms: Multiphasic bilaterally throughout. Pulse volume recording: []. Pressure gradients: None. Ankle-brachial indices: Greater than 1 bilaterally. Toe brachial indices: 0.82 on the right, 0.91 on the left Impression: Normal study.
== END | disposition home or self-care (01) ==
LOC: RADUSWWP 13:30
PROVIDERS: ATTEND Internal Medicine Geriatric Medicine
DX: E11.9 Type 2 diabetes mellitus without complications (principal)
CPT/HCPCS: 93922

== ENCOUNTER 2024-01-24 16:35 | Observation (INO) | payer MEDICARE, OTHER ==
--- NOTE | 2024-01-24 17:14 | ED ---
General Adult HPI - General Chief complaint: Nausea/Vomiting/Diarrhea Stated complaint: Vomiting Time Seen by Provider: 01/24/24 16:54 Source: patient, EMS, RN notes reviewed, old records reviewed Mode of arrival: EMS Limitations: no limitations - History of Present Illness Initial comments: Patient is a 53-year-old female presenting from skilled nursing for nausea and vomiting. Onset of symptoms was this morning. Patient does admit to having some abdominal discomfort as well. Patient states she had similar symptoms a week ago. Patient does present from skilled nursing and is overall a poor historian - Related Data Home Medications Medication Instructions Recorded Confirmed Phenytoin Sodium Extended 100 mg PO BID@0000,1200 10/10/19 06/24/20 [Dilantin] Acetaminophen [Tylenol] 650 mg PO Q6H PRN 10/25/19 06/24/20 Calcium Carbonate [Tums] 500 - 1,000 mg PO QID PRN 10/25/19 06/24/20 Cetirizine HCl 10 mg PO HS@0000 10/25/19 06/24/20 Simethicone [Gas-X] 125 mg PO DAILY PRN 10/25/19 06/24/20 ondansetron HCL [Zofran] 8 mg PO Q8H PRN 10/25/19 06/24/20 Mirtazapine [Remeron] 15 mg PO HS@0000 02/16/20 06/24/20 Melatonin 5 mg PO HS@0000 06/24/20 06/24/20 Pantoprazole [Protonix] 40 mg PO AC-BID PRN 06/24/20 06/24/20 Sertraline [Zoloft] 200 mg PO HS@0000 06/24/20 06/24/20 lamoTRIgine [LaMICtal] 150 mg PO BID@0000,1200 06/24/20 06/24/20 levETIRAcetam [Keppra] 250 mg PO BID@0000,1200 06/24/20 06/24/20 Previous Rx's Medication Instructions Recorded Dicyclomine [Bentyl] 20 mg PO TID tab 02/23/20 QUEtiapine [SEROquel] 50 mg PO HS tab 06/30/20 Zonisamide [Zonegran] 100 mg PO Q12HR cap 06/30/20 clonazePAM [KlonoPIN] 0.5 mg PO DAILY tab 06/30/20 lamoTRIgine [LaMICtal] 150 mg PO DAILY tab 06/30/20 lamoTRIgine [LaMICtal] 200 mg PO HS tab 06/30/20 Allergies Allergy/AdvReac Type Severity Reaction Status Date / Time cefaclor [From Ceclor] Allergy Rash/Hives Verified 01/24/24 16:53 Review of Systems ROS Statement: Those systems with pertinent positive or pertinent negative responses have been documented in the HPI. ROS Other: All systems not noted in ROS Statement are negative. Constitutional: Denies: fever Eyes: Denies: eye pain ENT: Denies: ear pain Respiratory: Denies: dyspnea Cardiovascular: Denies: chest pain Gastrointestinal: Reports: as per HPI, abdominal pain, nausea, vomiting Musculoskeletal: Denies: back pain Past Medical History Past Medical History: Diabetes Mellitus, Fibromyalgia, GERD/Reflux, Ost eoarthritis (OA), Pneumonia, Seizure Disorder, Skin Disorder Additional Past Medical History / Comment(s): pt stated a lesion in her brain with new onset seizures with hallucinations in august 2019. hiatal hernia. 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 back pain- compression L1-L2. since august 2019 stomach pain and nausea. History of Any Multi-Drug Resistant Organisms: MRSA Date of last positivie culture/infection: 02/26/21 MDRO Source:: MRSA TOE Past Surgical History: Cholecystectomy, Tonsillectomy Additional Past Surgical History / Comment(s): brochoscopy with biopsy 2011 lung biopsy. lap choly 09/2019. egd 10/25/2019 Past Anesthesia/Blood Transfusion Reactions: No Reported Reaction Past Psychological History: Anxiety, Depression Smoking Status: Never smoker Past Alcohol Use History: None Reported Past Drug Use History: None Reported - Past Family History Father Family Medical History: Cancer Additional Family Medical History / Comment(s): heart disease General Exam Limitations: no limitations General appearance: alert, in no apparent distress Head exam: Present: normocephalic Eye exam: Present: normal appearance Neck exam: Present: normal inspection Respiratory exam: Present: normal lung sounds bilaterally Cardiovascular Exam: Present: regular rate, normal rhythm Expanded Peripheral pulses: 2+: Dorsalis Pedis (R), Dorsalis Pedis (L) GI/Abdominal exam: Present: soft, tenderness (Mild to moderate diffuse tenderness), normal bowel sounds. Absent: distended, guarding, rebound, rigid, pulsatile mass Extremities exam: Present: normal inspection Neurological exam: Present: alert Psychiatric exam: Present: normal affect, normal mood Skin exam: Present: normal color Course Vital Signs 01/24/24 01/24/24 01/24/24 16:39 18:22 19:38 Temperature 97.7 F 97.6 F Pulse Rate 66 78 80 Respiratory 18 18 18 Rate Blood Pressure 178/94 187/105 187/111 O2 Sat by Pulse 96 94 L 97 Oximetry 01/24/24 01/24/24 19:55 20:52 Temperature Pulse Rate 80 99 Respiratory 18 18 Rate Blood Pressure 177/100 146/83 O2 Sat by Pulse 97 98 Oximetry EKG Findings - EKG Results: EKG: interpreted by FLORES (Anterior and inferior Q waves), sinus rhythm, normal axis, normal ST/T Medical Decision Making - Medical Decision Making Was pt. sent in by a medical professional or institution (, PA, DIRECTOR INDUSTRIAL, urgent care, hospital, or skilled nursing...) When possible be specific @ -Patient was sent in from skilled nursing Did you speak to anyone other than the patient for history (EMS, parent, family, police, friend...)? What history was obtained from this source @ -No Did you review nursing and triage notes (agree or disagree)? Why? @ -I reviewed and agree with nursing and triage notes Were old charts reviewed (outside hosp., previous admission, EMS record, old EKG, old radiological studies, urgent care reports/EKG's, skilled nursing records)? Report findings @ -Previous admission reviewed Differential Diagnosis (chest pain, altered mental status, abdominal pain women, abdominal pain men, vaginal bleeding, weakness, fever, dyspnea, syncope, headache, dizziness, GI bleed, back pain, seizure, CVA, palpatations, mental health, musculoskeletal)? @ -Differential Abdominal Pain Women: Appendicitis, Cholecystitis, diverticulosis, ischemic bowel, pancreatitis, hepatitis, UTI, gastroenteritis, AAA, incarcerated hernia, bowel obstruction, constipation, inflammatory bowel, hepatitis, peptic ulcer disease, splenic infarction, perforated viscus, vulvitis, ovarian torsion, PID, kidney stone, placenta abruption, this is not meant to be an all-inclusive list EKG interpreted by me (3pts min.). @ -As above X-rays interpreted by me (1pt min.). @ -None done CT interpreted by me (1pt min.). @ -CT scan abdomen pelvis does not reveal acute abnormality. Right adnexal dermoid cyst, similar to previous U/S interpreted by me (1pt. min.). @ -None done What testing was considered but not performed or refused? (CT, X-rays, U/S, labs)? Why? @ -None What meds were considered but not given or refused? Why? @ -None Did you discuss the management of the patient with other professionals (professionals i.e. DrSlick, PA, DIRECTOR INDUSTRIAL, lab, RT, psych nurse, social welfare administrator, restoration silversmith, teacher, air intelligence officer, family caseworker)? Give summary @ -Dr. Diaz who will admit his patient Was smoking cessation discussed for >3mins.? @ -No Was critical care preformed (if so, how long)? @ -No Were there social determinants of health that impacted care today? How? (Homelessness, low income, unemployed, alcoholism, drug addiction, transportation, low edu. Level, literacy, decrease access to med. care, longterm, rehab)? @ -No Was there de-escalation of care discussed even if they declined (Discuss DNR or withdrawal of care, Hospice)? DNR status @ -No What co-morbidities impacted this encounter? (DM, HTN, Smoking, COPD, CAD, Cancer, CVA, ARF, Chemo, Hep., AIDS, mental health diagnosis, sleep apnea, morbid obesity)? @ -None Was patient admitted / discharged? Hospital course, mention meds given and route, prescriptions, significant lab abnormalities, going to OR and other pertinent info. @ -Patient presents with nausea and vomiting. Patient given 2 doses of Zofran and Reglan and continues to have nausea and emesis. Blood pressure has improved with 2 doses of hydralazine. Patient still does not feel comfortable. Case discussed with Dr. Diaz. Patient will be held for observation, admission orders written Undiagnosed new problem with uncertain prognosis? @ -No Drug Therapy requiring intensive monitoring for toxicity (Heparin, Nitro, Insulin, Cardizem)? @ -No Were any procedures done? @ -No Diagnosis/symptom? @ -Intractable nausea vomiting, hypertension Acute, or Chronic, or Acute on Chronic? @ -Acute, acute Uncomplicated (without systemic symptoms) or Complicated (systemic symptoms)? @ -Default Side effects of treatment? @ -No Exacerbation, Progression, or Severe Exacerbation? @ -No Poses a threat to life or bodily function? How? (Chest pain, USA, GA, pneumonia, PE, COPD, DKA, ARF, appy, cholecystitis, CVA, Diverticulitis, Homicidal, Suicidal, threat to staff... and all critical care pts) @ -No - Lab Data Result diagrams: 01/24/24 17:35 01/24/24 18:14 Lab Results 01/24/24 01/24/24 01/24/24 Range/Units 17:35 17:35 18:14 WBC 8.8 (3.8-10.6) k/uL RBC 4.52 (3.80-5.40) m/uL Hgb 12.3 (11.4-16.0) gm/dL Hct 38.1 (34.0-46.0) % MCV 84.3 (80.0-100.0) fL MCH 27.1 (25.0-35.0) pg MCHC 32.1 (31.0-37.0) g/dL RDW 14.7 (11.5-15.5) % Plt Count 219 (150-450) k/uL MPV 9.8 Neutrophils % 83 % Lymphocytes % 11 % Monocytes % 4 % Eosinophils % 1 % Basophils % 0 % Neutrophils # 7.3 (1.3-7.7) k/uL Lymphocytes # 1.0 (1.0-4.8) k/uL Monocytes # 0.3 (0-1.0) k/uL Eosinophils # 0.1 (0-0.7) k/uL Basophils # 0.0 (0-0.2) k/uL Hypochromasia Moderate PT 10.7 (10.0-12.5) sec INR 1.0 (<1.2) APTT 24.8 (22.0-30.0) sec Sodium 135 L (137-145) mmol/L Potassium 5.2 H (3.5-5.1) mmol/L Chloride 104 (98-107) mmol/L Carbon Dioxide 20 L (22-30) mmol/L Anion Gap 11 mmol/L BUN 20 H (7-17) mg/dL Creatinine 0.84 (0.52-1.04) mg/dL Est GFR (CKD-EPI)AfAm >90 (>60 ml/min/1.73 sqM) Est GFR (CKD-EPI)NonAf 81 (>60 ml/min/1.73 sqM) Glucose 210 H (74-99) mg/dL Calcium 9.3 (8.4-10.2) mg/dL Total Bilirubin 0.8 (0.2-1.3) mg/dL AST 40 H (14-36) U/L ALT 19 (4-34) U/L Alkaline Phosphatase 70 (38-126) U/L Troponin I (0.000-0.034) ng/mL Total Protein 7.1 (6.3-8.2) g/dL Albumin 4.6 (3.5-5.0) g/dL Amylase 47 (30-110) U/L Lipase 29 (23-300) U/L Phenytoin <3.0 ug/mL 01/24/24 Range/Units 18:14 WBC (3.8-10.6) k/uL RBC (3.80-5.40) m/uL Hgb (11.4-16.0) gm/dL Hct (34.0-46.0) % MCV (80.0-100.0) fL MCH (25.0-35.0) pg MCHC (31.0-37.0) g/dL RDW (11.5-15.5) % Plt Count (150-450) k/uL MPV Neutrophils % % Lymphocytes % % Monocytes % % Eosinophils % % Basophils % % Neutrophils # (1.3-7.7) k/uL Lymphocytes # (1.0-4.8) k/uL Monocytes # (0-1.0) k/uL Eosinophils # (0-0.7) k/uL Basophils # (0-0.2) k/uL Hypochromasia PT (10.0-12.5) sec INR (<1.2) APTT (22.0-30.0) sec Sodium (137-145) mmol/L Potassium (3.5-5.1) mmol/L Chloride (98-107) mmol/L Carbon Dioxide (22-30) mmol/L Anion Gap mmol/L BUN (7-17) mg/dL Creatinine (0.52-1.04) mg/dL Est GFR (CKD-EPI)AfAm (>60 ml/min/1.73 sqM) Est GFR (CKD-EPI)NonAf (>60 ml/min/1.73 sqM) Glucose (74-99) mg/dL Calcium (8.4-10.2) mg/dL Total Bilirubin (0.2-1.3) mg/dL AST (14-36) U/L ALT (4-34) U/L Alkaline Phosphatase (38-126) U/L Troponin I 0.014 (0.000-0.034) ng/mL Total Protein (6.3-8.2) g/dL Albumin (3.5-5.0) g/dL Amylase (30-110) U/L Lipase (23-300) U/L Phenytoin ug/mL Disposition Clinical Impression: Vomiting, Hypertension Disposition: ADMITTED IP TO THIS HOSP Is patient prescribed a controlled substance at d/c from ED?: No Time of Disposition: 21:19
[2024-01-24] MEDS: SODIUM CHLORIDE 0.9% 500 ML 500 ML IV STA (17:38)
[2024-01-24] MEDS: PANTOPRAZOLE 40 MG/10 ML VIAL IVP STA (17:42)
[2024-01-24] MEDS: ONDANSETRON 4 MG/2 ML VIAL IVP STA ×2 (17:42→19:35)
[2024-01-24 17:46] LABS: Basophils % (A) 0 %; Eosinophils # (A) 0.1 k/uL (0-0.7); Eosinophils % (A) 1 %; HCT 38.1 % (34.0-46.0); HGB 12.3 gm/dL (11.4-16.0); Hypochromasia Moderate; Lymphocytes % (A) 11 %; MCH 27.1 pg (25.0-35.0); MCHC 32.1 g/dL (31.0-37.0); MCV 84.3 fL (80.0-100.0); Mean Platelet Volume 9.8; Monocytes # (A) 0.3 k/uL (0-1.0); Monocytes % (A) 4 %; Neutrophils # (A) 7.3 k/uL (1.3-7.7); Neutrophils % (A) 83 %; Platelet Count 219 k/uL (150-450); RBC 4.52 m/uL (3.80-5.40); RDW 14.7 % (11.5-15.5); WBC 8.8 k/uL (3.8-10.6)
[2024-01-24] MEDS: SODIUM CHLORIDE 0.9% 1,000 ML IV STA (18:28)
--- NOTE | 2024-01-24 18:40 | CT ---
EXAMINATION TYPE: CT abdomen pelvis wo con CT DLP: 1206.4 mGycm, Automated exposure control for dose reduction was used. DATE OF EXAM: 01/24/2024 6:24 PM COMPARISON: CT abdomen pelvis most recent from CLINICAL INDICATION:Female, 53 years old with history of abdominal pain; abdominal pain with vomiting and hypertension. TECHNIQUE: Axial CT abdomen pelvis wo con;Sagittal and coronal reformats were created on a separate workstation. Contrast used: mL of , (none if empty) Oral contrast used: without Oral Contrast (none if empty) FINDINGS: LOWER CHEST: Lungs are clear. No pleural effusions. ABDOMEN LIVER: Unremarkable GALLBLADDER AND BILE DUCTS: Cholecystectomy clips in the gallbladder fossa. PANCREAS: Pronounced fatty infiltration. SPLEEN: Unremarkable. ADRENAL GLANDS: Unremarkable. KIDNEYS AND URETERS: No evidence of hydronephrosis or renal calculus. The ureters are unremarkable. PELVIS BLADDER: Unremarkable REPRODUCTIVE: 9 cm dermoid reidentified in the right adnexa/hemipelvis. Left adnexa is unremarkable. ABDOMEN & PELVIS STOMACH AND BOWEL: Hiatal hernia. Small volume of stomach in the hernia. No evidence of bowel obstruc tion. PERITONEUM/RETROPERITONEUM: No evidence of pneumoperitoneum or free fluid. VASCULATURE: No evidence of aortic aneurysm. MUSCULOSKELETAL: No acute osseous abnormalities LYMPH NODES: No gross evidence for lymphadenopathy. SOFT TISSUE/ABDOMINAL WALL: Unremarkable IMPRESSION: 1. A 9 cm Dermoid in the right adnexa appears stable compared to 02/16/2020. 2. Status post cholecystectomy.
[2024-01-24 18:41] LABS: ALT 19 U/L (4-34); African American GFR (CKD) >90 (>60 ml/min/1.73 sqM); Albumin 4.6 g/dL (3.5-5.0); Amylase 47 U/L (30-110); Anion Gap 11 mmol/L; Blood Urea Nitrogen 20 mg/dL (7-17); Calcium 9.3 mg/dL (8.4-10.2); Carbon Dioxide 20 mmol/L (22-30); Chloride 104 mmol/L (98-107); Glucose 210 mg/dL (74-99); Lipase 29 U/L (23-300); Non-African American GFR(CKD) 81 (>60 ml/min/1.73 sqM); Phenytoin (Dilantin) <3.0 ug/mL; Sodium 135 mmol/L (137-145); Total Bilirubin 0.8 mg/dL (0.2-1.3); Total Protein 7.1 g/dL (6.3-8.2)
[2024-01-24 18:49] LABS: AST 40 U/L (14-36); Alkaline Phosphatase 70 U/L (38-126); Potassium 5.2 mmol/L (3.5-5.1)
[2024-01-24 18:54] LABS: Partial Thromboplastin Time 24.8 sec (22.0-30.0); Prothrombin Time 10.7 sec (10.0-12.5)
[2024-01-24] MEDS: hydrALAZINE HCL 20 MG/ML 1 ML VIAL IVP STA ×2 (19:40→20:28)
[2024-01-24] MEDS: METOCLOPRAMIDE 5 MG/ML 2 ML VIAL IVP STA (20:23)
[2024-01-24] MEDS ORDERED: NALOXONE 0.4 MG/ML 1 ML VIAL IV PRN (21:19)
[2024-01-24] MEDS: SODIUM CHLORIDE 0.9% 1,000 ML IV SCH (21:34)
[2024-01-24] MEDS ORDERED: PROCHLORPERAZINE 5 MG TAB PO PRN (22:00)
[2024-01-24 22:02] LABS: Appearance,Urine Clear (Clear); Bilirubin,Urine Negative (Negative); Blood,Urine Negative (Negative); Color,Urine Colorless; Glucose,Urine (UA) 1+ (Negative); Ketones,Urine 1+ (Negative); Leukocyte Esterase,Urine Negative (Negative); Nitrite,Urine Negative (Negative); Protein,Urine Negative (Negative); Specific Gravity,Urine 1.016 (1.001-1.035); Urobilinogen,Urine <2.0 mg/dL (<2.0)
[2024-01-24] MEDS: ACETAMINOPHEN TAB 325 MG TAB PO PRN (23:36)
[2024-01-24] MEDS: CALCIUM CARBONATE 500 MG CHEWABLE PO PRN (23:37)
[2024-01-25] MEDS ORDERED: bisacodyL 10 MG SUPP RECTAL PRN (08:42)
[2024-01-25] MEDS ORDERED: ONDANSETRON 4 MG TAB PO PRN (08:42)
[2024-01-25] MEDS ORDERED: MAGNESIUM HYDROXIDE 2,400 MG/30 ML CUP PO PRN (08:42)
[2024-01-25] MEDS ORDERED: NA PHOS,M-B/NA PHOS,DI-BA 133 ML ENEMA RECTAL PRN (08:42)
[2024-01-25] MEDS ORDERED: NON FORMULARY DRUG (Rimegepant Sulfate [Nurtec Odt] 75 MG Tablet) PO PRN (08:42)
[2024-01-25] MEDS ORDERED: KETOTIFEN 0.025% OPHTH DROPS 5 ML BTL BOTH EYES PRN (08:42)
[2024-01-25] MEDS ORDERED: BUTALB/APAP/CAFF 50-325-40MG TAB PO PRN (08:42)
[2024-01-25] MEDS ORDERED: CALCIUM CARBONATE 500 MG CHEWABLE PO PRN (08:42)
[2024-01-25] MEDS ORDERED: LOPERAMIDE 2 MG CAP PO PRN (08:42)
[2024-01-25] MEDS ORDERED: ALBUTEROL NEBULIZED 2.5 MG/3 ML INHALATION PRN (08:42)
[2024-01-25] MEDS ORDERED: SIMETHICONE 80 MG CHEWABLE PO PRN (08:42)
[2024-01-25] MEDS ORDERED: [UNRECOGNIZED DRUG - OTHER] BOTH EYES SCH (09:00)
[2024-01-25 09:23] LABS: Basophils % (A) 0 %; Eosinophils # (A) 0.1 k/uL (0-0.7); Eosinophils % (A) 0 %; HCT 37.7 % (34.0-46.0); HGB 12.1 gm/dL (11.4-16.0); Hypochromasia Moderate; Lymphocytes # (A) 1.2 k/uL (1.0-4.8); Lymphocytes % (A) 8 %; MCH 27.7 pg (25.0-35.0); MCHC 32.2 g/dL (31.0-37.0); MCV 86.1 fL (80.0-100.0); Mean Platelet Volume 8.6; Monocytes # (A) 0.8 k/uL (0-1.0); Monocytes % (A) 5 %; Neutrophils # (A) 13.2 k/uL (1.3-7.7); Neutrophils % (A) 86 %; Platelet Count 284 k/uL (150-450); RBC 4.38 m/uL (3.80-5.40); RDW 14.7 % (11.5-15.5); WBC 15.3 k/uL (3.8-10.6)
[2024-01-25 09:48] LABS: African American GFR (CKD) >90 (>60 ml/min/1.73 sqM); Anion Gap 14 mmol/L; Blood Urea Nitrogen 16 mg/dL (7-17); Carbon Dioxide 21 mmol/L (22-30); Chloride 102 mmol/L (98-107); Glucose 160 mg/dL (74-99); Non-African American GFR(CKD) 80 (>60 ml/min/1.73 sqM); Potassium 4.1 mmol/L (3.5-5.1); Sodium 137 mmol/L (137-145)
[2024-01-25] MEDS: lamoTRIgine 100 MG TAB PO SCH (10:13)
[2024-01-25] MEDS: FAMOTIDINE 20 MG TAB PO SCH (10:13)
[2024-01-25] MEDS: metFORMIN 500 MG TAB PO SCH (10:14)
[2024-01-25] MEDS: ASPIRIN 81 MG PO SCH (10:14)
[2024-01-25] MEDS: ZONISAMIDE 100 MG CAP PO SCH (10:14)
[2024-01-25] MEDS: CHOLECALCIFEROL 25 MCG (1000 IU) TABLET PO SCH (10:14)
[2024-01-25] MEDS: clonazePAM 0.5 MG TAB PO SCH (10:14)
[2024-01-25] MEDS: ACETAMINOPHEN TAB 500 MG TAB PO SCH (10:14)
[2024-01-25] MEDS: SODIUM CHLORIDE 0.9% 1,000 ML IV SCH (10:15)
[2024-01-25] MEDS: PANTOPRAZOLE 40 MG/10 ML VIAL IV SCH (10:15)
[2024-01-25] MEDS: LINAGLIPTIN 5 MG TABLET PO SCH (10:15)
[2024-01-25] MEDS: BRIMONIDINE TARTRATE 0.2% DROPS 5 ML BTL BOTH EYES SCH (10:15)
[2024-01-25 12:16] LABS: Glucose,Whole Blood 208 mg/dL (70-110)
--- NOTE | 2024-01-25 13:08 | P.HPIM ---
History of Present Illness H&P Date: 01/25/24 HISTORY OF PRESENT ILLNESS: 53-year-old with active medical history of seizure, fibromyalgia, severe GERD, possible multiple sclerosis, chronic degenerative disc disease mostly in the lumbar spine area, severe recurrent migraine, type 2 diabetes on oral medication, with history of chronic depression who has been resident to [facility] for more than 3 years has not been in the hospital Since 2020 who presented to the emergency department on 01/24/2024 late in the day complaining of intractable nausea vomiting with some abdominal discomfort apparently had similar symptoms a week ago symptoms resolved patient try Zofran and antinausea medication in [facility] not successfully declined any fever or chills was tested for COVID along with influenza AMB were negative she is complaining of intractable headache at this point with worsening pain and discomfort. Her Dilantin level was done at the emergency department was very low requesting Lamictal and Keppra level is pending at this point. Patient was hydrated for several hours in the emergency room symptoms did not resolve ended up admitting patient to the hospital for symptoms control. CAT scan of the abdomen and pelvis shows post cholecystectomy with 9 cm dermoid in the right inguinal change since 2019 otherwise no sign of obstruction or major abnormality. Blood work and lab testing shows normal CBC chemistry with mild elevated blood sugar and liver function test troponin was negative UA was negative her GFR was over 90. REVIEW OF SYSTEMS: CONSTITUTIONAL: Obese no acute respiratory distress. EYES: No icterus sclerae, no conjunctivitis. EARS, NOSE, MOUTH, THROAT, and FACE: No sore throat, lymphadenopathy, carotid bruits or deformity. RESPIRATORY: No SOB cough or wheezes. CARDIOVASCULAR: No CP, Palpitation, PND, Orthopnea, or angina. GASTROINTESTINAL: Positive abdominal discomfort with nausea and vomiting no diarrhea or constipation. GENITOURINARY: Negative for Hematuria or UTI, no kidney stones. INTEGUMENT/BREAST: Generalized muscle and joint pain with back pain as well. HEMATOLOGIC/LYMPHATIC: Negative for bleed or purpura. MUSCULOSKELTAL: Generalized arthralgia and fibromyalgia. NEURLOGICAL: No LOC, Sz or syncope, blurred vision dizziness or abnormality. Recurrent history of migraine.. BEHAVIORAL/PSYCH: Negative. ENDOCRINE: Negative. PHYSICAL EXAMINATION: General Appearance: Alert, cooperative, no distress, appears stated age. Neck HEENT: Supple, no lymphadenopathy, no thyroid enlargement, no carotid bruits. Lungs: Clear to auscultation without crackles or wheezes no rhonchi, no deformity. Chest Wall: Chest wall normal expansion with deep inspiration no tenderness and no deformity was found on exam, no costochondral pain or discomfort. Heart: Regular rate and rhythm, S1, S2 normal, no murmur, rub or gallop. Back: Mild scoliosis with slight discomfort lower lumbar area. Abdomen: Soft, non-tender, bowel sounds active all four quadrants, positive discomfort in the epigastric and mid abdominal area no rebound or rigidity. Extremities: Extremities normal, atraumatic, no cyanosis or edema. Pulses: 2+ and symmetric. Skin: Skin color, texture, tugor normal, no rashes or lesions. Neurologic: Alert oriented x3 cranial nerves II through XII intact, no motor deficit, no abnormal balance or gait. ASSESSMENT AND PLAN: _Intractable nausea and vomiting: Most likely secondary to severe gastritis and gastroenteritis, continue hydration with antiemetic medication, no change in white blood cell pancreatic or liver enzymes this point continue to treat her symptoms if persistent symptoms might benefit from doing an EGD. _Severe gastritis: Will continue PPI with pantoprazole 40 mg IV along with Zofran if symptoms are not better will consult general surgery or gastroenterology for EGD. _Seizure: Has been on combination of Keppra, Lamictal and Dilantin has been seen neurology between [facility] and Dr. Charles in town more regular basis. _Recurrent migraine has been managed and monitored by zonogram along with Fioricet. _Chronic pain syndrome: Been seen with pain management has been on tramadol and hydrocodone. _Type 2 diabetes: Continue Accu-Chek with sliding scales coverage was on metformin we will switch patient probably to SGLT2 product. _Chronic depression: Has been on Zoloft and Seroquel. Still on Remeron 15 mg at at bedtime as well. _Irritable bowel syndrome with recurrent diarrhea: Has been on Bentyl and Imodium. _Fibromyalgia: Has been doing slightly better on current medication with SNRI. _Severe anxiety and agoraphobia: Remain again on Lamictal, Seroquel Zoloft and Remeron. _GI prophylaxis: Will continue pantoprazole. _DVT prophylaxis: Knee-high SMILEY hose and early mobilization. CODE STATUS: Full code. Admit patient to the hospital for an observation status for 1-2 night. Past Medical History Past Medical History: Diabetes Mellitus, Fibromyalgia, GERD/Reflux, Osteoarthritis (OA), Pneumonia, Seizure Disorder, Skin Disorder Additional Past Medical History / Comment(s): pt stated a lesion in her brain with new onset seizures with hallucinations in august 2019. hiatal hernia. 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 back pain- compression L1-L2. since august 2019 stomach pain and nausea. History of Any Multi-Drug Resistant Organisms: MRSA Date of last positivie culture/infection: 02/26/21 MDRO Source:: MRSA TOE Past Surgical History: Cholecystectomy, Tonsillectomy Additional Past Surgical History / Comment(s): brochoscopy with biopsy 2011 lung biopsy. lap choly 09/2019. egd 10/25/2019 Past Anesthesia/Blood Transfusion Reactions: No Reported Reaction Past Psychological History: Anxiety, Depression Smoking Status: Never smoker Past Alcohol Use History: None Reported Past Drug Use History: None Reported - Past Family History Father Family Medical History: Cancer Additional Family Medical History / Comment(s): heart disease Medications and Allergies Home Medications Medication Instructions Recorded Confirmed Type Phenytoin Sodium Extended 100 mg PO BID@0000,1200 10/10/19 06/24/20 History [Dilantin] Acetaminophen [Tylenol] 650 mg PO Q6H PRN 10/25/19 06/24/20 History Calcium Carbonate [Tums] 500 - 1,000 mg PO QID PRN 10/25/19 06/24/20 History Cetirizine HCl 10 mg PO HS@0000 10/25/19 06/24/20 History Simethicone [Gas-X] 125 mg PO DAILY PRN 10/25/19 06/24/20 History ondansetron HCL [Zofran] 8 mg PO Q8H PRN 10/25/19 06/24/20 History Mirtazapine [Remeron] 15 mg PO HS@0000 02/16/20 06/24/20 History Dicyclomine [Bentyl] 20 mg PO TID tab 02/23/20 06/24/20 Rx Melatonin 5 mg PO HS@0000 06/24/20 06/24/20 History Pantoprazole [Protonix] 40 mg PO AC-BID PRN 06/24/20 06/24/20 History Sertraline [Zoloft] 200 mg PO HS@0000 06/24/20 06/24/20 History lamoTRIgine [LaMICtal] 150 mg PO BID@0000,1200 06/24/20 06/24/20 History levETIRAcetam [Keppra] 250 mg PO BID@0000,1200 06/24/20 06/24/20 History QUEtiapine [SEROquel] 50 mg PO HS tab 06/30/20 Rx Zonisamide [Zonegran] 100 mg PO Q12HR cap 06/30/20 Rx clonazePAM [KlonoPIN] 0.5 mg PO DAILY tab 06/30/20 Rx lamoTRIgine [LaMICtal] 150 mg PO DAILY tab 06/30/20 Rx lamoTRIgine [LaMICtal] 200 mg PO HS tab 06/30/20 Rx Allergies Allergy/AdvReac Type Severity Reaction Status Date / Time cefaclor [From [facility]] Allergy Rash/Hives Verified 01/24/24 16:53 Physical Exam Vitals: Vital Signs Temp Pulse Resp BP Pulse Ox 01/25/24 06:11 97 19 152/71 98 01/25/24 05:00 98 17 137/85 99 01/25/24 02:00 107 H 19 182/76 96 01/24/24 23:36 101 H 19 178/75 98 01/24/24 20:52 99 18 146/83 98 01/24/24 19:55 80 18 177/100 97 01/24/24 19:38 80 18 187/111 97 01/24/24 18:22 97.6 F 78 18 187/105 94 L 01/24/24 16:39 97.7 F 66 18 178/94 96 Intake and Output 01/24/24 01/24/24 01/25/24 14:59 22:59 06:59 Other: Weight 113.398 kg Results CBC & Chem 7: 01/24/24 17:35 01/24/24 18:14 Labs: Abnormal Lab Results - Last 24 Hours (Table) 01/24/24 01/24/24 Range/Units 18:14 21:08 Sodium 135 L (137-145) mmol/L Potassium 5.2 H (3.5-5.1) mmol/L Carbon Dioxide 20 L (22-30) mmol/L BUN 20 H (7-17) mg/dL Glucose 210 H (74-99) mg/dL AST 40 H (14-36) U/L Urine Glucose (UA) 1+ H (Negative) Urine Ketones 1+ H (Negative)
[2024-01-25] MEDS: NON FORMULARY DRUG (Buprenorphine [Butrans 20 Mcg/Hour] 20 MCG/HOUR Patch) TRANSDERM SCH (13:13)
[2024-01-25] MEDS: INSULIN ASPART (NovoLOG) 100 UNIT/ML VIAL SQ SCH ×3 (13:58→15:13)
[2024-01-25] MEDS: ASPIRIN-ACET-CAFF 250-250-65MG 1 EACH TAB PO PRN (15:16)
[2024-01-25] MEDS: ONDANSETRON 4 MG/2 ML VIAL IVP PRN (15:17)
[2024-01-25] MEDS: metroNIDAZOLE 250 MG TABLET PO SCH (15:22)
[2024-01-25] MEDS ORDERED: INSULIN ASPART (NovoLOG) 100 UNIT/ML VIAL SQ SCH (17:30)
[2024-01-25 17:33] LABS: Glucose,Whole Blood 139 mg/dL (70-110)
[2024-01-25 20:26] LABS: Glucose,Whole Blood 168 mg/dL (70-110)
[2024-01-25] MEDS: TEMAZEPAM 15 MG CAP PO SCH (20:39)
[2024-01-25] MEDS: LORATADINE 10 MG TAB PO SCH (20:40)
[2024-01-25] MEDS: ATORVASTATIN 40 MG TAB PO SCH (20:40)
[2024-01-25 22:08] LABS: Glucose,Whole Blood 141 mg/dL (70-110)
[2024-01-25] MEDS: MELATONIN 5 MG TABLET PO SCH (22:15)
[2024-01-25] MEDS: clonazePAM 1 MG TAB PO SCH (22:15)
[2024-01-25] MEDS: SERTRALINE 100 MG TAB PO SCH (22:15)
[2024-01-26 05:47] LABS: Glucose,Whole Blood 95 mg/dL (70-110)
[2024-01-26 07:25] LABS: Levetiracetam (Keppra) <1.0 ug/mL (3.0-60.0)
[2024-01-26 10:02] LABS: Basophils # (A) 0.1 k/uL (0-0.2); Basophils % (A) 1 %; Eosinophils # (A) 0.2 k/uL (0-0.7); Eosinophils % (A) 2 %; HCT 36.6 % (34.0-46.0); HGB 11.8 gm/dL (11.4-16.0); Hypochromasia Marked; Lymphocytes # (A) 2.4 k/uL (1.0-4.8); Lymphocytes % (A) 24 %; MCH 27.6 pg (25.0-35.0); MCHC 32.1 g/dL (31.0-37.0); MCV 85.8 fL (80.0-100.0); Mean Platelet Volume 8.6; Monocytes # (A) 0.7 k/uL (0-1.0); Monocytes % (A) 7 %; Neutrophils # (A) 6.6 k/uL (1.3-7.7); Neutrophils % (A) 66 %; Platelet Count 242 k/uL (150-450); RBC 4.26 m/uL (3.80-5.40); RDW 14.9 % (11.5-15.5); WBC 9.9 k/uL (3.8-10.6)
[2024-01-26 10:13] LABS: ALT 16 U/L (4-34); AST 27 U/L (14-36); African American GFR (CKD) >90 (>60 ml/min/1.73 sqM); Albumin 4.2 g/dL (3.5-5.0); Albumin/Globulin Ratio 1.8; Alkaline Phosphatase 61 U/L (38-126); Anion Gap 10 mmol/L; Blood Urea Nitrogen 11 mg/dL (7-17); Calcium 9.1 mg/dL (8.4-10.2); Carbon Dioxide 21 mmol/L (22-30); Chloride 106 mmol/L (98-107); Globulin 2.4 g/dL; Glucose 144 mg/dL (74-99); Non-African American GFR(CKD) 79 (>60 ml/min/1.73 sqM); Potassium 3.9 mmol/L (3.5-5.1); Sodium 137 mmol/L (137-145); Total Bilirubin 0.4 mg/dL (0.2-1.3); Total Protein 6.6 g/dL (6.3-8.2)
[2024-01-26 11:02] LABS: Lamotrigine (Lamictal) 11.8 ug/mL (2.0-15.0)
[2024-01-26 12:06] LABS: Glucose,Whole Blood 148 mg/dL (70-110)
--- NOTE | 2024-01-26 12:59 | P.DS ---
Providers Date of admission: 01/24/24 21:20 Attending physician: Ishmael Nunez Primary care physician: [facility] Course: HISTORY OF PRESENT ILLNESS: 53-year-old with active medical history of seizure, fibromyalgia, severe GERD, possible multiple sclerosis, chronic degenerative disc disease mostly in the lumbar spine area, severe recurrent migraine, type 2 diabetes on oral medication, with history of chronic depression who has been resident to [facility] for more than 3 years has not been in the hospital Since 2020 who presented to the emergency department on 01/24/2024 late in the day complaining of intractable nausea vomiting with some abdominal discomfort apparently had similar symptoms a week ago symptoms resolved patient try Zofran and antinausea medication in [facility] not successfully declined any fever or chills was tested for COVID along with influenza AMB were negative she is complaining of intractable headache at this point with worsening pain and discomfort. Her Dilantin level was done at the emergency department was very low requesting Lamictal and Keppra level is pending at this point. Patient was hydrated for several hours in the emergency room symptoms did not resolve ended up admitting patient to the hospital for symptoms control. CAT scan of the abdomen and pelvis shows post cholecystectomy with 9 cm dermoid in the right inguinal change since 2019 otherwise no sign of obstruction or major abnormality. Blood work and lab testing shows normal CBC chemistry with mild elevated blood sugar and liver function test troponin was negative UA was negative her GFR was over 90. January 26, 2024: She is feeling much better no further nausea vomiting, repeat lab late yesterday shows slightly elevated white blood cell at 15,300 mostly reactive to her intractable nausea vomiting mildly elevated sugar otherwise looks good. CAT scan of the abdomen and pelvis again was reviewed in full did not show any major abnormality except 9 cm dermoid right at the next appears since February 16, 2020. Titrate hydration and oral intake the patient hopefully will be returning back to [facility] today. REVIEW OF SYSTEMS: CONSTITUTIONAL: Obese no acute respiratory distress. EYES: No icterus sclerae, no conjunctivitis. EARS, NOSE, MOUTH, THROAT, and FACE: No sore throat, lymphadenopathy, carotid bruits or deformity. RESPIRATORY: No SOB cough or wheezes. CARDIOVASCULAR: No CP, Palpitation, PND, Orthopnea, or angina. GASTROINTESTINAL: Positive abdominal discomfort with nausea and vomiting no diarrhea or constipation. GENITOURINARY: Negative for Hematuria or UTI, no kidney stones. INTEGUMENT/BREAST: Generalized muscle and joint pain with back pain as well. HEMATOLOGIC/LYMPHATIC: Negative for bleed or purpura. MUSCULOSKELTAL: Generalized arthralgia and fibromyalgia. NEURLOGICAL: No LOC, Sz or syncope, blurred vision dizziness or abnormality. Recurrent history of migraine.. BEHAVIORAL/PSYCH: Negative. ENDOCRINE: Negative. PHYSICAL EXAMINATION: General Appearance: Alert, cooperative, no distress, appears stated age. Neck HEENT: Supple, no lymphadenopathy, no thyroid enlargement, no carotid bruits. Lungs: Clear to auscultation without crackles or wheezes no rhonchi, no deformity. Chest Wall: Chest wall normal expansion with deep inspiration no tenderness and no deformity was found on exam, no costochondral pain or discomfort. Heart: Regular rate and rhythm, S1, S2 normal, no murmur, rub or gallop. Back: Mild scoliosis with slight discomfort lower lumbar area. Abdomen: Soft, non-tender, bowel sounds active all four quadrants, positive discomfort in the epigastric and mid abdominal area no rebound or rigidity. Extremities: Extremities normal, atraumatic, no cyanosis or edema. Pulses: 2+ and symmetric. Skin: Skin color, texture, tugor normal, no rashes or lesions. Neurologic: Alert oriented x3 cranial nerves II through XII intact, no motor deficit, no abnormal balance or gait. ASSESSMENT AND PLAN: _Intractable nausea and vomiting: Symptoms are much better and was most likely secondary to severe gastritis and gastroenteritis, continue hydration with antiemetic medication, no need for any intervention at this point. _Severe gastritis: Will continue PPI with pantoprazole 40 mg IV along with Zofran if symptoms are not better will consult general surgery or gastroenterology for EGD. _Seizure: Has been on combination of Keppra, Lamictal and Dilantin has been seen neurology between [facility] and Dr. Charles in town more regular basis. _Recurrent migraine has been managed and monitored by zonogram along with Fioricet. _Chronic pain syndrome: Been seen with pain management has been on tramadol and hydrocodone. _Type 2 diabetes: Continue Accu-Chek with sliding scales coverage was on metformin we will switch patient probably to SGLT2 product. _Chronic depression: Has been on Zoloft and Seroquel. Still on Remeron 15 mg at at bedtime as well. _Irritable bowel syndrome with recurrent diarrhea: Has been on Bentyl and Imodium. _Fibromyalgia: Has been doing slightly better on current medication with SNRI. _Severe anxiety and agoraphobia: Remain again on Lamictal, Seroquel Zoloft and Remeron. _GI prophylaxis: Will continue pantoprazole. Discussion: Patient is feeling much better titrate hydration and oral intake and resume all meds as before. Patient be returning back tomorrow today. Hospital course: The patient was sent The hospital from [facility] for intractable symptoms consistent with intractable nausea and vomiting with slight abdominal discomfort could not control it at [facility] despite using Zofran and hydration. Initial workup including pulmonary culture came back to be negative, CAT scan of the abdomen did not show any major abnormality, her blood panel was completely negative for UA troponin or any infection. Second CBC came back mildly elevated specially with intractable nausea vomiting with no further complaint at this point. Patient was started on oral intake and hydration and felt much better we will titrate her intake resume all her home meds and prepare hopefully for some of her back to [facility] today January 26, 2024. Time spent on patient discharge was over 30 minutes. Plan - Discharge Summary Discharge Rx Participant: No New Discharge Prescriptions: Continue Simethicone [Gas-X] 125 mg PO DAILY PRN PRN Reason: Gi Upset Calcium Carbonate [Tums] 500 - 1,000 mg PO QID PRN PRN Reason: Heartburn Acetaminophen [Tylenol] 650 mg PO Q4H PRN PRN Reason: Fever And/ Or Pain Cetirizine HCl 10 mg PO HS ondansetron HCL [Zofran] 8 mg PO Q8H PRN PRN Reason: Nausea And Vomiting Sertraline [Zoloft] 200 mg PO HS@0000 Melatonin 5 mg PO HS@0000 Albuterol Sulfate [Ventolin HFA] 2 puff INHALATION RT-Q4H PRN PRN Reason: Shortness Of Breath Aspirin 81 mg PO DAILY Brimonidine Tartrate [Alphagan P 0.2% Ophth Soln] 1 drop BOTH EYES BID Buprenorphine [Butrans 20 MCG/HOUR] 1 patch TRANSDERM WE Butalb/Acetaminophen/Caffeine [Fioricet 50-300-40 mg Capsule] 1 cap PO Q6H PRN PRN Reason: Headache Clotrimazole Cream [Lotrimin Cream] 1 applic TOPICAL BID PRN PRN Reason: fungal infection groin area Collagenase [Santyl Ointment] 1 applic TOPICAL DAILY Eszopiclone [Lunesta] 2 mg PO HS Ibuprofen [Motrin Ib] 600 mg PO BID PRN PRN Reason: Pain Ketotifen Fumarate [Ketotifen Fumarate Ophth Soln] 2 drop BOTH EYES 5XD PRN PRN Reason: Allergy Symptoms Na Phos,M-B/Na Phos,Di-Ba [Fleet Adult] 133 ml RECTAL DAILY PRN PRN Reason: Constipation Rimegepant Sulfate [Nurtec Odt] 75 mg SL Q48H PRN PRN Reason: Migraine Headache sitaGLIPtin PHOS/metFORMIN HCL [Janumet 50-500 mg Tablet] 1 tab PO BID Magnesium Hydroxide [Milk of Magnesia Concentrate] 7,200 mg PO Q2D PRN PRN Reason: No BM for 2 days clonazePAM [KlonoPIN] 0.5 mg PO BID@0900,1400 Zonisamide [Zonegran] 200 mg PO DAILY Ocusoft Lid Scrub Plus External Pad 1 applic BOTH EYES DAILY Acetaminophen Tab [Tylenol] 500 mg PO TID Aspirin/Acetaminophen/Caffeine [Excedrin Migraine Caplet] 2 tab PO BID PRN PRN Reason: Migraine Headache Atorvastatin [Lipitor] 40 mg PO HS bisacodyL [Dulcolax] 10 mg RECTAL DAILY PRN PRN Reason: Constipation Cholecalciferol [Vitamin D3 (25 Mcg = 1000 Iu)] 100 mcg PO DAILY clonazePAM [KlonoPIN] 2 mg PO HS Famotidine 20 mg PO DAILY lamoTRIgine [LaMICtal Xr] 500 mg PO DAILY Loperamide HCl [Imodium A-D] 2 - 4 mg PO QID PRN PRN Reason: Diarrhea Discharge Medication List Acetaminophen [Tylenol] 650 mg PO Q4H PRN 10/25/19 [History] Calcium Carbonate [Tums] 500 - 1,000 mg PO QID PRN 10/25/19 [History] Cetirizine HCl 10 mg PO HS 10/25/19 [History] Simethicone [Gas-X] 125 mg PO DAILY PRN 10/25/19 [History] ondansetron HCL [Zofran] 8 mg PO Q8H PRN 10/25/19 [History] Melatonin 5 mg PO HS@0000 06/24/20 [History] Sertraline [Zoloft] 200 mg PO HS@0000 06/24/20 [History] Acetaminophen Tab [Tylenol] 500 mg PO TID 01/25/24 [History] Albuterol Sulfate [Ventolin HFA] 2 puff INHALATION RT-Q4H PRN 01/25/24 [History] Aspirin 81 mg PO DAILY 01/25/24 [History] Aspirin/Acetaminophen/Caffeine [Excedrin Migraine Caplet] 2 tab PO BID PRN 01/25/24 [History] Atorvastatin [Lipitor] 40 mg PO HS 01/25/24 [History] Brimonidine Tartrate [Alphagan P 0.2% Oph Soln] 1 drop BOTH EYES BID 01/25/24 [History] Buprenorphine [Butrans 20 MCG/HOUR] 1 patch TRANSDERM WE 01/25/24 [History] Butalb/Acetaminophen/Caffeine [Fioricet 50-300-40 mg Capsule] 1 cap PO Q6H PRN 01/25/24 [History] Cholecalciferol [Vitamin D3 (25 Mcg = 1000 Iu)] 100 mcg PO DAILY 01/25/24 [History] Clotrimazole Cream [Lotrimin Cream] 1 applic TOPICAL BID PRN 01/25/24 [History] Collagenase [Santyl Ointment] 1 applic TOPICAL DAILY 01/25/24 [History] Eszopiclone [Lunesta] 2 mg PO HS 01/25/24 [History] Famotidine 20 mg PO DAILY 01/25/24 [History] Ibuprofen [Motrin Ib] 600 mg PO BID PRN 01/25/24 [History] Ketotifen Fumarate [Ketotifen Fumarate Ophth Soln] 2 drop BOTH EYES 5XD PRN 01/25/24 [History] Loperamide HCl [Imodium A-D] 2 - 4 mg PO QID PRN 01/25/24 [History] Magnesium Hydroxide [Milk of Magnesia Concentrate] 7,200 mg PO Q2D PRN 01/25/24 [History] Na Phos,M-B/Na Phos,Di-Ba [Fleet Adult] 133 ml RECTAL DAILY PRN 01/25/24 [History] Ocusoft Lid Scrub Plus External Pad 1 applic BOTH EYES DAILY 01/25/24 [History] Rimegepant Sulfate [Nurtec Odt] 75 mg SL Q48H PRN 01/25/24 [History] Zonisamide [Zonegran] 200 mg PO DAILY 01/25/24 [History] bisacodyL [Dulcolax] 10 mg RECTAL DAILY PRN 01/25/24 [History] clonazePAM [KlonoPIN] 0.5 mg PO BID@0900,1400 01/25/24 [History] clonazePAM [KlonoPIN] 2 mg PO HS 01/25/24 [History] lamoTRIgine [LaMICtal Xr] 500 mg PO DAILY 01/25/24 [History] sitaGLIPtin PHOS/metFORMIN HCL [Janumet 50-500 mg Tablet] 1 tab PO BID 01/25/24 [History] Follow up Appointment(s)/Referral(s): Ishmael Nunez MD [Primary Care Provider] - 1-2 days Discharge Disposition: TRANSFER TO SNF/ECF
[2024-01-26 14:25] VITALS: BP 169/90
[2024-01-26 14:40] VITALS: PULSE 69; RESP 16; TEMP 98.2
--- NOTE | 2024-01-29 19:28 | P.PN ---
Subjective Progress Note Date: 01/26/24 HISTORY OF PRESENT ILLNESS: 53-year-old with active medical history of seizure, fibromyalgia, severe GERD, possible multiple sclerosis, chronic degenerative disc disease mostly in the lumbar spine area, severe recurrent migraine, type 2 diabetes on oral medication, with history of chronic depression who has been resident to [facility] for more than 3 years has not been in the hospital Since 2020 who presented to the emergency department on 01/24/2024 late in the day complaining of intractable nausea vomiting with some abdominal discomfort apparently had similar symptoms a week ago symptoms resolved patient try Zofran and antinausea medication in [facility] not successfully declined any fever or chills was tested for COVID along with influenza AMB were negative she is complaining of intractable headache at this point with worsening pain and discomfort. Her Dilantin level was done at the emergency department was very low requesting Lamictal and Keppra level is pending at this point. Patient was hydrated for several hours in the emergency room symptoms did not resolve ended up admitting patient to the hospital for symptoms control. CAT scan of the abdomen and pelvis shows post cholecystectomy with 9 cm dermoid in the right inguinal change since 2019 otherwise no sign of obstruction or major abnormality. Blood work and lab testing shows normal CBC chemistry with mild elevated blood sugar and liver function test troponin was negative UA was negative her GFR was over 90. January 26, 2024: She is feeling much better no further nausea vomiting, repeat lab late yesterday shows slightly elevated white blood cell at 15,300 mostly reactive to her intractable nausea vomiting mildly elevated sugar otherwise looks good. CAT scan of the abdomen and pelvis again was reviewed in full did not show any major abnormality except 9 cm dermoid right at the next appears since February 16, 2020. Titrate hydration and oral intake the patient hopefully will be returning back to [facility] today. REVIEW OF SYSTEMS: CONSTITUTIONAL: Obese no acute respiratory distress. EYES: No icterus sclerae, no conjunctivitis. EARS, NOSE, MOUTH, THROAT, and FACE: No sore throat, lymphadenopathy, carotid bruits or deformity. RESPIRATORY: No SOB cough or wheezes. CARDIOVASCULAR: No CP, Palpitation, PND, Orthopnea, or angina. GASTROINTESTINAL: Positive abdominal discomfort with nausea and vomiting no diarrhea or constipation. GENITOURINARY: Negative for Hematuria or UTI, no kidney stones. INTEGUMENT/BREAST: Generalized muscle and joint pain with back pain as well. HEMATOLOGIC/LYMPHATIC: Negative for bleed or purpura. MUSCULOSKELTAL: Generalized arthralgia and fibromyalgia. NEURLOGICAL: No LOC, Sz or syncope, blurred vision dizziness or abnormality. Recurrent history of migraine.. BEHAVIORAL/PSYCH: Negative. ENDOCRINE: Negative. PHYSICAL EXAMINATION: General Appearance: Alert, cooperative, no distress, appears stated age. Neck HEENT: Supple, no lymphadenopathy, no thyroid enlargement, no carotid bruits. Lungs: Clear to auscultation without crackles or wheezes no rhonchi, no deformity. Chest Wall: Chest wall normal expansion with deep inspiration no tenderness and no deformity was found on exam, no costochondral pain or discomfort. Heart: Regular rate and rhythm, S1, S2 normal, no murmur, rub or gallop. Back: Mild scoliosis with slight discomfort lower lumbar area. Abdomen: Soft, non-tender, bowel sounds active all four quadrants, positive disc omfort in the epigastric and mid abdominal area no rebound or rigidity. Extremities: Extremities normal, atraumatic, no cyanosis or edema. Pulses: 2+ and symmetric. Skin: Skin color, texture, tugor normal, no rashes or lesions. Neurologic: Alert oriented x3 cranial nerves II through XII intact, no motor deficit, no abnormal balance or gait. ASSESSMENT AND PLAN: _Intractable nausea and vomiting: Symptoms are much better and was most likely secondary to severe gastritis and gastroenteritis, continue hydration with antiemetic medication, no need for any intervention at this point. _Severe gastritis: Will continue PPI with pantoprazole 40 mg IV along with Zofran if symptoms are not better will consult general surgery or gastroenterology for EGD. _Seizure: Has been on combination of Keppra, Lamictal and Dilantin has been seen neurology between [facility] and Dr. Charles in town more regular basis. _Recurrent migraine has been managed and monitored by zonogram along with Fioricet. _Chronic pain syndrome: Been seen with pain management has been on tramadol and hydrocodone. _Type 2 diabetes: Continue Accu-Chek with sliding scales coverage was on me tformin we will switch patient probably to SGLT2 product. _Chronic depression: Has been on Zoloft and Seroquel. Still on Remeron 15 mg at at bedtime as well. _Irritable bowel syndrome with recurrent diarrhea: Has been on Bentyl and Imodium. _Fibromyalgia: Has been doing slightly better on current medication with SNRI. _Severe anxiety and agoraphobia: Remain again on Lamictal, Seroquel Zoloft and Remeron. Discussion: Patient is feeling much better will continue hydration continue PPI she will be sent to [facility] on gastroenteritis management with Flagyl for 1 week. Objective - Vital Signs Vital signs: Vital Signs Temp 98.1 F 01/26/24 01:59 Pulse 72 01/26/24 01:59 Resp 18 01/26/24 01:59 BP 95/60 01/26/24 01:59 Pulse Ox 94 L 01/26/24 01:59 FiO2 Intake & Output 01/25/24 01/25/24 01/26/24 06:59 18:59 06:59 Intake Total 118 1080 Output Total 2 Balance 118 1078 Weight 113.398 kg Intake: Oral 118 1080 Output: Urine 2 Other: # Voids 2 2 - Labs CBC & Chem 7: 01/26/24 09:30 01/26/24 09:30 Labs: Abnormal Lab Results - Last 24 Hours (Table) 01/25/24 01/25/24 01/25/24 Range/Units 08:34 08:34 12:10 WBC 15.3 H (3.8-10.6) k/uL Neutrophils # 13.2 H (1.3-7.7) k/uL Carbon Dioxide 21 L (22-30) mmol/L Glucose 160 H (74-99) mg/dL POC Glucose (mg/dL) 208 H (70-110) mg/dL 01/25/24 01/25/24 01/25/24 Range/Units 17:31 20:24 22:06 WBC (3.8-10.6) k/uL Neutrophils # (1.3-7.7) k/uL Carbon Dioxide (22-30) mmol/L Glucose (74-99) mg/dL POC Glucose (mg/dL) 139 H 168 H 141 H (70-110) mg/dL
== END 2024-01-26 15:57 ==
LOC: EC 16:35 → 6NMEDSUR 21:20
PROVIDERS: ADMIT Internal Medicine Geriatric Medicine; ATTEND Internal Medicine Geriatric Medicine
DX: K29.70 Gastritis, unspecified, without bleeding (principal); I10 Essential (primary) hypertension; E11.9 Type 2 diabetes mellitus without complications; K21.9 Gastro-esophageal reflux disease without esophagitis; F32.A Depression, unspecified; F41.9 Anxiety disorder, unspecified; G43.909 Migraine, unspecified, not intractable, without status migrainosus; G40.909 Epilepsy, unspecified, not intractable, without status epilepticus; G89.4 Chronic pain syndrome; K58.0 Irritable bowel syndrome with diarrhea; M79.7 Fibromyalgia; F40.00 Agoraphobia, unspecified; Z90.49 Acquired absence of other specified parts of digestive tract; Z79.84 Long term (current) use of oral hypoglycemic drugs; Z79.899 Other long term (current) drug therapy; Z88.1 Allergy status to other antibiotic agents
CPT/HCPCS: 96376 ×3; 96361 ×3; 96374; 96375; 99285; 36415; 93005; 80053 ×2; 80048; 80175; 80177; 82150; 80185; 83690; 84484; 85025 ×3; 85610; 85730; 81003; 74176; G0378 ×3; J0360; J2765; J2405 ×3; J2470 ×3

== ENCOUNTER → 2024-09-25 | Outpatient (CLI) | payer MEDICARE, OTHER ==
--- NOTE | 2024-09-25 15:19 | NM ---
EXAMINATION TYPE: NM bone 3 phase DATE OF EXAM: 09/25/2024 COMPARISON: NONE CLINICAL INDICATION: Female, 54 years old with history of S91.301A OPEN WOUND, RIGHT FOOT; Triple phase bone scintigraphy was performed following the injection of 23.9 mCi Tc 99m MDP. Immedia te images and 5.5 hours post injection images acquired. FINDINGS: Dynamic arterial and soft tissue phase images show increased radiotracer uptake to the right ankle an d foot versus opposite left side and most prominent involving the distal first and second toes. Delay ed phase images show persistent asymmetric increased radiotracer uptake at the first and second toes in the right foot. IMPRESSION: Acute osteomyelitis needs to be suspected involving distal first and second toes right fo ot. [facility], , 09/25/2024 3:17 PM
== END | disposition home or self-care (01) ==
LOC: RADNMMAIN 07:15
PROVIDERS: ATTEND Surgery
DX: S91.301A Unspecified open wound, right foot, initial encounter (principal); X58.XXXA Exposure to other specified factors, initial encounter
CPT/HCPCS: 78315; A9503

== ENCOUNTER → 2024-10-22 | Outpatient (CLI) | payer MEDICARE, OTHER | END | disposition home or self-care (01) | LOC: LABWHC1 13:52 | PROVIDERS: ATTEND Internal Medicine Geriatric Medicine | DX: Z83.2 Family history of diseases of the blood and blood-forming organs and certain disorders involving the immune mechanism (principal) | CPT/HCPCS: 36415; 81240; 85300; 85303; 85306; 85307; 85379; 85384; 85610; 85613; 85670; 85730 ==